=== PATIENT | male | born 1930 | race Caucasian/White ===

== ENCOUNTER 2017-06-04 12:05 | Inpatient (IN) | payer OTHER, MEDICARE ==
--- OUTSIDE RECORDS SUMMARY | 2017-06-04 12:07 | XMS REPORT ---
:1930 [facility] Address [address] [place] [address] Dr. Chun [address] [place] [id number] Care Team Providers Name Role Phone CHRISTEN CALZADA Primary Care Provider Unavailable CHRISTEN CALZADA Unavailable Unavailable Problems This patient has no known problems. Allergies, Adverse Reactions, Alerts This patient has no known allergies or adverse reactions. Medications This patient has no known medications. Results Test Description Test Time Test Comments Text Results Atomic Results Result Comments HLA B 27 Disease Association 2017-02-07 16:08:00 Test Item Value Reference Range Comments HLA-B27 (test qtvc=[id number]) Positive HLA-B*27 PositiveThis patient is positive for HLA-B*27. This procedure rulesout the B*27:06 and 27:09 alleles, which the literaturesuggests are not associated with spondyloarthropathies.B27 allele interpretation for all loci based on IMGT/HLAdatabase version 3.27This test was developed and its performance characteristicsdetermined by [facility]. It has not been cleared or approvedby the Food and Drug Administration.[facility] CLIA ID Number [id number] test was performed using PCR (Polymerase Chain Reaction)/SSOP(Sequence Specific Oligonucleotide Probes) technique. SBT (SequenceBased Typing) and/or SSP (Sequence Specific Primers) may be used assupplemental methods when necessary. Please contact [facility] CustomerService at if you have any questions. Director of [facility] Laboratory Dr Christen Preciado, PhD Sed Rate ESR ([place])2017-01-31 22:44:00 Test Item Value Reference Range Comments ESR (test code=HESR) 2 mm/Hr 0-9 Sed Rate ESR ([place])2017-01-16 04:42:00 Test Item Value Reference Range Comments ESR (test code=HESR) 6 mm/Hr 0-9 Lipid [id number] 23:47:00 Test Item Value Reference Range Comments Cholesterol (test 167 mg/dL 0-200 code=CHOL) Triglycerides (test 44 mg/dL 9-200 code=TRIG) HDL (test code=HDL) 75 mg/dL 40-60 Chol/HDL (test 2.2 Ratio 0.0-5.0 code=CHOLPHDL) LDL, Calculated (test 83 mg/dL 0-130 (NOTE)RISK OF HEART code=LDLC) DISEASEPublished by [place] Heart AssociationAnalyte Optimal Boderline Increased RiskCHOL <200 200-239 >240TRIG <150 150-199 >200HDL Male: >60 <40HDL Female: >60 <50LDL <100 130-159 >160LDL NEAR OPTIMAL IS 100-129 VLDL (test code=VLDL) 9 mg/dL 5-40 LDL/HDL (test code=LDLPHDL) 1 Comprehensive Metabolic [id number] 23:47:00 Test Item Value Reference Range Comments Sodium (test code=NA) 142 mmol/L 135-145 Potassium (test code=K) 4.2 mmol/L 3.5-5.1 Chloride (test code=CL) 102 mmol/L 98-105 Carbon Dioxide (test 34 mmol/L 22-29 code=CO2) Glucose (test code=GLU) 94 mg/dL 70-115 Blood Urea Nitrogen 24 mg/dL 8-23 (test code=BUN) Creatinine (test 1.1 mg/dL 0.7-1.2 code=CREAT) Calcium (test code=CA) 9.0 mg/dL 8.3-10.5 Prot Total (test 6.2 g/dL 6.4-8.3 code=TP) Albumin (test code=ALB) 4.1 g/dL 3.5-5.2 A/G Ratio (test 2.0 Ratio code=AGRATIO) Globulin (test 2.1 2.9-3.1 code=GLOB) Bili Total (test 0.5 mg/dL 0.1-0.9 code=TBIL) Alk Phos (test 55 U/L 40-129 code=APHOS) AST (test code=AST) 28 U/L 1-40 ALT (test code=ALT) 19 U/L 1-41 BUN/Creatinine Ratio 21.8 (test code=BCRATIO) Anion Gap (test 6 mmol/L 7-16 code=AGAP) Estimated GFR (test >60 eGFR (estimated Glomerular code=GFR) mL/min/1.73m2 Filtration Rate) is an estimated value,calculated from the patient's serum creatinine using the MDRD equation.It is NOT the patient's actual GFR. The eGFR provides a more clinicallyuseful measure of kidney disease than serum creatinine alone.This calculation takes sex and race into account, if the informationis provided. If the race is not provided, and the patient isAfrican-[place], multiply by 1.212. If sex is not provided, and thepatient is female, multiply by 0.742. Results for patients <18 years ofage have not been validated by the MDRD study and should be interpretedwith caution.eGFR Result Interpretation:eGFR > or=60 is in the Normal RangeeGFR < 60 may mean kidney diseaseeGFR < 15 may mean kidney failureRanges recommended by the National Kidney Foundation,http://nkdep.ni h.gov CBC with [id number] 23:41:00 Test Item Value Reference Range Comments WBC (test code=WBC) 5.6 K/cumm 4.4-10.5 RBC (test code=RBC) 4.16 M/cumm 4.10-5.70 Hemoglobin (test code=HGB) 12.7 gm/dL 13.4-17.4 Hematocrit (test code=HCT) 41.5 % 38.7-52.0 MCV (test code=MCV) 99.7 fL 80-100 MCH (test code=MCH) 30.5 pg 27.0-32.5 MCHC (test code=MCHC) 30.6 g/dL 32.0-37.5 RDW (test code=RDW) 14.0 % 11.5-14.5 Platelet Count (test code=PLTCT) 221 K/cumm 140-440 MPV (test code=MPV) 9.3 fL Diff Method (test code=DIFFM) Auto Neutrophil (test code=NEUT) 68.4 % 36-70 Lymphocyte (test code=LYMPH) 17.9 % 12-44 Monocyte (test code=MONO) 9.4 % 0-11 Eosinophil (test code=EOS) 3.1 % 0-7 Basophil (test code=BASO) 1.0 % 0-2 Neutro Abs (test code=ANEUT) 3.9 K/cumm 1.6-7.4 Lymph Abs (test code=ALYMPH) 1.0 K/cumm 0.5-4.6 [place] Abs (test code=AMONO) 0.5 K/cumm 0.0-1.2 Eos Abs (test code=AEOS) 0.17 K/cumm 0.00-0.74 Baso Abs (test code=ABASO) 0.1 K/cumm 0.00-0.21
[2017-06-04 13:09] LABS: Absolute Lymphocytes (CBC) 0.6 K/uL (0.7-4.9); Absolute Monocytes 0.9 K/uL (0.1-1.3); Absolute Neutrophil 4.8 K/uL (1.8-8.0); Basophils % 1.2 % (0-1.3); Eosinophils % 6.8 % (0-4.4); Hematocrit 39.2 % (39.6-49.0); Lymphocytes % 8.9 % (15.3-44.8); MCH 30.7 pg (27.0-35.0); MCV 97.3 fL (80-100); MPV 9.2 fL (7.6-11.3); Monocytes % 13.5 % (3.3-12.3); RBC Red Blood Cell Count 4.03 M/uL (4.33-5.43)
[2017-06-04 13:24] LABS: Potassium 4.3 mEq/L (3.6-5.0)
--- NOTE | 2017-06-04 14:04 | EKG ---
Test Date: 2017-06-04 Test Time: 12:53:39 Child And Adolescent Therapist: MATI MEASUREMENT RESULTS: Intervals: Rate: 68 AR: QRSD: 138 QT: 452 QTc: 480 [place]: P: AR: QRS: -27 T: 260 INTERPRETIVE STATEMENTS: Atrial fibrillation Right bundle branch block Abnormal ECG Compared to ECG 05/17/2016 15:28:35 Sinus rhythm no longer present First degree AV block no longer present Left ventricular hypertrophy no longer present Electronically Signed On 06-04-17 14:03:39 CDT by Corona Wang
--- NOTE | 2017-06-04 14:13 | RAD REPORT ---
EXAM DESCRIPTION: RAD - Chest Single View - 06/04/2017 1:01 pm CLINICAL HISTORY: Cough, dyspnea, shortness of breath COMPARISON: Portable chest May 16, CT study May 15, chest exam December 2016 TECHNIQUE: AP portable chest image was obtained 1256 hours . FINDINGS: Lung volumes are relatively low. PICC line has been removed since the prior study. Cardiac silhouette is enlarged. Pulmonary vasculature is within normal limits for portable shallow inspirati on exam. No pneumothorax or large pleural effusion. Left base atelectasis is suspected. There is better aeration of the lung parenchyma overall compared to the prior study. There are now id entifiable pulmonary nodules in the right midlung field. These are relatively dense and more present back on the December 2016 imaging can detailed on that report. These are probably calcified granulomas . These can be monitored on subsequent imaging. No other nodule confirmed. No gross bony abnormality seen. No acute aortic findings suspected. IMPRESSION: Limited shallow inspiration film showing atelectasis but no definitive infiltrate in eit her lung base. Stable cardiomegaly without significant failure or volume overload. Right midlung field pulmonary nodules are probably calcified granulomas. These have not changed since December 2016.
--- NOTE | 2017-06-04 14:45 | EDPHYS ---
Physician Documentation [facility] Name: Byron Martin Jr Age: 86 yrs Sex: Male : 1930 Arrival Date: 06/04/2017 Time: 12:06 Bed 14 Private MD: ED Physician Jeronimo Guerrero HPI: 06/04 12:47 This 86 yrs old Male presents to ER via Wheelchair with complaints of rn Swelling, Shortness Of Breath. 12:47 The patient has shortness of breath at rest, with light activity. Onset: The rn symptoms/episode began/occurred at an unknown time. Duration: The symptoms are intermittent. The patient's shortness of breath is aggravated by exertion, light activity, talking, walking. Associated signs and symptoms: Pertinent positives: productive cough, Pertinent negatives: fever, hemoptysis, loss of consciousness. Severity of symptoms: At their worst the symptoms were mild in the emergency department the symptoms are unchanged. The patient has experienced similar episodes in the past. Reports leg swelling and sob over last few days, states has dealt with this a long time ,has been in and out of hospitals for this, no fever, + yellow sputum. . Historical: - Allergies: 12:09 Iodine; hb 13:15 Iodinated Contrast- Oral and IV Dye; tw2 - Home Meds: 13:15 furosemide 40 mg oral tab 1 tab once daily [Active]; carvedilol 3.125 mg oral tab 1 tab tw2 2 times per day [Active]; bacitracin 500 unit/gram Opht oint 2 drop twice a day [Active]; - PMHx: 13:15 Hypertension; tw2 - Immunization history:: Adult Immunizations up to date. - Social history:: Smoking status: Patient/guardian denies using tobacco. - Family history:: not pertinent. - Hospitalizations: : No recent hospitalization is reported. ROS: 12:47 Constitutional: Negative for fever, chills, and weight loss, Eyes: Negative for injury, rn pain, redness, and discharge, Neck: Negative for injury, pain, and swelling, Cardiovascular: Negative for chest pain, palpitations Respiratory: Negative for wheezing, and pleuritic chest pain, Abdomen/GI: Negative for abdominal pain, nausea, vomiting, diarrhea, and constipation, Back: Negative for injury and pain, MS/Extremity: Negative for injury and deformity, Skin: Negative for injury, rash, and discoloration, Neuro: Negative for headache, numbness, tingling, and seizure. Exam: 12:47 Constitutional: This is a well developed, well nourished patient who is awake, alert, rn and in no acute distress. Head/Face: Normocephalic, atraumatic. Eyes: Pupils equal round and reactive to light, extra-ocular motions intact. Lids and lashes normal. Conjunctiva and sclera are non-icteric and not injected. Cornea within normal limits. Periorbital areas with no swelling, redness, or edema. Neck: Trachea midline, no thyromegaly or masses palpated, and no cervical lymphadenopathy. Supple, full range of motion without nuchal rigidity, or vertebral point tenderness. No Meningismus. Cardiovascular: Regular rate and rhythm with a normal S1 and S2. No gallops, murmurs, or rubs. Normal PMI, no JVD. No pulse deficits. Respiratory: + mild tachypnea with bibasilar crackles, no wheezing, able to speak full sentences Abdomen/GI: Soft, non-tender, with normal bowel sounds. No distension or tympany. No guarding or rebound. No evidence of tenderness throughout. MS/ Extremity: Pulses equal, no cyanosis. Neurovascular intact. Full, normal range of motion. Equal circumference. 3+ pitting edema bilateral lower ext Neuro: Awake and alert, GCS 15, oriented to person, place, and situation. Cranial nerves II-XII grossly intact. Vital Signs: 12:10 BP 117 / 61; Pulse 78; Resp 20; Temp 98; Pulse Ox 100% ; Pain 3/10; hb 13:06 BP 124 / 57; Pulse 75; Resp 22; Pulse Ox 91% on R/A; tw2 14:15 BP 153 / 66; Pulse 78; Resp 23; Pulse Ox 99% on 2 lpm NC; tw2 15:30 BP 134 / 62; Pulse 72; Resp 20; Pulse Ox 99% on 2 lpm NC; rk2 13:06 pt placed on o2 via 2 L at this time. will continue to monitor tw2 MDM: 12:32 Patient medically screened. rn 14:43 Differential diagnosis: CHF exacerbation, Myocardial Infarction pneumonia, Pneumothorax rn pulmonary edema. Data reviewed: vital signs, nurses notes, lab test result(s), EKG, radiologic studies, plain films, and as a result, I will admit patient. Counseling: I had a detailed discussion with the patient and/or guardian regarding: the historical points, exam findings, and any diagnostic results supporting the discharge/admit diagnosis, lab results, radiology results, the need for further work-up and treatment in the hospital. Admission orders: after a detailed discussion of the patient's condition and case, the admit orders are written by me. 06/04 12:42 Order name: Blood Culture Adult (2) 06/04 12:42 Order name: BMP 06/04 12:42 Order name: BNP 06/04 12:42 Order name: Troponin (emerg Dept Use Only) 06/04 12:42 Order name: Urine Microscopic Only 06/04 12:42 Order name: Urine Culture 06/04 13:10 Order name: CBC with Automated Diff; Complete Time: 13:23 EDSC 06/04 13:24 Order name: Basic Metabolic Panel; Complete Time: 14:13 [facility] 06/04 13:32 Order name: Troponin (Emerg Dept Use Only); Complete Time: 14:13 EDSC 06/04 13:34 Order name: BNP B-Type Natriuretic Peptide; Complete Time: 14:13 [facility] 06/04 15:47 Order name: Urine Dipstick--Ancillary (enter results) 06/04 15:52 Order name: Urine Dipstick-Ancillary [facility] 06/04 16:13 Order name: Urine Microscopic Only [facility] 06/04 12:42 Order name: XRAY Chest (1 view) 06/04 12:42 Order name: EKG; Complete Time: 12:42 06/04 12:42 Order name: Cardiac monitoring; Complete Time: 12:43 06/04 12:42 Order name: EKG - Nurse/Tech; Complete Time: 12:43 06/04 12:42 Order name: IV Saline Lock; Complete Time: 12:43 06/04 12:42 Order name: Labs collected and sent; Complete Time: 12:43 06/04 12:42 Order name: O2 Per Protocol; Complete Time: 12:43 06/04 12:42 Order name: O2 Sat Monitoring; Complete Time: 12:43 06/04 12:42 Order name: Urine Dipstick-Ancillary (obtain specimen); Complete Time: 14:10 rn 06/04 14:13 Order name: RAD; Complete Time: 14:34 EDMS Administered Medications: 14:44 Drug: Lasix 40 mg Route: IVP; Site: right antecubital; tw2 Disposition: 06/04/17 14:44 Hospitalization ordered by Jovon Castillo for Observation. Preliminary diagnosis are Unspecified combined systolic (congestive) and diastolic (congestive) heart failure, Dyspnea, unspecified. - Bed requested for Telemetry/MedSurg (observation). - Status is Observation. rk2 - Condition is Stable. - Problem is an ongoing problem. - Symptoms have improved. UTI on Admission? No Signatures: Dispatcher [employer] EDMS Gifty Stevenson Roman, MD MD rn Baxter, Heather, RN RN hb Wise, Tara, RN RN tw2 [employer] RN RN rk2 Corrections: (The following items were deleted from the chart) 14:10 12:42 CBC+H.LAB.BRZ ordered. EDSC EDMS
--- NOTE | 2017-06-04 14:45 | ER ---
Nurse's Notes [facility] Name: Byron Martin Jr Age: 86 yrs Sex: Male : 1930 Arrival Date: 06/04/2017 Time: 12:06 Bed 14 Private MD: Diagnosis: Unspecified combined systolic (congestive) and diastolic (congestive) heart failure;Dyspnea, unspecified Presentation: 06/04 12:08 Presenting complaint: Patient states: SOB and productive cough x 3 days. Transition of hb care: patient was not received from another setting of care. Onset of symptoms is unknown. Care prior to arrival: None. 12:08 Method Of Arrival: Wheelchair hb 12:08 Acuity: GAVINO 3 hb Triage Assessment: 13:20 General: Appears in no apparent distress. Respiratory: Reports shortness of breath tw2 cough that is Onset: The symptoms/episode began/occurred 3 days ago, the patient has mild shortness of breath. Historical: - Allergies: 12:09 Iodine; hb 13:15 Iodinated Contrast- Oral and IV Dye; tw2 - Home Meds: 13:15 furosemide 40 mg oral tab 1 tab once daily [Active]; carvedilol 3.125 mg oral tab 1 tab tw2 2 times per day [Active]; bacitracin 500 unit/gram Opht oint 2 drop twice a day [Active]; - PMHx: 13:15 Hypertension; tw2 - Immunization history:: Adult Immunizations up to date. - Social history:: Smoking status: Patient/guardian denies using tobacco. - Family history:: not pertinent. - Hospitalizations: : No recent hospitalization is reported. Screenin:16 Abuse screen: Denies threats or abuse. Nutritional screening: No deficits noted. tw2 Tuberculosis screening: No symptoms or risk factors identified. Fall Risk Secondary diagnosis (15 points) impaired mobility, Ambulatory Aid- Crutches/Cane/Walker (15 pts). Gait- Weak (10 pts.). Assessment: 13:10 Reassessment: Patient appears in no apparent distress at this time. No changes from tw2 previously documented assessment. Patient and/or family updated on plan of care and expected duration. Pain level reassessed. Patient is alert, oriented x 3, equal unlabored respirations, skin warm/dry/pink. 13:17 General: Appears in no apparent distress. Behavior is calm, cooperative, appropriate tw2 for age. Pain: Denies pain. Neuro: Level of Consciousness is awake, alert, obeys commands, Oriented to person, place, time, situation. Cardiovascular: Denies chest pain, shortness of breath, Edema is 4+ to left midcalf, left ankle, left foot, right midcalf, right ankle and right foot Rhythm is atrial fibrillation With PVC's. Respiratory: Airway is patent Respiratory effort is even, unlabored, shallow, Respiratory pattern is regular, Breath sounds are clear bilaterally. GI: No signs and/or symptoms were reported involving the gastrointestinal system. : No signs and/or symptoms were reported regarding the genitourinary system. EENT: No signs and/or symptoms were reported regarding the EENT system. Derm: Skin is fragile, is thin, Skin is dry, Skin temperature is warm. Musculoskeletal: Kyphosis noted. 14:18 Reassessment: Patient appears in no apparent distress at this time. No changes from tw2 previously documented assessment. Patient and/or family updated on plan of care and expected duration. Pain level reassessed. Patient is alert, oriented x 3, equal unlabored respirations, skin warm/dry/pink. 16:12 Reassessment: Called report to receiving GILDARDO Masterson... pt. to be transported to room by [facility] wheelchair, by tech. Vital Signs: 12:10 BP 117 / 61; Pulse 78; Resp 20; Temp 98; Pulse Ox 100% ; Pain 3/10; hb 13:06 BP 124 / 57; Pulse 75; Resp 22; Pulse Ox 91% on R/A; tw2 14:15 BP 153 / 66; Pulse 78; Resp 23; Pulse Ox 99% on 2 lpm NC; tw2 15:30 BP 134 / 62; Pulse 72; Resp 20; Pulse Ox 99% on 2 lpm NC; rk2 13:06 pt placed on o2 via 2 L at this time. will continue to monitor tw2 ED Course: 12:06 Patient arrived in ED. as 12:09 Triage completed. hb 12:10 Arm band placed on left wrist. hb 12:11 Bed in low position. Side rails up X2. Adult w/ patient. payroll services analyst on. Pulse ox tw2 on. NIBP on. Warm blanket given. 12:24 Irena Garcia RN is Primary Nurse. tw2 12:32 Jeronimo Guerrero MD is Attending Physician. rn 12:55 No provider procedures requiring assistance completed. Inserted saline lock: 22 gauge tw2 in right antecubital area, using aseptic technique. Blood collected. 12:58 EKG done, by technology lab teacher. reviewed by Jeronimo Guerrero MD. at1 13:01 X-ray completed. Portable x-ray completed in exam room. Patient tolerated procedure ml well. 14:09 Blood Culture Adult (2) Sent. ag 14:09 BMP Sent. ag 14:09 BNP Sent. ag 14:10 Troponin (emerg Dept Use Only) Sent. ag 14:44 Jovon Castillo DO is Hospitalizing Provider. rn 15:05 Report given to GILDARDO Cross. tw2 15:38 Urine Culture Sent. ag 15:38 Urine Microscopic Only Sent. ag 16:15 Patient admitted, IV remains in place. rk2 Administered Medications: 14:44 Drug: Lasix 40 mg Route: IVP; Site: right antecubital; tw2 Outcome: 14:44 Decision to Hospitalize by Provider. rn 16:14 Admitted to Tele accompanied by tech, via wheelchair, room 411. rk2 16:14 Condition: good 16:14 Instructed on the need for admit. 16:16 Patient left the ED. rk2 Signatures: Marlene Deluna Melissa ml Jeronimo Guerrero MD MD rn Sindy hamilton, core blower operator EKG Tat1 Nguyễn, Arielle ag Leah Porras, RN RN hb Irena Garcia, RN RN tw2 [employer], RN RN rk2 Corrections: (The following items were deleted from the chart) 12:10 12:10 BP 117 / 61; Pulse 78bpm; Resp 20bpm; Pulse Ox 100%; Temp 98F; Pain 0/10; hb hb 13:27 13:17 Cardiovascular: Denies chest pain, shortness of breath, Rhythm is atrial tw2 fibrillation With PVC's tw2 14:10 14:09 CBC+H.LAB.BRZ drawn and sent. EDMS 14:17 14:15 BP 153 / 66; Pulse 78bpm; Resp 23bpm; Pulse Ox 98% 2 lpm Nasal Cannula; tw2 tw2
[2017-06-04] MEDS ORDERED: FUROSEMIDE 40 MG/4 ML VIAL ONE (14:56)
[2017-06-04 15:52] LABS: Urine Blood TRACE (NEG); Urine Glucose NEGATIVE (NEG); Urine Protein 1+ (NEG); Urine Specific Gravity 1.015 (1.005-1.030); Urine pH 7.5 (5.0-7.0)
[2017-06-04 16:12] LABS: Urine Bacteria <20 /HPF (NONE SEEN); Urine Culture Reflex Order NOT NEEDED; Urine RBC <5 /HPF (NONE SEEN)
--- NOTE | 2017-06-04 16:27 | P.HP ---
Certification for Inpatient Patient admitted to: Observation With expected LOS: <2 Midnights Patient will require the following post-hospital care: Home Health Services Practitioner: I am a practitioner with admitting privileges, knowledge of patient current condition, hospital course, and medical plan of care. Services: Services provided to patient in accordance with Admission requirements found in Title 42 Section 412.3 of the Code of Federal Regulations Patient History Date of Service: 06/04/17 Primary Care Provider: Dr. Hobbs; Cardiology-Dr. Wang Reason for admission: Edema, shortness of breath History of Present Illness: 86-year-old male presented emergency room with increasing edema to the lower extremity and shortness of breath. Most of the information came from the son. Over the last several months the patient has been hospitalized for multiple issues. Back in February he was hospitalized for UTI that required IV antibiotic therapy. He was then transferred to skilled placement. The patient eventually went home. Most recently the patient also had another UTI and was treated and sent home. The patient has home health. Home health noted that he had increasing edema to the lower extremity. The patient takes low-dose Lasix 20 mg daily and carvedilol 3.125 mg twice daily. Son reports that the patient is likely non compliant with medication and fluid restriction. The patient lives by himself. In the ER the patient was evaluated. Blood pressure 147/70, heart rate 76. The patient appeared to be in atrial fibrillation. This was confirmed with the EKG. CBC unremarkable. Sodium 142. Potassium 4.3, BUN of 27, creatinine 1.01 with a GFR 70. BNP was elevated at 946. Troponin 0.04. Chest x-ray showed cardiomegaly. Previous echocardiogram done early this month showed an ejection fraction of 78%. Due to the nature of his symptoms the patient was admitted for evaluation and treatment. In the ER the patient was not in any distress. He does not know whether he has had atrial fibrillation in the past. Patient stable at this time. Patient with history of melanoma Allergies Iodinated Contrast- Oral and IV Dye [Iodinated Contrast Media - IV Dye] Allergy (Verified 05/18/16 13:02) cardiac arrest iodine Allergy (Verified 05/15/17 12:17) Unknown Home medications list reviewed: Yes Home Medications: Terazosin HCl [Hytrin] 10 mg PO DAILY 06/01/15 Aspirin Chewable [Aspirin Chewable*] 81 mg PO DAILY 06/03/15 Furosemide [Lasix*] 40 mg PO DAILY 06/03/15 Latanoprost Ophth [Xalatan 0.005%*] 2.5 ml LEFT EYE DAILY 05/17/16 Amox/Clavulanate [Augmentin 500-125 mg Tab] 500 mg PO TID #15 tab 05/17/17 Furosemide [Lasix*] 20 mg PO DAILY tab 05/17/17 Ondansetron [Zofran*] 4 mg IV Q6HP PRN vial 05/17/17 - Past Medical/Surgical History Diabetic: No -: HTN -: Melanoma -: 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 He currently lives by himself. He gets home health - Family History Family History: Reviewed- Non-Contributory - Social History Smoking Status: Never smoker Alcohol use: No CD- Drugs: No Caffeine use: Yes Place of Residence: Home Review of Systems General: As per HPI Eyes: Unremarkable ENT: Unremarkable Respiratory: Shortness of Breath, SOB with Excertion, As per HPI Cardiovascular: Edema, As per HPI Gastrointestinal: Unremarkable Genitourinary: Unremarkable Musculoskeletal: Unremarkable Integumentary: As per HPI Neurological: Unremarkable Lymphatics: Unremarkable Physical Examination - Vital Signs Temperature: 98 F Blood Pressure: 117/61 Pulse: 78 Respirations: 20 - Physical Exam General: Alert, In no apparent distress, Oriented x3, Cooperative HEENT: Atraumatic, Normocephalic, PERRLA, Other (Patient with severe kyphosis. Multiple scars to the scalp) Neck: Supple, No Thyromegaly Respiratory: Diminished (Bilateral) Cardiovascular: Irregular heart rate/rhythm (Atrial fibrillation, rate controlled) Gastrointestinal: Normal bowel sounds, Soft and benign, Non-distended, No tenderness, No masses, No rebound, No guarding Musculoskeletal: No erythema, No tenderness, No warmth Integumentary: Erythema (2 to 3+ pitting edema to the lower extremities bilateral) Neurological: Normal speech, Normal strength at 5/5 x4 extr, Normal tone, Normal affect - Studies Laboratory Data (last 24 hrs) 06/04/17 12:50: WBC 6.8, Hgb 12.4 L, Hct 39.2 L, Plt Count 258 06/04/17 12:50: B-Natriuretic Peptide 946 H 06/04/17 12:50: Sodium 142, Potassium 4.3, BUN 27 H, Creatinine 1.01, Glucose 98 Assessment and Plan - Problems (Diagnosis) (1) Dyspnea Current Visit: Yes Status: Acute Plan: Patient with noted dyspnea. O2 saturations within normal range. Patient may require home oxygen at discharge there is underlying CHF. Patient will need diuresis. Will teach on 1500 cc per day fluid restriction. Will start with Lasix 40 mg IV twice daily. Will recheck chest x-ray in the morning. Will consult cardiology for further recommendations. Patient appears to be with new onset atrial fibrillation. Rate controlled. Will continue with carvedilol. Will provide anti coagulation therapy in the hospital. Patient not a good candidate as an outpatient for chronic anti coagulation therapy due to risk for fall and bleeding. Advanced directives address in detail with the patient. He is DNR. This was confirmed with family. Will continue with carvedilol. Qualifiers: Dyspnea type: shortness of breath Qualified Code(s): R06.02 - Shortness of breath; R06.00 - Dyspnea, unspecified; R06.01 - Orthopnea (2) Atrial fibrillation Current Visit: Yes Status: Acute Plan: This appears new. Rate controlled. Will start anticoagulation therapy in the hospital. The patient is not a good candidate for chronic anti coagulation out of the hospital due to risk of fall and bleeding. Will continue with carvedilol. Previous echo reviewed. Cardiology consulted. Will discuss further with cardiology. Qualifiers: Atrial fibrillation type: paroxysmal Qualified Code(s): I48.0 - Paroxysmal atrial fibrillation (3) Edema Current Visit: Yes Status: Acute Plan: Will continue as above. Will teach on fluid restriction. Will continue with diuresis. Qualifiers: Edema type: unspecified Qualified Code(s): R60.9 - Edema, unspecified (4) Congestive heart failure (CHF) Current Visit: No Status: Acute Plan: Continue as above Qualifiers: Heart failure type: diastolic Heart failure chronicity: acute on chronic Qualified Code(s): I50.33 - Acute on chronic diastolic (congestive) heart failure (5) HTN (hypertension) Onset Date: 05/16/17 Current Visit: No Status: Chronic Plan: Continue medication Qualifiers: Hypertension type: essential hypertension Discharge Plan: Home Plan to discharge in: 24 Hours - Advance Directives Does patient have a Living Will: No Does patient have a Durable POA for Healthcare: No - Code Status/Comfort Care Code Status Assessed: Yes Time Spent Managing Pts Care (In Minutes): 55
[2017-06-04] MEDS ORDERED: ACETAMINOPHEN 500 MG TAB PO PRN (16:36)
[2017-06-04] MEDS ORDERED: ONDANSETRON 4 MG/2 ML VIAL IV PRN (16:36)
[2017-06-04 17:50] LABS: Urine Appearance CLEAR; Urine Bilirubin NEGATIVE (NEG); Urine Blood NEGATIVE (NEG); Urine Color YELLOW; Urine Glucose NEGATIVE (NEG); Urine Protein NEGATIVE (NEG); Urine Urobilinogen 0.2 mg/dL (0.2-1.0); Urine pH 6.5 (5.0-7.0)
[2017-06-04 17:55] LABS: Urine Microscopic Reflex ORDER UMIC
[2017-06-04] MEDS: FUROSEMIDE 40 MG/4 ML VIAL IV SCH (18:07)
[2017-06-04] MEDS: CARVEDILOL 3.125 MG TAB PO SCH (18:08)
[2017-06-04] MEDS: ENOXAPARIN 80 MG/0.8 ML SQ SCH (18:08)
[2017-06-04 18:29] LABS: CKMB Creatine Kinase MB 5.2 ng/ml (0.3-4.0); Thyroid Stimulating Hormone 0.38 uIU/mL (0.34-5.60)
[2017-06-04 19:15] LABS: Urine Bacteria <20 /HPF (NONE SEEN); Urine Culture Reflex Order REFLEXED; Urine RBC <5 /HPF (NONE SEEN)
[2017-06-05 01:23] LABS: CKMB Creatine Kinase MB 4.1 ng/ml (0.3-4.0)
[2017-06-05 04:17] LABS: Absolute Lymphocytes (CBC) 0.4 K/uL (0.7-4.9); Absolute Monocytes 0.9 K/uL (0.1-1.3); Absolute Neutrophil 5.6 K/uL (1.8-8.0); Basophils % 0.4 % (0-1.3); Eosinophils % 3.4 % (0-4.4); Hematocrit 38.6 % (39.6-49.0); Lymphocytes % 5.5 % (15.3-44.8); MPV 9.1 fL (7.6-11.3); Monocytes % 12.1 % (3.3-12.3); RBC Red Blood Cell Count 3.94 M/uL (4.33-5.43)
[2017-06-05 04:53] LABS: Potassium 4.3 mEq/L (3.6-5.0)
[2017-06-05] MEDS: CARVEDILOL 3.125 MG TAB PO SCH ×2 (05:32→17:30)
[2017-06-05 09:19] LABS: CKMB Creatine Kinase MB 3.9 ng/ml (0.3-4.0)
[2017-06-05] MEDS: PANTOPRAZOLE 40MG TABLET PO SCH (09:20)
[2017-06-05] MEDS: FUROSEMIDE 40 MG/4 ML VIAL IV SCH ×2 (09:20→17:31)
[2017-06-05] MEDS: ENOXAPARIN 80 MG/0.8 ML SQ SCH ×2 (09:24→21:24)
--- NOTE | 2017-06-05 10:42 | CON ---
Reason For Consult: Atrial fibrillation. History Of Present Illness: Mr. Martin is a gentleman, who at age 86, spent the last 4 months or more in either a hospital or a long-term acute care than at home. He has had urinary tract infection that has been intractable. 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 He has been deemed not to be a candidate for surgery by the supervisor machine setter who follows him. We do not have any EKGs from the last 6 months. He was in our hospital late April and early this year. No EKG was done. There are not any rhythm strips to be seen. He had an echocardiogram that day, and I can tell you that while he was having the echocardiogram, he was in atrial fibrillat ion then. He has severe dementia, a very debilitated overall condition. He has had surgeries on his skin to remove squamous cell, basal cell, and melanoma lesions before. We know he has a history of melanoma. I am not clear at all about whether he has metastatic melanoma from any of the reports. Elidia hart was brought to the hospital yesterday. The main complaint was shortness of breath, prod uctive cough. He came from home, arrived in a wheelchair. Outpatient Medications: Furosemide, carvedilol, bacitracin ointment to his eyelids. Past Medical History: We do not have a history if he has had heart surgery before or stents. His [facility] people had noted that he was gaining weight, swelling in his legs. When he came to the [facility], a chest x-ray revealed cardiomegaly, but there did not seem to be pulmonary edema. No evidenc e of prior sternotomy or pacemaker wires or any other hardware there. Physical Examination: General: The patient is obtunded. He could be made to speak a word or 2 but it is not clear that he understands what is spoken to him. This may or may not be his baseline. It is hard for me to tell from any of the information available. Lungs: Do not reveal wheezes or crackles. Heart: Rate is about a 60-80. It is irregular. There is a systolic murmur. It is grade 1/6. It s eems to be a combination of mitral and tricuspid regurgitation and aortic sclerosis. I do not think he has any significant valvular heart disease, based on the physical exam. Extremities: 2+ edema. Distal pulses not palpable. Skin: Discolored. Seems to be chronic venous insufficiency as well. Very likely some arterial occl usive disease, although there is no wound that would not heal. No threatened gangrene. Diagnostic Data: His electrocardiogram shows atrial fibrillation, right bundle-branch block. We hav e an EKG from a year ago that showed sinus rhythm. Impression: The patient's atrial fibrillation rate is controlled. He is not a candidate to be on an ticoagulation. I think there is very little chance that he would tolerate the drugs. For the proced ure, it is necessary to re-establish sinus rhythm. I am going to recommend we allow him to have atri al fib. We will keep the heart rate from going to faster to slow with medications and avoid anticoag ulation. HECTOR/RIP Voice ID: [id number] Report ID: [id number]
--- NOTE | 2017-06-05 13:18 | P.PN ---
Subjective Date of Service: 06/05/17 Primary Care Provider: Dr. Hobbs; Cardiology-Dr. Wang Chief Complaint: Edema, shortness of breath Subjective: Other (Patient resting in bed. Patient still with edema to the lower extremities.) Physical Examination - Vital Signs Temperature: 97.7 F Blood Pressure: 118/53 Pulse: 78 Respirations: 16 Pulse Ox (%): 100 - Physical Exam General: Alert, In no apparent distress, Cooperative HEENT: Other (Severe kyphosis. Scars to the scalp) Neck: Supple Respiratory: Diminished (To the bases bilateral, poor inspiration) Cardiovascular: Irregular heart rate/rhythm (Atrial fibrillation, rate controlled) Gastrointestinal: Normal bowel sounds, Soft and benign, Non-distended, No tenderness, No masses, No rebound, No guarding Musculoskeletal: No erythema, No tenderness, No warmth Integumentary: No erythema, No warmth, Tenderness/swelling (2+ pitting edema to the lower extremities bilateral) Neurological: Normal speech, Normal strength at 5/5 x4 extr, Normal tone, Normal affect - Studies Laboratory Data (last 24 hrs) 06/05/17 08:24: Troponin I 0.03 06/05/17 03:41: Sodium 141, Potassium 4.3, BUN 25 H, Creatinine 1.10, Glucose 118, Magnesium 2.0, Triglycerides 42, Cholesterol 152, HDL Cholesterol 53, Cholesterol/HDL Ratio 2.87 06/05/17 03:41: WBC 7.1, Hgb 12.6 L, Hct 38.6 L, Plt Count 233 06/05/17 00:23: Troponin I 0.03 06/04/17 17:00: Troponin I 0.03 06/04/17 12:50: B-Natriuretic Peptide 946 H 06/04/17 12:50: Sodium 142, Potassium 4.3, BUN 27 H, Creatinine 1.01, Glucose 98 Medications List Reviewed: Yes Assessment & Plan - Problems (Diagnosis) (1) Dyspnea Onset Date: 06/05/17 Current Visit: Yes Status: Acute Plan: Patient still with edema to the lower extremities. Case discussed with cardiology. Patient has atrial fibrillation. Patient not a candidate for intervention or anti coagulation due to: noncompliance, risk for fall, and bleeding. Will continue with rate control medication. Patient doing well with carvedilol. Will continue with IV Lasix. Will check chest x-ray. Spoke with family yesterday. Patient has not been compliant with his regimen. Nurses report that his medications have not been refilled since January. Will recommend skilled placement. Patient may require long-term placement. Family has been trying to place him. Will discuss with social service manager about skilled placement. Patient is DNR. This was addressed with patient. Family was also informed. They agreed. They agreed with plan as well. Qualifiers: Dyspnea type: shortness of breath Qualified Code(s): R06.02 - Shortness of breath; R06.00 - Dyspnea, unspecified; R06.01 - Orthopnea (2) Atrial fibrillation Onset Date: 06/05/17 Current Visit: Yes Status: Acute Plan: This appears new. Will continue with rate control medication. Patient not a candidate for chronic anti coagulation therapy due to risk for fall, bleeding and noncompliance. Cardiology confirms this. Qualifiers: Atrial fibrillation type: paroxysmal Qualified Code(s): I48.0 - Paroxysmal atrial fibrillation (3) Edema Onset Date: 06/05/17 Current Visit: Yes Status: Acute Plan: Will continue as above. Will continue with fluid restriction and diuresis. Will check chest x-ray. Qualifiers: Edema type: unspecified Qualified Code(s): R60.9 - Edema, unspecified (4) Congestive heart failure (CHF) Onset Date: 06/05/17 Current Visit: Yes Status: Acute Plan: Continue as above Qualifiers: Heart failure type: diastolic Heart failure chronicity: acute on chronic Qualified Code(s): I50.33 - Acute on chronic diastolic (congestive) heart failure (5) HTN (hypertension) Onset Date: 05/16/17 Current Visit: Yes Status: Chronic Plan: Continue with medication Qualifiers: Hypertension type: essential hypertension (6) Malnutrition Current Visit: Yes Status: Chronic Plan: Patient with poor nutrition. Will have dietary assess. (7) Risk for falls Current Visit: Yes Status: Acute Plan: Patient at risk for falls. Will have physical therapy assess ambulation. Patient will need skilled placement. (8) Anemia Current Visit: Yes Status: Chronic Plan: Likely of chronic disease. Will monitor closely. Will check iron and B12 levels. Qualifiers: Anemia type: unspecified type Qualified Code(s): D64.9 - Anemia, unspecified Discharge Plan: Other (Skilled placement) Plan to discharge in: 48 Hours Time Spent Managing Pts Care (In Minutes): 55
--- NOTE | 2017-06-05 13:33 | RAD REPORT ---
EXAM DESCRIPTION: RAD - Chest Single View - 06/05/2017 1:27 pm CLINICAL HISTORY: CHF COMPARISON: 06/04/2017, 05/16/2017 FINDINGS: Portable technique limits examination quality. Calcified nodule again noted in the right lung. Mild interstitial lung pulmonary edema is noted, asym metric to the left. The heart is moderately enlarged in size. Aortic atherosclerosis.
[2017-06-05] MEDS ORDERED: LACTULOSE 20 GM/30 ML UCUP PO PRN (14:00)
[2017-06-05 15:22] LABS: Ferritin 21.6 ng/ml (23.9-336.2)
[2017-06-06] MEDS: CARVEDILOL 3.125 MG TAB PO SCH ×2 (06:11→17:13)
[2017-06-06 06:14] LABS: Absolute Lymphocytes (CBC) 0.5 K/uL (0.7-4.9); Absolute Monocytes 0.9 K/uL (0.1-1.3); Absolute Neutrophil 5.6 K/uL (1.8-8.0); Eosinophils % 5.3 % (0-4.4); Hematocrit 37.4 % (39.6-49.0); Lymphocytes % 7.2 % (15.3-44.8); MCH 31.3 pg (27.0-35.0); MPV 9.8 fL (7.6-11.3); Monocytes % 11.8 % (3.3-12.3); RBC Red Blood Cell Count 3.81 M/uL (4.33-5.43)
[2017-06-06 06:20] LABS: Magnesium 1.8 mg/dL (1.8-2.5); Potassium 4.2 mEq/L (3.6-5.0)
[2017-06-06] MEDS ORDERED: MAGNESIUM SULFATE 1 gm IVPB 1 GM/100 ML BAG IV ONE (07:00)
[2017-06-06] MEDS: PANTOPRAZOLE 40MG TABLET PO SCH (09:02)
[2017-06-06] MEDS: ENOXAPARIN 80 MG/0.8 ML SQ SCH (09:02)
[2017-06-06] MEDS: FUROSEMIDE 40 MG/4 ML VIAL IV SCH (09:03)
--- NOTE | 2017-06-06 14:11 | P.PN ---
Subjective Date of Service: 06/06/17 Primary Care Provider: Dr. Hobbs; Cardiology-Dr. Wang Chief Complaint: Edema, shortness of breath Subjective: Other (Patient resting in bed. He has not participated with physical therapy. Patient stable at this time.) Physical Examination - Vital Signs Temperature: 97.3 F Blood Pressure: 102/51 Pulse: 80 Respirations: 20 Pulse Ox (%): 90 - Physical Exam General: Alert, In no apparent distress, Cooperative HEENT: Atraumatic Neck: Supple Respiratory: Crackles/rales (Less crackles to the bases. Improved aeration bilateral) Cardiovascular: Irregular heart rate/rhythm (Atrial fibrillation, rate controlled) Gastrointestinal: Normal bowel sounds, Soft and benign, Non-distended, No tenderness, No masses, No rebound, No guarding Musculoskeletal: No erythema, No tenderness, No warmth Integumentary: Tenderness/swelling (Significant improvement with edema to the lower extremities bilateral) Neurological: Normal speech, Normal strength at 5/5 x4 extr, Normal tone, Normal affect, Other (Severe kyphosis) - Studies Medications List Reviewed: Yes Assessment & Plan - Problems (Diagnosis) (1) Dyspnea Onset Date: 06/05/17 Current Visit: Yes Status: Acute Plan: Edema to the lower extremities significantly improved. Will change IV Lasix to oral. Case discussed at length with cardiology. Patient with atrial fibrillation. Patient not a candidate for chronic anti coagulation due to risk of bleeding, fall and poor compliance. We will change Lovenox to DVT prophylaxis due to risk for fall and bleeding in the hospital. Patient is not participating with physical therapy. Patient desires to go home instead of going to a skilled facility. Patient still unsafe to go home at this time. Patient high risk for fall. Will encourage the patient to go to a skilled facility. Case discussed at length with his son yesterday and agrees with plan to transfer to skilled facility. Await physical therapy evaluation for recommendation. Will need to check if the patient will require home oxygen as well. Qualifiers: Dyspnea type: shortness of breath Qualified Code(s): R06.02 - Shortness of breath; R06.00 - Dyspnea, unspecified; R06.01 - Orthopnea (2) Atrial fibrillation Onset Date: 06/05/17 Current Visit: Yes Status: Acute Plan: Will continue with above plan of care. Patient not a candidate for chronic anti coagulation as stated above. Discuss with cardiology. Qualifiers: Atrial fibrillation type: paroxysmal Qualified Code(s): I48.0 - Paroxysmal atrial fibrillation (3) Edema Onset Date: 06/05/17 Current Visit: Yes Status: Acute Plan: Will continue as above. This has improved. Will change IV Lasix to oral. Will continue with 1500 cc per day fluid restriction. Qualifiers: Edema type: unspecified Qualified Code(s): R60.9 - Edema, unspecified (4) Congestive heart failure (CHF) Onset Date: 06/05/17 Current Visit: Yes Status: Acute Plan: Continue as above Qualifiers: Heart failure type: diastolic Heart failure chronicity: acute on chronic Qualified Code(s): I50.33 - Acute on chronic diastolic (congestive) heart failure (5) HTN (hypertension) Onset Date: 05/16/17 Current Visit: Yes Status: Chronic Plan: Continue with medication. Overall stable Qualifiers: Hypertension type: essential hypertension (6) Malnutrition Current Visit: Yes Status: Chronic Plan: Patient with poor nutrition. Will have dietary assess. (7) Risk for falls Current Visit: Yes Status: Acute Plan: Patient at risk for falls. Will need to have physical therapy assess and make recommendations. Patient likely needs skilled placement. (8) Anemia Current Visit: Yes Status: Chronic Plan: Likely of chronic disease. Will monitor closely. Overall stable. Qualifiers: Anemia type: unspecified type Qualified Code(s): D64.9 - Anemia, unspecified Discharge Plan: Other (Home versus skilled placement) Plan to discharge in: 24 Hours Time Spent Managing Pts Care (In Minutes): 55
[2017-06-06] MEDS: CEFTRIAXONE/SWI 1gm 1 GM/10 ML SYR IV SCH (15:03)
[2017-06-06] MEDS: FUROSEMIDE 40 MG TABLET PO SCH (16:53)
[2017-06-06] MEDS ORDERED: ENOXAPARIN 40 MG/0.4 ML SQ SCH (17:00)
[2017-06-07] MEDS: CARVEDILOL 3.125 MG TAB PO SCH (06:12)
[2017-06-07 06:19] LABS: Absolute Lymphocytes (CBC) 0.7 K/uL (0.7-4.9); Absolute Monocytes 1.1 K/uL (0.1-1.3); Absolute Neutrophil 4.6 K/uL (1.8-8.0); Basophils % 0.5 % (0-1.3); Eosinophils % 7.6 % (0-4.4); Hematocrit 39.5 % (39.6-49.0); MCH 30.9 pg (27.0-35.0); MCV 97.1 fL (80-100); MPV 9.2 fL (7.6-11.3); Monocytes % 15.5 % (3.3-12.3); RBC Red Blood Cell Count 4.07 M/uL (4.33-5.43)
[2017-06-07 06:25] LABS: Magnesium 1.9 mg/dL (1.8-2.5)
[2017-06-07 06:35] LABS: Potassium 3.7 mEq/L (3.6-5.0)
[2017-06-07] MEDS: CEFTRIAXONE/SWI 1gm 1 GM/10 ML SYR IV SCH (09:00)
[2017-06-07] MEDS ORDERED: POTASSIUM 25 MEQ EFFERV TAB PO ONE (09:00)
[2017-06-07] MEDS: PANTOPRAZOLE 40MG TABLET PO SCH (09:49)
[2017-06-07] MEDS: FUROSEMIDE 40 MG TABLET PO SCH (09:50)
--- NOTE | 2017-06-07 11:50 | P.PN ---
Subjective Date of Service: 06/07/17 Primary Care Provider: Dr. Hobbs; Cardiology-Dr. Wang Chief Complaint: Edema, shortness of breath Subjective: Doing well Physical Examination - Vital Signs Temperature: 97.8 F Blood Pressure: 141/65 Pulse: 84 Respirations: 20 Pulse Ox (%): 90 - Physical Exam General: Alert, In no apparent distress, Oriented x3, Cooperative HEENT: Atraumatic Neck: Supple Respiratory: Clear to auscultation bilaterally, Normal air movement Cardiovascular: Normal pulses, Regular rate/rhythm Gastrointestinal: Normal bowel sounds, Soft and benign, Non-distended Musculoskeletal: No contractures, No erythema, No tenderness, No warmth Integumentary: No tenderness/swelling, No erythema, No warmth, No cyanosis Neurological: Normal speech, Normal strength at 5/5 x4 extr, Normal tone, Normal affect Lymphatics: No axilla or inguinal lymphadenopathy - Studies Medications List Reviewed: Yes Assessment & Plan - Problems (Diagnosis) (1) Dyspnea Onset Date: 06/05/17 Current Visit: Yes Status: Acute Plan: Edema to the lower extremities significantly improved. Now on Lasix PO. Patient requiring oxygen primarily when he walks. Will continue with current medications. I did speak at length with physical therapy with the patient present. Physical therapy reported that the patient was able to walk appropriately. When physical therapy heard that his elevator was not working in that he would have to climb stairs, the physical therapist was concerned for possible falls. This was addressed with the patient. He was adamant that he would stay on ground level. Patient is adamant on going home with home health, physical therapy and occupational therapy. He is refusing to go to a skilled facility. This was addressed in detail with the son who has medical power of real estate attorney. The son understands that the patient is able to make his own decisions. The patient was agreeable to have a conference call with the son with social work present to discuss the possibility of going to a skilled facility. If he continues to refuse the patient will be able to be discharged home with home health and physical therapy, the son plans to come from out of town to pick him up later if that is the case. Home health are short of cyst that they would come and follow up with him tomorrow if he was discharged. The son eventually wants the patient to go to a shelter or assisted living facility but the patient has refuse. Will continue to monitor process. Await final decision. Qualifiers: Dyspnea type: shortness of breath Qualified Code(s): R06.02 - Shortness of breath; R06.00 - Dyspnea, unspecified; R06.01 - Orthopnea (2) Atrial fibrillation Onset Date: 06/05/17 Current Visit: Yes Status: Acute Plan: Will continue with above plan of care. Patient not a candidate for chronic anti coagulation as stated above. Qualifiers: Atrial fibrillation type: paroxysmal Qualified Code(s): I48.0 - Paroxysmal atrial fibrillation (3) Edema Onset Date: 06/05/17 Current Visit: Yes Status: Acute Plan: Will continue as above. This has improved. Will continue with Lasix. Will continue with a 1500 cc per day fluid restriction. Compliance was addressed in detail. The patient understands this. Qualifiers: Edema type: unspecified Qualified Code(s): R60.9 - Edema, unspecified (4) Congestive heart failure (CHF) Onset Date: 06/05/17 Current Visit: Yes Status: Acute Plan: Continue as above Qualifiers: Heart failure type: diastolic Heart failure chronicity: acute on chronic Qualified Code(s): I50.33 - Acute on chronic diastolic (congestive) heart failure (5) HTN (hypertension) Onset Date: 05/16/17 Current Visit: Yes Status: Chronic Plan: Continue with medication. Overall stable Qualifiers: Hypertension type: essential hypertension (6) Malnutrition Current Visit: Yes Status: Chronic Plan: Patient with poor nutrition. Will have dietary assess. (7) Risk for falls Current Visit: Yes Status: Acute Plan: Patient at risk for falls. Will need to have physical therapy assess and make recommendations. Patient likely needs skilled placement. (8) Anemia Current Visit: Yes Status: Chronic Plan: Likely of chronic disease. Will monitor closely. Overall stable. Qualifiers: Anemia type: unspecified type Qualified Code(s): D64.9 - Anemia, unspecified (9) Hypercapnia Current Visit: Yes Status: Acute Plan: Patient with hypercapnia. This is likely mechanical in nature. Patient on oxygen. Will monitor this closely. (10) Kyphosis Current Visit: Yes Status: Chronic Plan: Patient with severe kyphosis. This is likely causing some mechanical issues related to hypoxia and hypercapnia. Patient will require oxygen at home. Will have patient continue work with physical therapy. Qualifiers: Spinal region: cervical (11) UTI (urinary tract infection) Onset Date: 05/16/17 Current Visit: No Status: Acute Plan: Will start antibiotic therapy. This will be continued for 7 days. Recheck urine culture after that time monitor resolution. Qualifiers: Urinary tract infection type: site unspecified Hematuria presence: without hematuria Qualified Code(s): N39.0 - Urinary tract infection, site not specified Discharge Plan: Other (Home versus skilled placement) Plan to discharge in: 24 Hours Time Spent Managing Pts Care (In Minutes): 55
--- NOTE | 2017-06-07 15:01 | P.DS ---
Admission Date: 06/05/17 Discharge Date: 06/07/17 Primary Care Provider: Dr. Hobbs; Cardiology-Dr. Wang Disposition: TRANSFER TO INPATIENT REHAB Discharge Condition: GOOD Reason for Admission: Edema, shortness of breath Consultations: Cardiology - Problems (1) Dyspnea Onset Date: 06/05/17 Current Visit: Yes Status: Acute Qualifiers: Dyspnea type: shortness of breath Qualified Code(s): R06.02 - Shortness of breath; R06.00 - Dyspnea, unspecified; R06.01 - Orthopnea (2) Atrial fibrillation Onset Date: 06/05/17 Current Visit: Yes Status: Acute Qualifiers: Atrial fibrillation type: paroxysmal Qualified Code(s): I48.0 - Paroxysmal atrial fibrillation (3) Edema Onset Date: 06/05/17 Current Visit: Yes Status: Acute Qualifiers: Edema type: unspecified Qualified Code(s): R60.9 - Edema, unspecified (4) Congestive heart failure (CHF) Onset Date: 06/05/17 Current Visit: Yes Status: Acute Qualifiers: Heart failure type: diastolic Heart failure chronicity: acute on chronic Qualified Code(s): I50.33 - Acute on chronic diastolic (congestive) heart failure (5) HTN (hypertension) Onset Date: 05/16/17 Current Visit: Yes Status: Chronic Qualifiers: Hypertension type: essential hypertension (6) Malnutrition Current Visit: Yes Status: Chronic (7) Risk for falls Current Visit: Yes Status: Acute (8) Anemia Current Visit: Yes Status: Chronic Qualifiers: Anemia type: unspecified type Qualified Code(s): D64.9 - Anemia, unspecified (9) Hypercapnia Current Visit: Yes Status: Acute (10) Kyphosis Current Visit: Yes Status: Chronic Qualifiers: Spinal region: cervical (11) UTI (urinary tract infection) Onset Date: 05/16/17 Current Visit: No Status: Acute Qualifiers: Urinary tract infection type: site unspecified Hematuria presence: without hematuria Qualified Code(s): N39.0 - Urinary tract infection, site not specified Brief History of Present Illness: 86-year-old male presented emergency room with increasing edema to the lower extremity and shortness of breath. Most of the information came from the son. Over the last several months the patient has been hospitalized for multiple issues. Back in February he was hospitalized for UTI that required IV antibiotic therapy. He was then transferred to skilled placement. The patient eventually went home. Most recently the patient also had another UTI and was treated and sent home. The patient has home health. Home health noted that he had increasing edema to the lower extremity. The patient takes low-dose Lasix 20 mg daily and carvedilol 3.125 mg twice daily. Son reports that the patient is likely non compliant with medication and fluid restriction. The patient lives by himself. In the ER the patient was evaluated. Blood pressure 147/70, heart rate 76. The patient appeared to be in atrial fibrillation. This was confirmed with the EKG. CBC unremarkable. Sodium 142. Potassium 4.3, BUN of 27, creatinine 1.01 with a GFR 70. BNP was elevated at 946. Troponin 0.04. Chest x-ray showed cardiomegaly. Previous echocardiogram done early this month showed an ejection fraction of 78%. Due to the nature of his symptoms the patient was admitted for evaluation and treatment. In the ER the patient was not in any distress. He does not know whether he has had atrial fibrillation in the past. Patient stable at this time. Patient with history of melanoma Hospital Course: Patient presented with shortness of breath. Patient with atrial fibrillation and CHF, diastolic dysfunction. Patient was volume overloaded with edema. Patient was given diuretic therapy. His condition improved. Patient was evaluated by cardiology. Cardiology recommended that he not be on chronic anti coagulation therapy due to risk for fall, bleeding and noncompliance. Patient did well during his stay. Patient did require oxygen. The patient did have some hypoxemia and hypercapnia. The patient was transition to Lasix 40 mg daily and Diamox 125 mg daily. A long discussion about safety at home was addressed with the patient in detail along with physical therapy. Patient high risk for fall. Options were addressed including home with home health, skilled placement or inpatient rehab were provided. Best option was to transfer the patient to inpatient rehab. This was discussed with his medical power of estate planning attorney who agreed. At discharge the patient will go to inpatient rehab to continue physical therapy. Patient currently lives in a house with stilts. The houses in an isolated area. Safety is a concern. Patient will continue with physical therapy to address these issues. At discharge will continue with Lasix 40 mg 1 pill once daily. Diamox 125 mg daily has been added. Patient will continue with aspirin 81 mg daily. Patient is not a candidate for chronic anti coagulation therapy due to age, non compliance and risk for fall. Patient will continue with carvedilol 3.125 mg 1 pill twice daily. Patient will continue with a 1500 cc per day fluid restriction and low-salt diet. Patient was found to have a UTI. At discharge patient will continue with Levaquin 500 mg 1 pill daily for 5 days. Recommendation is to recheck urinalysis after that time to monitor resolution. Patient had some hypoxia with hypercapnia. Patient will continue with Diamox as stated above. Patient will continue with oxygen to maintain sats above 90%. Patient with severe kyphosis. This is likely interfering with his hypoxia. Patient will continue with physical therapy. Patient with hypertension. Medications have been adjusted. He will no longer take lisinopril. He will continue with carvedilol 3.125 mg 1 pill twice daily. Recommendation is to maintain blood pressures less 150/80. Further adjustment can be done by his PCP. Patient at risk for falls. He will continue physical therapy with inpatient rehab. Vital Signs/Physical Exam: Temp Pulse Resp BP Pulse Ox 98.2 F 75 20 119/59 L 91 06/07/17 12:00 06/07/17 12:00 06/07/17 12:00 06/07/17 12:00 06/07/17 12:00 General: Alert, Cooperative HEENT: Atraumatic Neck: Supple Respiratory: Clear to auscultation bilaterally, Normal air movement Cardiovascular: Irregular heart rate/rhythm (Atrial fibrillation, rate controlled) Gastrointestinal: Normal bowel sounds, Soft and benign, Non-distended, No tenderness, No masses, No rebound, No guarding Musculoskeletal: No erythema, No tenderness, No warmth, Kyphosis, Other Integumentary: No erythema, No warmth, No cyanosis Neurological: Normal speech, Normal strength at 5/5 x4 extr, Normal tone, Normal affect Lymphatics: No axilla or inguinal lymphadenopathy Laboratory Data at Discharge: WBC 6.9 K/uL (4.3-10.9) 06/07/17 05:39 Hgb 12.6 g/dL (13.6-17.9) L 06/07/17 05:39 Hct 39.5 % (39.6-49.0) L 06/07/17 05:39 Plt Count 227 K/uL (152-406) 06/07/17 05:39 Sodium 140 mEq/L (135-145) 06/07/17 05:39 Potassium 3.7 mEq/L (3.6-5.0) 06/07/17 05:39 BUN 22 mg/dL (6-20) H 06/07/17 05:39 Creatinine 0.99 mg/dL (0.61-1.24) 06/07/17 05:39 Glucose 93 mg/dL (65-120) 06/07/17 05:39 Magnesium 1.9 mg/dL (1.8-2.5) 06/07/17 05:39 Troponin I 0.03 ng/mL (<0.03) 06/05/17 08:24 B-Natriuretic Peptide 946 pg/ml (<=100) H 06/04/17 12:50 Triglycerides 42 mg/dL (35-160) 06/05/17 03:41 Cholesterol 152 mg/dL (<200) 06/05/17 03:41 HDL Cholesterol 53 mg/dL (27-67) 06/05/17 03:41 Cholesterol/HDL Ratio 2.87 06/05/17 03:41 Home Medications: Carvedilol [Coreg*] 3.125 mg PO BID 06/04/17 Lactulose [Enulose] 10 gm PO DAILY 06/04/17 Acetazolamide [Diamox*] 125 mg PO DAILY #30 tab 06/07/17 Aspirin [Aspirin EC 81 MG] 81 mg PO DAILY #90 tablet. 06/07/17 Furosemide [Lasix*] 40 mg PO DAILY #30 tab 06/07/17 Levofloxacin [Levaquin*] 500 mg PO DAILY #5 tab 06/07/17 New Medications: Acetazolamide [Diamox*] 125 mg PO DAILY #30 tab Aspirin [Aspirin EC 81 MG] 81 mg PO DAILY #90 tablet. Furosemide [Lasix*] 40 mg PO DAILY #30 tab Levofloxacin [Levaquin*] 500 mg PO DAILY #5 tab Patient Discharge Instructions: 1. Patient be transferred to inpatient rehab to continue physical therapy. 2. Patient presented with shortness of breath. Patient with atrial fibrillation and CHF. This has remained stable. Patient will continue with Lasix 40 mg 1 pill once daily. Diamox 125 mg daily has been added. Patient will continue with aspirin 81 mg daily. Patient is not a candidate for chronic anti coagulation therapy due to age, non compliance and risk for fall. Patient will continue with carvedilol 3.125 mg 1 pill twice daily. Patient will continue with a 1500 cc per day fluid restriction and low- salt diet. 3. Patient was found to have a UTI. At discharge patient will continue with Levaquin 500 mg 1 pill daily for 5 days. Recommendation is to recheck urinalysis after that time to monitor resolution. 4. Patient had some hypoxia with hypercapnia. Patient will continue with Diamox as stated above. Patient will continue with oxygen to maintain sats above 90%. Patient with severe kyphosis. This is likely interfering with his hypoxia. Patient will continue with physical therapy. 5. Patient with hypertension. Medications have been adjusted. He will no longer take lisinopril. He will continue with carvedilol 3.125 mg 1 pill twice daily. Recommendation is to maintain blood pressures less 150/80. Further adjustment can be done by his PCP. 6. Patient at risk for falls. He will continue physical therapy with inpatient rehab. Diet: AHA Activity: Fall precautions Time spent managing pt's care (in minutes): 55
[2017-06-08] MEDS ORDERED: levoFLOXacin 500 MG TAB PO SCH (09:00)
[2017-06-08] MEDS ORDERED: FUROSEMIDE 40 MG TABLET PO SCH (09:00)
[2017-06-08] MEDS ORDERED: acetaZOLAMIDE 250 MG TAB PO SCH (09:00)
--- NOTE | 2017-06-09 11:40 | PN ---
The patient was admitted to Dr. Fernández on 06/05/[address] Reynolds for atrial fibrillation. Anticoagulation was not recommended because of his age and multiple other issues. We had hoped for rate control. His rate is controlled today. We will sign off his case for now. The day that Mr. Moraima banks was seen for followup was 06/06/2017. SID/RIP Voice ID: [id number] Report ID: [id number]
== END 2017-06-07 17:24 | DRG 308 ==
LOC: ER 12:05 → ERHOLD 14:45 → 4TH 16:09 → OBSVTOIN 06-05 11:03
PROVIDERS: ADMIT Family Medicine; ATTEND Family Medicine
DX: I48.0 Paroxysmal atrial fibrillation (principal); I50.33 Acute on chronic diastolic (congestive) heart failure; E46 Unspecified protein-calorie malnutrition; N39.0 Urinary tract infection, site not specified; I11.0 Hypertensive heart disease with heart failure; D64.9 Anemia, unspecified; M40.202 Unspecified kyphosis, cervical region; Z68.24 Body mass index [BMI] 24.0-24.9, adult
CPT/HCPCS: 36415; 71045; 80048; 80061; 81003; 81015; 82550; 82553; 82607; 82728; 83540; 83735; 83880; 84439; 84443; 84466; 84484; 85025; 87040; 87077; 87086; 87088; 87186; 93005; 96374; 97163; 99285; G0378; J0696; J1650; J3475

== ENCOUNTER 2017-06-07 13:59 | Inpatient (IN) | payer OTHER, MEDICARE ==
--- NOTE | 2017-06-07 15:32 | R.PREADM ---
SCREENING DATE AND TIME 06/07/2017 14:07 (CDT) ANTICIPATED REHAB ADMISSION DATE 06/09/2017 REFERRING FACILITY [facility] REFERRAL DATE AND TIME 06/07/2017 14:07 (CDT) ACUTE ADMIT DATE 06/05/2017 Previous Rehabilitation(s): No. REFERRING PHYSICIAN DR. Jovon Castillo REHAB FACILITY [facility] CLINICAL LIAISON Nolan Salgado PHYSICIAN REVIEWER Dr. Woody Escamilla M.D. MR# [id number] NAME TWIN OLIVIER ADDRESS [address] PH[address] [facility] [id number] DATE OF 1930 AGE 86 SSN# [id number] GENDER male MARITAL STATUS RACE white ADMIT FROM 02 - [facility] PRE-HOSPITAL LIVING SETTING 01 - Home (private home/apt. board/care, assisted living, prison, transitional living) HOME TYPE AND DETAILS Type of home: single family house # of steps to enter the residence: 15 # of steps within the residence: 15 # of levels in the residence: 1 PRE-HOSPITAL LIVING WITH Alone FAMILY SUPPORT No PRIMARY FAMILY CONTACT NAME Rubin Olivier PRIMARY FAMILY CONTACT PHONE PHONE PRIMARY FAMILY CONTACT ON ADM.? no IS PRIMARY FAMILY CONTACT AUTH. REP.? no 1ST EMERGENCY CONTACT Rubin Olivier 1ST CONTACT PHONE PHONE 1ST CONTACT ON ADM. no IS 1ST CONTACT AUTH. REP.? no PHONE 2ND CONTACT ON ADM.? no PATIENT EMPLOYMENT STATUS Retired (for age) PATIENT EMPLOYER No Employer PAYOR INFORMATION: 1ST PAYOR NAME MEDICARE 1ST PAYOR PHONE 1ST PAYOR INJURY/ILLNESS DUE TO ACCIDENT? No ANOTHER REPUBLICAN RESPONSIBLE? No PRIMARY REHAB/ACUTE DIAGNOSIS: Chronic atrial fibrillation [I482] CHF ONSET DATE 06/05/2017 REHAB IMPAIRMENT CATEGORY (ROZ): 14 Cardiac does NOT meet 60% rule PRIMARY DIAGNOSIS-RELATED SURGERIES: No surgeries related to the primary diagnosis were performed. COMORBID REHAB/ACUTE DIAGNOSES: - Non-Tiered hyphosis Dyspnea [R060] edema - N/A malnutrition anemia hypercapnia INTERVENTIONS: - Malnutrition Labs Nutrition Weights RISK FOR COMPLICATIONS: - Malnutrition Anasarca Dehydration Infection Skin breakdown SUMMARY OF ACUTE HOSPITALIZATION: Pt. is a 86 yo Right-handed white male. On 06/05/2017 he was admitted to [facility] with diagnosis Chronic atrial fibri llation [I482]. His impairment category is Cardiac 09 - Cardiac Disorders (09). Pre-morbidly, Pt. was independent/mod-I in Social Cognition, Self-Care, Sphincter Control, Transfers Control, Communication, and Locomotion; and he had good Sphincter Control. Currently, he has deficits of Social Cognition, Balance, Self-Care, Endurance, Safety Awareness, Hayden sfers Control, Communication, and Locomotion. Pt. is now referred to [facility] for acute in-patient rehabilitation in order to maximize patient's functional independence in activities of daily living, strength, ROM, and mobi lity. Patient has realistic goal of being discharged at assistance level 6-Delia to reside at Home with Leonid mirza. PAST MEDICAL HISTORY Dyspnea [R060] anemia edema hypercapnia hyphosis malnutrition MEDICATION ALLERGIES: iodine ENVIRONMENTAL ALLERGIES: - Substance Allergies None Known - Other Allergies None Known CODE STATUS: Full code WEIGHT/HEIGHT/BMI: WEIGHT 168 lbs HEIGHT 5' 10" BMI 24.1 DIET: - Diet Type Regular - Diet - Solid Texture Regular - Diet - Liquid Texture Regular - Tube Feed N/A REVIEW OF SYSTEMS: - Gen Alert and awake Lying in bed No apparent distress Oriented to: person, time, and place - CVS RRR VITAL SIGNS Temperature: 97.8 F SBP/DBP: 141/65 Pulse: 84 Resp: 20 Vital signs stable, afebrile CURRENT SPHINCTER CONTROL: Pre-hospital bladder status: continent # of bladder accidents in the last 7 days prior to screenin Pre-hospital bowel status: continent # of bowel accidents in the last 7 days prior to screenin Last Bowel Movement Date: 06/07/2017 DETAILED CURRENT FUNCTIONAL STATUS: - Bladder accident frequency: Ind - No accidents in the past 7 days - Bowel accident frequency: Ind - No accidents in the past 7 days - Walking score based on distance walked: 0(N/A) FUNCTIONAL STATUS: - Self-Care A. Eating Ind sup B. Grooming Ind sup C. Bathing Ind Lizbeth D. Dressing - Upper Ind Lizbeth E. Dressing - Lower Ind Lizbeth F. Toileting Ind Lizbeth - Sphincter Control G: Bladder control Ind Ind H: Bowel control Ind Ind - Transfers Control I. Bed/Chair/Wheelchair Ind Lizbeth J. Toilet Ind modA K. Tub/Shower Ind ADNO - Locomotion L. Walk/Wheelchair (B) Ind Lizbeth M. Stairs Ind ADNO - Communication N. Comprehension (B) Ind sup O. Expression (B) Ind sup - Social Cognition P. Social Interaction Ind sup Q. Problem Solving Ind sup R. Memory Ind sup - Endurance Poor - Balance Poor - Safety Awareness Poor CURRENT FUNC. DEFICITS: Social Cognition, Balance, Self-Care, Endurance, Safety Awareness, Transfers Control, Communication, and Locomotion THERAPY NOTES FROM ACUTE CARE: Attached. SPECIAL NEEDS: - Safety Concerns Skin breakdown precautions needed due to skin breakdown risk PATIENT NEEDS ACTIVE AND ONGOING THERAPEUTIC INTERVENTION OF MULTIPLE THERAPY DISCIPLINES, INCLUDING: - Occupational Therapy Evaluate and Treat. - Physical Therapy Evaluate and Treat. PATIENT NEEDS CLOSE MEDICAL SUPERVISION BY A REHABILITATION PHYSICIAN FOR: Bowel and Bladder Management Coordination of Treatment Team Medical and Co-Morbidity Management PATIENT REQUIRES 24X7 REHAB NURSING FOR MEDICAL AND FUNCTIONAL MGT. OF THE FOLLOWING DEFICITS: ADL's Ambulation Bowel and Bladder Management Cognition Communication Disease Management Medication Management Patient/Family Education Providing Safe Environment Transfers PATIENT REQUIRES INTENSIVE, COORDINATED INTERDISCIPLINARY APPROACH TO REHAB: Arranging Home Equipment/Services Discharge Planning Family Intervention/Training Business Travel Consultant/Case Management PATIENT REHAB POTENTIAL: Expected level of measurable improvement will be of a practical value to patient's functional capacit y or adaptations to impairments Has a viable Discharge Plan Medically appropriate; condition is sufficiently stable to participate in intensive rehab program Patient is able and expected to receive 3 hours of individualized therapy daily on at least 5 of ever y 7 days Patient's prognosis for significant practical improvement within a reasonable period of time appears Good DISCHARGE PLAN: - Estimated Length of Stay (days) 10. - Consensus on plan Discharge plan has been discussed with primary caregiver. Patient/Family is in agreement with the thomas n. Primary caregiver is in agreement with the plan. - Patient/Family Goals Return home with assistance. - Planned Living Setting Upon Discharge Home, to live alone. RECOMMENDED CARE LEVEL: IRF RECOMMENDATION DETAILS: Recommended Admission to Comprehensive Rehabilitation Program to Increase Functional [place] SCREENER'S COMPLETENESS CONFIRMATION: - Screening Confirmation The patient data collection on this preadmission screening form is finished PHYSICIANS REVIEW AND ADMISSION DETERMINATION Admit - Based on my review of the Pre-Admission Screening results, in my medical judgment and experie nce, I concur with the findings and recommend admission to [facility], as this patient requires an IRF level of care. SIGNATURE PANEL: Clinical Liaison - [electronically] signed by Flakita Street on 06/07/2017 at 14:25 (CDT) Clinical Liaison - [electronically] signed by Nolan Salgado RN on 06/07/2017 at 14:30 (CDT) Physician Reviewer - [electronically] signed by Dr. Woody Escamilla M.D. on 06/07/2017 at 14:34 (CDT )
--- OUTSIDE RECORDS SUMMARY | 2017-06-07 17:29 | XMS REPORT ---
:1930 [facility] Address [address] [place] [address] Dr. Chun [address] [place] [id number] Care Team Providers Name Role Phone CHRISTEN [...] Item Value Reference Range Comments HLA-B27 (test ckhd=[id number]) Positive HLA-B*27 PositiveThis patient is positive for HLA-B*27. This procedure rulesout the B*27:06 and 27:09 alleles, which the literaturesuggests are not associated with spondyloarthropathies.B27 allele interpretation for all loci based on IMGT/HLAdatabase version 3.27This test was developed and its performance characteristicsdetermined by [facility]. It has not been cleared or approvedby the Food and Drug Administration.[facility] CLIA ID Number [id number] test was performed using PCR (Polymerase Chain [...] ESR (test code=HESR) 6 mm/Hr 0-9 Lipid [id number] 23:47:00 Test Item Value Reference Range Comments Cholesterol (test 167 mg/dL 0-200 code=CHOL) Triglycerides (test 44 mg/dL 9-200 code=TRIG) HDL (test code=HDL) 75 mg/dL 40-60 Chol/HDL (test 2.2 Ratio 0.0-5.0 code=CHOLPHDL) LDL, Calculated (test 83 mg/dL 0-130 (NOTE)RISK OF HEART code=LDLC) DISEASEPublished by Citizen Of The [place] Heart AssociationAnalyte Optimal Boderline Increased RiskCHOL <200 200-239 >240TRIG <150 150-199 >200HDL Male: >60 <40HDL Female: >60 <50LDL <100 130-159 >160LDL NEAR OPTIMAL IS 100-129 VLDL (test code=VLDL) 9 mg/dL 5-40 LDL/HDL (test code=LDLPHDL) 1 Comprehensive Metabolic [id number] 23:47:00 Test Item Value Reference Range Comments [...] race is not provided, and the patient isAfrican-Citizen Of The [place], multiply by 1.212. If sex is not [...] the National Kidney Foundation,http://nkdep.ni h.gov CBC with [id number] 23:41:00 Test Item Value Reference Range Comments [...] Lymph Abs (test code=ALYMPH) 1.0 K/cumm 0.5-4.6 Bay Abs (test code=AMONO) 0.5 K/cumm 0.0-1.2 Eos Abs (test code=AEOS) 0.17 K/cumm 0.00-0.74 Baso Abs (test code=ABASO) 0.1 K/cumm 0.00-0.21
[2017-06-07 18:49] LABS: Urine Appearance CLEAR; Urine Bilirubin NEGATIVE (NEG); Urine Blood NEGATIVE (NEG); Urine Color YELLOW; Urine Glucose NEGATIVE (NEG); Urine Protein NEGATIVE (NEG); Urine pH 7.5 (5.0-7.0)
[2017-06-07 19:25] LABS: Urine Bacteria NONE SEEN /HPF (NONE SEEN); Urine Culture Reflex Order NOT NEEDED; Urine RBC <5 /HPF (NONE SEEN)
[2017-06-07] MEDS: APIXABAN 2.5 MG TABLET PO SCH (20:00)
--- NOTE | 2017-06-07 20:27 | R.HP ---
FACILITY: [facility] ENCOUNTER DATE AND TIME: 06/07/2017 19:25 (CDT) MR#: [id number] NAME TWIN OLIVIER ADDRESS: [address] [place] [address] CITY: [place]IP [id number] PHONE: DATE OF : 1930 AGE: 86 SSN# [id number] GENDER: Male DEXTERITY Right-handed MARITAL STATUS RACE White PRE-HOSPITAL LIVING SETTING 01 - Home (private home/apt. board/care, assisted living, snf, transitional living) PRE-HOSPITAL LIVING WITH Alone ENCOUNTER PHYSICIAN: Dr. Woody Escamilla M.D. REFERRING DOCTOR: DR. Jovon Castillo DATE OF ADMISSION: 06/07/2017 19:25 (Central Daylight Time) REFERRING FACILITY [facility] HOME TYPE AND DETAILS: Type of home: single family house # of steps to enter the residence: 15 # of steps within the residence: 15 # of levels in the residence: 1 ADMISSION DIAGNOSIS: Chronic atrial fibrillation [I482] CHF ONSET DATE: 06/05/2017 PRIMARY DIAGNOSIS-RELATED SURGERIES: No surgeries related to the primary diagnosis were performed. SECONDARY/COMORBID DIAGNOSES (TIERED): - Non-Tiered hyphosis Dyspnea [R060] edema - N/A malnutrition anemia hypercapnia HISTORY OF PRESENT ILLNESS (HPI): Pt. is a 86 yo Right-handed white male. On 06/05/2017 he was admitted to [facility] with diagnosis Chronic atrial fibri llation [I482]. His impairment category is Cardiac 09 - Cardiac Disorders (09). Pre-morbidly, Pt. was independent/mod-I in Social Cognition, Self-Care, Sphincter Control, Transfers Control, Communication, and Locomotion; and he had good Sphincter Control. Currently, he has deficits of Social Cognition, Balance, Self-Care, Endurance, Safety Awareness, Hayden sfers Control, Communication, and Locomotion. Pt. is now referred to [facility] for acute in-patient rehabilitation in order to maximize patient's functional independence in activities of daily living, strength, ROM, and mobi lity. Patient has realistic goal of being discharged at assistance level 6-Delia to reside at Home with Leonid ne. MEDICATION ALLERGIES: iodine ENVIRONMENTAL ALLERGIES: - Substance Allergies None Known - Other Allergies None Known PAST MEDICAL HISTORY: Dyspnea [R060] anemia edema hypercapnia hyphosis malnutrition FAMILY HISTORY: Family history is not contributory. SOCIAL HISTORY: - Home Living Alone REVIEW OF SYSTEMS: - Gen No Chills No Fatigue No Fever - Eyes No Double Vision No itchiness - ENMT No Difficulty Swallowing - CVS Chest Discomfort No Chest Pain Fatigue Weight Gain - Resp Cough Shortness of Breath - GI Continent No Abdominal Pain No Constipation No Diarrhea - Continent No Kidney Pain No Painful Urination No Urinary Urgency - MSK No Joint Pain No Muscle Cramps Stiffness - Skin No Itching No Rash No Suspicious Lesions - Neuro Coordination Difficulty No Difficulty with Concentration No Memory Loss No Seizures Weakness - Psych No Anxiety No Depression No HIV Exposure No Persistent Infections No Seasonal Allergies - Endo No Cold/Heat Intolerance No Excessive Hunger No Excessive Thirst No Excessive Urination PHYSICAL EXAM - Gen Alert and awake Lying in bed No apparent distress Oriented to: person, time, and place - Vital Signs Vital signs stable, afebrile - Skin No breakdowns No abnormalities - Eyes No abnormalities - ENMT No abnormalities - Neck No abnormalities - CVS RRR - Chest Mildly decreased breath sounds bilaterally. - Resp + rhonchi - Abd +bowel sounds - GI Obese Deferred - No abnormalities - Ext Mild bilateral lower extremity edema. - MSK 4/5 weakness in both lower extremities. - Neuro No focal deficits. - Psych No abnormalities VITAL SIGNS Temperature: 97.8 F SBP/DBP: 141/65 Pulse: 84 Resp: 20 NURSING: - Shower allowing shower ACTIVITIES OOB only with supervision FUNCTIONAL STATUS: - Self-Care A. Eating Ind sup B. Grooming Ind sup C. Bathing Ind Lizbeth D. Dressing - Upper Ind Lizbeth E. Dressing - Lower Ind Lizbeth F. Toileting Ind Lizbeth - Sphincter Control G: Bladder control Ind Ind H: Bowel control Ind Ind - Transfers Control I. Bed/Chair/Wheelchair Ind Lizbeth J. Toilet Ind modA K. Tub/Shower Ind ADNO - Locomotion L. Walk/Wheelchair (B) Ind Lizbeth M. Stairs Ind ADNO - Communication N. Comprehension (B) Ind sup O. Expression (B) Ind sup - Social Cognition P. Social Interaction Ind sup Q. Problem Solving Ind sup R. Memory Ind sup - Endurance Poor - Balance Poor - Safety Awareness Poor CURRENT [facility]. DEFICITS: Social Cognition, Balance, Self-Care, Endurance, Safety Awareness, Transfers Control, Communication, and Locomotion ASSESSMENT: Pt. is a 86 yo Right-handed white male.On 06/05/2017 he was admitted to [facility] with diagnosis Chronic atrial fibrillation [I482].His impairment category is Cardiac 09 - Cardia c Disorders (09).Pre-morbidly, Pt. was independent/mod-I in Social Cognition, Self-Care, Sphincter Co ntrol, Transfers Control, Communication, and Locomotion; and he had good Sphincter Control.Currently, he has deficits of Social Cognition, Balance, Self-Care, Endurance, Safety Awareness, Transfers Cont rol, Communication, and Locomotion.Pt. is now referred to [facility] for acute in-patient rehabilitation in order to maximize patient's functional independence in activities of da yuan living, strength, ROM, and mobility.- Rehab Goal Patient has realistic goal of being discharged at assistance level 6-Delia to reside at Home with Leonid mirza. REHAB PLAN: - Physical Therapy Gait dysfunction - to improve, our physical therapists will perform initial evaluation of pt's status upon admission and devise an individualized program for Gait Training, and Wheel Chair mobility Inability to transfer - to improve, our physical therapists will perform initial evaluation of pt's s tatus upon admission and devise an individualized program for Bed mobility Need for home safety evaluation - to improve, our physical therapists will perform initial evaluation of pt's status upon admission and devise an individualized program for Home Evaluation Need in caregiver upon discharge - to improve, our physical therapists will perform initial evaluatio n of pt's status upon admission and devise an individualized program for Caregiver Training New precaution - to improve, our physical therapists will perform initial evaluation of pt's status u alejandra admission and devise an individualized program for Patient precaution education Edema - to improve, our physical therapists will perform initial evaluation of pt's status upon admi ssion and devise an individualized program for Elevation Training, and Lymphedema Therapy Poor balance - to improve, our physical therapists will perform initial evaluation of pt's status upo n admission and devise an individualized program for Balance Training Poor endurance - to improve, our physical therapists will perform initial evaluation of pt's status u alejandra admission and devise an individualized program for Endurance Training Weakness - to improve, our physical therapists will perform initial evaluation of pt's status upon ad mission and devise an individualized program for Aquatic Therapy, Neuromuscular Reeducation, and Stre ngthening Achieving independence - to improve, our physical therapists will perform initial evaluation of pt's status upon admission and devise an individualized program for Community Reintegration Activities - Occupational Therapy ADL deficits - to improve, our occupation therapists will perform initial evaluation of pt's status u alejandra admission and devise an individualized program for Bathing, Bed mobility, Community Reintegration , Cooking, Dressing, Eating, Fine Motor Skills, Grooming, Homemaking, Kitchen Mobility, Laundry, Lida ent Education, Safety Awareness, Splinting - Positioning, Transfers(Toilet, Tub, Shower), and Wheel C hair Management Cognitive deficits - to improve, our occupation therapists will perform initial evaluation of pt's st atus upon admission and devise an individualized program for Cognition - orientation Need for acute care surgeon - to improve, our occupation therapists will perform initial evaluation of pt's s tatus upon admission and devise an individualized program for Caregiver Training Weakness - to improve, our occupation therapists will perform initial evaluation of pt's status upon admission and devise an individualized program for Aquatic Therapy, Balance, Endurance, UE ROM, and U E strengthening MEDICAL PLAN: - Diet Type Start Regular - Diet - Liquid Texture Start Regular - Tube Feed Start N/A - Diet - Solid Texture Regular - Shower shower DISCHARGE PLAN: - Estimated Length of Stay (days) 10. - Consensus on plan Discharge plan has been discussed with primary caregiver. Patient/Family is in agreement with the thomas n. Primary caregiver is in agreement with the plan. - Patient/Family Goals Return home with assistance. - Planned Living Setting Upon Discharge Home, to live alone. SIGNATURE PANEL: (CDT)
--- NOTE | 2017-06-07 20:28 | PAPE ---
PATIENT: [facility] MR# [id number] REFERRING DOCTOR DR. Jovon Castillo EVALUATION DATE AND TIME 06/07/2017 19:29 (CDT) NAME TWIN OLIVIER DATE OF 1930 AGE 86 PHONE N# [id number] GENDER male EVALUATING PHYSICIAN Dr. Woody Escamilla M.D. ADMISSION DIAGNOSIS: Chronic atrial fibrillation [I482] CHF ONSET DATE 06/05/2017 SECONDARY/COMORBID DIAGNOSES TIERED: - Non-Tiered hyphosis Dyspnea [R060] edema - N/A malnutrition anemia hypercapnia POST-ADMISSION FUNCTIONAL/MEDICAL STATUS: - Bladder Same accident frequency: Ind - No accidents in the past 7 days - Bowel Same accident frequency: Ind - No accidents in the past 7 days - Walking Same score based on distance walked: 0(N/A) STATUS CHANGE EVALUATION: No change in Functional or Medical Status is identified compared with Pre-Admission screening. PATIENT NEEDS CLOSE MEDICAL SUPERVISION BY A REHABILITATION PHYSICIAN FOR: Bowel and Bladder Management Coordination of Treatment Team Medical and Co-Morbidity Management PATIENT REQUIRES 24X7 REHAB NURSING FOR MEDICAL AND FUNCTIONAL MGT. OF THE FOLLOWING DEFICITS: ADL's Ambulation Bowel and Bladder Management Cognition Communication Disease Management Medication Management Patient/Family Education Providing Safe Environment Transfers PATIENT REQUIRES INTENSIVE, COORDINATED INTERDISCIPLINARY APPROACH TO REHAB: Arranging Home Equipment/Services Discharge Planning Family Intervention/Training Heading Saw Operator/Case Management LIST OF IDENTIFIED AND POTENTIAL PROBLEMS: Alteration in leisure activities Bladder, Incontinence Bowel, Incontinence Infection, Actual or Potential Mobility Impaired Pain, Alteration in Comfort Self Care Deficit Skin Integrity, Actual or Potential Urinary Tract Infection (UTI), Actual or Potential RISK FOR COMPLICATIONS - Malnutrition Anasarca. Dehydration. Infection. Skin breakdown. INTERVENTIONS - Malnutrition PATIENT COULD BE AT RISK FOR COMPLICATIONS FROM ADVERSE MEDICAL CONDITIONS DUE TO HIS/HER COMORBIDITI ES AND THE RIGORS OF THE INTENSIVE REHABILLITATION PROGRAM. METHODS OR INTERVENTIONS TO AVOID COMPLIC ATIONS INCLUDE: - Infection Clinical staff to assess and manage the signs and symptoms of infection including fever, redness, war mth, etc. - Urinary Tract Infection - Falls Patient will be evaluated for Fall Precautions and will be placed on Fall Precautions as indicated pe r protocol. - Skin Breakdown Nursing will assess skin daily using assessment tool and will place on Skin Breakdown Precautions as indicated per protocol. - Pain Clinical staff may employ non-medication methods such as massage, distraction, decrease stimulus, etc . as needed. Clinical staff will assess patient's pain level every shift per protocol to assess and e nsure pain management effectiveness. Medications will be given and the pain level re-assessed. PRELIMINARY PLAN OF CARE: - Physical Therapy Patient needs Physical Therapy for a daily minimum of 1.5 hours at least 5 out of 7 days, to improve: Mobility, Strengthening, Transfers, Stretching, ROM, Endurance, Ability to manage stairs, Gait, and Balance. - Speech Therapy Patient needs Speech Therapy for a daily minimum of 0.5 hours at least 5 out of 7Swallowing, Cognitio n, Language Skills, and Compensatory Strategies. - Rehabilitation Nursing Patient requires 24x7 Rehabilitation Nursing for: Pain Issues, Identifying and preventing risk factor s, Monitoring and reporting current medical conditions, Assisting with ambulation and transfer, Janet ting with all ADL-s, Teaching patients about disease process and medications, Family teaching, Provid ing safe environment, Bowel and Bladder Issues, Skin Integrity, and Medication Management. Patient needs Heading Saw Operator and/or Case Management for: Discharge Planning, Arranging Home Equipmen t or Services, and Family Interventions. - Dietary and Nutrition Services Patient needs Dietary and Nutrition Services for: Adequate Nutrition, Nutritional Supplements, and Nu tritional Education. - Occupational Therapy Patient needs Occupational Therapy for a daily minimum of 1.5 hours at least 5 out of 7 days, to impr ove Activities of Daily Living, including: Eating, Grooming, Bathing, Dressing, Toileting, Toilet Tra nsfers, Community Reintegration, Higher functional activities, Adaptive Equipment, Splinting, Househo ld Tasks, and Other activities as determined. POTENTIAL FUNCTIONAL GOALS FOR PATIENT TO ACHIEVE BY DISCHARGE: - Safety Precaution Patient will remain free from falls or injury at time of discharge. - Bed Mobility Patient will perform bed mobility at 4-Lizbeth level of assistance. - Transfers Patient will complete transfers from bed to chair at 4-Lizbeth level of assistance. - Mobility Patient will ambulate 150 ft with 4-Lizbeth level of assistance with RW. PATIENT REHAB POTENTIAL Expected level of measurable improvement will be of a practical value to patient's functional capacit y or adaptations to impairments Has a viable Discharge Plan Medically appropriate; condition is sufficiently stable to participate in intensive rehab program Patient is able and expected to receive 3 hours of individualized therapy daily on at least 5 of ever y 7 days Patient's prognosis for significant practical improvement within a reasonable period of time appears Good DISCHARGE PLAN: - Estimated Length of Stay (days) 10. - Consensus on plan Discharge plan has been discussed with primary caregiver. Patient/Family is in agreement with the thomas n. Primary caregiver is in agreement with the plan. - Patient/Family Goals Return home with assistance. - Planned Living Setting Upon Discharge Home, to live alone. CONCLUSION ON REHABILITATION NECESSITY: I have evaluated patient's pre-admission functional status and, comparing it to the patient's post-ad mission functional status now, I conclude that the pre-admission assessment was accurate. Patient's c ondition on admission supports the medical necessity of admission to IR[facility]. It is safe to proceed with patient's therapy program. SIGNATURE PANEL: (CDT)
[2017-06-07] MEDS: CARVEDILOL 3.125 MG TAB PO SCH (20:47)
--- NOTE | 2017-06-08 02:21 | FAST ---
SHIFT START DATE/TIME: 06/07/2017 19:00 (CDT) SHIFT END DATE/TIME: 06/08/2017 07:00 (CDT) NAME TWIN OLIVIER DATE OF : 1930 DATE OF ADMISSION: 06/07/2017 19:25 (CDT) PHONE: AGE: 86 N# [id number] GENDER: Male ENCOUNTER PHYSICIAN: Dr. Woody Escamilla M.D. ADMISSION DIAGNOSIS: - Cardiac 09 - Cardiac Disorders (09) Chronic atrial fibrillation [I482]. CHF. EATING: Activity did not occur on this shift EATING - SCORE: 0-UNK GROOMING: Activity did not occur on this shift GROOMING - SCORE: 0-UNK BATHING: Activity did not occur on this shift BATHING - SCORE: 0-UNK DRESSING - UPPER BODY: Activity did not occur on this shift ARTICLES SCORE Total number of steps: 0 DRESSING - UPPER BODY - SCORE: 0-UNK DRESSING - LOWER BODY: Activity did not occur on this shift ARTICLES SCORE Total number of steps: 0 DRESSING - LOWER BODY - SCORE: 0-UNK TOILETING: TOILETING - STEP 1: Does the patient require assistance with toileting? Yes. TOILETING - STEP 2: Does the patient require the assistance of a helper? Yes. TOILETING - STEP 3: How much assistance does the patient require from the helper? Hands-on assistance from the helper TOILETING - STEP 4: Of the 3 tasks: 1) Adjusting clothing prior to use, 2) Cleansing of perineal area, 3) Adjusting clot portia after use; How many tasks does the patient perform WITHOUT assistance of the helper? Three tasks with steadying assistance from the helper TOILETING - SCORE: 4-MIN BLADDER MANAGEMENT: BLADDER MANAGEMENT - STEP 1: Does the patient control the bladder completely and intentionally without equipment or devices or med ications, and is always continent? No. BLADDER MANAGEMENT - STEP 2: Does the patient require the assistance of a helper? Yes. BLADDER MANAGEMENT - STEP 3: How much assistance does the patient require from the helper? Only set-up of equipment - such as plac ing it within reach of the patient or emptying a device - to maintain either satisfactory voiding pat tern or managing an external device, such as an absorbent pad, ileal device, or catheter BLADDER MANAGEMENT - SCORE: 5-SUP BOWEL MANAGEMENT: Activity did not occur on this shift BOWEL MANAGEMENT - SCORE: 7-IND TRANSFERS: BED, CHAIR, WHEELCHAIR: Activity did not occur on this shift TRANSFERS: BED, CHAIR, WHEELCHAIR - SCORE: 0-UNK TRANSFERS: TOILET: Activity did not occur on this shift TRANSFERS: TOILET - SCORE: 0-UNK TRANSFERS: SHOWER: Activity did not occur on this shift TRANSFERS: SHOWER - SCORE: 0-UNK TRANSFERS: TUB: Activity did not occur on this shift TRANSFERS: TUB - SCORE: 0-UNK LOCOMOTION: WALK: Activity did not occur on this shift LOCOMOTION: WALK - SCORE: 0-UNK LOCOMOTION: WHEELCHAIR: Activity did not occur on this shift LOCOMOTION: WHEELCHAIR - SCORE: 0-UNK COMPREHENSION: COMPREHENSION - STEP 1: Does the patient require help to understand complex and abstract ideas (such as current events, finan césar, discharge planning, medical issues, relationships, etc)? Yes. COMPREHENSION - STEP 2: Does the patient require help to understand questions or statements about basic needs or ideas (such as hunger, thirst, sleep, safety, daily schedule, room location, or discomfort) half or more of the t sheridan? No. COMPREHENSION - STEP 3: How often does the patient need help to understand directions and conversation about basic needs? 10% - 24% of the time COMPREHENSION - SCORE: 4-MIN EXPRESSION EXPRESSION - STEP 1: Does the patient require help expressing complex and abstract ideas (such as current events, finances , discharge planning, medical issues, relationships, etc)? Yes. EXPRESSION - STEP 2: Does the patient require help to express basic necessities or ideas (such as hunger, thirst, sleep, s afety, daily schedule, room location, or discomfort) half or more of the time? No. EXPRESSION - STEP 3: How often does the patient need help to express directions and conversation about basic needs? 10-24% of the time EXPRESSION - SCORE: 4-MIN SOCIAL INTERACTION: SOCIAL INTERACTION - STEP 1: Does the patient require a helper to interact with others in social and therapeutic situations? No. SOCIAL INTERACTION - STEP 2: Does the patient need extra time in social situations, OR does s/he interact with staff, other patien ts, and family members ONLY in structured environments, OR does s/he require medication for social in teraction? Yes, patient needs extra time SOCIAL INTERACTION - SCORE: 6-DENISSE PROBLEM SOLVING: PROBLEM SOLVING - STEP 1: Does the patient need help to solve complex problems such as managing a checking account or confronti ng interpersonal problems? No. PROBLEM SOLVING - STEP 2: Does the patient require extra time to make decisions or solve problems, OR does s/he have slight dif ficulty reading, initiating, or self-correcting in unfamiliar situations? Yes, patient needs extra ti me. PROBLEM SOLVING - SCORE: 6-DENISSE MEMORY: MEMORY - STEP 1: Does the patient need help to remember frequently encountered people, daily routines, and executing r equests? No. MEMORY - STEP 2: Does the patient have slight difficulty recognizing frequently encountered people, daily routines, or executing requests without the need for repetition or using self-initiated or environmental cues to remember? Yes. MEMORY - SCORE: 6-DENISSE SIGNATURE PANEL: The following modified sections: Eating - Score, Grooming - Score, Dressing - Upper Body - Score, Lauri ssing - Lower Body - Score, Toileting - Score, Bladder Management - Score, Bowel Management - Score, Transfers: Bed, Chair, Wheelchair - Score, Transfers: Toilet - Score, Transfers: Shower - Score, Hayden sfers: Tub - Score, Locomotion: Walk - Score, Locomotion: Wheelchair - Score, Comprehension - Score, Expression - Score, Social Interaction - Score, Problem Solving - Score, Memory - Score were [electro nically] signed by Minda Yancey CNA on SatJun 08 2017 01:23:34 GMT-0500 (Central Daylight Time)
[2017-06-08] MEDS: CARVEDILOL 3.125 MG TAB PO SCH ×2 (05:26→17:00)
[2017-06-08 06:28] LABS: Absolute Lymphocytes (CBC) 0.7 K/uL (0.7-4.9); Absolute Neutrophil 3.1 K/uL (1.8-8.0); Basophils % 1.8 % (0-1.3); Eosinophils % 7.8 % (0-4.4); Lymphocytes % 12.5 % (15.3-44.8); MCV 97.9 fL (80-100); MPV 9.5 fL (7.6-11.3); Monocytes % 18.9 % (3.3-12.3); RBC Red Blood Cell Count 3.88 M/uL (4.33-5.43)
[2017-06-08 06:50] LABS: Albumin 2.7 g/dL (3.2-5.5); Magnesium 1.8 mg/dL (1.8-2.5); Prealbumin 10.2 mg/dl (18-38)
[2017-06-08 07:14] LABS: Potassium 4.3 mEq/L (3.6-5.0)
[2017-06-08 08:06] LABS: Blood Morphology Comment NOT SEEN (NOT SEEN); Platelet Estimate ADEQ
[2017-06-08] MEDS: LACTULOSE 20 GM/30 ML UCUP PO SCH (08:24)
[2017-06-08] MEDS: acetaZOLAMIDE 250 MG TAB PO SCH (08:27)
[2017-06-08] MEDS: APIXABAN 2.5 MG TABLET PO SCH ×2 (08:30→20:42)
[2017-06-08] MEDS: ASPIRIN EC 81 MG TAB PO SCH (08:30)
[2017-06-08] MEDS: FUROSEMIDE 40 MG TABLET PO SCH (08:31)
[2017-06-08] MEDS: levoFLOXacin 500 MG TAB PO SCH (08:31)
[2017-06-08] MEDS: ACETAMINOPHEN 500 MG TAB PO PRN (09:33)
[2017-06-08] MEDS ORDERED: ACETAMINOPHEN 500 MG TAB ONE (09:52)
--- NOTE | 2017-06-08 11:11 | FAST ---
SHIFT START DATE/TIME: 06/08/2017 07:00 (CDT) SHIFT END DATE/TIME: 06/08/2017 19:00 (CDT) NAME TWIN OLIVIER DATE OF : 1930 DATE OF ADMISSION: 06/07/2017 19:25 (CDT) PHONE: AGE: 86 N# [id number] GENDER: Male ENCOUNTER PHYSICIAN: Dr. Woody Escamilla M.D. ADMISSION DIAGNOSIS: - Cardiac 09 - Cardiac Disorders () Chronic atrial fibrillation [I482]. CHF. EATING: EATING - STEP 1: Does the patient require assistance when eating? Yes. EATING - STEP 2: Does the patient require the assistance of a helper? No, patient only requires an assistive device, O R s/he takes more than reasonable time to eat, OR there is a safety concern, OR s/he requires modifie d food consistency EATING - SCORE: 6-DENISSE GROOMING: Comb/brush hair Oral care Wash, rinse, and dry face Wash, rinse, and dry hands GROOMING - STEP 1: Does the patient require assistance when grooming? Yes. GROOMING - STEP 2: Does the patient require the assistance of a helper? No. The patient only requires an assistive devic e, OR takes more than reasonable time to groom, OR there is a concern for safety as the patient groom s GROOMING - SCORE: 6-DENISSE BATHING: Activity did not occur on this shift BATHING - SCORE: 0-UNK DRESSING - UPPER BODY: Activity did not occur on this shift ARTICLES SCORE Total number of steps: 0 DRESSING - UPPER BODY - SCORE: 0-UNK DRESSING - LOWER BODY: Activity did not occur on this shift ARTICLES SCORE Total number of steps: 0 DRESSING - LOWER BODY - SCORE: 0-UNK TOILETING: TOILETING - STEP 1: Does the patient require assistance with toileting? Yes. TOILETING - STEP 2: Does the patient require the assistance of a helper? Yes. TOILETING - STEP 3: How much assistance does the patient require from the helper? Hands-on assistance from the helper TOILETING - STEP 4: Of the 3 tasks: 1) Adjusting clothing prior to use, 2) Cleansing of perineal area, 3) Adjusting clot portia after use; How many tasks does the patient perform WITHOUT assistance of the helper? Three tasks with steadying assistance from the helper TOILETING - SCORE: 4-MIN BLADDER MANAGEMENT: BLADDER MANAGEMENT - STEP 1: Does the patient control the bladder completely and intentionally without equipment or devices or med ications, and is always continent? No. BLADDER MANAGEMENT - STEP 2: Does the patient require the assistance of a helper? No, patient requires and independently uses an a ssistive device, such as a urinal, bedpan, bedside commode, catheter, absorbent pad, or collecting de vice BLADDER MANAGEMENT - SCORE: 6-DENISSE BOWEL MANAGEMENT: BOWEL MANAGEMENT - STEP 1: Does the patient control bowels completely and intentionally without equipment devices or medications AND is always continent? No. BOWEL MANAGEMENT - STEP 2: Does the patient require the assistance of a helper? No, patient requires and manages independently a n assistive device such as a bedpan, bedside commode, absorbent pad, incontinent device, or collectin g device BOWEL MANAGEMENT - SCORE: 6-DENISSE TRANSFERS: BED, CHAIR, WHEELCHAIR: TRANSFERS: BED, CHAIR, WHEELCHAIR - STEP 1: Does the patient require assistance with bed, chair, or wheelchair transfers? Yes. TRANSFERS: BED, CHAIR, WHEELCHAIR - STEP 2: Does the patient require the assistance of a helper? Yes. TRANSFERS: BED, CHAIR, WHEELCHAIR - STEP 3: How much assistance does the patient require from the helper? Steadying/guiding assistance TRANSFERS: BED, CHAIR, WHEELCHAIR - SCORE: 4-MIN TRANSFERS: TOILET: TRANSFERS: TOILET - STEP 1: Does the patient require assistance with toilet transfers? Yes. TRANSFERS: TOILET - STEP 2: Does the patient require the assistance of a helper? Yes. TRANSFERS: TOILET - STEP 3: How much assistance does the patient require from the helper? Patient performs half or more of the tr ansferring tasks TRANSFERS: TOILET - STEP 4: Does the patient need only incidental help such as contact guard or steadying during toilet transfer? Yes. TRANSFERS: TOILET - SCORE: 4-MIN TRANSFERS: SHOWER: Activity did not occur on this shift TRANSFERS: SHOWER - SCORE: 0-UNK TRANSFERS: TUB: Activity did not occur on this shift TRANSFERS: TUB - SCORE: 0-UNK LOCOMOTION: WALK: Activity did not occur on this shift LOCOMOTION: WALK - SCORE: 0-UNK LOCOMOTION: WHEELCHAIR: Activity did not occur on this shift LOCOMOTION: WHEELCHAIR - SCORE: 0-UNK COMPREHENSION: COMPREHENSION - SCORE: 0-UNK EXPRESSION EXPRESSION - SCORE: 0-UNK SOCIAL INTERACTION: SOCIAL INTERACTION - SCORE: 0-UNK PROBLEM SOLVING: PROBLEM SOLVING - SCORE: 0-UNK MEMORY: MEMORY - SCORE: 0-UNK SIGNATURE PANEL: The following modified sections: Eating - Score, Grooming - Score, Bathing - Score, Dressing - Upper Body - Score, Dressing - Lower Body - Score, Toileting - Score, Bladder Management - Score, Bowel Man agement - Score, Transfers: Bed, Chair, Wheelchair - Score, Transfers: Toilet - Score, Transfers: Lupe wer - Score, Transfers: Tub - Score, Locomotion: Walk - Score, Locomotion: Wheelchair - Score, Compre hension - Score, Expression - Score, Social Interaction - Score, Problem Solving - Score, Memory - Sc ore were [electronically] signed by Thanh Wolf on Sat Jun 08 2017 10:12:45 GMT-0500 (Central Daylight Time)
--- NOTE | 2017-06-08 13:59 | FAST ---
ENCOUNTER DATE AND TIME: 06/08/2017 08:00 (CDT) NAME TWIN OLIVIER DATE OF : 1930 DATE OF ADMISSION: 06/07/2017 19:25 (CDT) PHONE: AGE: 86 N# [id number] GENDER: Male ENCOUNTER PHYSICIAN: Dr. Woody Escamilla M.D. ADMISSION DIAGNOSIS: - Cardiac 09 - Cardiac Disorders (09) Chronic atrial fibrillation [I482]. CHF. EATING: Activity did not occur on this shift EATING - SCORE: 0-UNK GROOMING: Activity did not occur on this shift GROOMING - SCORE: 0-UNK BATHING: Activity did not occur on this shift BATHING - SCORE: 0-UNK DRESSING - UPPER BODY: Activity did not occur on this shift ARTICLES SCORE Total number of steps: 0 DRESSING - UPPER BODY - SCORE: 0-UNK DRESSING - LOWER BODY: Activity did not occur on this shift ARTICLES SCORE Total number of steps: 0 DRESSING - LOWER BODY - SCORE: 0-UNK TOILETING: Activity did not occur on this shift TOILETING - SCORE: 0-UNK BLADDER MANAGEMENT: Activity did not occur on this shift BLADDER MANAGEMENT - SCORE: 7-IND BOWEL MANAGEMENT: Activity did not occur on this shift BOWEL MANAGEMENT - SCORE: 7-IND TRANSFERS: BED, CHAIR, WHEELCHAIR: TRANSFERS: BED, CHAIR, WHEELCHAIR - STEP 1: Does the patient require assistance with bed, chair, or wheelchair transfers? Yes. TRANSFERS: BED, CHAIR, WHEELCHAIR - STEP 2: Does the patient require the assistance of a helper? Yes. TRANSFERS: BED, CHAIR, WHEELCHAIR - STEP 3: How much assistance does the patient require from the helper? Steadying/guiding assistance TRANSFERS: BED, CHAIR, WHEELCHAIR - SCORE: 4-MIN TRANSFERS: TOILET: Activity did not occur on this shift TRANSFERS: TOILET - SCORE: 0-UNK TRANSFERS: SHOWER: Activity did not occur on this shift TRANSFERS: SHOWER - SCORE: 0-UNK TRANSFERS: TUB: Activity did not occur on this shift TRANSFERS: TUB - SCORE: 0-UNK LOCOMOTION: WALK: LOCOMOTION: WALK - STEP 1: Does the patient need help to walk 150 feet? Yes. LOCOMOTION: WALK - STEP 2: How much assistance does the patient require to walk a minimum of 150 feet? More than incidental help LOCOMOTION: WALK - SCORE: 3-MOD LOCOMOTION: WHEELCHAIR: Activity did not occur on this shift LOCOMOTION: WHEELCHAIR - SCORE: 0-UNK LOCOMOTION: STAIRS: Activity did not occur on this shift LOCOMOTION: STAIRS - SCORE: 0-UNK COMPREHENSION: COMPREHENSION - SCORE: 0-UNK EXPRESSION EXPRESSION - SCORE: 0-UNK SOCIAL INTERACTION: SOCIAL INTERACTION - SCORE: 0-UNK PROBLEM SOLVING: PROBLEM SOLVING - SCORE: 0-UNK MEMORY: MEMORY - SCORE: 0-UNK SIGNATURE PANEL: The following modified sections: Transfers: Bed, Chair, Wheelchair - Score, Transfers: Toilet - Score , Locomotion: Walk - Score, Locomotion: Wheelchair - Score, Locomotion: Stairs - Score were [electron ically] signed by Sergey Merlos PT on Sat Jun 08 2017 13:01:30 GMT-0500 (Central Daylight Time)
--- NOTE | 2017-06-08 15:57 | FAST ---
ENCOUNTER DATE AND TIME: 06/08/2017 08:00 (CDT) NAME TWIN OLIVIER DATE OF : 1930 DATE OF ADMISSION: 06/07/2017 19:25 (CDT) PHONE: AGE: 86 N# [id number] GENDER: Male ENCOUNTER PHYSICIAN: Dr. Woody Escamilla M.D. ADMISSION DIAGNOSIS: - Cardiac 09 - Cardiac Disorders () Chronic atrial fibrillation [I482]. CHF. EATING: Activity did not occur on this shift EATING - SCORE: 0-UNK GROOMING: Comb/brush hair Wash, rinse, and dry face Wash, rinse, and dry hands GROOMING - STEP 1: Does the patient require assistance when grooming? Yes. GROOMING - STEP 2: Does the patient require the assistance of a helper? Yes. GROOMING - STEP 3: How much assistance does the patient require from the helper? Incidental touching assistance from the helper while grooming GROOMING - SCORE: 4-MIN BATHING: Abdomen Buttocks Chest Left arm Left lower leg and foot Left upper leg Perineal area Right arm Right lower leg and foot Right upper leg BATHING - STEP 1: Does the patient require assistance when bathing? Yes. BATHING - STEP 2: Does the patient require the assistance of a helper? Yes. BATHING - STEP 3: How much assistance does the patient require from the helper? More than just incidental help BATHING - STEP 4: What percent of the body parts did the patient bathe WITHOUT the helper? Less than half of the body p arts BATHING - SCORE: 2-MAX DRESSING - UPPER BODY: T-shirt/pullover shirt (four steps) ARTICLES SCORE Total number of steps: 4 DRESSING - UPPER BODY - STEP 1: Does the patient require help when dressing above the waist? Yes. DRESSING - UPPER BODY - STEP 2: Does the patient require the assistance of a helper? Yes. DRESSING - UPPER BODY - STEP 3: Does the helper touch the patient while dressing? Yes. DRESSING - UPPER BODY - STEP 4: How many of the total steps does the patient complete on his/her own? 4 DRESSING - UPPER BODY - SCORE: 4-MIN DRESSING - LOWER BODY: Elastic waist pants (three steps) Sock - Left foot (one step) Sock - Right foot (one step) Underwear (three steps) ARTICLES SCORE Total number of steps: 8 DRESSING - LOWER BODY - STEP 1: Does the patient require help when dressing below the waist? Yes. DRESSING - LOWER BODY - STEP 2: Does the patient require the assistance of a helper? Yes. DRESSING - LOWER BODY - STEP 3: Does the helper touch the patient while dressing? Yes. DRESSING - LOWER BODY - STEP 4: How many of the total steps does the patient complete on his/her own? 2 DRESSING - LOWER BODY - STEP 5: Does patient require total assistance for dressing below the waist such as the helper holding clothin g and performing basically all the activities? No. DRESSING - LOWER BODY - SCORE: 2-MAX TOILETING: Activity did not occur on this shift TOILETING - SCORE: 0-UNK BLADDER MANAGEMENT: Activity did not occur on this shift BLADDER MANAGEMENT - SCORE: 7-IND BOWEL MANAGEMENT: Activity did not occur on this shift BOWEL MANAGEMENT - SCORE: 7-IND TRANSFERS: BED, CHAIR, WHEELCHAIR: Activity did not occur on this shift TRANSFERS: BED, CHAIR, WHEELCHAIR - SCORE: 0-UNK TRANSFERS: TOILET: Activity did not occur on this shift TRANSFERS: TOILET - SCORE: 0-UNK TRANSFERS: SHOWER: Activity did not occur on this shift TRANSFERS: SHOWER - SCORE: 0-UNK TRANSFERS: TUB: TRANSFERS: TUB - STEP 1: Does the patient require assistance with tub transfers? Yes. TRANSFERS: TUB - STEP 2: Does the patient require the assistance of a helper? Yes. TRANSFERS: TUB - STEP 3: How much assistance does the patient require from the helper? More than incidental help TRANSFERS: TUB - STEP 4: How much more help does the patient require from the helper? [place] lifts the patient either up OR do wn TRANSFERS: TUB - SCORE: 3-MOD LOCOMOTION: WALK: Activity did not occur on this shift LOCOMOTION: WALK - SCORE: 0-UNK LOCOMOTION: WHEELCHAIR: Activity did not occur on this shift LOCOMOTION: WHEELCHAIR - SCORE: 0-UNK LOCOMOTION: STAIRS: Activity did not occur on this shift LOCOMOTION: STAIRS - SCORE: 0-UNK COMPREHENSION: COMPREHENSION: TYPE: Both COMPREHENSION - STEP 1: Does the patient require help to understand complex and abstract ideas (such as current events, finan césar, discharge planning, medical issues, relationships, etc)? Yes. COMPREHENSION - STEP 2: Does the patient require help to understand questions or statements about basic needs or ideas (such as hunger, thirst, sleep, safety, daily schedule, room location, or discomfort) half or more of the t [place]? No. COMPREHENSION - STEP 3: How often does the patient need help to understand directions and conversation about basic needs? 25% - 49% of the time COMPREHENSION - SCORE: 3-MOD EXPRESSION EXPRESSION - STEP 1: Does the patient require help expressing complex and abstract ideas (such as current events, finances , discharge planning, medical issues, relationships, etc)? Yes. EXPRESSION - STEP 2: Does the patient require help to express basic necessities or ideas (such as hunger, thirst, sleep, s afety, daily schedule, room location, or discomfort) half or more of the time? No. EXPRESSION - STEP 3: How often does the patient need help to express directions and conversation about basic needs? 25-49% of the time EXPRESSION - SCORE: 3-MOD SOCIAL INTERACTION: SOCIAL INTERACTION - STEP 1: Does the patient require a helper to interact with others in social and therapeutic situations? Yes. SOCIAL INTERACTION - STEP 2: Does the patient interact appropriately half or more of the time? Yes. SOCIAL INTERACTION - STEP 3: How often does the patient need help to interact appropriately? 10-24% of the time SOCIAL INTERACTION - SCORE: 4-MIN PROBLEM SOLVING: PROBLEM SOLVING - STEP 1: Does the patient need help to solve complex problems such as managing a checking account or confronti ng interpersonal problems? Yes. PROBLEM SOLVING - STEP 2: Does the patient solve basic routine problems half or more of the time? No. PROBLEM SOLVING - STEP 3: Does the patient need help to solve problems all the time or is s/he unable to solve problems? No. Pa verónicant can sometimes solve problems PROBLEM SOLVING - SCORE: 2-MAX MEMORY: MEMORY - STEP 1: Does the patient need help to remember frequently encountered people, daily routines, and executing r equests? Yes. MEMORY - STEP 2: How often does the patient need help to remember frequently encountered people, daily routines, and e xecuting requests? 25% - 49% of the time MEMORY - SCORE: 3-MOD SIGNATURE PANEL: The following modified sections: Eating - Score, Grooming - Score, Bathing - Score, Dressing - Upper Body - Score, Dressing - Lower Body - Score, Toileting - Score, Transfers: Bed, Chair, Wheelchair - S core, Transfers: Toilet - Score, Transfers: Shower - Score, Transfers: Tub - Score, Comprehension - S core, Expression - Score, Social Interaction - Score, Problem Solving - Score, Memory - Score were [e lectronically] signed by Heidi Hastings OT on Sat Jun 08 2017 14:58:58 [facility]-0500 ([place] Da ylight Time)
[2017-06-08] MEDS: Bacitracin Opth Oint TOP SCH (20:42)
[2017-06-08] MEDS: LATANOPROST OPTH OPTH SCH (20:43)
--- NOTE | 2017-06-09 00:50 | FAST ---
SHIFT START DATE/TIME: 06/08/2017 19:00 (CDT) SHIFT END DATE/TIME: 06/09/2017 07:00 (CDT) NAME TWIN OLIVIER DATE OF : 1930 DATE OF ADMISSION: 06/07/2017 19:25 (CDT) PHONE: AGE: 86 N# [id number] GENDER: Male ENCOUNTER PHYSICIAN: Dr. Woody Escamilla M.D. ADMISSION DIAGNOSIS: - Cardiac 09 - Cardiac Disorders () Chronic atrial fibrillation [I482]. CHF. EATING: EATING - STEP 1: Does the patient require assistance when eating? Yes. EATING - STEP 2: Does the patient require the assistance of a helper? Yes. EATING - STEP 3: Does the patient perform half or more of the eating tasks? Yes. EATING - STEP 4: Does the patient need only supervision, cuing, coaxing OR help to apply an orthosis OR help to cut fo od, open containers, pour liquids, or butter bread? Yes. EATING - SCORE: 5-SUP GROOMING: Wash, rinse, and dry face Wash, rinse, and dry hands GROOMING - STEP 1: Does the patient require assistance when grooming? Yes. GROOMING - STEP 2: Does the patient require the assistance of a helper? Yes. GROOMING - STEP 3: How much assistance does the patient require from the helper? Only prior equipment preparation/set up from the helper GROOMING - SCORE: 5-SUP BATHING: Activity did not occur on this shift BATHING - SCORE: 0-UNK DRESSING - UPPER BODY: Activity did not occur on this shift ARTICLES SCORE Total number of steps: 0 DRESSING - UPPER BODY - SCORE: 0-UNK DRESSING - LOWER BODY: Activity did not occur on this shift ARTICLES SCORE Total number of steps: 0 DRESSING - LOWER BODY - SCORE: 0-UNK TOILETING: TOILETING - STEP 1: Does the patient require assistance with toileting? Yes. TOILETING - STEP 2: Does the patient require the assistance of a helper? Yes. TOILETING - STEP 3: How much assistance does the patient require from the helper? Only supervision TOILETING - SCORE: 5-SUP BLADDER MANAGEMENT: BLADDER MANAGEMENT - STEP 1: Does the patient control the bladder completely and intentionally without equipment or devices or med ications, and is always continent? No. BLADDER MANAGEMENT - STEP 2: Does the patient require the assistance of a helper? Yes. BLADDER MANAGEMENT - STEP 3: How much assistance does the patient require from the helper? Only set-up of equipment - such as plac ing it within reach of the patient or emptying a device - to maintain either satisfactory voiding pat tern or managing an external device, such as an absorbent pad, ileal device, or catheter BLADDER MANAGEMENT - SCORE: 5-SUP BLADDER MANAGEMENT - FREQUENCY OF ACCIDENTS: BLADDER MANAGEMENT(FA) - STEP 1: How many accidents has the patient had during the current shift? 0 BOWEL MANAGEMENT: Activity did not occur on this shift BOWEL MANAGEMENT - SCORE: 7-IND TRANSFERS: BED, CHAIR, WHEELCHAIR: TRANSFERS: BED, CHAIR, WHEELCHAIR - STEP 1: Does the patient require assistance with bed, chair, or wheelchair transfers? Yes. TRANSFERS: BED, CHAIR, WHEELCHAIR - STEP 2: Does the patient require the assistance of a helper? Yes. TRANSFERS: BED, CHAIR, WHEELCHAIR - STEP 3: How much assistance does the patient require from the helper? Steadying/guiding assistance TRANSFERS: BED, CHAIR, WHEELCHAIR - SCORE: 4-MIN TRANSFERS: TOILET: Activity did not occur on this shift TRANSFERS: TOILET - SCORE: 0-UNK TRANSFERS: SHOWER: Activity did not occur on this shift TRANSFERS: SHOWER - SCORE: 0-UNK TRANSFERS: TUB: Patient requires more than one helper and/or the use of a mechanical lift is utilized TRANSFERS: TUB - SCORE: 1-DEP LOCOMOTION: WALK: Activity did not occur on this shift LOCOMOTION: WALK - SCORE: 0-UNK LOCOMOTION: WHEELCHAIR: Activity did not occur on this shift LOCOMOTION: WHEELCHAIR - SCORE: 0-UNK COMPREHENSION: COMPREHENSION: TYPE: Both COMPREHENSION - STEP 1: Does the patient require help to understand complex and abstract ideas (such as current events, finan césar, discharge planning, medical issues, relationships, etc)? Yes. COMPREHENSION - STEP 2: Does the patient require help to understand questions or statements about basic needs or ideas (such as hunger, thirst, sleep, safety, daily schedule, room location, or discomfort) half or more of the t [place]? No. COMPREHENSION - STEP 3: How often does the patient need help to understand directions and conversation about basic needs? Les s than 10% of the time COMPREHENSION - SCORE: 5-SUP EXPRESSION EXPRESSION: TYPE: Both EXPRESSION - STEP 1: Does the patient require help expressing complex and abstract ideas (such as current events, finances , discharge planning, medical issues, relationships, etc)? No. EXPRESSION - STEP 2: Does the patient need extra time, require an assistive device (such as augmentive communication syste m or a communication board), OR does s/he have mild difficulty expressing complex and abstract ideas (including mild dysarthria or mild word-find problems)? Yes. EXPRESSION - SCORE: 6-DENISSE SOCIAL INTERACTION: SOCIAL INTERACTION - STEP 1: Does the patient require a helper to interact with others in social and therapeutic situations? No. SOCIAL INTERACTION - STEP 2: Does the patient need extra time in social situations, OR does s/he interact with staff, other patien ts, and family members ONLY in structured environments, OR does s/he require medication for social in teraction? Yes, patient needs extra time SOCIAL INTERACTION - SCORE: 6-DENISSE PROBLEM SOLVING: PROBLEM SOLVING - STEP 1: Does the patient need help to solve complex problems such as managing a checking account or confronti ng interpersonal problems? Yes. PROBLEM SOLVING - STEP 2: Does the patient solve basic routine problems half or more of the time? Yes. PROBLEM SOLVING - STEP 3: How often does the patient need help to solve basic routine problems? Less than 10% of the time PROBLEM SOLVING - SCORE: 5-SUP MEMORY: MEMORY - STEP 1: Does the patient need help to remember frequently encountered people, daily routines, and executing r equests? Yes. MEMORY - STEP 2: How often does the patient need help to remember frequently encountered people, daily routines, and e xecuting requests? Less than 10% of the time MEMORY - SCORE: 5-SUP SIGNATURE PANEL: The following modified sections: Eating - Score, Grooming - Score, Bathing - Score, Dressing - Upper Body - Score, Dressing - Lower Body - Score, Toileting - Score, Bladder Management - Score, Bowel Man agement - Score, Transfers: Bed, Chair, Wheelchair - Score, Transfers: Toilet - Score, Transfers: Lupe wer - Score, Transfers: Tub - Score, Locomotion: Walk - Score, Locomotion: Wheelchair - Score, Compre hension - Score, Expression - Score, Social Interaction - Score, Problem Solving - Score, Memory - Sc ore were [electronically] signed by Sindy Reyna C.N.[email or web address] on Sat Jun 08 2017 23:52:04 [facility]-0500 ( Central Daylight Time)
[2017-06-09] MEDS: CARVEDILOL 3.125 MG TAB PO SCH ×2 (05:24→17:06)
[2017-06-09] MEDS: ACETAMINOPHEN 500 MG TAB PO PRN (07:12)
[2017-06-09] MEDS: LACTULOSE 20 GM/30 ML UCUP PO SCH (08:48)
[2017-06-09] MEDS: acetaZOLAMIDE 250 MG TAB PO SCH (08:52)
[2017-06-09] MEDS: FUROSEMIDE 40 MG TABLET PO SCH (08:52)
[2017-06-09] MEDS: ASPIRIN EC 81 MG TAB PO SCH (08:52)
[2017-06-09] MEDS: levoFLOXacin 500 MG TAB PO SCH (08:53)
[2017-06-09] MEDS: APIXABAN 2.5 MG TABLET PO SCH ×2 (08:53→19:49)
--- NOTE | 2017-06-09 10:28 | FAST ---
ENCOUNTER DATE AND TIME: 06/08/2017 08:00 (CDT) NAME TWIN OLIVIER DATE OF : 1930 DATE OF ADMISSION: 06/07/2017 19:25 (CDT) PHONE: AGE: 86 N# [id number] GENDER: Male ENCOUNTER PHYSICIAN: Dr. Woody Escamilla M.D. ADMISSION DIAGNOSIS: - Cardiac 09 - Cardiac Disorders () Chronic atrial fibrillation [I482]. CHF. EATING: EATING - STEP 1: Does the patient require assistance when eating? Yes. EATING - STEP 2: Does the patient require the assistance of a helper? Yes. EATING - STEP 3: Does the patient perform half or more of the eating tasks? Yes. EATING - STEP 4: Does the patient need only supervision, cuing, coaxing OR help to apply an orthosis OR help to cut fo od, open containers, pour liquids, or butter bread? Yes. EATING - SCORE: 5-SUP GROOMING: Activity did not occur on this shift GROOMING - SCORE: 0-UNK BATHING: Activity did not occur on this shift BATHING - SCORE: 0-UNK DRESSING - UPPER BODY: Activity did not occur on this shift ARTICLES SCORE Total number of steps: 0 DRESSING - UPPER BODY - SCORE: 0-UNK DRESSING - LOWER BODY: Activity did not occur on this shift ARTICLES SCORE Total number of steps: 0 DRESSING - LOWER BODY - SCORE: 0-UNK TOILETING: TOILETING - STEP 1: Does the patient require assistance with toileting? Yes. TOILETING - STEP 2: Does the patient require the assistance of a helper? Yes. TOILETING - STEP 3: How much assistance does the patient require from the helper? Hands-on assistance from the helper TOILETING - STEP 4: Of the 3 tasks: 1) Adjusting clothing prior to use, 2) Cleansing of perineal area, 3) Adjusting clot portia after use; How many tasks does the patient perform WITHOUT assistance of the helper? Three tasks with steadying assistance from the helper TOILETING - SCORE: 4-MIN BLADDER MANAGEMENT: BLADDER MANAGEMENT - STEP 1: Does the patient control the bladder completely and intentionally without equipment or devices or med ications, and is always continent? No. BLADDER MANAGEMENT - STEP 2: Does the patient require the assistance of a helper? No, patient requires and independently uses an a ssistive device, such as a urinal, bedpan, bedside commode, catheter, absorbent pad, or collecting de vice BLADDER MANAGEMENT - SCORE: 6-DENISSE BOWEL MANAGEMENT: Activity did not occur on this shift BOWEL MANAGEMENT - SCORE: 7-IND TRANSFERS: BED, CHAIR, WHEELCHAIR: TRANSFERS: BED, CHAIR, WHEELCHAIR - STEP 1: Does the patient require assistance with bed, chair, or wheelchair transfers? Yes. TRANSFERS: BED, CHAIR, WHEELCHAIR - STEP 2: Does the patient require the assistance of a helper? Yes. TRANSFERS: BED, CHAIR, WHEELCHAIR - STEP 3: How much assistance does the patient require from the helper? Steadying/guiding assistance TRANSFERS: BED, CHAIR, WHEELCHAIR - SCORE: 4-MIN TRANSFERS: TOILET: TRANSFERS: TOILET - STEP 1: Does the patient require assistance with toilet transfers? Yes. TRANSFERS: TOILET - STEP 2: Does the patient require the assistance of a helper? Yes. TRANSFERS: TOILET - STEP 3: How much assistance does the patient require from the helper? Patient performs half or more of the tr ansferring tasks TRANSFERS: TOILET - STEP 4: Does the patient need only incidental help such as contact guard or steadying during toilet transfer? Yes. TRANSFERS: TOILET - SCORE: 4-MIN TRANSFERS: SHOWER: Activity did not occur on this shift TRANSFERS: SHOWER - SCORE: 0-UNK TRANSFERS: TUB: Activity did not occur on this shift TRANSFERS: TUB - SCORE: 0-UNK LOCOMOTION: WALK: Activity did not occur on this shift LOCOMOTION: WALK - SCORE: 0-UNK LOCOMOTION: WHEELCHAIR: Activity did not occur on this shift LOCOMOTION: WHEELCHAIR - SCORE: 0-UNK LOCOMOTION: STAIRS: Activity did not occur on this shift LOCOMOTION: STAIRS - SCORE: 0-UNK COMPREHENSION: COMPREHENSION - SCORE: 0-UNK EXPRESSION EXPRESSION - SCORE: 0-UNK SOCIAL INTERACTION: SOCIAL INTERACTION - SCORE: 0-UNK PROBLEM SOLVING: PROBLEM SOLVING - SCORE: 0-UNK MEMORY: MEMORY - SCORE: 0-UNK SIGNATURE PANEL: The following modified sections: Eating - Score, Toileting - Score, Bladder Management - Score, Trans fers: Bed, Chair, Wheelchair - Score, Transfers: Toilet - Score, Comprehension - Score, Expression - Score, Social Interaction - Score, Problem Solving - Score, Memory - Score were [electronically] sign ed by Thanh Wolf on SatJun 09 2017 09:30:02 GMT-0500 (Central Daylight Time)
[2017-06-09] MEDS: BISACODYL 10 MG RECTAL SUPP PR PRN (11:10)
[2017-06-09] MEDS ORDERED: GLYCERIN ADULT SUPP PR PRN (19:22)
[2017-06-09] MEDS: LATANOPROST OPTH OPTH SCH (19:49)
[2017-06-09] MEDS: MELATONIN 3 MG TABLET PO PRN (19:51)
[2017-06-09] MEDS: Bacitracin Opth Oint TOP SCH (19:59)
--- NOTE | 2017-06-10 04:27 | FAST ---
SHIFT START DATE/TIME: 06/09/2017 19:00 (CDT) SHIFT END DATE/TIME: 06/10/2017 07:00 (CDT) NAME TWIN OLIVIER DATE OF : 1930 DATE OF ADMISSION: 06/07/2017 19:25 (CDT) PHONE: AGE: 86 N# [id number] GENDER: Male ENCOUNTER PHYSICIAN: Dr. Woody Escamilla M.D. ADMISSION DIAGNOSIS: - Cardiac 09 - Cardiac Disorders (09) Chronic atrial fibrillation [I482]. CHF. EATING: EATING - STEP 1: Does the patient require assistance when eating? Yes. EATING - STEP 2: Does the patient require the assistance of a helper? Yes. EATING - STEP 3: Does the patient perform half or more of the eating tasks? Yes. EATING - STEP 4: Does the patient need only supervision, cuing, coaxing OR help to apply an orthosis OR help to cut fo od, open containers, pour liquids, or butter bread? Yes. EATING - SCORE: 5-SUP GROOMING: Activity did not occur on this shift GROOMING - SCORE: 0-UNK BATHING: Activity did not occur on this shift BATHING - SCORE: 0-UNK DRESSING - UPPER BODY: Activity did not occur on this shift ARTICLES SCORE Total number of steps: 0 DRESSING - UPPER BODY - SCORE: 0-UNK DRESSING - LOWER BODY: Activity did not occur on this shift ARTICLES SCORE Total number of steps: 0 DRESSING - LOWER BODY - SCORE: 0-UNK TOILETING: Activity did not occur on this shift TOILETING - SCORE: 0-UNK BLADDER MANAGEMENT: BLADDER MANAGEMENT - STEP 1: Does the patient control the bladder completely and intentionally without equipment or devices or med ications, and is always continent? No. BLADDER MANAGEMENT - STEP 2: Does the patient require the assistance of a helper? Yes. BLADDER MANAGEMENT - STEP 3: How much assistance does the patient require from the helper? Patient requires contact assistance fro m the helper BLADDER MANAGEMENT - STEP 4: How much contact assistance does the patient require from the helper? Patient requires minimal assist ance to maintain an external device - by positioning, and the patient performs 75% or more of bladder management tasks, while the helper provides less than 25% of the assistance to position patient on / off bedpan BLADDER MANAGEMENT - SCORE: 4-MIN BLADDER MANAGEMENT - FREQUENCY OF ACCIDENTS: BLADDER MANAGEMENT(FA) - STEP 1: How many accidents has the patient had during the current shift? 2 BOWEL MANAGEMENT: Activity did not occur on this shift BOWEL MANAGEMENT - SCORE: 7-IND TRANSFERS: BED, CHAIR, WHEELCHAIR: TRANSFERS: BED, CHAIR, WHEELCHAIR - STEP 1: Does the patient require assistance with bed, chair, or wheelchair transfers? Yes. TRANSFERS: BED, CHAIR, WHEELCHAIR - STEP 2: Does the patient require the assistance of a helper? Yes. TRANSFERS: BED, CHAIR, WHEELCHAIR - STEP 3: How much assistance does the patient require from the helper? Steadying/guiding assistance TRANSFERS: BED, CHAIR, WHEELCHAIR - SCORE: 4-MIN TRANSFERS: TOILET: Activity did not occur on this shift TRANSFERS: TOILET - SCORE: 0-UNK TRANSFERS: SHOWER: Activity did not occur on this shift TRANSFERS: SHOWER - SCORE: 0-UNK TRANSFERS: TUB: Activity did not occur on this shift TRANSFERS: TUB - SCORE: 0-UNK LOCOMOTION: WALK: Activity did not occur on this shift LOCOMOTION: WALK - SCORE: 0-UNK LOCOMOTION: WHEELCHAIR: Activity did not occur on this shift LOCOMOTION: WHEELCHAIR - SCORE: 0-UNK COMPREHENSION: COMPREHENSION: TYPE: Both COMPREHENSION - STEP 1: Does the patient require help to understand complex and abstract ideas (such as current events, finan césar, discharge planning, medical issues, relationships, etc)? Yes. COMPREHENSION - STEP 2: Does the patient require help to understand questions or statements about basic needs or ideas (such as hunger, thirst, sleep, safety, daily schedule, room location, or discomfort) half or more of the t sheridan? No. COMPREHENSION - STEP 3: How often does the patient need help to understand directions and conversation about basic needs? 25% - 49% of the time COMPREHENSION - SCORE: 3-MOD EXPRESSION EXPRESSION: TYPE: Both EXPRESSION - STEP 1: Does the patient require help expressing complex and abstract ideas (such as current events, finances , discharge planning, medical issues, relationships, etc)? Yes. EXPRESSION - STEP 2: Does the patient require help to express basic necessities or ideas (such as hunger, thirst, sleep, s afety, daily schedule, room location, or discomfort) half or more of the time? No. EXPRESSION - STEP 3: How often does the patient need help to express directions and conversation about basic needs? 10-24% of the time EXPRESSION - SCORE: 4-MIN SOCIAL INTERACTION: SOCIAL INTERACTION - STEP 1: Does the patient require a helper to interact with others in social and therapeutic situations? Yes. SOCIAL INTERACTION - STEP 2: Does the patient interact appropriately half or more of the time? Yes. SOCIAL INTERACTION - STEP 3: How often does the patient need help to interact appropriately? Less than 10% of the time SOCIAL INTERACTION - SCORE: 5-SUP PROBLEM SOLVING: PROBLEM SOLVING - STEP 1: Does the patient need help to solve complex problems such as managing a checking account or confronti ng interpersonal problems? Yes. PROBLEM SOLVING - STEP 2: Does the patient solve basic routine problems half or more of the time? No. PROBLEM SOLVING - STEP 3: Does the patient need help to solve problems all the time or is s/he unable to solve problems? No. Gumaro tod can sometimes solve problems PROBLEM SOLVING - SCORE: 2-MAX MEMORY: MEMORY - STEP 1: Does the patient need help to remember frequently encountered people, daily routines, and executing r equests? Yes. MEMORY - STEP 2: How often does the patient need help to remember frequently encountered people, daily routines, and e xecuting requests? More than 50% of the time MEMORY - STEP 3: Does the patient need help to remember all of the time OR does s/he not effectively recognize and rem ember? No. Patient does not need help all the time MEMORY - SCORE: 2-MAX SIGNATURE PANEL: The following modified sections: Eating - Score, Grooming - Score, Bathing - Score, Dressing - Upper Body - Score, Dressing - Lower Body - Score, Toileting - Score, Bladder Management - Score, Bowel Man agement - Score, Transfers: Bed, Chair, Wheelchair - Score, Transfers: Toilet - Score, Transfers: Lupe wer - Score, Transfers: Tub - Score, Locomotion: Walk - Score, Locomotion: Wheelchair - Score, Compre hension - Score, Expression - Score, Social Interaction - Score, Problem Solving - Score, Memory - Sc ore were [electronically] signed by Lana De AndaN.[email or web address] on SatJun 10 2017 03:29:03 T-0500 ( Central Daylight Time)
[2017-06-10] MEDS: CARVEDILOL 3.125 MG TAB PO SCH ×2 (05:01→16:56)
[2017-06-10] MEDS: LACTULOSE 20 GM/30 ML UCUP PO SCH (08:35)
[2017-06-10] MEDS: FUROSEMIDE 40 MG TABLET PO SCH (08:35)
[2017-06-10] MEDS: acetaZOLAMIDE 250 MG TAB PO SCH (08:35)
[2017-06-10] MEDS: ACETAMINOPHEN 500 MG TAB PO PRN (08:35)
[2017-06-10] MEDS: APIXABAN 2.5 MG TABLET PO SCH ×2 (08:36→21:30)
[2017-06-10] MEDS: ASPIRIN EC 81 MG TAB PO SCH (08:36)
[2017-06-10] MEDS: levoFLOXacin 500 MG TAB PO SCH (08:36)
--- NOTE | 2017-06-10 12:34 | FAST ---
ENCOUNTER DATE AND TIME: 06/10/2017 08:00 (CDT) NAME TWIN OLIVIER DATE OF : 1930 DATE OF ADMISSION: 06/07/2017 19:25 (CDT) PHONE: AGE: 86 N# [id number] GENDER: Male ENCOUNTER PHYSICIAN: Dr. Woody Escamilla M.D. ADMISSION DIAGNOSIS: - Cardiac 09 - Cardiac Disorders (09) Chronic atrial fibrillation [I482]. CHF. EATING: Activity did not occur on this shift EATING - SCORE: 0-UNK GROOMING: Activity did not occur on this shift GROOMING - SCORE: 0-UNK BATHING: Activity did not occur on this shift BATHING - SCORE: 0-UNK DRESSING - UPPER BODY: Activity did not occur on this shift ARTICLES SCORE Total number of steps: 0 DRESSING - UPPER BODY - SCORE: 0-UNK DRESSING - LOWER BODY: Activity did not occur on this shift ARTICLES SCORE Total number of steps: 0 DRESSING - LOWER BODY - SCORE: 0-UNK TOILETING: Activity did not occur on this shift TOILETING - SCORE: 0-UNK BLADDER MANAGEMENT: Activity did not occur on this shift BLADDER MANAGEMENT - SCORE: 7-IND BOWEL MANAGEMENT: Activity did not occur on this shift BOWEL MANAGEMENT - SCORE: 7-IND TRANSFERS: BED, CHAIR, WHEELCHAIR: Activity did not occur on this shift TRANSFERS: BED, CHAIR, WHEELCHAIR - SCORE: 0-UNK TRANSFERS: TOILET: Activity did not occur on this shift TRANSFERS: TOILET - SCORE: 0-UNK TRANSFERS: SHOWER: Activity did not occur on this shift TRANSFERS: SHOWER - SCORE: 0-UNK TRANSFERS: TUB: Activity did not occur on this shift TRANSFERS: TUB - SCORE: 0-UNK LOCOMOTION: WALK: Activity did not occur on this shift LOCOMOTION: WALK - SCORE: 0-UNK LOCOMOTION: WHEELCHAIR: Patient propels wheelchair less than 50 ft LOCOMOTION: WHEELCHAIR - SCORE: 1-DEP LOCOMOTION: WHEELCHAIR - COMMENTS: Patient total distance 250' with multiple breaks LOCOMOTION: STAIRS: Activity did not occur on this shift LOCOMOTION: STAIRS - SCORE: 0-UNK COMPREHENSION: COMPREHENSION - SCORE: 0-UNK EXPRESSION EXPRESSION - SCORE: 0-UNK SOCIAL INTERACTION: SOCIAL INTERACTION - SCORE: 0-UNK PROBLEM SOLVING: PROBLEM SOLVING - SCORE: 0-UNK MEMORY: MEMORY - SCORE: 0-UNK SIGNATURE PANEL: The following modified sections: Transfers: Bed, Chair, Wheelchair - Score, Transfers: Toilet - Score , Locomotion: Walk - Score, Locomotion: Wheelchair - Score, Locomotion: Wheelchair - Comments:, Locom otion: Stairs - Score were [electronically] signed by Marian Romano PTA on SatJun 10 2017 11:36:40 GMT -0500 (Central Daylight Time)
--- NOTE | 2017-06-10 13:56 | RAD REPORT ---
EXAM DESCRIPTION: RAD - Barium Swallow Modified - 06/10/2017 1:50 pm CLINICAL HISTORY: Coughing and choking FINDINGS: Aspiration w/ no cough w/ thin liquids Severe Pharyngeal residue on the vallecular, pyriform, posterior wall with thicker consistencies Delayed swallow reflex, Reduced hyolaryngeal excursion, Reduced opening of the UES.
--- NOTE | 2017-06-10 15:37 | FAST ---
SHIFT START DATE/TIME: 06/10/2017 07:00 (CDT) SHIFT END DATE/TIME: 06/10/2017 19:00 (CDT) NAME TWIN OLIVIER DATE OF : 1930 DATE OF ADMISSION: 06/07/2017 19:25 (CDT) PHONE: AGE: 86 N# [id number] GENDER: Male ENCOUNTER PHYSICIAN: Dr. Woody Escamilla M.D. ADMISSION DIAGNOSIS: - Cardiac 09 - Cardiac Disorders (09) Chronic atrial fibrillation [I482]. CHF. EATING: EATING - STEP 1: Does the patient require assistance when eating? Yes. EATING - STEP 2: Does the patient require the assistance of a helper? No, patient only requires an assistive device, O R s/he takes more than reasonable time to eat, OR there is a safety concern, OR s/he requires modifie d food consistency EATING - SCORE: 6-DENSISE GROOMING: Activity did not occur on this shift GROOMING - SCORE: 0-UNK BATHING: Activity did not occur on this shift BATHING - SCORE: 0-UNK DRESSING - UPPER BODY: Button down shirt or blouse - NOT tucked in (four steps) ARTICLES SCORE Total number of steps: 4 DRESSING - UPPER BODY - STEP 1: Does the patient require help when dressing above the waist? Yes. DRESSING - UPPER BODY - STEP 2: Does the patient require the assistance of a helper? Yes. DRESSING - UPPER BODY - STEP 3: Does the helper touch the patient while dressing? No. DRESSING - UPPER BODY - SCORE: 5-SUP DRESSING - LOWER BODY: Elastic waist pants (three steps) Underwear (three steps) ARTICLES SCORE Total number of steps: 6 DRESSING - LOWER BODY - STEP 1: Does the patient require help when dressing below the waist? Yes. DRESSING - LOWER BODY - STEP 2: Does the patient require the assistance of a helper? Yes. DRESSING - LOWER BODY - STEP 3: Does the helper touch the patient while dressing? Yes. DRESSING - LOWER BODY - STEP 4: How many of the total steps does the patient complete on his/her own? 0 DRESSING - LOWER BODY - STEP 5: Does patient require total assistance for dressing below the waist such as the helper holding clothin g and performing basically all the activities? Yes. DRESSING - LOWER BODY - SCORE: 1-DEP TOILETING: TOILETING - STEP 1: Does the patient require assistance with toileting? Yes. TOILETING - STEP 2: Does the patient require the assistance of a helper? Yes. TOILETING - STEP 3: How much assistance does the patient require from the helper? Hands-on assistance from the helper TOILETING - STEP 4: Of the 3 tasks: 1) Adjusting clothing prior to use, 2) Cleansing of perineal area, 3) Adjusting clot portia after use; How many tasks does the patient perform WITHOUT assistance of the helper? No tasks; h raz performs all three tasks TOILETING - SCORE: 1-DEP BLADDER MANAGEMENT: BLADDER MANAGEMENT - STEP 1: Does the patient control the bladder completely and intentionally without equipment or devices or med ications, and is always continent? No. BLADDER MANAGEMENT - STEP 2: Does the patient require the assistance of a helper? No, patient requires and independently uses an a ssistive device, such as a urinal, bedpan, bedside commode, catheter, absorbent pad, or collecting de vice BLADDER MANAGEMENT - SCORE: 6-DENISSE BLADDER MANAGEMENT - FREQUENCY OF ACCIDENTS: BLADDER MANAGEMENT(FA) - STEP 1: How many accidents has the patient had during the current shift? 0 BOWEL MANAGEMENT: Activity did not occur on this shift BOWEL MANAGEMENT - SCORE: 7-IND BOWEL MANAGEMENT - FREQUENCY OF ACCIDENTS: BOWEL MANAGEMENT(FA) - STEP 1: How many accidents has the patient had during the current shift? 0 TRANSFERS: BED, CHAIR, WHEELCHAIR: TRANSFERS: BED, CHAIR, WHEELCHAIR - STEP 1: Does the patient require assistance with bed, chair, or wheelchair transfers? Yes. TRANSFERS: BED, CHAIR, WHEELCHAIR - STEP 2: Does the patient require the assistance of a helper? Yes. TRANSFERS: BED, CHAIR, WHEELCHAIR - STEP 3: How much assistance does the patient require from the helper? Steadying/guiding assistance TRANSFERS: BED, CHAIR, WHEELCHAIR - SCORE: 4-MIN TRANSFERS: TOILET: TRANSFERS: TOILET - STEP 1: Does the patient require assistance with toilet transfers? Yes. TRANSFERS: TOILET - STEP 2: Does the patient require the assistance of a helper? Yes. TRANSFERS: TOILET - STEP 3: How much assistance does the patient require from the helper? Patient performs half or more of the tr ansferring tasks TRANSFERS: TOILET - STEP 4: Does the patient need only incidental help such as contact guard or steadying during toilet transfer? Yes. TRANSFERS: TOILET - SCORE: 4-MIN TRANSFERS: SHOWER: Activity did not occur on this shift TRANSFERS: SHOWER - SCORE: 0-UNK TRANSFERS: TUB: Activity did not occur on this shift TRANSFERS: TUB - SCORE: 0-UNK LOCOMOTION: WALK: Activity did not occur on this shift LOCOMOTION: WALK - SCORE: 0-UNK LOCOMOTION: WHEELCHAIR: Activity did not occur on this shift LOCOMOTION: WHEELCHAIR - SCORE: 0-UNK COMPREHENSION: COMPREHENSION: TYPE: Both COMPREHENSION - STEP 1: Does the patient require help to understand complex and abstract ideas (such as current events, finan césar, discharge planning, medical issues, relationships, etc)? Yes. COMPREHENSION - STEP 2: Does the patient require help to understand questions or statements about basic needs or ideas (such as hunger, thirst, sleep, safety, daily schedule, room location, or discomfort) half or more of the t sheridan? No. COMPREHENSION - STEP 3: How often does the patient need help to understand directions and conversation about basic needs? Les s than 10% of the time COMPREHENSION - SCORE: 5-SUP EXPRESSION EXPRESSION: TYPE: Both EXPRESSION - STEP 1: Does the patient require help expressing complex and abstract ideas (such as current events, finances , discharge planning, medical issues, relationships, etc)? Yes. EXPRESSION - STEP 2: Does the patient require help to express basic necessities or ideas (such as hunger, thirst, sleep, s afety, daily schedule, room location, or discomfort) half or more of the time? No. EXPRESSION - STEP 3: How often does the patient need help to express directions and conversation about basic needs? Less t zapata 10% of the time EXPRESSION - SCORE: 5-SUP SOCIAL INTERACTION: SOCIAL INTERACTION - STEP 1: Does the patient require a helper to interact with others in social and therapeutic situations? No. SOCIAL INTERACTION - STEP 2: Does the patient need extra time in social situations, OR does s/he interact with staff, other patien ts, and family members ONLY in structured environments, OR does s/he require medication for social in teraction? Yes, patient needs extra time SOCIAL INTERACTION - SCORE: 6-DENISSE PROBLEM SOLVING: PROBLEM SOLVING - STEP 1: Does the patient need help to solve complex problems such as managing a checking account or confronti ng interpersonal problems? Yes. PROBLEM SOLVING - STEP 2: Does the patient solve basic routine problems half or more of the time? Yes. PROBLEM SOLVING - STEP 3: How often does the patient need help to solve basic routine problems? Less than 10% of the time PROBLEM SOLVING - SCORE: 5-SUP MEMORY: MEMORY - STEP 1: Does the patient need help to remember frequently encountered people, daily routines, and executing r equests? Yes. MEMORY - STEP 2: How often does the patient need help to remember frequently encountered people, daily routines, and e xecuting requests? Less than 10% of the time MEMORY - SCORE: 5-SUP SIGNATURE PANEL: The following modified sections: Eating - Score, Grooming - Score, Bathing - Score, Dressing - Upper Body - Score, Dressing - Lower Body - Score, Toileting - Score, Bladder Management - Score, Bowel Man agement - Score, Transfers: Bed, Chair, Wheelchair - Score, Transfers: Toilet - Score, Transfers: Lupe wer - Score, Transfers: Tub - Score, Locomotion: Walk - Score, Locomotion: Wheelchair - Score, Compre hension - Score, Expression - Score, Social Interaction - Score, Problem Solving - Score, Memory - Sc ore were [electronically] signed by Dyan Monge C.N.A. on SatJun 10 2017 14:38:38 T-0500 (Centra l Daylight Time)
--- NOTE | 2017-06-10 17:41 | FAST ---
ENCOUNTER DATE AND TIME: 06/10/2017 08:00 (CDT) NAME TWIN OLIVIER DATE OF : 1930 DATE OF ADMISSION: 06/07/2017 19:25 (CDT) PHONE: AGE: 86 N# [id number] GENDER: Male ENCOUNTER PHYSICIAN: Dr. Woody Escamilla M.D. ADMISSION DIAGNOSIS: - Cardiac 09 - Cardiac Disorders (09) Chronic atrial fibrillation [I482]. CHF. EATING: Activity did not occur on this shift EATING - SCORE: 0-UNK GROOMING: Activity did not occur on this shift GROOMING - SCORE: 0-UNK BATHING: Activity did not occur on this shift BATHING - SCORE: 0-UNK DRESSING - UPPER BODY: Activity did not occur on this shift ARTICLES SCORE Total number of steps: 0 DRESSING - UPPER BODY - SCORE: 0-UNK DRESSING - LOWER BODY: Activity did not occur on this shift ARTICLES SCORE Total number of steps: 0 DRESSING - LOWER BODY - SCORE: 0-UNK TOILETING: Activity did not occur on this shift TOILETING - SCORE: 0-UNK BLADDER MANAGEMENT: Activity did not occur on this shift BLADDER MANAGEMENT - SCORE: 7-IND BOWEL MANAGEMENT: Activity did not occur on this shift BOWEL MANAGEMENT - SCORE: 7-IND TRANSFERS: BED, CHAIR, WHEELCHAIR: Activity did not occur on this shift TRANSFERS: BED, CHAIR, WHEELCHAIR - SCORE: 0-UNK TRANSFERS: TOILET: Activity did not occur on this shift TRANSFERS: TOILET - SCORE: 0-UNK TRANSFERS: SHOWER: Activity did not occur on this shift TRANSFERS: SHOWER - SCORE: 0-UNK TRANSFERS: TUB: Activity did not occur on this shift TRANSFERS: TUB - SCORE: 0-UNK LOCOMOTION: WALK: Activity did not occur on this shift LOCOMOTION: WALK - SCORE: 0-UNK LOCOMOTION: WHEELCHAIR: Activity did not occur on this shift LOCOMOTION: WHEELCHAIR - SCORE: 0-UNK LOCOMOTION: STAIRS: Activity did not occur on this shift LOCOMOTION: STAIRS - SCORE: 0-UNK COMPREHENSION: COMPREHENSION - STEP 1: Does the patient require help to understand complex and abstract ideas (such as current events, finan césar, discharge planning, medical issues, relationships, etc)? Yes. COMPREHENSION - STEP 2: Does the patient require help to understand questions or statements about basic needs or ideas (such as hunger, thirst, sleep, safety, daily schedule, room location, or discomfort) half or more of the t sher[place]? No. COMPREHENSION - STEP 3: How often does the patient need help to understand directions and conversation about basic needs? 25% - 49% of the time COMPREHENSION - SCORE: 3-MOD EXPRESSION EXPRESSION - STEP 1: Does the patient require help expressing complex and abstract ideas (such as current events, finances , discharge planning, medical issues, relationships, etc)? Yes. EXPRESSION - STEP 2: Does the patient require help to express basic necessities or ideas (such as hunger, thirst, sleep, s afety, daily schedule, room location, or discomfort) half or more of the time? No. EXPRESSION - STEP 3: How often does the patient need help to express directions and conversation about basic needs? 25-49% of the time EXPRESSION - SCORE: 3-MOD SOCIAL INTERACTION: SOCIAL INTERACTION - STEP 1: Does the patient require a helper to interact with others in social and therapeutic situations? Yes. SOCIAL INTERACTION - STEP 2: Does the patient interact appropriately half or more of the time? Yes. SOCIAL INTERACTION - STEP 3: How often does the patient need help to interact appropriately? 25-49% of the time SOCIAL INTERACTION - SCORE: 3-MOD PROBLEM SOLVING: PROBLEM SOLVING - STEP 1: Does the patient need help to solve complex problems such as managing a checking account or confronti ng interpersonal problems? Yes. PROBLEM SOLVING - STEP 2: Does the patient solve basic routine problems half or more of the time? No. PROBLEM SOLVING - STEP 3: Does the patient need help to solve problems all the time or is s/he unable to solve problems? No. Gumaro baron can sometimes solve problems PROBLEM SOLVING - SCORE: 2-MAX MEMORY: MEMORY - STEP 1: Does the patient need help to remember frequently encountered people, daily routines, and executing r equests? Yes. MEMORY - STEP 2: How often does the patient need help to remember frequently encountered people, daily routines, and e xecuting requests? More than 50% of the time MEMORY - STEP 3: Does the patient need help to remember all of the time OR does s/he not effectively recognize and rem ember? No. Patient does not need help all the time MEMORY - SCORE: 2-MAX SIGNATURE PANEL: The following modified sections: Comprehension - Score, Expression - Score, Social Interaction - Scor e, Problem Solving - Score, Memory - Score were [electronically] signed by ANGELA Hernandez on Sat 15:26:29 GMT-0500 (Central Daylight Time)
[2017-06-10] MEDS: MELATONIN 3 MG TABLET PO PRN (21:30)
[2017-06-10] MEDS: LATANOPROST OPTH OPTH SCH (21:30)
[2017-06-10] MEDS: Bacitracin Opth Oint TOP SCH (21:31)
--- NOTE | 2017-06-11 03:10 | FAST ---
SHIFT START DATE/TIME: 06/10/2017 19:00 (CDT) SHIFT END DATE/TIME: 06/11/2017 07:00 (CDT) NAME TWIN OLIVIER DATE OF : 1930 DATE OF ADMISSION: 06/07/2017 19:25 (CDT) PHONE: AGE: 86 N# [id number] GENDER: Male ENCOUNTER PHYSICIAN: Dr. Woody Escamilla M.D. ADMISSION DIAGNOSIS: - Cardiac 09 - Cardiac Disorders (09) Chronic atrial fibrillation [I482]. CHF. EATING: Activity did not occur on this shift EATING - SCORE: 0-UNK GROOMING: Activity did not occur on this shift GROOMING - SCORE: 0-UNK BATHING: Activity did not occur on this shift BATHING - SCORE: 0-UNK DRESSING - UPPER BODY: Activity did not occur on this shift ARTICLES SCORE Total number of steps: 0 DRESSING - UPPER BODY - SCORE: 0-UNK DRESSING - LOWER BODY: Activity did not occur on this shift ARTICLES SCORE Total number of steps: 0 DRESSING - LOWER BODY - SCORE: 0-UNK TOILETING: TOILETING - STEP 1: Does the patient require assistance with toileting? Yes. TOILETING - STEP 2: Does the patient require the assistance of a helper? Yes. TOILETING - STEP 3: How much assistance does the patient require from the helper? Hands-on assistance from the helper TOILETING - STEP 4: Of the 3 tasks: 1) Adjusting clothing prior to use, 2) Cleansing of perineal area, 3) Adjusting clot portia after use; How many tasks does the patient perform WITHOUT assistance of the helper? Two tasks TOILETING - SCORE: 3-MOD BLADDER MANAGEMENT: BLADDER MANAGEMENT - STEP 1: Does the patient control the bladder completely and intentionally without equipment or devices or med ications, and is always continent? No. BLADDER MANAGEMENT - STEP 2: Does the patient require the assistance of a helper? Yes. BLADDER MANAGEMENT - STEP 3: How much assistance does the patient require from the helper? Only set-up of equipment - such as plac ing it within reach of the patient or emptying a device - to maintain either satisfactory voiding pat tern or managing an external device, such as an absorbent pad, ileal device, or catheter BLADDER MANAGEMENT - SCORE: 5-SUP BOWEL MANAGEMENT: Activity did not occur on this shift BOWEL MANAGEMENT - SCORE: 7-IND TRANSFERS: BED, CHAIR, WHEELCHAIR: Activity did not occur on this shift TRANSFERS: BED, CHAIR, WHEELCHAIR - SCORE: 0-UNK TRANSFERS: TOILET: Activity did not occur on this shift TRANSFERS: TOILET - SCORE: 0-UNK TRANSFERS: SHOWER: Activity did not occur on this shift TRANSFERS: SHOWER - SCORE: 0-UNK TRANSFERS: TUB: Activity did not occur on this shift TRANSFERS: TUB - SCORE: 0-UNK LOCOMOTION: WALK: Activity did not occur on this shift LOCOMOTION: WALK - SCORE: 0-UNK LOCOMOTION: WHEELCHAIR: Activity did not occur on this shift LOCOMOTION: WHEELCHAIR - SCORE: 0-UNK COMPREHENSION: COMPREHENSION - STEP 1: Does the patient require help to understand complex and abstract ideas (such as current events, finan césar, discharge planning, medical issues, relationships, etc)? Yes. COMPREHENSION - STEP 2: Does the patient require help to understand questions or statements about basic needs or ideas (such as hunger, thirst, sleep, safety, daily schedule, room location, or discomfort) half or more of the t sher[place]? No. COMPREHENSION - STEP 3: How often does the patient need help to understand directions and conversation about basic needs? 10% - 24% of the time COMPREHENSION - SCORE: 4-MIN EXPRESSION EXPRESSION - STEP 1: Does the patient require help expressing complex and abstract ideas (such as current events, finances , discharge planning, medical issues, relationships, etc)? Yes. EXPRESSION - STEP 2: Does the patient require help to express basic necessities or ideas (such as hunger, thirst, sleep, s afety, daily schedule, room location, or discomfort) half or more of the time? No. EXPRESSION - STEP 3: How often does the patient need help to express directions and conversation about basic needs? 10-24% of the time EXPRESSION - SCORE: 4-MIN SOCIAL INTERACTION: SOCIAL INTERACTION - STEP 1: Does the patient require a helper to interact with others in social and therapeutic situations? No. SOCIAL INTERACTION - STEP 2: Does the patient need extra time in social situations, OR does s/he interact with staff, other patien ts, and family members ONLY in structured environments, OR does s/he require medication for social in teraction? Yes, patient needs extra time SOCIAL INTERACTION - SCORE: 6-DENISSE PROBLEM SOLVING: PROBLEM SOLVING - STEP 1: Does the patient need help to solve complex problems such as managing a checking account or confronti ng interpersonal problems? No. PROBLEM SOLVING - STEP 2: Does the patient require extra time to make decisions or solve problems, OR does s/he have slight dif ficulty reading, initiating, or self-correcting in unfamiliar situations? Yes, patient needs extra ti me. PROBLEM SOLVING - SCORE: 6-DENISSE MEMORY: MEMORY - STEP 1: Does the patient need help to remember frequently encountered people, daily routines, and executing r equests? No. MEMORY - STEP 2: Does the patient have slight difficulty recognizing frequently encountered people, daily routines, or executing requests without the need for repetition or using self-initiated or environmental cues to remember? Yes. MEMORY - SCORE: 6-DENISSE SIGNATURE PANEL: The following modified sections: Eating - Score, Grooming - Score, Dressing - Upper Body - Score, Lauri ssing - Lower Body - Score, Toileting - Score, Bladder Management - Score, Bowel Management - Score, Transfers: Bed, Chair, Wheelchair - Score, Transfers: Toilet - Score, Transfers: Shower - Score, Hayden sfers: Tub - Score, Locomotion: Walk - Score, Locomotion: Wheelchair - Score, Comprehension - Score, Expression - Score, Social Interaction - Score, Problem Solving - Score, Memory - Score were [electro nically] signed by Minda Yancey CNA on SatJun 11 2017 02:12:01 GMT-0500 (Central Daylight Time)
[2017-06-11] MEDS: CARVEDILOL 3.125 MG TAB PO SCH ×2 (05:22→16:52)
[2017-06-11] MEDS: BISACODYL 10 MG RECTAL SUPP PR PRN (05:22)
[2017-06-11] MEDS: acetaZOLAMIDE 250 MG TAB PO SCH (07:49)
[2017-06-11] MEDS: LACTULOSE 20 GM/30 ML UCUP PO SCH (07:49)
[2017-06-11] MEDS: ACETAMINOPHEN 500 MG TAB PO PRN (07:50)
[2017-06-11] MEDS: APIXABAN 2.5 MG TABLET PO SCH ×2 (07:50→20:08)
[2017-06-11] MEDS: ASPIRIN EC 81 MG TAB PO SCH (07:50)
[2017-06-11] MEDS: FUROSEMIDE 40 MG TABLET PO SCH (07:50)
[2017-06-11] MEDS: levoFLOXacin 500 MG TAB PO SCH (07:50)
--- NOTE | 2017-06-11 15:14 | FAST ---
SHIFT START DATE/TIME: 06/11/2017 07:00 (CDT) SHIFT END DATE/TIME: 06/11/2017 19:00 (CDT) NAME TWIN OLIVIER DATE OF : 1930 DATE OF ADMISSION: 06/07/2017 19:25 (CDT) PHONE: AGE: 86 N# [id number] GENDER: Male ENCOUNTER PHYSICIAN: Dr. Woody Escamilla M.D. ADMISSION DIAGNOSIS: - Cardiac 09 - Cardiac Disorders () Chronic atrial fibrillation [I482]. CHF. EATING: EATING - STEP 1: Does the patient require assistance when eating? Yes. EATING - STEP 2: Does the patient require the assistance of a helper? No, patient only requires an assistive device, O R s/he takes more than reasonable time to eat, OR there is a safety concern, OR s/he requires modifie d food consistency EATING - SCORE: 6-DENISSE GROOMING: Activity did not occur on this shift GROOMING - SCORE: 0-UNK BATHING: Activity did not occur on this shift BATHING - SCORE: 0-UNK DRESSING - UPPER BODY: Activity did not occur on this shift ARTICLES SCORE Total number of steps: 0 DRESSING - UPPER BODY - SCORE: 0-UNK DRESSING - LOWER BODY: Activity did not occur on this shift ARTICLES SCORE Total number of steps: 0 DRESSING - LOWER BODY - SCORE: 0-UNK TOILETING: TOILETING - STEP 1: Does the patient require assistance with toileting? Yes. TOILETING - STEP 2: Does the patient require the assistance of a helper? Yes. TOILETING - STEP 3: How much assistance does the patient require from the helper? Hands-on assistance from the helper TOILETING - STEP 4: Of the 3 tasks: 1) Adjusting clothing prior to use, 2) Cleansing of perineal area, 3) Adjusting clot portia after use; How many tasks does the patient perform WITHOUT assistance of the helper? No tasks; h elper performs all three tasks TOILETING - SCORE: 1-DEP BLADDER MANAGEMENT: [place] removes incontinent device (Depends, pull ups, etc.); cleans the patient after accident / inco ntinent episode; and, applies new incontinent device. BLADDER MANAGEMENT - SCORE: 1-DEP BLADDER MANAGEMENT - FREQUENCY OF ACCIDENTS: BLADDER MANAGEMENT(FA) - STEP 1: How many accidents has the patient had during the current shift? 1 BOWEL MANAGEMENT: Activity did not occur on this shift BOWEL MANAGEMENT - SCORE: 7-IND TRANSFERS: BED, CHAIR, WHEELCHAIR: TRANSFERS: BED, CHAIR, WHEELCHAIR - STEP 1: Does the patient require assistance with bed, chair, or wheelchair transfers? Yes. TRANSFERS: BED, CHAIR, WHEELCHAIR - STEP 2: Does the patient require the assistance of a helper? Yes. TRANSFERS: BED, CHAIR, WHEELCHAIR - STEP 3: How much assistance does the patient require from the helper? Steadying/guiding assistance TRANSFERS: BED, CHAIR, WHEELCHAIR - SCORE: 4-MIN TRANSFERS: TOILET: Activity did not occur on this shift TRANSFERS: TOILET - SCORE: 0-UNK TRANSFERS: SHOWER: Activity did not occur on this shift TRANSFERS: SHOWER - SCORE: 0-UNK TRANSFERS: TUB: Activity did not occur on this shift TRANSFERS: TUB - SCORE: 0-UNK LOCOMOTION: WALK: Activity did not occur on this shift LOCOMOTION: WALK - SCORE: 0-UNK LOCOMOTION: WHEELCHAIR: Activity did not occur on this shift LOCOMOTION: WHEELCHAIR - SCORE: 0-UNK COMPREHENSION: COMPREHENSION: TYPE: Both COMPREHENSION - STEP 1: Does the patient require help to understand complex and abstract ideas (such as current events, finan césar, discharge planning, medical issues, relationships, etc)? Yes. COMPREHENSION - STEP 2: Does the patient require help to understand questions or statements about basic needs or ideas (such as hunger, thirst, sleep, safety, daily schedule, room location, or discomfort) half or more of the t [place]? No. COMPREHENSION - STEP 3: How often does the patient need help to understand directions and conversation about basic needs? Les s than 10% of the time COMPREHENSION - SCORE: 5-SUP EXPRESSION EXPRESSION: TYPE: Both EXPRESSION - STEP 1: Does the patient require help expressing complex and abstract ideas (such as current events, finances , discharge planning, medical issues, relationships, etc)? Yes. EXPRESSION - STEP 2: Does the patient require help to express basic necessities or ideas (such as hunger, thirst, sleep, s afety, daily schedule, room location, or discomfort) half or more of the time? No. EXPRESSION - STEP 3: How often does the patient need help to express directions and conversation about basic needs? Less t [place] 10% of the time EXPRESSION - SCORE: 5-SUP SOCIAL INTERACTION: SOCIAL INTERACTION - STEP 1: Does the patient require a helper to interact with others in social and therapeutic situations? No. SOCIAL INTERACTION - STEP 2: Does the patient need extra time in social situations, OR does s/he interact with staff, other patien ts, and family members ONLY in structured environments, OR does s/he require medication for social in teraction? Yes, patient needs extra time SOCIAL INTERACTION - SCORE: 6-DENISSE PROBLEM SOLVING: PROBLEM SOLVING - STEP 1: Does the patient need help to solve complex problems such as managing a checking account or confronti ng interpersonal problems? Yes. PROBLEM SOLVING - STEP 2: Does the patient solve basic routine problems half or more of the time? Yes. PROBLEM SOLVING - STEP 3: How often does the patient need help to solve basic routine problems? Less than 10% of the time PROBLEM SOLVING - SCORE: 5-SUP MEMORY: MEMORY - STEP 1: Does the patient need help to remember frequently encountered people, daily routines, and executing r equests? Yes. MEMORY - STEP 2: How often does the patient need help to remember frequently encountered people, daily routines, and e xecuting requests? Less than 10% of the time MEMORY - SCORE: 5-SUP SIGNATURE PANEL: The following modified sections: Eating - Score, Grooming - Score, Bathing - Score, Dressing - Upper Body - Score, Dressing - Lower Body - Score, Toileting - Score, Bladder Management - Score, Bowel Man agement - Score, Transfers: Bed, Chair, Wheelchair - Score, Transfers: Toilet - Score, Transfers: Lupe wer - Score, Transfers: Tub - Score, Locomotion: Walk - Score, Locomotion: Wheelchair - Score, Compre hension - Score, Expression - Score, Social Interaction - Score, Problem Solving - Score, Memory - Sc ore were [electronically] signed by Dyan Monge C.N.A. on SatJun 11 2017 14:16:29 T-0500 (Centra l Daylight Time)
--- NOTE | 2017-06-11 15:59 | FAST ---
ENCOUNTER DATE AND TIME: 06/11/2017 08:00 (CDT) NAME TWIN OLIVIER DATE OF : 1930 DATE OF ADMISSION: 06/07/2017 19:25 (CDT) PHONE: AGE: 86 N# [id number] GENDER: Male ENCOUNTER PHYSICIAN: Dr. Woody Escamilla M.D. ADMISSION DIAGNOSIS: - Cardiac 09 - Cardiac Disorders (09) Chronic atrial fibrillation [I482]. CHF. EATING: Activity did not occur on this shift EATING - SCORE: 0-UNK GROOMING: Activity did not occur on this shift GROOMING - SCORE: 0-UNK BATHING: Activity did not occur on this shift BATHING - SCORE: 0-UNK DRESSING - UPPER BODY: Activity did not occur on this shift ARTICLES SCORE Total number of steps: 0 DRESSING - UPPER BODY - SCORE: 0-UNK DRESSING - LOWER BODY: Activity did not occur on this shift ARTICLES SCORE Total number of steps: 0 DRESSING - LOWER BODY - SCORE: 0-UNK TOILETING: Activity did not occur on this shift TOILETING - SCORE: 0-UNK BLADDER MANAGEMENT: Activity did not occur on this shift BLADDER MANAGEMENT - SCORE: 7-IND BOWEL MANAGEMENT: Activity did not occur on this shift BOWEL MANAGEMENT - SCORE: 7-IND TRANSFERS: BED, CHAIR, WHEELCHAIR: TRANSFERS: BED, CHAIR, WHEELCHAIR - STEP 1: Does the patient require assistance with bed, chair, or wheelchair transfers? Yes. TRANSFERS: BED, CHAIR, WHEELCHAIR - STEP 2: Does the patient require the assistance of a helper? Yes. TRANSFERS: BED, CHAIR, WHEELCHAIR - STEP 3: How much assistance does the patient require from the helper? Steadying/guiding assistance TRANSFERS: BED, CHAIR, WHEELCHAIR - SCORE: 4-MIN TRANSFERS: TOILET: Activity did not occur on this shift TRANSFERS: TOILET - SCORE: 0-UNK TRANSFERS: SHOWER: Activity did not occur on this shift TRANSFERS: SHOWER - SCORE: 0-UNK TRANSFERS: TUB: Activity did not occur on this shift TRANSFERS: TUB - SCORE: 0-UNK LOCOMOTION: WALK: LOCOMOTION: WALK - STEP 1: Does the patient need help to walk 150 feet? Yes. LOCOMOTION: WALK - STEP 2: How much assistance does the patient require to walk a minimum of 150 feet? Patient walks less than 1 50 feet - but more than 50 feet - with the assistance of only one helper LOCOMOTION: WALK - SCORE: 2-MAX LOCOMOTION: WHEELCHAIR: LOCOMOTION: WHEELCHAIR - STEP 1: Does the patient need help to go 150 feet in a wheelchair? Yes. LOCOMOTION: WHEELCHAIR - STEP 2: How much assistance does the patient need from the helper? Only incidental help such as around corner s or over thresholds LOCOMOTION: WHEELCHAIR - SCORE: 4-MIN LOCOMOTION: STAIRS: Activity did not occur on this shift LOCOMOTION: STAIRS - SCORE: 0-UNK COMPREHENSION: COMPREHENSION - SCORE: 0-UNK EXPRESSION EXPRESSION - SCORE: 0-UNK SOCIAL INTERACTION: SOCIAL INTERACTION - SCORE: 0-UNK PROBLEM SOLVING: PROBLEM SOLVING - SCORE: 0-UNK MEMORY: MEMORY - SCORE: 0-UNK SIGNATURE PANEL: The following modified sections: Transfers: Bed, Chair, Wheelchair - Score, Transfers: Toilet - Score , Locomotion: Walk - Score, Locomotion: Wheelchair - Score, Locomotion: Stairs - Score were [electron martha] signed by Zehra Gutierrez PTA on SatJun 11 2017 15:01:01 T-0500 (Central Daylight Time)
--- NOTE | 2017-06-11 16:17 | FAST ---
ENCOUNTER DATE AND TIME: 06/11/2017 08:00 (CDT) NAME TWIN OLIVIER DATE OF : 1930 DATE OF ADMISSION: 06/07/2017 19:25 (CDT) PHONE: AGE: 86 N# [id number] GENDER: Male ENCOUNTER PHYSICIAN: Dr. Woody Escamilla M.D. ADMISSION DIAGNOSIS: - Cardiac 09 - Cardiac Disorders () Chronic atrial fibrillation [I482]. CHF. EATING: Activity did not occur on this shift EATING - SCORE: 0-UNK GROOMING: Wash, rinse, and dry face Wash, rinse, and dry hands GROOMING - STEP 1: Does the patient require assistance when grooming? Yes. GROOMING - STEP 2: Does the patient require the assistance of a helper? Yes. GROOMING - STEP 3: How much assistance does the patient require from the helper? Only prior equipment preparation/set up from the helper GROOMING - SCORE: 5-SUP BATHING: Abdomen Buttocks Chest Left arm Left lower leg and foot Left upper leg Perineal area Right arm Right lower leg and foot Right upper leg BATHING - STEP 1: Does the patient require assistance when bathing? Yes. BATHING - STEP 2: Does the patient require the assistance of a helper? Yes. BATHING - STEP 3: How much assistance does the patient require from the helper? More than just incidental help BATHING - STEP 4: What percent of the body parts did the patient bathe WITHOUT the helper? Half or more of the body par ts BATHING - SCORE: 3-MOD DRESSING - UPPER BODY: T-shirt/pullover shirt (four steps) ARTICLES SCORE Total number of steps: 4 DRESSING - UPPER BODY - STEP 1: Does the patient require help when dressing above the waist? Yes. DRESSING - UPPER BODY - STEP 2: Does the patient require the assistance of a helper? Yes. DRESSING - UPPER BODY - STEP 3: Does the helper touch the patient while dressing? Yes. DRESSING - UPPER BODY - STEP 4: How many of the total steps does the patient complete on his/her own? 3 DRESSING - UPPER BODY - SCORE: 4-MIN DRESSING - LOWER BODY: Elastic waist pants (three steps) Sock - Left foot (one step) Sock - Right foot (one step) Underwear (three steps) ARTICLES SCORE Total number of steps: 8 DRESSING - LOWER BODY - STEP 1: Does the patient require help when dressing below the waist? Yes. DRESSING - LOWER BODY - STEP 2: Does the patient require the assistance of a helper? Yes. DRESSING - LOWER BODY - STEP 3: Does the helper touch the patient while dressing? Yes. DRESSING - LOWER BODY - STEP 4: How many of the total steps does the patient complete on his/her own? 0 DRESSING - LOWER BODY - STEP 5: Does patient require total assistance for dressing below the waist such as the helper holding clothin g and performing basically all the activities? Yes. DRESSING - LOWER BODY - SCORE: 1-DEP TOILETING: Activity did not occur on this shift TOILETING - SCORE: 0-UNK BLADDER MANAGEMENT: Activity did not occur on this shift BLADDER MANAGEMENT - SCORE: 7-IND BOWEL MANAGEMENT: Activity did not occur on this shift BOWEL MANAGEMENT - SCORE: 7-IND TRANSFERS: BED, CHAIR, WHEELCHAIR: Activity did not occur on this shift TRANSFERS: BED, CHAIR, WHEELCHAIR - SCORE: 0-UNK TRANSFERS: TOILET: Activity did not occur on this shift TRANSFERS: TOILET - SCORE: 0-UNK TRANSFERS: SHOWER: Activity did not occur on this shift TRANSFERS: SHOWER - SCORE: 0-UNK TRANSFERS: TUB: TRANSFERS: TUB - STEP 1: Does the patient require assistance with tub transfers? Yes. TRANSFERS: TUB - STEP 2: Does the patient require the assistance of a helper? Yes. TRANSFERS: TUB - STEP 3: How much assistance does the patient require from the helper? More than incidental help TRANSFERS: TUB - STEP 4: How much more help does the patient require from the helper? Devine lifts patient up out of the wheel chair AND down onto the tub bench TRANSFERS: TUB - SCORE: 2-MAX LOCOMOTION: WALK: Activity did not occur on this shift LOCOMOTION: WALK - SCORE: 0-UNK LOCOMOTION: WHEELCHAIR: Activity did not occur on this shift LOCOMOTION: WHEELCHAIR - SCORE: 0-UNK LOCOMOTION: STAIRS: Activity did not occur on this shift LOCOMOTION: STAIRS - SCORE: 0-UNK COMPREHENSION: COMPREHENSION: TYPE: Both COMPREHENSION - STEP 1: Does the patient require help to understand complex and abstract ideas (such as current events, finan césar, discharge planning, medical issues, relationships, etc)? Yes. COMPREHENSION - STEP 2: Does the patient require help to understand questions or statements about basic needs or ideas (such as hunger, thirst, sleep, safety, daily schedule, room location, or discomfort) half or more of the t sheridan? No. COMPREHENSION - STEP 3: How often does the patient need help to understand directions and conversation about basic needs? 10% - 24% of the time COMPREHENSION - SCORE: 4-MIN EXPRESSION EXPRESSION: TYPE: Both EXPRESSION - STEP 1: Does the patient require help expressing complex and abstract ideas (such as current events, finances , discharge planning, medical issues, relationships, etc)? Yes. EXPRESSION - STEP 2: Does the patient require help to express basic necessities or ideas (such as hunger, thirst, sleep, s afety, daily schedule, room location, or discomfort) half or more of the time? No. EXPRESSION - STEP 3: How often does the patient need help to express directions and conversation about basic needs? 10-24% of the time EXPRESSION - SCORE: 4-MIN SOCIAL INTERACTION: SOCIAL INTERACTION - STEP 1: Does the patient require a helper to interact with others in social and therapeutic situations? Yes. SOCIAL INTERACTION - STEP 2: Does the patient interact appropriately half or more of the time? Yes. SOCIAL INTERACTION - STEP 3: How often does the patient need help to interact appropriately? Less than 10% of the time SOCIAL INTERACTION - SCORE: 5-SUP PROBLEM SOLVING: PROBLEM SOLVING - STEP 1: Does the patient need help to solve complex problems such as managing a checking account or confronti ng interpersonal problems? Yes. PROBLEM SOLVING - STEP 2: Does the patient solve basic routine problems half or more of the time? Yes. PROBLEM SOLVING - STEP 3: How often does the patient need help to solve basic routine problems? 25%-49% of the time PROBLEM SOLVING - SCORE: 3-MOD MEMORY: MEMORY - STEP 1: Does the patient need help to remember frequently encountered people, daily routines, and executing r equests? Yes. MEMORY - STEP 2: How often does the patient need help to remember frequently encountered people, daily routines, and e xecuting requests? 25% - 49% of the time MEMORY - SCORE: 3-MOD SIGNATURE PANEL: The following modified sections: Eating - Score, Grooming - Score, Bathing - Score, Dressing - Upper Body - Score, Dressing - Lower Body - Score, Toileting - Score, Transfers: Bed, Chair, Wheelchair - S core, Transfers: Shower - Score, Transfers: Toilet - Score, Transfers: Tub - Score, Comprehension - S core, Expression - Score, Social Interaction - Score, Problem Solving - Score, Memory - Score were [e lectronically] signed by Armida Gonzalez OT on SatJun 11 2017 15:19:19 T-0500 ([facility] Daylight T sheridan)
--- NOTE | 2017-06-11 17:35 | FAST ---
ENCOUNTER DATE AND TIME: 06/11/2017 08:00 (CDT) NAME TWIN OLIVIER DATE OF : 1930 DATE OF ADMISSION: 06/07/2017 19:25 (CDT) PHONE: AGE: 86 N# [id number] GENDER: Male ENCOUNTER PHYSICIAN: Dr. Woody Escamilla M.D. ADMISSION DIAGNOSIS: - Cardiac 09 - Cardiac Disorders (09) Chronic atrial fibrillation [I482]. CHF. EATING: Activity did not occur on this shift EATING - SCORE: 0-UNK GROOMING: Activity did not occur on this shift GROOMING - SCORE: 0-UNK BATHING: Activity did not occur on this shift BATHING - SCORE: 0-UNK DRESSING - UPPER BODY: Activity did not occur on this shift ARTICLES SCORE Total number of steps: 0 DRESSING - UPPER BODY - SCORE: 0-UNK DRESSING - LOWER BODY: Activity did not occur on this shift ARTICLES SCORE Total number of steps: 0 DRESSING - LOWER BODY - SCORE: 0-UNK TOILETING: Activity did not occur on this shift TOILETING - SCORE: 0-UNK BLADDER MANAGEMENT: Activity did not occur on this shift BLADDER MANAGEMENT - SCORE: 7-IND BOWEL MANAGEMENT: Activity did not occur on this shift BOWEL MANAGEMENT - SCORE: 7-IND TRANSFERS: BED, CHAIR, WHEELCHAIR: Activity did not occur on this shift TRANSFERS: BED, CHAIR, WHEELCHAIR - SCORE: 0-UNK TRANSFERS: TOILET: Activity did not occur on this shift TRANSFERS: TOILET - SCORE: 0-UNK TRANSFERS: SHOWER: Activity did not occur on this shift TRANSFERS: SHOWER - SCORE: 0-UNK TRANSFERS: TUB: Activity did not occur on this shift TRANSFERS: TUB - SCORE: 0-UNK LOCOMOTION: WALK: Activity did not occur on this shift LOCOMOTION: WALK - SCORE: 0-UNK LOCOMOTION: WHEELCHAIR: Activity did not occur on this shift LOCOMOTION: WHEELCHAIR - SCORE: 0-UNK LOCOMOTION: STAIRS: Activity did not occur on this shift LOCOMOTION: STAIRS - SCORE: 0-UNK COMPREHENSION: COMPREHENSION - STEP 1: Does the patient require help to understand complex and abstract ideas (such as current events, finan césar, discharge planning, medical issues, relationships, etc)? Yes. COMPREHENSION - STEP 2: Does the patient require help to understand questions or statements about basic needs or ideas (such as hunger, thirst, sleep, safety, daily schedule, room location, or discomfort) half or more of the t sheridan? No. COMPREHENSION - STEP 3: How often does the patient need help to understand directions and conversation about basic needs? 25% - 49% of the time COMPREHENSION - SCORE: 3-MOD EXPRESSION EXPRESSION - STEP 1: Does the patient require help expressing complex and abstract ideas (such as current events, finances , discharge planning, medical issues, relationships, etc)? Yes. EXPRESSION - STEP 2: Does the patient require help to express basic necessities or ideas (such as hunger, thirst, sleep, s afety, daily schedule, room location, or discomfort) half or more of the time? No. EXPRESSION - STEP 3: How often does the patient need help to express directions and conversation about basic needs? 25-49% of the time EXPRESSION - SCORE: 3-MOD SOCIAL INTERACTION: SOCIAL INTERACTION - STEP 1: Does the patient require a helper to interact with others in social and therapeutic situations? Yes. SOCIAL INTERACTION - STEP 2: Does the patient interact appropriately half or more of the time? Yes. SOCIAL INTERACTION - STEP 3: How often does the patient need help to interact appropriately? 25-49% of the time SOCIAL INTERACTION - SCORE: 3-MOD PROBLEM SOLVING: PROBLEM SOLVING - STEP 1: Does the patient need help to solve complex problems such as managing a checking account or confronti ng interpersonal problems? Yes. PROBLEM SOLVING - STEP 2: Does the patient solve basic routine problems half or more of the time? Yes. PROBLEM SOLVING - STEP 3: How often does the patient need help to solve basic routine problems? 25%-49% of the time PROBLEM SOLVING - SCORE: 3-MOD MEMORY: MEMORY - STEP 1: Does the patient need help to remember frequently encountered people, daily routines, and executing r equests? Yes. MEMORY - STEP 2: How often does the patient need help to remember frequently encountered people, daily routines, and e xecuting requests? More than 50% of the time MEMORY - STEP 3: Does the patient need help to remember all of the time OR does s/he not effectively recognize and rem ember? No. Patient does not need help all the time MEMORY - SCORE: 2-MAX SIGNATURE PANEL: The following modified sections: Comprehension - Score, Expression - Score, Social Interaction - Scor e, Problem Solving - Score, Memory - Score were [electronically] signed by ANGELA Hernandez on Sat 16:36:36 GMT-0500 (Central Daylight Time)
[2017-06-11] MEDS: ENSURE ENLIVE 237 ML CAN PO SCH (20:08)
[2017-06-11] MEDS: Bacitracin Opth Oint TOP SCH (20:08)
[2017-06-11] MEDS: LATANOPROST OPTH OPTH SCH (20:08)
[2017-06-11] MEDS: MELATONIN 3 MG TABLET PO PRN (22:44)
--- NOTE | 2017-06-12 00:11 | R.PN ---
ENCOUNTER DATE AND TIME: 06/11/2017 23:03 (CDT) NAME TWIN OLIVIER DATE OF : 1930 DATE OF ADMISSION: 06/07/2017 19:25 (CDT) Chronic atrial fibrillation [I482]CHFCHIEF COMPLAINT: Debility SUBJECTIVE: Pt denied any Shortness of Breath. Pt denied any depression. Mobilized wheelchair 200' with contact guard assistance. Ambulated 52' with rolling walker using 2L o f O2 with contact guard assistance, VITAL SIGNS Temperature: 97.8 F SBP/DBP: 110/54 Pulse: 81 Resp: 16 MEDICATION ALLERGIES: iodine ENVIRONMENTAL ALLERGIES: - Substance Allergies None Known - Other Allergies None Known NURSING: - Shower allowing shower ACTIVITIES OOB only with supervision THERAPIES: - Occupational Therapy Evaluate and Treat. - Physical Therapy Evaluate and Treat. PHYSICAL EXAM - Gen Alert and awake Lying in bed No apparent distress Oriented to: person, time, and place - Vital Signs Vital signs stable, afebrile - Skin No breakdowns No abnormalities - Eyes No abnormalities - ENMT No abnormalities - Neck No abnormalities - CVS RRR - Chest Mildly decreased breath sounds bilaterally. - Resp + rhonchi - Abd +bowel sounds - GI Obese Deferred - No abnormalities - Ext Mild bilateral lower extremity edema. - MSK 4/5 weakness in both lower extremities. - Neuro No focal deficits. - Psych No abnormalities ASSESSMENT: Pt. is a 86 yo Right-handed white male.On 06/05/2017 he was admitted to [facility] with diagnosis Chronic atrial fibrillation [I482].His impairment category is Cardiac 09 - Cardia c Disorders (09).Pre-morbidly, Pt. was independent/mod-I in Social Cognition, Self-Care, Sphincter Co ntrol, Transfers Control, Communication, and Locomotion; and he had good Sphincter Control.Currently, he has deficits of Social Cognition, Balance, Self-Care, Endurance, Safety Awareness, Transfers Cont rol, Communication, and Locomotion.Pt. is now referred to [facility] for acute in-patient rehabilitation in order to maximize patient's functional independence in activities of da yuan living, strength, ROM, and mobility.- Rehab Goal Patient has realistic goal of being discharged at assistance level 6-Delia to reside at Home with Leonid mirza. MDM/PLAN: - Diet Type Continue Regular - Physical Therapy Gait dysfunction - to improve, our physical therapists will perform initial evaluation of pt's statu s upon admission and devise an individualized program for Gait Training, and Wheel Chair mobility Inability to transfer - to improve, our physical therapists will perform initial evaluation of pt's status upon admission and devise an individualized program for Bed mobility Need for home safety evaluation - to improve, our physical therapists will perform initial evaluatio n of pt's status upon admission and devise an individualized program for Home Evaluation Need in caregiver upon discharge - to improve, our physical therapists will perform initial evaluati on of pt's status upon admission and devise an individualized program for Caregiver Training New precaution - to improve, our physical therapists will perform initial evaluation of pt's status upon admission and devise an individualized program for Patient precaution education Edema - to improve, our physical therapists will perform initial evaluation of pt's status upon admis gunjan and devise an individualized program for Elevation Training, and Lymphedema Therapy Poor balance - to improve, our physical therapists will perform initial evaluation of pt's status up on admission and devise an individualized program for Balance Training Poor endurance - to improve, our physical therapists will perform initial evaluation of pt's status upon admission and devise an individualized program for Endurance Training Weakness - to improve, our physical therapists will perform initial evaluation of pt's status upon a dmission and devise an individualized program for Aquatic Therapy, Neuromuscular Reeducation, and Str engthening Achieving independence - to improve, our physical therapists will perform initial evaluation of pt's status upon admission and devise an individualized program for Community Reintegration Activities - Diet - Liquid Texture Continue Regular - Tube Feed Continue N/A - Diet - Solid Texture Continue Regular - Shower allowing shower - Occupational Therapy ADL deficits - to improve, our occupation therapists will perform initial evaluation of pt's status upon admission and devise an individualized program for Bathing, Bed mobility, Community Reintegratio n, Cooking, Dressing, Eating, Fine Motor Skills, Grooming, Homemaking, Kitchen Mobility, Laundry, Pat ient Education, Safety Awareness, Splinting - Positioning, Transfers(Toilet, Tub, Shower), and Wheel Chair Management Cognitive deficits - to improve, our occupation therapists will perform initial evaluation of pt's s tatus upon admission and devise an individualized program for Cognition - orientation Need for acute care nursing assistant - to improve, our occupation therapists will perform initial evaluation of pt's status upon admission and devise an individualized program for Caregiver Training Weakness - to improve, our occupation therapists will perform initial evaluation of pt's status upon admission and devise an individualized program for Aquatic Therapy, Balance, Endurance, UE ROM, and UE strengthening FUNCTIONAL STATUS: UPDATED AT WEEKLY TEAM CONFERENCE - Bladder Same accident frequency: 7-Ind - No accidents in the past 7 days - Bowel Same accident frequency: 7-Ind - No accidents in the past 7 days - Walking Same score based on distance walked: 0(N/A) FUNCTIONAL STATUS: - Self-Care A. Eating sup B. Grooming sup C. Bathing Lizbeth D. Dressing - Upper Lizbeth E. Dressing - Lower Lizbeth F. Toileting Lizbeth - Sphincter Control G: Bladder control Ind H: Bowel control Ind - Transfers Control I. Bed/Chair/Wheelchair Lizbeth J. Toilet modA K. Tub/Shower ADNO - Locomotion L. Walk/Wheelchair (B) Lizbeth M. Stairs ADNO - Communication N. Comprehension (B) sup O. Expression (B) sup - Social Cognition P. Social Interaction sup Q. Problem Solving sup R. Memory sup - Endurance Poor - Balance Poor - Safety Awareness Poor CURRENT FUNC. DEFICITS: Social Cognition, Balance, Self-Care, Endurance, Safety Awareness, Transfers Control, Communication, and Locomotion SIGNATURE PANEL: (CDT)
--- NOTE | 2017-06-12 02:42 | FAST ---
SHIFT START DATE/TIME: 06/11/2017 19:00 (CDT) SHIFT END DATE/TIME: 06/12/2017 07:00 (CDT) NAME TWIN OLIVIER DATE OF : 1930 DATE OF ADMISSION: 06/07/2017 19:25 (CDT) PHONE: AGE: 86 N# [id number] GENDER: Male ENCOUNTER PHYSICIAN: Dr. Woody Escamilla M.D. ADMISSION DIAGNOSIS: - Cardiac 09 - Cardiac Disorders (09) Chronic atrial fibrillation [I482]. CHF. EATING: Activity did not occur on this shift EATING - SCORE: 0-UNK GROOMING: Activity did not occur on this shift GROOMING - SCORE: 0-UNK BATHING: Activity did not occur on this shift BATHING - SCORE: 0-UNK DRESSING - UPPER BODY: Activity did not occur on this shift ARTICLES SCORE Total number of steps: 0 DRESSING - UPPER BODY - SCORE: 0-UNK DRESSING - LOWER BODY: Activity did not occur on this shift ARTICLES SCORE Total number of steps: 0 DRESSING - LOWER BODY - SCORE: 0-UNK TOILETING: TOILETING - STEP 1: Does the patient require assistance with toileting? Yes. TOILETING - STEP 2: Does the patient require the assistance of a helper? Yes. TOILETING - STEP 3: How much assistance does the patient require from the helper? Hands-on assistance from the helper TOILETING - STEP 4: Of the 3 tasks: 1) Adjusting clothing prior to use, 2) Cleansing of perineal area, 3) Adjusting clot oprtia after use; How many tasks does the patient perform WITHOUT assistance of the helper? Three tasks with steadying assistance from the helper TOILETING - SCORE: 4-MIN BLADDER MANAGEMENT: BLADDER MANAGEMENT - STEP 1: Does the patient control the bladder completely and intentionally without equipment or devices or med ications, and is always continent? No. BLADDER MANAGEMENT - STEP 2: Does the patient require the assistance of a helper? Yes. BLADDER MANAGEMENT - STEP 3: How much assistance does the patient require from the helper? Only set-up of equipment - such as plac ing it within reach of the patient or emptying a device - to maintain either satisfactory voiding pat tern or managing an external device, such as an absorbent pad, ileal device, or catheter BLADDER MANAGEMENT - SCORE: 5-SUP BOWEL MANAGEMENT: Activity did not occur on this shift BOWEL MANAGEMENT - SCORE: 7-IND TRANSFERS: BED, CHAIR, WHEELCHAIR: Activity did not occur on this shift TRANSFERS: BED, CHAIR, WHEELCHAIR - SCORE: 0-UNK TRANSFERS: TOILET: Activity did not occur on this shift TRANSFERS: TOILET - SCORE: 0-UNK TRANSFERS: SHOWER: Activity did not occur on this shift TRANSFERS: SHOWER - SCORE: 0-UNK TRANSFERS: TUB: Activity did not occur on this shift TRANSFERS: TUB - SCORE: 0-UNK LOCOMOTION: WALK: Activity did not occur on this shift LOCOMOTION: WALK - SCORE: 0-UNK LOCOMOTION: WHEELCHAIR: Activity did not occur on this shift LOCOMOTION: WHEELCHAIR - SCORE: 0-UNK COMPREHENSION: COMPREHENSION - STEP 1: Does the patient require help to understand complex and abstract ideas (such as current events, finan césar, discharge planning, medical issues, relationships, etc)? Yes. COMPREHENSION - STEP 2: Does the patient require help to understand questions or statements about basic needs or ideas (such as hunger, thirst, sleep, safety, daily schedule, room location, or discomfort) half or more of the t sheridan? No. COMPREHENSION - STEP 3: How often does the patient need help to understand directions and conversation about basic needs? 10% - 24% of the time COMPREHENSION - SCORE: 4-MIN EXPRESSION EXPRESSION - STEP 1: Does the patient require help expressing complex and abstract ideas (such as current events, finances , discharge planning, medical issues, relationships, etc)? Yes. EXPRESSION - STEP 2: Does the patient require help to express basic necessities or ideas (such as hunger, thirst, sleep, s afety, daily schedule, room location, or discomfort) half or more of the time? No. EXPRESSION - STEP 3: How often does the patient need help to express directions and conversation about basic needs? 10-24% of the time EXPRESSION - SCORE: 4-MIN SOCIAL INTERACTION: SOCIAL INTERACTION - STEP 1: Does the patient require a helper to interact with others in social and therapeutic situations? No. SOCIAL INTERACTION - STEP 2: Does the patient need extra time in social situations, OR does s/he interact with staff, other patien ts, and family members ONLY in structured environments, OR does s/he require medication for social in teraction? Yes, patient needs extra time SOCIAL INTERACTION - SCORE: 6-DENISSE PROBLEM SOLVING: PROBLEM SOLVING - STEP 1: Does the patient need help to solve complex problems such as managing a checking account or confronti ng interpersonal problems? No. PROBLEM SOLVING - STEP 2: Does the patient require extra time to make decisions or solve problems, OR does s/he have slight dif ficulty reading, initiating, or self-correcting in unfamiliar situations? Yes, patient needs extra ti me. PROBLEM SOLVING - SCORE: 6-DENISSE MEMORY: MEMORY - STEP 1: Does the patient need help to remember frequently encountered people, daily routines, and executing r equests? No. MEMORY - STEP 2: Does the patient have slight difficulty recognizing frequently encountered people, daily routines, or executing requests without the need for repetition or using self-initiated or environmental cues to remember? Yes. MEMORY - SCORE: 6-DENISSE SIGNATURE PANEL: The following modified sections: Eating - Score, Grooming - Score, Dressing - Upper Body - Score, Lauri ssing - Lower Body - Score, Toileting - Score, Bladder Management - Score, Bowel Management - Score, Transfers: Bed, Chair, Wheelchair - Score, Transfers: Toilet - Score, Transfers: Shower - Score, Hayden sfers: Tub - Score, Locomotion: Walk - Score, Locomotion: Wheelchair - Score, Comprehension - Score, Expression - Score, Social Interaction - Score, Problem Solving - Score, Memory - Score were [electro nically] signed by Minda Yancey CNA on SatJun 12 2017 01:44:31 GMT-0500 (Central Daylight Time)
[2017-06-12] MEDS: ACETAMINOPHEN 500 MG TAB PO PRN (04:17)
[2017-06-12] MEDS: CARVEDILOL 3.125 MG TAB PO SCH ×2 (05:36→17:03)
[2017-06-12] MEDS: levoFLOXacin 500 MG TAB PO SCH (07:51)
[2017-06-12] MEDS: FUROSEMIDE 40 MG TABLET PO SCH (07:53)
[2017-06-12] MEDS: ASPIRIN EC 81 MG TAB PO SCH (07:53)
[2017-06-12] MEDS: acetaZOLAMIDE 250 MG TAB PO SCH (07:54)
[2017-06-12] MEDS: APIXABAN 2.5 MG TABLET PO SCH ×2 (07:55→20:24)
[2017-06-12] MEDS: LACTULOSE 20 GM/30 ML UCUP PO SCH (07:56)
[2017-06-12] MEDS: ENSURE ENLIVE 237 ML CAN PO SCH ×2 (07:57→20:25)
--- NOTE | 2017-06-12 15:21 | FAST ---
ENCOUNTER DATE AND TIME: 06/12/2017 08:00 (CDT) NAME TWIN OLIVIER DATE OF : 1930 DATE OF ADMISSION: 06/07/2017 19:25 (CDT) PHONE: AGE: 86 N# [id number] GENDER: Male ENCOUNTER PHYSICIAN: Dr. Woody Escamilla M.D. ADMISSION DIAGNOSIS: - Cardiac 09 - Cardiac Disorders (09) Chronic atrial fibrillation [I482]. CHF. EATING: Activity did not occur on this shift EATING - SCORE: 0-UNK GROOMING: Activity did not occur on this shift GROOMING - SCORE: 0-UNK BATHING: Activity did not occur on this shift BATHING - SCORE: 0-UNK DRESSING - UPPER BODY: Activity did not occur on this shift ARTICLES SCORE Total number of steps: 0 DRESSING - UPPER BODY - SCORE: 0-UNK DRESSING - LOWER BODY: Activity did not occur on this shift ARTICLES SCORE Total number of steps: 0 DRESSING - LOWER BODY - SCORE: 0-UNK TOILETING: Activity did not occur on this shift TOILETING - SCORE: 0-UNK BLADDER MANAGEMENT: Activity did not occur on this shift BLADDER MANAGEMENT - SCORE: 7-IND BOWEL MANAGEMENT: Activity did not occur on this shift BOWEL MANAGEMENT - SCORE: 7-IND TRANSFERS: BED, CHAIR, WHEELCHAIR: Activity did not occur on this shift TRANSFERS: BED, CHAIR, WHEELCHAIR - SCORE: 0-UNK TRANSFERS: TOILET: Activity did not occur on this shift TRANSFERS: TOILET - SCORE: 0-UNK TRANSFERS: SHOWER: Activity did not occur on this shift TRANSFERS: SHOWER - SCORE: 0-UNK TRANSFERS: TUB: Activity did not occur on this shift TRANSFERS: TUB - SCORE: 0-UNK LOCOMOTION: WALK: Activity did not occur on this shift LOCOMOTION: WALK - SCORE: 0-UNK LOCOMOTION: WHEELCHAIR: Activity did not occur on this shift LOCOMOTION: WHEELCHAIR - SCORE: 0-UNK LOCOMOTION: STAIRS: Activity did not occur on this shift LOCOMOTION: STAIRS - SCORE: 0-UNK COMPREHENSION: COMPREHENSION - STEP 1: Does the patient require help to understand complex and abstract ideas (such as current events, finan césar, discharge planning, medical issues, relationships, etc)? Yes. COMPREHENSION - STEP 2: Does the patient require help to understand questions or statements about basic needs or ideas (such as hunger, thirst, sleep, safety, daily schedule, room location, or discomfort) half or more of the t sher[place]? No. COMPREHENSION - STEP 3: How often does the patient need help to understand directions and conversation about basic needs? 25% - 49% of the time COMPREHENSION - SCORE: 3-MOD EXPRESSION EXPRESSION - STEP 1: Does the patient require help expressing complex and abstract ideas (such as current events, finances , discharge planning, medical issues, relationships, etc)? Yes. EXPRESSION - STEP 2: Does the patient require help to express basic necessities or ideas (such as hunger, thirst, sleep, s afety, daily schedule, room location, or discomfort) half or more of the time? No. EXPRESSION - STEP 3: How often does the patient need help to express directions and conversation about basic needs? 10-24% of the time EXPRESSION - SCORE: 4-MIN SOCIAL INTERACTION: SOCIAL INTERACTION - STEP 1: Does the patient require a helper to interact with others in social and therapeutic situations? Yes. SOCIAL INTERACTION - STEP 2: Does the patient interact appropriately half or more of the time? Yes. SOCIAL INTERACTION - STEP 3: How often does the patient need help to interact appropriately? 10-24% of the time SOCIAL INTERACTION - SCORE: 4-MIN PROBLEM SOLVING: PROBLEM SOLVING - STEP 1: Does the patient need help to solve complex problems such as managing a checking account or confronti ng interpersonal problems? Yes. PROBLEM SOLVING - STEP 2: Does the patient solve basic routine problems half or more of the time? Yes. PROBLEM SOLVING - STEP 3: How often does the patient need help to solve basic routine problems? 25%-49% of the time PROBLEM SOLVING - SCORE: 3-MOD MEMORY: MEMORY - STEP 1: Does the patient need help to remember frequently encountered people, daily routines, and executing r equests? Yes. MEMORY - STEP 2: How often does the patient need help to remember frequently encountered people, daily routines, and e xecuting requests? More than 50% of the time MEMORY - STEP 3: Does the patient need help to remember all of the time OR does s/he not effectively recognize and rem ember? No. Patient does not need help all the time MEMORY - SCORE: 2-MAX SIGNATURE PANEL: The following modified sections: Comprehension - Score, Expression - Score, Social Interaction - Scor e, Problem Solving - Score, Memory - Score were [electronically] signed by ANGELA Hernandez on Sat 14:23:41 GMT-0500 (Central Daylight Time)
--- NOTE | 2017-06-12 17:07 | FAST ---
SHIFT START DATE/TIME: 06/12/2017 07:00 (CDT) SHIFT END DATE/TIME: 06/12/2017 19:00 (CDT) NAME TWIN OLIVIER DATE OF : 1930 DATE OF ADMISSION: 06/07/2017 19:25 (CDT) PHONE: AGE: 86 N# [id number] GENDER: Male ENCOUNTER PHYSICIAN: Dr. Woody Escamilla M.D. ADMISSION DIAGNOSIS: - Cardiac 09 - Cardiac Disorders () Chronic atrial fibrillation [I482]. CHF. EATING: EATING - STEP 1: Does the patient require assistance when eating? Yes. EATING - STEP 2: Does the patient require the assistance of a helper? Yes. EATING - STEP 3: Does the patient perform half or more of the eating tasks? Yes. EATING - STEP 4: Does the patient need only supervision, cuing, coaxing OR help to apply an orthosis OR help to cut fo od, open containers, pour liquids, or butter bread? Yes. EATING - SCORE: 5-SUP GROOMING: Activity did not occur on this shift GROOMING - SCORE: 0-UNK BATHING: Activity did not occur on this shift BATHING - SCORE: 0-UNK DRESSING - UPPER BODY: Activity did not occur on this shift ARTICLES SCORE Total number of steps: 0 DRESSING - UPPER BODY - SCORE: 0-UNK DRESSING - UPPER BODY - COMMENTS: Pt dressed with OT DRESSING - LOWER BODY: Activity did not occur on this shift ARTICLES SCORE Total number of steps: 0 DRESSING - LOWER BODY - SCORE: 0-UNK DRESSING - LOWER BODY - COMMENTS: Pt dressed with OT TOILETING: TOILETING - STEP 1: Does the patient require assistance with toileting? Yes. TOILETING - STEP 2: Does the patient require the assistance of a helper? Yes. TOILETING - STEP 3: How much assistance does the patient require from the helper? Hands-on assistance from the helper TOILETING - STEP 4: Of the 3 tasks: 1) Adjusting clothing prior to use, 2) Cleansing of perineal area, 3) Adjusting clot portia after use; How many tasks does the patient perform WITHOUT assistance of the helper? Two tasks TOILETING - SCORE: 3-MOD BLADDER MANAGEMENT: BLADDER MANAGEMENT - STEP 1: Does the patient control the bladder completely and intentionally without equipment or devices or med ications, and is always continent? No. BLADDER MANAGEMENT - STEP 2: Does the patient require the assistance of a helper? No, patient requires and independently uses an a ssistive device, such as a urinal, bedpan, bedside commode, catheter, absorbent pad, or collecting de vice BLADDER MANAGEMENT - SCORE: 6-DENISSE BOWEL MANAGEMENT: BOWEL MANAGEMENT - STEP 1: Does the patient control bowels completely and intentionally without equipment devices or medications AND is always continent? No. BOWEL MANAGEMENT - STEP 2: Does the patient require the assistance of a helper? No, patient requires medication for control such as stool softeners, suppositories, laxatives, enemas, or OTC medications BOWEL MANAGEMENT - SCORE: 6-DENISSE TRANSFERS: BED, CHAIR, WHEELCHAIR: TRANSFERS: BED, CHAIR, WHEELCHAIR - STEP 1: Does the patient require assistance with bed, chair, or wheelchair transfers? Yes. TRANSFERS: BED, CHAIR, WHEELCHAIR - STEP 2: Does the patient require the assistance of a helper? Yes. TRANSFERS: BED, CHAIR, WHEELCHAIR - STEP 3: How much assistance does the patient require from the helper? Lifting of the legs TRANSFERS: BED, CHAIR, WHEELCHAIR - STEP 4: How many legs does the patient require the helper to lift? both legs TRANSFERS: BED, CHAIR, WHEELCHAIR - SCORE: 3-MOD TRANSFERS: TOILET: TRANSFERS: TOILET - STEP 1: Does the patient require assistance with toilet transfers? Yes. TRANSFERS: TOILET - STEP 2: Does the patient require the assistance of a helper? Yes. TRANSFERS: TOILET - STEP 3: How much assistance does the patient require from the helper? Patient performs half or more of the tr ansferring tasks TRANSFERS: TOILET - STEP 4: Does the patient need only incidental help such as contact guard or steadying during toilet transfer? Yes. TRANSFERS: TOILET - SCORE: 4-MIN TRANSFERS: SHOWER: Activity did not occur on this shift TRANSFERS: SHOWER - SCORE: 0-UNK TRANSFERS: TUB: Activity did not occur on this shift TRANSFERS: TUB - SCORE: 0-UNK LOCOMOTION: WALK: Activity did not occur on this shift LOCOMOTION: WALK - SCORE: 0-UNK LOCOMOTION: WHEELCHAIR: Activity did not occur on this shift LOCOMOTION: WHEELCHAIR - SCORE: 0-UNK COMPREHENSION: COMPREHENSION - SCORE: 0-UNK EXPRESSION EXPRESSION - SCORE: 0-UNK SOCIAL INTERACTION: SOCIAL INTERACTION - SCORE: 0-UNK PROBLEM SOLVING: PROBLEM SOLVING - SCORE: 0-UNK MEMORY: MEMORY - SCORE: 0-UNK SIGNATURE PANEL: The following modified sections: Eating - Score, Grooming - Score, Bathing - Score, Dressing - Upper Body - Score, Dressing - Upper Body - Comments:, Dressing - Lower Body - Score, Dressing - Lower Body - Comments:, Toileting - Score, Bladder Management - Score, Bowel Management - Score, Transfers: Bed , Chair, Wheelchair - Score, Transfers: Toilet - Score, Transfers: Shower - Score, Transfers: Tub - S core, Locomotion: Walk - Score, Locomotion: Wheelchair - Score, Comprehension - Score, Expression - S core, Social Interaction - Score, Problem Solving - Score, Memory - Score were [electronically] maninder d by Thanh Wolf on SatJun 12 2017 16:09:31 GMT-0500 (Central Daylight Time)
[2017-06-12] MEDS: LATANOPROST OPTH OPTH SCH (20:25)
[2017-06-12] MEDS: Bacitracin Opth Oint TOP SCH (20:25)
[2017-06-12] MEDS: MELATONIN 3 MG TABLET PO PRN (20:31)
--- NOTE | 2017-06-13 03:13 | FAST ---
SHIFT START DATE/TIME: 06/12/2017 19:00 (CDT) SHIFT END DATE/TIME: 06/13/2017 07:00 (CDT) NAME TWIN OLIVIER DATE OF : 1930 DATE OF ADMISSION: 06/07/2017 19:25 (CDT) PHONE: AGE: 86 N# [id number] GENDER: Male ENCOUNTER PHYSICIAN: Dr. Woody Escamilla M.D. ADMISSION DIAGNOSIS: - Cardiac 09 - Cardiac Disorders (09) Chronic atrial fibrillation [I482]. CHF. EATING: Activity did not occur on this shift EATING - SCORE: 0-UNK GROOMING: Activity did not occur on this shift GROOMING - SCORE: 0-UNK BATHING: Activity did not occur on this shift BATHING - SCORE: 0-UNK DRESSING - UPPER BODY: Activity did not occur on this shift ARTICLES SCORE Total number of steps: 0 DRESSING - UPPER BODY - SCORE: 0-UNK DRESSING - LOWER BODY: Activity did not occur on this shift ARTICLES SCORE Total number of steps: 0 DRESSING - LOWER BODY - SCORE: 0-UNK TOILETING: TOILETING - STEP 1: Does the patient require assistance with toileting? Yes. TOILETING - STEP 2: Does the patient require the assistance of a helper? Yes. TOILETING - STEP 3: How much assistance does the patient require from the helper? Hands-on assistance from the helper TOILETING - STEP 4: Of the 3 tasks: 1) Adjusting clothing prior to use, 2) Cleansing of perineal area, 3) Adjusting clot portia after use; How many tasks does the patient perform WITHOUT assistance of the helper? Three tasks with steadying assistance from the helper TOILETING - SCORE: 4-MIN BLADDER MANAGEMENT: BLADDER MANAGEMENT - STEP 1: Does the patient control the bladder completely and intentionally without equipment or devices or med ications, and is always continent? No. BLADDER MANAGEMENT - STEP 2: Does the patient require the assistance of a helper? Yes. BLADDER MANAGEMENT - STEP 3: How much assistance does the patient require from the helper? Only set-up of equipment - such as plac ing it within reach of the patient or emptying a device - to maintain either satisfactory voiding pat tern or managing an external device, such as an absorbent pad, ileal device, or catheter BLADDER MANAGEMENT - SCORE: 5-SUP BOWEL MANAGEMENT: Activity did not occur on this shift BOWEL MANAGEMENT - SCORE: 7-IND TRANSFERS: BED, CHAIR, WHEELCHAIR: Activity did not occur on this shift TRANSFERS: BED, CHAIR, WHEELCHAIR - SCORE: 0-UNK TRANSFERS: TOILET: Activity did not occur on this shift TRANSFERS: TOILET - SCORE: 0-UNK TRANSFERS: SHOWER: Activity did not occur on this shift TRANSFERS: SHOWER - SCORE: 0-UNK TRANSFERS: TUB: Activity did not occur on this shift TRANSFERS: TUB - SCORE: 0-UNK LOCOMOTION: WALK: Activity did not occur on this shift LOCOMOTION: WALK - SCORE: 0-UNK LOCOMOTION: WHEELCHAIR: Activity did not occur on this shift LOCOMOTION: WHEELCHAIR - SCORE: 0-UNK COMPREHENSION: COMPREHENSION: TYPE: Both COMPREHENSION - STEP 1: Does the patient require help to understand complex and abstract ideas (such as current events, finan césar, discharge planning, medical issues, relationships, etc)? Yes. COMPREHENSION - STEP 2: Does the patient require help to understand questions or statements about basic needs or ideas (such as hunger, thirst, sleep, safety, daily schedule, room location, or discomfort) half or more of the t sher[place]? No. COMPREHENSION - STEP 3: How often does the patient need help to understand directions and conversation about basic needs? 10% - 24% of the time COMPREHENSION - SCORE: 4-MIN EXPRESSION EXPRESSION: TYPE: Both EXPRESSION - STEP 1: Does the patient require help expressing complex and abstract ideas (such as current events, finances , discharge planning, medical issues, relationships, etc)? Yes. EXPRESSION - STEP 2: Does the patient require help to express basic necessities or ideas (such as hunger, thirst, sleep, s afety, daily schedule, room location, or discomfort) half or more of the time? No. EXPRESSION - STEP 3: How often does the patient need help to express directions and conversation about basic needs? 10-24% of the time EXPRESSION - SCORE: 4-MIN SOCIAL INTERACTION: SOCIAL INTERACTION - STEP 1: Does the patient require a helper to interact with others in social and therapeutic situations? No. SOCIAL INTERACTION - STEP 2: Does the patient need extra time in social situations, OR does s/he interact with staff, other patien ts, and family members ONLY in structured environments, OR does s/he require medication for social in teraction? Yes, patient needs extra time SOCIAL INTERACTION - SCORE: 6-DENISSE PROBLEM SOLVING: PROBLEM SOLVING - STEP 1: Does the patient need help to solve complex problems such as managing a checking account or confronti ng interpersonal problems? No. PROBLEM SOLVING - STEP 2: Does the patient require extra time to make decisions or solve problems, OR does s/he have slight dif ficulty reading, initiating, or self-correcting in unfamiliar situations? Yes, patient needs extra ti me. PROBLEM SOLVING - SCORE: 6-DENISSE MEMORY: MEMORY - STEP 1: Does the patient need help to remember frequently encountered people, daily routines, and executing r equests? No. MEMORY - STEP 2: Does the patient have slight difficulty recognizing frequently encountered people, daily routines, or executing requests without the need for repetition or using self-initiated or environmental cues to remember? Yes. MEMORY - SCORE: 6-DENISSE SIGNATURE PANEL: The following modified sections: Eating - Score, Grooming - Score, Bathing - Score, Dressing - Upper Body - Score, Dressing - Lower Body - Score, Toileting - Score, Bladder Management - Score, Bowel Man agement - Score, Transfers: Bed, Chair, Wheelchair - Score, Transfers: Toilet - Score, Transfers: Lupe wer - Score, Transfers: Tub - Score, Locomotion: Walk - Score, Locomotion: Wheelchair - Score, Compre hension - Score, Expression - Score, Social Interaction - Score, Problem Solving - Score, Memory - Sc ore were [electronically] signed by Manuela Cohen CNA on SatJun 13 2017 02:14:39 GMT-0500 (Central Daylight Time)
[2017-06-13] MEDS: CARVEDILOL 3.125 MG TAB PO SCH ×2 (05:07→17:01)
[2017-06-13 06:03] LABS: Absolute Lymphocytes (CBC) 0.5 K/uL (0.7-4.9); Absolute Monocytes 0.8 K/uL (0.1-1.3); Absolute Neutrophil 3.8 K/uL (1.8-8.0); Eosinophils % 6.3 % (0-4.4); Hematocrit 35.9 % (39.6-49.0); Lymphocytes % 9.8 % (15.3-44.8); MCH 30.9 pg (27.0-35.0); MCV 97.5 fL (80-100); MPV 9.1 fL (7.6-11.3); Monocytes % 14.8 % (3.3-12.3); RBC Red Blood Cell Count 3.68 M/uL (4.33-5.43)
[2017-06-13 07:00] LABS: Albumin 2.7 g/dL (3.2-5.5); Prealbumin 17.2 mg/dl (18-38)
[2017-06-13] MEDS: acetaZOLAMIDE 250 MG TAB PO SCH (08:12)
[2017-06-13] MEDS: levoFLOXacin 500 MG TAB PO SCH (08:13)
[2017-06-13] MEDS: ASPIRIN EC 81 MG TAB PO SCH (08:13)
[2017-06-13] MEDS: FUROSEMIDE 40 MG TABLET PO SCH (08:13)
[2017-06-13] MEDS: APIXABAN 2.5 MG TABLET PO SCH ×2 (08:13→20:29)
[2017-06-13] MEDS: ACETAMINOPHEN 500 MG TAB PO PRN (08:14)
[2017-06-13] MEDS: ENSURE ENLIVE 237 ML CAN PO SCH ×2 (08:15→20:29)
[2017-06-13] MEDS: LACTULOSE 20 GM/30 ML UCUP PO SCH (08:15)
--- NOTE | 2017-06-13 12:25 | FAST ---
SHIFT START DATE/TIME: 06/13/2017 07:00 (CDT) SHIFT END DATE/TIME: 06/13/2017 19:00 (CDT) NAME TWIN OLIVIER DATE OF : 1930 DATE OF ADMISSION: 06/07/2017 19:25 (CDT) PHONE: AGE: 86 N# [id number] GENDER: Male ENCOUNTER PHYSICIAN: Dr. Woody Escamilla M.D. ADMISSION DIAGNOSIS: - Cardiac 09 - Cardiac Disorders () Chronic atrial fibrillation [I482]. CHF. EATING: EATING - STEP 1: Does the patient require assistance when eating? Yes. EATING - STEP 2: Does the patient require the assistance of a helper? Yes. EATING - STEP 3: Does the patient perform half or more of the eating tasks? Yes. EATING - STEP 4: Does the patient need only supervision, cuing, coaxing OR help to apply an orthosis OR help to cut fo od, open containers, pour liquids, or butter bread? Yes. EATING - SCORE: 5-SUP EATING - COMMENTS: Thickened liquids GROOMING: Activity did not occur on this shift GROOMING - SCORE: 0-UNK BATHING: Activity did not occur on this shift BATHING - SCORE: 0-UNK DRESSING - UPPER BODY: T-shirt/pullover shirt (four steps) ARTICLES SCORE Total number of steps: 4 DRESSING - UPPER BODY - STEP 1: Does the patient require help when dressing above the waist? Yes. DRESSING - UPPER BODY - STEP 2: Does the patient require the assistance of a helper? Yes. DRESSING - UPPER BODY - STEP 3: Does the helper touch the patient while dressing? Yes. DRESSING - UPPER BODY - STEP 4: How many of the total steps does the patient complete on his/her own? 2 DRESSING - UPPER BODY - SCORE: 3-MOD DRESSING - LOWER BODY: Elastic waist pants (three steps) ARTICLES SCORE Total number of steps: 3 DRESSING - LOWER BODY - STEP 1: Does the patient require help when dressing below the waist? Yes. DRESSING - LOWER BODY - STEP 2: Does the patient require the assistance of a helper? Yes. DRESSING - LOWER BODY - STEP 3: Does the helper touch the patient while dressing? Yes. DRESSING - LOWER BODY - STEP 4: How many of the total steps does the patient complete on his/her own? 0 DRESSING - LOWER BODY - STEP 5: Does patient require total assistance for dressing below the waist such as the helper holding clothin g and performing basically all the activities? No. DRESSING - LOWER BODY - SCORE: 2-MAX TOILETING: TOILETING - STEP 1: Does the patient require assistance with toileting? Yes. TOILETING - STEP 2: Does the patient require the assistance of a helper? Yes. TOILETING - STEP 3: How much assistance does the patient require from the helper? Hands-on assistance from the helper TOILETING - STEP 4: Of the 3 tasks: 1) Adjusting clothing prior to use, 2) Cleansing of perineal area, 3) Adjusting clot portia after use; How many tasks does the patient perform WITHOUT assistance of the helper? Two tasks TOILETING - SCORE: 3-MOD BLADDER MANAGEMENT: BLADDER MANAGEMENT - STEP 1: Does the patient control the bladder completely and intentionally without equipment or devices or med ications, and is always continent? No. BLADDER MANAGEMENT - STEP 2: Does the patient require the assistance of a helper? No, patient requires and independently uses an a ssistive device, such as a urinal, bedpan, bedside commode, catheter, absorbent pad, or collecting de vice BLADDER MANAGEMENT - SCORE: 6-DENISSE BOWEL MANAGEMENT: Activity did not occur on this shift BOWEL MANAGEMENT - SCORE: 7-IND TRANSFERS: BED, CHAIR, WHEELCHAIR: TRANSFERS: BED, CHAIR, WHEELCHAIR - STEP 1: Does the patient require assistance with bed, chair, or wheelchair transfers? Yes. TRANSFERS: BED, CHAIR, WHEELCHAIR - STEP 2: Does the patient require the assistance of a helper? Yes. TRANSFERS: BED, CHAIR, WHEELCHAIR - STEP 3: How much assistance does the patient require from the helper? Lifting of the patient TRANSFERS: BED, CHAIR, WHEELCHAIR - STEP 4: Does the helper lift the patient ONLY up? ONLY down? Up AND Down? ONLY up. TRANSFERS: BED, CHAIR, WHEELCHAIR - SCORE: 3-MOD TRANSFERS: TOILET: TRANSFERS: TOILET - STEP 1: Does the patient require assistance with toilet transfers? Yes. TRANSFERS: TOILET - STEP 2: Does the patient require the assistance of a helper? Yes. TRANSFERS: TOILET - STEP 3: How much assistance does the patient require from the helper? Patient performs half or more of the tr ansferring tasks TRANSFERS: TOILET - STEP 4: Does the patient need only incidental help such as contact guard or steadying during toilet transfer? No. Patient needs more than incidental help TRANSFERS: TOILET - SCORE: 3-MOD TRANSFERS: SHOWER: Activity did not occur on this shift TRANSFERS: SHOWER - SCORE: 0-UNK TRANSFERS: TUB: Activity did not occur on this shift TRANSFERS: TUB - SCORE: 0-UNK LOCOMOTION: WALK: Activity did not occur on this shift LOCOMOTION: WALK - SCORE: 0-UNK LOCOMOTION: WHEELCHAIR: Activity did not occur on this shift LOCOMOTION: WHEELCHAIR - SCORE: 0-UNK COMPREHENSION: COMPREHENSION - SCORE: 0-UNK EXPRESSION EXPRESSION - SCORE: 0-UNK SOCIAL INTERACTION: SOCIAL INTERACTION - SCORE: 0-UNK PROBLEM SOLVING: PROBLEM SOLVING - SCORE: 0-UNK MEMORY: MEMORY - SCORE: 0-UNK SIGNATURE PANEL: The following modified sections: Eating - Score, Eating - Comments:, Grooming - Score, Bathing - Scor e, Dressing - Upper Body - Score, Dressing - Lower Body - Score, Toileting - Score, Bladder Managemen t - Score, Bowel Management - Score, Transfers: Bed, Chair, Wheelchair - Score, Transfers: Toilet - S core, Transfers: Shower - Score, Transfers: Tub - Score, Locomotion: Walk - Score, Locomotion: Wheelc hair - Score, Comprehension - Score, Expression - Score, Social Interaction - Score, Problem Solving - Score, Memory - Score were [electronically] signed by Thanh Wolf on SatJun 13 2017 11:27:00 GMT-05 00 (Central Daylight Time)
--- NOTE | 2017-06-13 16:09 | FAST ---
ENCOUNTER DATE AND TIME: 06/13/2017 08:00 (CDT) NAME TWIN OLIVIER DATE OF : 1930 DATE OF ADMISSION: 06/07/2017 19:25 (CDT) PHONE: AGE: 86 N# [id number] GENDER: Male ENCOUNTER PHYSICIAN: Dr. Woody Esacmilla M.D. ADMISSION DIAGNOSIS: - Cardiac 09 - Cardiac Disorders (09) Chronic atrial fibrillation [I482]. CHF. EATING: Activity did not occur on this shift EATING - SCORE: 0-UNK GROOMING: Activity did not occur on this shift GROOMING - SCORE: 0-UNK BATHING: Activity did not occur on this shift BATHING - SCORE: 0-UNK DRESSING - UPPER BODY: Activity did not occur on this shift ARTICLES SCORE Total number of steps: 0 DRESSING - UPPER BODY - SCORE: 0-UNK DRESSING - LOWER BODY: Activity did not occur on this shift ARTICLES SCORE Total number of steps: 0 DRESSING - LOWER BODY - SCORE: 0-UNK TOILETING: Activity did not occur on this shift TOILETING - SCORE: 0-UNK BLADDER MANAGEMENT: Activity did not occur on this shift BLADDER MANAGEMENT - SCORE: 7-IND BOWEL MANAGEMENT: Activity did not occur on this shift BOWEL MANAGEMENT - SCORE: 7-IND TRANSFERS: BED, CHAIR, WHEELCHAIR: Activity did not occur on this shift TRANSFERS: BED, CHAIR, WHEELCHAIR - SCORE: 0-UNK TRANSFERS: TOILET: Activity did not occur on this shift TRANSFERS: TOILET - SCORE: 0-UNK TRANSFERS: SHOWER: Activity did not occur on this shift TRANSFERS: SHOWER - SCORE: 0-UNK TRANSFERS: TUB: Activity did not occur on this shift TRANSFERS: TUB - SCORE: 0-UNK LOCOMOTION: WALK: Activity did not occur on this shift LOCOMOTION: WALK - SCORE: 0-UNK LOCOMOTION: WHEELCHAIR: Activity did not occur on this shift LOCOMOTION: WHEELCHAIR - SCORE: 0-UNK LOCOMOTION: STAIRS: Activity did not occur on this shift LOCOMOTION: STAIRS - SCORE: 0-UNK COMPREHENSION: COMPREHENSION - STEP 1: Does the patient require help to understand complex and abstract ideas (such as current events, finan césar, discharge planning, medical issues, relationships, etc)? Yes. COMPREHENSION - STEP 2: Does the patient require help to understand questions or statements about basic needs or ideas (such as hunger, thirst, sleep, safety, daily schedule, room location, or discomfort) half or more of the t sheridan? No. COMPREHENSION - STEP 3: How often does the patient need help to understand directions and conversation about basic needs? 25% - 49% of the time COMPREHENSION - SCORE: 3-MOD EXPRESSION EXPRESSION - STEP 1: Does the patient require help expressing complex and abstract ideas (such as current events, finances , discharge planning, medical issues, relationships, etc)? Yes. EXPRESSION - STEP 2: Does the patient require help to express basic necessities or ideas (such as hunger, thirst, sleep, s afety, daily schedule, room location, or discomfort) half or more of the time? No. EXPRESSION - STEP 3: How often does the patient need help to express directions and conversation about basic needs? 10-24% of the time EXPRESSION - SCORE: 4-MIN SOCIAL INTERACTION: SOCIAL INTERACTION - STEP 1: Does the patient require a helper to interact with others in social and therapeutic situations? Yes. SOCIAL INTERACTION - STEP 2: Does the patient interact appropriately half or more of the time? Yes. SOCIAL INTERACTION - STEP 3: How often does the patient need help to interact appropriately? 10-24% of the time SOCIAL INTERACTION - SCORE: 4-MIN PROBLEM SOLVING: PROBLEM SOLVING - STEP 1: Does the patient need help to solve complex problems such as managing a checking account or confronti ng interpersonal problems? Yes. PROBLEM SOLVING - STEP 2: Does the patient solve basic routine problems half or more of the time? No. PROBLEM SOLVING - STEP 3: Does the patient need help to solve problems all the time or is s/he unable to solve problems? No. Gumaro baron can sometimes solve problems PROBLEM SOLVING - SCORE: 2-MAX MEMORY: MEMORY - STEP 1: Does the patient need help to remember frequently encountered people, daily routines, and executing r equests? Yes. MEMORY - STEP 2: How often does the patient need help to remember frequently encountered people, daily routines, and e xecuting requests? More than 50% of the time MEMORY - STEP 3: Does the patient need help to remember all of the time OR does s/he not effectively recognize and rem ember? No. Patient does not need help all the time MEMORY - SCORE: 2-MAX SIGNATURE PANEL: The following modified sections: Comprehension - Score, Expression - Score, Social Interaction - Scor e, Problem Solving - Score, Memory - Score were [electronically] signed by ANGELA Hernandez on Sat 15:11:34 GMT-0500 (Central Daylight Time)
--- NOTE | 2017-06-13 16:15 | FAST ---
ENCOUNTER DATE AND TIME: 06/13/2017 08:00 (CDT) NAME TWIN OLIVIER DATE OF : 1930 DATE OF ADMISSION: 06/07/2017 19:25 (CDT) PHONE: AGE: 86 N# [id number] GENDER: Male ENCOUNTER PHYSICIAN: Dr. Woody Escamilla M.D. ADMISSION DIAGNOSIS: - Cardiac 09 - Cardiac Disorders (09) Chronic atrial fibrillation [I482]. CHF. EATING: Activity did not occur on this shift EATING - SCORE: 0-UNK GROOMING: Activity did not occur on this shift GROOMING - SCORE: 0-UNK BATHING: Activity did not occur on this shift BATHING - SCORE: 0-UNK DRESSING - UPPER BODY: Activity did not occur on this shift ARTICLES SCORE Total number of steps: 0 DRESSING - UPPER BODY - SCORE: 0-UNK DRESSING - LOWER BODY: Activity did not occur on this shift ARTICLES SCORE Total number of steps: 0 DRESSING - LOWER BODY - SCORE: 0-UNK TOILETING: Activity did not occur on this shift TOILETING - SCORE: 0-UNK BLADDER MANAGEMENT: Activity did not occur on this shift BLADDER MANAGEMENT - SCORE: 7-IND BOWEL MANAGEMENT: Activity did not occur on this shift BOWEL MANAGEMENT - SCORE: 7-IND TRANSFERS: BED, CHAIR, WHEELCHAIR: TRANSFERS: BED, CHAIR, WHEELCHAIR - STEP 1: Does the patient require assistance with bed, chair, or wheelchair transfers? Yes. TRANSFERS: BED, CHAIR, WHEELCHAIR - STEP 2: Does the patient require the assistance of a helper? Yes. TRANSFERS: BED, CHAIR, WHEELCHAIR - STEP 3: How much assistance does the patient require from the helper? Steadying/guiding assistance TRANSFERS: BED, CHAIR, WHEELCHAIR - SCORE: 4-MIN TRANSFERS: TOILET: Activity did not occur on this shift TRANSFERS: TOILET - SCORE: 0-UNK TRANSFERS: SHOWER: Activity did not occur on this shift TRANSFERS: SHOWER - SCORE: 0-UNK TRANSFERS: TUB: Activity did not occur on this shift TRANSFERS: TUB - SCORE: 0-UNK LOCOMOTION: WALK: LOCOMOTION: WALK - STEP 1: Does the patient need help to walk 150 feet? Yes. LOCOMOTION: WALK - STEP 2: How much assistance does the patient require to walk a minimum of 150 feet? Patient walks less than 1 50 feet - but more than 50 feet - with the assistance of only one helper LOCOMOTION: WALK - SCORE: 2-MAX LOCOMOTION: WHEELCHAIR: Activity did not occur on this shift LOCOMOTION: WHEELCHAIR - SCORE: 0-UNK LOCOMOTION: STAIRS: Activity did not occur on this shift LOCOMOTION: STAIRS - SCORE: 0-UNK COMPREHENSION: COMPREHENSION - SCORE: 0-UNK EXPRESSION EXPRESSION - SCORE: 0-UNK SOCIAL INTERACTION: SOCIAL INTERACTION - SCORE: 0-UNK PROBLEM SOLVING: PROBLEM SOLVING - SCORE: 0-UNK MEMORY: MEMORY - SCORE: 0-UNK SIGNATURE PANEL: The following modified sections: Transfers: Bed, Chair, Wheelchair - Score, Transfers: Toilet - Score , Locomotion: Walk - Score, Locomotion: Wheelchair - Score, Locomotion: Stairs - Score were [electron ically] signed by Felipe Gutierrez PTA on SatJun 13 2017 15:16:56 GMT-0500 (Central Daylight Time)
--- NOTE | 2017-06-13 16:17 | FAST ---
ENCOUNTER DATE AND TIME: 06/12/2017 08:00 (CDT) NAME TWIN OLIVIER DATE OF : 1930 DATE OF ADMISSION: 06/07/2017 19:25 (CDT) PHONE: AGE: 86 N# [id number] GENDER: Male ENCOUNTER PHYSICIAN: Dr. Woody Escamilla M.D. ADMISSION DIAGNOSIS: - Cardiac 09 - Cardiac Disorders (09) Chronic atrial fibrillation [I482]. CHF. EATING: Activity did not occur on this shift EATING - SCORE: 0-UNK GROOMING: Activity did not occur on this shift GROOMING - SCORE: 0-UNK BATHING: Activity did not occur on this shift BATHING - SCORE: 0-UNK DRESSING - UPPER BODY: Activity did not occur on this shift ARTICLES SCORE Total number of steps: 0 DRESSING - UPPER BODY - SCORE: 0-UNK DRESSING - LOWER BODY: Activity did not occur on this shift ARTICLES SCORE Total number of steps: 0 DRESSING - LOWER BODY - SCORE: 0-UNK TOILETING: Activity did not occur on this shift TOILETING - SCORE: 0-UNK BLADDER MANAGEMENT: Activity did not occur on this shift BLADDER MANAGEMENT - SCORE: 7-IND BOWEL MANAGEMENT: Activity did not occur on this shift BOWEL MANAGEMENT - SCORE: 7-IND TRANSFERS: BED, CHAIR, WHEELCHAIR: Activity did not occur on this shift TRANSFERS: BED, CHAIR, WHEELCHAIR - SCORE: 0-UNK TRANSFERS: TOILET: Activity did not occur on this shift TRANSFERS: TOILET - SCORE: 0-UNK TRANSFERS: SHOWER: Activity did not occur on this shift TRANSFERS: SHOWER - SCORE: 0-UNK TRANSFERS: TUB: Activity did not occur on this shift TRANSFERS: TUB - SCORE: 0-UNK LOCOMOTION: WALK: Activity did not occur on this shift LOCOMOTION: WALK - SCORE: 0-UNK LOCOMOTION: WHEELCHAIR: Activity did not occur on this shift LOCOMOTION: WHEELCHAIR - SCORE: 0-UNK LOCOMOTION: STAIRS: Activity did not occur on this shift LOCOMOTION: STAIRS - SCORE: 0-UNK COMPREHENSION: COMPREHENSION - SCORE: 0-UNK EXPRESSION EXPRESSION - SCORE: 0-UNK SOCIAL INTERACTION: SOCIAL INTERACTION - SCORE: 0-UNK PROBLEM SOLVING: PROBLEM SOLVING - SCORE: 0-UNK MEMORY: MEMORY - SCORE: 0-UNK SIGNATURE PANEL: The following modified sections: Transfers: Bed, Chair, Wheelchair - Score, Transfers: Toilet - Score , Locomotion: Walk - Score, Locomotion: Wheelchair - Score, Locomotion: Stairs - Score were [electron icallkike] signed by Felipe Gutierrez PTA on SatJun 13 2017 15:18:45 GMT-0500 (Central Daylight Time)
--- NOTE | 2017-06-13 19:47 | R.PN ---
ENCOUNTER DATE AND TIME: 06/13/2017 18:42 (CDT) NAME TWIN OLIVIER DATE OF : 1930 DATE OF ADMISSION: 06/07/2017 19:25 (CDT) Chronic atrial fibrillation [I482]CHFCHIEF COMPLAINT: Debility SUBJECTIVE: Pt denied any Shortness of Breath. Pt denied any depression. Ambulated 185' with rolling walker using 2L of O2 with minimum assistance, Self propelled wheelchair 250' with maximum assistance. Mildly increased upper airway sounds. Use incentive spironetry. VITAL SIGNS Temperature: 97.8 F SBP/DBP: 100/51 Pulse: 75 Resp: 16 MEDICATION ALLERGIES: iodine ENVIRONMENTAL ALLERGIES: - Substance Allergies None Known - Other Allergies None Known NURSING: - Shower allowing shower ACTIVITIES OOB only with supervision THERAPIES: - Occupational Therapy Evaluate and Treat. - Physical Therapy Evaluate and Treat. PHYSICAL EXAM - Gen Alert and awake Lying in bed No apparent distress Oriented to: person, time, and place - Vital Signs Vital signs stable, afebrile - Skin No breakdowns No abnormalities - Eyes No abnormalities - ENMT No abnormalities - Neck No abnormalities - CVS RRR - Chest Mildly decreased breath sounds bilaterally. - Resp + rhonchi - Abd +bowel sounds - GI Obese Deferred - No abnormalities - Ext Mild bilateral lower extremity edema. - MSK 4/5 weakness in both lower extremities. - Neuro No focal deficits. - Psych No abnormalities ASSESSMENT: Pt. is a 86 yo Right-handed white male.On 06/05/2017 he was admitted to [facility] with diagnosis Chronic atrial fibrillation [I482].His impairment category is Cardiac 09 - Cardia c Disorders (09).Pre-morbidly, Pt. was independent/mod-I in Social Cognition, Self-Care, Sphincter Co ntrol, Transfers Control, Communication, and Locomotion; and he had good Sphincter Control.Currently, he has deficits of Social Cognition, Balance, Self-Care, Endurance, Safety Awareness, Transfers Cont rol, Communication, and Locomotion.Pt. is now [facility] to [facility] for acute in-patient rehabilitation in order to maximize patient's functional independence in activities of da yuan living, strength, ROM, and mobility.- Rehab Goal Patient has realistic goal of being discharged at assistance level 6-Delia to reside at Home with Leonid mirza. MDM/PLAN: - Diet Type Continue Regular - Physical Therapy Gait dysfunction - to improve, our physical therapists will perform initial evaluation of pt's statu s upon admission and devise an individualized program for Gait Training, and Wheel Chair mobility Inability to transfer - to improve, our physical therapists will perform initial evaluation of pt's status upon admission and devise an individualized program for Bed mobility Need for home safety evaluation - to improve, our physical therapists will perform initial evaluatio n of pt's status upon admission and devise an individualized program for Home Evaluation Need in caregiver upon discharge - to improve, our physical therapists will perform initial evaluati on of pt's status upon admission and devise an individualized program for Caregiver Training New precaution - to improve, our physical therapists will perform initial evaluation of pt's status upon admission and devise an individualized program for Patient precaution education Edema - to improve, our physical therapists will perform initial evaluation of pt's status upon admi ssion and devise an individualized program for Elevation Training, and Lymphedema Therapy Poor balance - to improve, our physical therapists will perform initial evaluation of pt's status up on admission and devise an individualized program for Balance Training Poor endurance - to improve, our physical therapists will perform initial evaluation of pt's status upon admission and devise an individualized program for Endurance Training Weakness - to improve, our physical therapists will perform initial evaluation of pt's status upon a dmission and devise an individualized program for Aquatic Therapy, Neuromuscular Reeducation, and Str engthening Achieving independence - to improve, our physical therapists will perform initial evaluation of pt's status upon admission and devise an individualized program for Community Reintegration Activities - Diet - Liquid Texture Continue Regular - Tube Feed Continue N/A - Diet - Solid Texture Continue Regular - Shower allowing shower - Occupational Therapy ADL deficits - to improve, our occupation therapists will perform initial evaluation of pt's status upon admission and devise an individualized program for Bathing, Bed mobility, Community Reintegratio n, Cooking, Dressing, Eating, Fine Motor Skills, Grooming, Homemaking, Kitchen Mobility, Laundry, Pat ient Education, Safety Awareness, Splinting - Positioning, Transfers(Toilet, Tub, Shower), and Wheel Chair Management Cognitive deficits - to improve, our occupation therapists will perform initial evaluation of pt's s tatus upon admission and devise an individualized program for Cognition - orientation Need for child daycare worker - to improve, our occupation therapists will perform initial evaluation of pt's status upon admission and devise an individualized program for Caregiver Training Weakness - to improve, our occupation therapists will perform initial evaluation of pt's status upon admission and devise an individualized program for Aquatic Therapy, Balance, Endurance, UE ROM, and UE strengthening FUNCTIONAL STATUS: UPDATED AT WEEKLY TEAM CONFERENCE - Bladder Same accident frequency: 7-Ind - No accidents in the past 7 days - Bowel Same accident frequency: 7-Ind - No accidents in the past 7 days - Walking Same score based on distance walked: 0(N/A) FUNCTIONAL STATUS: - Self-Care A. Eating sup B. Grooming sup C. Bathing Lizbeth D. Dressing - Upper Lizbeth E. Dressing - Lower Lizbeth F. Toileting Lizbeth - Sphincter Control G: Bladder control Ind H: Bowel control Ind - Transfers Control I. Bed/Chair/Wheelchair Lizbeth J. Toilet modA K. Tub/Shower ADNO - Locomotion L. Walk/Wheelchair (B) Lizbeth M. Stairs ADNO - Communication N. Comprehension (B) sup O. Expression (B) sup - Social Cognition P. Social Interaction sup Q. Problem Solving sup R. Memory sup - Endurance Poor - Balance Poor - Safety Awareness Poor CURRENT FUNC. DEFICITS: Social Cognition, Balance, Self-Care, Endurance, Safety Awareness, Transfers Control, Communication, and Locomotion SIGNATURE PANEL: (CDT)
[2017-06-13] MEDS: MELATONIN 3 MG TABLET PO PRN (20:29)
[2017-06-13] MEDS: LATANOPROST OPTH OPTH SCH (20:29)
[2017-06-13] MEDS: Bacitracin Opth Oint TOP SCH (20:29)
--- NOTE | 2017-06-14 04:15 | FAST ---
SHIFT START DATE/TIME: 06/13/2017 19:00 (CDT) SHIFT END DATE/TIME: 06/14/2017 07:00 (CDT) NAME TWIN OLIVIER DATE OF : 1930 DATE OF ADMISSION: 06/07/2017 19:25 (CDT) PHONE: AGE: 86 N# [id number] GENDER: Male ENCOUNTER PHYSICIAN: Dr. Woody Escamilla M.D. ADMISSION DIAGNOSIS: - Cardiac 09 - Cardiac Disorders () Chronic atrial fibrillation [I482]. CHF. EATING: EATING - STEP 1: Does the patient require assistance when eating? Yes. EATING - STEP 2: Does the patient require the assistance of a helper? Yes. EATING - STEP 3: Does the patient perform half or more of the eating tasks? Yes. EATING - STEP 4: Does the patient need only supervision, cuing, coaxing OR help to apply an orthosis OR help to cut fo od, open containers, pour liquids, or butter bread? Yes. EATING - SCORE: 5-SUP GROOMING: Activity did not occur on this shift GROOMING - SCORE: 0-UNK BATHING: Activity did not occur on this shift BATHING - SCORE: 0-UNK DRESSING - UPPER BODY: Activity did not occur on this shift ARTICLES SCORE Total number of steps: 0 DRESSING - UPPER BODY - SCORE: 0-UNK DRESSING - LOWER BODY: Activity did not occur on this shift ARTICLES SCORE Total number of steps: 0 DRESSING - LOWER BODY - SCORE: 0-UNK TOILETING: TOILETING - STEP 1: Does the patient require assistance with toileting? Yes. TOILETING - STEP 2: Does the patient require the assistance of a helper? Yes. TOILETING - STEP 3: How much assistance does the patient require from the helper? Hands-on assistance from the helper TOILETING - STEP 4: Of the 3 tasks: 1) Adjusting clothing prior to use, 2) Cleansing of perineal area, 3) Adjusting clot portia after use; How many tasks does the patient perform WITHOUT assistance of the helper? No tasks; h raz performs all three tasks TOILETING - SCORE: 1-DEP BLADDER MANAGEMENT: BLADDER MANAGEMENT - STEP 1: Does the patient control the bladder completely and intentionally without equipment or devices or med ications, and is always continent? No. BLADDER MANAGEMENT - STEP 2: Does the patient require the assistance of a helper? Yes. BLADDER MANAGEMENT - STEP 3: How much assistance does the patient require from the helper? Patient requires contact assistance fro m the helper BLADDER MANAGEMENT - STEP 4: How much contact assistance does the patient require from the helper? Patient requires moderate marilyn tance, and performs 50% to 75% of bladder management tasks - [place] positions AND holds urinal or bed bustamante BLADDER MANAGEMENT - SCORE: 3-MOD BLADDER MANAGEMENT - FREQUENCY OF ACCIDENTS: BLADDER MANAGEMENT(FA) - STEP 1: How many accidents has the patient had during the current shift? 1 BOWEL MANAGEMENT: Activity did not occur on this shift BOWEL MANAGEMENT - SCORE: 7-IND TRANSFERS: BED, CHAIR, WHEELCHAIR: TRANSFERS: BED, CHAIR, WHEELCHAIR - STEP 1: Does the patient require assistance with bed, chair, or wheelchair transfers? Yes. TRANSFERS: BED, CHAIR, WHEELCHAIR - STEP 2: Does the patient require the assistance of a helper? Yes. TRANSFERS: BED, CHAIR, WHEELCHAIR - STEP 3: How much assistance does the patient require from the helper? Lifting of the legs TRANSFERS: BED, CHAIR, WHEELCHAIR - STEP 4: How many legs does the patient require the helper to lift? one leg TRANSFERS: BED, CHAIR, WHEELCHAIR - SCORE: 4-MIN TRANSFERS: TOILET: Activity did not occur on this shift TRANSFERS: TOILET - SCORE: 0-UNK TRANSFERS: SHOWER: Activity did not occur on this shift TRANSFERS: SHOWER - SCORE: 0-UNK TRANSFERS: TUB: Activity did not occur on this shift TRANSFERS: TUB - SCORE: 0-UNK LOCOMOTION: WALK: Activity did not occur on this shift LOCOMOTION: WALK - SCORE: 0-UNK LOCOMOTION: WHEELCHAIR: Activity did not occur on this shift LOCOMOTION: WHEELCHAIR - SCORE: 0-UNK COMPREHENSION: COMPREHENSION: TYPE: Both COMPREHENSION - STEP 1: Does the patient require help to understand complex and abstract ideas (such as current events, finan césar, discharge planning, medical issues, relationships, etc)? Yes. COMPREHENSION - STEP 2: Does the patient require help to understand questions or statements about basic needs or ideas (such as hunger, thirst, sleep, safety, daily schedule, room location, or discomfort) half or more of the t [place]? No. COMPREHENSION - STEP 3: How often does the patient need help to understand directions and conversation about basic needs? 10% - 24% of the time COMPREHENSION - SCORE: 4-MIN EXPRESSION EXPRESSION: TYPE: Both EXPRESSION - STEP 1: Does the patient require help expressing complex and abstract ideas (such as current events, finances , discharge planning, medical issues, relationships, etc)? Yes. EXPRESSION - STEP 2: Does the patient require help to express basic necessities or ideas (such as hunger, thirst, sleep, s afety, daily schedule, room location, or discomfort) half or more of the time? No. EXPRESSION - STEP 3: How often does the patient need help to express directions and conversation about basic needs? 10-24% of the time EXPRESSION - SCORE: 4-MIN SOCIAL INTERACTION: SOCIAL INTERACTION - STEP 1: Does the patient require a helper to interact with others in social and therapeutic situations? Yes. SOCIAL INTERACTION - STEP 2: Does the patient interact appropriately half or more of the time? Yes. SOCIAL INTERACTION - STEP 3: How often does the patient need help to interact appropriately? 10-24% of the time SOCIAL INTERACTION - SCORE: 4-MIN PROBLEM SOLVING: PROBLEM SOLVING - STEP 1: Does the patient need help to solve complex problems such as managing a checking account or confronti ng interpersonal problems? Yes. PROBLEM SOLVING - STEP 2: Does the patient solve basic routine problems half or more of the time? No. PROBLEM SOLVING - STEP 3: Does the patient need help to solve problems all the time or is s/he unable to solve problems? No. Gumaro baron can sometimes solve problems PROBLEM SOLVING - SCORE: 2-MAX MEMORY: MEMORY - STEP 1: Does the patient need help to remember frequently encountered people, daily routines, and executing r equests? Yes. MEMORY - STEP 2: How often does the patient need help to remember frequently encountered people, daily routines, and e xecuting requests? More than 50% of the time MEMORY - STEP 3: Does the patient need help to remember all of the time OR does s/he not effectively recognize and rem ember? No. Patient does not need help all the time MEMORY - SCORE: 2-MAX SIGNATURE PANEL: The following modified sections: Eating - Score, Grooming - Score, Bathing - Score, Dressing - Upper Body - Score, Dressing - Lower Body - Score, Toileting - Score, Bladder Management - Score, Bowel Man agement - Score, Transfers: Bed, Chair, Wheelchair - Score, Transfers: Toilet - Score, Transfers: Lupe wer - Score, Transfers: Tub - Score, Locomotion: Walk - Score, Locomotion: Wheelchair - Score, Compre hension - Score, Expression - Score, Social Interaction - Score, Problem Solving - Score, Memory - Sc ore were [electronically] signed by Lana De AndaNQuique on SatJun 14 2017 03:17:33 GMT-0500 ( Central Daylight Time)
[2017-06-14] MEDS: CARVEDILOL 3.125 MG TAB PO SCH (05:07)
[2017-06-14] MEDS: ENSURE ENLIVE 237 ML CAN PO SCH ×2 (08:00→20:40)
--- NOTE | 2017-06-14 08:03 | P.CNS ---
Date of Consult: 06/14/17 Reason for Consult: Right hallux pain Requesting Physician: Woody Escamilla Chief Complaint: My toes hurt especially my right big toe Allergies ibuprofen Allergy (Verified 06/08/17 14:00) unknown Iodinated Contrast- Oral and IV Dye [Iodinated Contrast Media - IV Dye] Allergy (Verified 05/18/16 13:02) cardiac arrest iodine Allergy (Verified 05/15/17 12:17) Unknown levothyroxine sodium [From Synthroid] Allergy (Verified 06/08/17 14:00) hallucinations naproxen [From Aleve] Allergy (Verified 06/08/17 14:00) unknown pregabalin [From Lyrica] Allergy (Verified 06/08/17 14:00) dizziness gabapentin Adverse Reaction (Verified 06/08/17 14:00) severe drowsiness Home Medications: Carvedilol [Coreg*] 3.125 mg PO BID 06/04/17 Lactulose [Enulose] 10 gm PO DAILY 06/04/17 Acetazolamide [Diamox*] 125 mg PO DAILY #30 tab 06/07/17 Aspirin [Aspirin EC 81 MG] 81 mg PO DAILY #90 tablet. 06/07/17 Furosemide [Lasix*] 40 mg PO DAILY #30 tab 06/07/17 Levofloxacin [Levaquin*] 500 mg PO DAILY #5 tab 06/07/17 - Past Medical/Surgical History Diabetic: No -: HTN -: Melanoma -: Severe kyphosis -: Neuropathy of the lower extremity -: CHF, diastolic dysfunction -: Edema to the lower extremities -: OK -: Melanoma removed to multiple areas from scalp -: Gastrectomy Psychosocial/ Personal History: Patient is a . He currently lives by himself. He gets home health - Family History Mother Medical History: Diabetes Father Medical History: Diabetes Brother Medical History: Diabetes - Social History Alcohol use: No CD- Drugs: No Caffeine use: Yes Place of Residence: Home Review of Systems 10-point ROS is otherwise unremarkable Physical Examination Temp Pulse Resp BP Pulse Ox 98.4 F 72 18 107/52 L 94 06/13/17 19:06 06/14/17 05:07 06/13/17 19:06 06/14/17 05:07 06/13/17 19:06 General: Alert, In no apparent distress, Oriented x3 Cardiovascular: No edema, Abnormal pulses (0/4 dp and pt pulses bilateral lower extremity) Capillary refill: >2 Seconds Musculoskeletal: No clubbing, No swelling, No contractures, No erythema, No tenderness, No warmth Integumentary: No rashes, No breakdown, No significant lesion, Tenderness/ swelling (tenderness on palpation right hallux nail), Other (thickened hypertrophic nails with subungual debris x 10. Onycholysis noted with pain on palpation. Absent hair growth. Temperature is warm to cool proximal to distal) Neurological: Sensation intact - Problems (1) Tinea unguium Current Visit: Yes Status: Acute (2) Generalized atherosclerosis Current Visit: Yes Status: Acute Conclusions/Impression: Onychomycosis with onychogryphosis right hallux. Onychomycosis right 2-5 and left 1-5 nails. Debridement performed at bedside with patient denoting immediate pain relief Physician Review: Patient Assessed, Agree with Above Assessment and Plan Critical Care: No Time Spent Managing Pts care (In Minutes): 25
[2017-06-14] MEDS: LACTULOSE 20 GM/30 ML UCUP PO SCH (09:21)
[2017-06-14] MEDS: acetaZOLAMIDE 250 MG TAB PO SCH (09:22)
[2017-06-14] MEDS: ACETAMINOPHEN 500 MG TAB PO PRN (09:23)
[2017-06-14] MEDS: FUROSEMIDE 20 MG TABLET PO SCH (09:23)
[2017-06-14] MEDS: levoFLOXacin 500 MG TAB PO SCH (09:23)
[2017-06-14] MEDS: APIXABAN 2.5 MG TABLET PO SCH ×2 (09:23→20:40)
[2017-06-14] MEDS: ASPIRIN EC 81 MG TAB PO SCH (09:23)
--- NOTE | 2017-06-14 10:00 | P.RH.PN ---
Estimated Length of Stay: 12 Expected Discharge Date: 06/19/17 Discharge Disposition Plan: Home Family Support: Yes Care Home Goal: Mobility, Transfers, Self Care Vital Signs: Last Vital Signs Temp 98.4 F 06/13/17 19:06 Pulse 80 06/14/17 09:23 Resp 18 06/13/17 19:06 BP 133/60 06/14/17 09:23 Pulse Ox 94 06/13/17 19:06 Laboratory: Laboratory Last Values WBC 5.5 K/uL (4.3-10.9) 06/13/17 05:52 RBC 3.68 M/uL (4.33-5.43) L 06/13/17 05:52 Hgb 11.4 g/dL (13.6-17.9) L 06/13/17 05:52 Hct 35.9 % (39.6-49.0) L 06/13/17 05:52 MCV 97.5 fL (80-100) 06/13/17 05:52 MCH 30.9 pg (27.0-35.0) 06/13/17 05:52 MCHC 31.7 g/dL (32.0-36.0) L 06/13/17 05:52 RDW 14.4 % (12.1-15.2) 06/13/17 05:52 Plt Count 170 K/uL (152-406) D 06/13/17 05:52 MPV 9.1 fL (7.6-11.3) 06/13/17 05:52 Neutrophils % 68.1 % (41.7-73.7) 06/13/17 05:52 Lymphocytes % 9.8 % (15.3-44.8) L 06/13/17 05:52 Monocytes % 14.8 % (3.3-12.3) H 06/13/17 05:52 Eosinophils % 6.3 % (0-4.4) H 06/13/17 05:52 Basophils % 1.0 % (0-1.3) 06/13/17 05:52 Absolute Neutrophils 3.8 K/uL (1.8-8.0) 06/13/17 05:52 Segmented Neutrophils 72 % (40-80) 06/08/17 05:53 Absolute Lymphocytes 0.5 K/uL (0.7-4.9) L 06/13/17 05:52 Lymphocytes 12 % (15-42) L 06/08/17 05:53 Monocytes 13 % (0-10) H 06/08/17 05:53 Absolute Monocytes 0.8 K/uL (0.1-1.3) 06/13/17 05:52 Eosinophils 3 % (0-3) 06/08/17 05:53 Absolute Eosinophils 0.3 K/uL (0-0.5) 06/13/17 05:52 Absolute Basophils 0.1 K/uL (0-0.5) 06/13/17 05:52 Morphology Comment Not seen (NOT SEEN) 06/08/17 05:53 Sodium 141 mEq/L (135-145) 06/13/17 05:52 Potassium 4.0 mEq/L (3.6-5.0) 06/13/17 05:52 Chloride 96 mEq/L (101-111) L 06/13/17 05:52 Carbon Dioxide 40 mEq/L (21-31) H 06/13/17 05:52 BUN 39 mg/dL (6-20) H 06/13/17 05:52 Creatinine 1.31 mg/dL (0.61-1.24) H 06/13/17 05:52 Estimated GFR 52 mL/min (=/>90) L 06/13/17 05:52 Glucose 129 mg/dL (65-120) H 06/13/17 05:52 Calcium 8.7 mg/dL (8.5-10.5) 06/13/17 05:52 Magnesium 1.8 mg/dL (1.8-2.5) 06/08/17 05:53 Albumin 2.7 g/dL (3.2-5.5) L 06/13/17 05:52 Prealbumin 17.2 mg/dl (18-38) L 06/13/17 05:52 Urine Color Yellow 06/07/17 17:50 Urine Appearance Clear 06/07/17 17:50 Urine pH 7.5 (5.0-7.0) H 06/07/17 17:50 Ur Specific [place] 1.010 (1.005-1.030) 06/07/17 17:50 Urine Ketones Negative (NEG) 06/07/17 17:50 Urine Blood Negative (NEG) 06/07/17 17:50 Urine Nitrite Negative (NEG) 06/07/17 17:50 Urine Bilirubin Negative (NEG) 06/07/17 17:50 Urine Urobilinogen 1.0 mg/dL (0.2-1.0) 06/07/17 17:50 Ur Leukocyte Esterase 1+ (NEG) H 06/07/17 17:50 Urine RBC <5 /HPF (NONE SEEN) 06/07/17 17:50 Urine WBC 5-10 /HPF (<5) H 06/07/17 17:50 Ur Squamous Epith Cells <5 /HPF (NONE SEEN) 06/07/17 17:50 Urine Bacteria None seen /HPF (NONE SEEN) 06/07/17 17:50 Urine Culture Reflexed Not needed 06/07/17 17:50 Urine Glucose Negative (NEG) 06/07/17 17:50 Urine Total Protein Negative (NEG) 06/07/17 17:50 Weight: 150 lb Wound Present: No Closed Surgical Incision Present: No Negative Pressure Wound Therapy Present: No Physician Update: He has CHF with mild increase in upper airway sounds. He has started breathing treatments. He will get a chest x-ray. His BPs have been low. His diuretic and BP medications have been decresed. Plan for d/c next Saturday. Comment: scabs noted on upper and lower extremities Functional Improvement: Patient is currently working toward meeting short-term goals. Patient presents w/ lethargy, fatigues quickly, and lack of motivation w / depression-like traits. Functional Improvement Occupational Therapy: PATIENT HAS BEEN DEMONSTRATING LIMITED PARTICIPATION DUE TO DECLINE IN MOTIVATION ASKING TO GO HOME SOON, HAVING SIGNIFICANT NECK PAIN WHEN UPRIGHT IN W/C, AND ONLY INTERESTED IN STAYING IN BED DURING THE DAY. WILL CONTINUE TO ATTEMPT HELPING PATIENT WITH REACHING GOALS SET IN POC UPON EVALUATION. Speech Therapy Update: Significant deficits in orientation, short term memory, safety awareness, and problem solving. Pt. requires frequent reminders and over simplified cuing to comprehend requirement of nectar thick liquids. Progress toward improving swallow function has been limitied due to reduced ability and/ or motivation to follow the complex commands required for oropharyngeal strengthening exercises. Possible hearing loss impacts comprehension. Summary: Patient's care plan and chcf goals have been reviewed and revised as necessary. Please see the Rehabilitation Signature page for all necessary signatures.
--- NOTE | 2017-06-14 11:42 | RAD REPORT ---
EXAM DESCRIPTION: RAD - Chest Single View - 06/14/2017 11:05 am CLINICAL HISTORY: Chest pain, shortness of breath COMPARISON: Chest exam June 05 TECHNIQUE: AP portable chest image was obtained 1054 hours . FINDINGS: Calcified nodule in the right upper lung field has not changed from prior imaging. Left he midiaphragm elevation is again noted. Left base infiltrate or atelectasis is not clearly different fr om prior imaging. Patient likely has a hiatal hernia. Prominent lung marking pattern is not substanti ally different. Heart size is stable. Trachea is midline. No measurable pleural effusion and no pneum othorax. No gross bony abnormality seen. No acute aortic finding. Limited upper abdomen imaging shows findings concerning for free intraperitoneal air. No history of r ecent abdominal surgery. IMPRESSION: Chronic interstitial lung changes are present. Infiltrate and/or atelectasis in the left base are not substantially different. Limited upper abdomen imaging shows findings concerning for free intraperitoneal air. No history is k nown regarding recent abdominal surgery. If there has been no recent surgery, follow-up CT abdomen an d pelvis imaging would be recommended.
--- NOTE | 2017-06-14 13:29 | FAST ---
ENCOUNTER DATE AND TIME: 06/14/2017 08:00 (CDT) NAME TWIN OLIVIER DATE OF : 1930 DATE OF ADMISSION: 06/07/2017 19:25 (CDT) PHONE: AGE: 86 [facility]# [id number] GENDER: Male ENCOUNTER PHYSICIAN: Dr. Woody Escamilla M.D. ADMISSION DIAGNOSIS: - Cardiac 09 - Cardiac Disorders () Chronic atrial fibrillation [I482]. CHF. EATING: Activity did not occur on this shift EATING - SCORE: 0-UNK GROOMING: Wash, rinse, and dry face Wash, rinse, and dry hands GROOMING - STEP 1: Does the patient require assistance when grooming? Yes. GROOMING - STEP 2: Does the patient require the assistance of a helper? Yes. GROOMING - STEP 3: How much assistance does the patient require from the helper? Cuing, coaxing, instructions, or encour agement for completion of grooming GROOMING - SCORE: 5-SUP BATHING: Abdomen Buttocks Chest Left arm Left lower leg and foot Left upper leg Perineal area Right arm Right lower leg and foot Right upper leg BATHING - STEP 1: Does the patient require assistance when bathing? Yes. BATHING - STEP 2: Does the patient require the assistance of a helper? Yes. BATHING - STEP 3: How much assistance does the patient require from the helper? More than just incidental help BATHING - STEP 4: What percent of the body parts did the patient bathe WITHOUT the helper? Half or more of the body par ts BATHING - SCORE: 3-MOD DRESSING - UPPER BODY: Activity did not occur on this shift ARTICLES SCORE Total number of steps: 0 DRESSING - UPPER BODY - SCORE: 0-UNK DRESSING - LOWER BODY: Elastic waist pants (three steps) Sock - Left foot (one step) Sock - Right foot (one step) Underwear (three steps) ARTICLES SCORE Total number of steps: 8 DRESSING - LOWER BODY - STEP 1: Does the patient require help when dressing below the waist? Yes. DRESSING - LOWER BODY - STEP 2: Does the patient require the assistance of a helper? Yes. DRESSING - LOWER BODY - STEP 3: Does the helper touch the patient while dressing? Yes. DRESSING - LOWER BODY - STEP 4: How many of the total steps does the patient complete on his/her own? 2 DRESSING - LOWER BODY - STEP 5: Does patient require total assistance for dressing below the waist such as the helper holding clothin g and performing basically all the activities? No. DRESSING - LOWER BODY - SCORE: 2-MAX TOILETING: Activity did not occur on this shift TOILETING - SCORE: 0-UNK BLADDER MANAGEMENT: Activity did not occur on this shift BLADDER MANAGEMENT - SCORE: 7-IND BOWEL MANAGEMENT: Activity did not occur on this shift BOWEL MANAGEMENT - SCORE: 7-IND TRANSFERS: BED, CHAIR, WHEELCHAIR: TRANSFERS: BED, CHAIR, WHEELCHAIR - STEP 1: Does the patient require assistance with bed, chair, or wheelchair transfers? Yes. TRANSFERS: BED, CHAIR, WHEELCHAIR - STEP 2: Does the patient require the assistance of a helper? Yes. TRANSFERS: BED, CHAIR, WHEELCHAIR - STEP 3: How much assistance does the patient require from the helper? Steadying/guiding assistance TRANSFERS: BED, CHAIR, WHEELCHAIR - SCORE: 4-MIN TRANSFERS: TOILET: Activity did not occur on this shift TRANSFERS: TOILET - SCORE: 0-UNK TRANSFERS: SHOWER: Activity did not occur on this shift TRANSFERS: SHOWER - SCORE: 0-UNK TRANSFERS: TUB: TRANSFERS: TUB - STEP 1: Does the patient require assistance with tub transfers? Yes. TRANSFERS: TUB - STEP 2: Does the patient require the assistance of a helper? Yes. TRANSFERS: TUB - STEP 3: How much assistance does the patient require from the helper? More than incidental help TRANSFERS: TUB - STEP 4: How much more help does the patient require from the helper? [place] lifts the patient either up OR do wn TRANSFERS: TUB - SCORE: 3-MOD LOCOMOTION: WALK: Activity did not occur on this shift LOCOMOTION: WALK - SCORE: 0-UNK LOCOMOTION: WHEELCHAIR: Activity did not occur on this shift LOCOMOTION: WHEELCHAIR - SCORE: 0-UNK LOCOMOTION: STAIRS: Activity did not occur on this shift LOCOMOTION: STAIRS - SCORE: 0-UNK COMPREHENSION: COMPREHENSION: TYPE: Both COMPREHENSION - STEP 1: Does the patient require help to understand complex and abstract ideas (such as current events, finan césar, discharge planning, medical issues, relationships, etc)? Yes. COMPREHENSION - STEP 2: Does the patient require help to understand questions or statements about basic needs or ideas (such as hunger, thirst, sleep, safety, daily schedule, room location, or discomfort) half or more of the t [place]? No. COMPREHENSION - STEP 3: How often does the patient need help to understand directions and conversation about basic needs? 25% - 49% of the time COMPREHENSION - SCORE: 3-MOD EXPRESSION EXPRESSION: TYPE: Both EXPRESSION - STEP 1: Does the patient require help expressing complex and abstract ideas (such as current events, finances , discharge planning, medical issues, relationships, etc)? Yes. EXPRESSION - STEP 2: Does the patient require help to express basic necessities or ideas (such as hunger, thirst, sleep, s afety, daily schedule, room location, or discomfort) half or more of the time? No. EXPRESSION - STEP 3: How often does the patient need help to express directions and conversation about basic needs? 10-24% of the time EXPRESSION - SCORE: 4-MIN SOCIAL INTERACTION: SOCIAL INTERACTION - STEP 1: Does the patient require a helper to interact with others in social and therapeutic situations? Yes. SOCIAL INTERACTION - STEP 2: Does the patient interact appropriately half or more of the time? Yes. SOCIAL INTERACTION - STEP 3: How often does the patient need help to interact appropriately? 10-24% of the time SOCIAL INTERACTION - SCORE: 4-MIN PROBLEM SOLVING: PROBLEM SOLVING - STEP 1: Does the patient need help to solve complex problems such as managing a checking account or confronti ng interpersonal problems? Yes. PROBLEM SOLVING - STEP 2: Does the patient solve basic routine problems half or more of the time? No. PROBLEM SOLVING - STEP 3: Does the patient need help to solve problems all the time or is s/he unable to solve problems? No. Pa tod can sometimes solve problems PROBLEM SOLVING - SCORE: 2-MAX MEMORY: MEMORY - STEP 1: Does the patient need help to remember frequently encountered people, daily routines, and executing r equests? Yes. MEMORY - STEP 2: How often does the patient need help to remember frequently encountered people, daily routines, and e xecuting requests? More than 50% of the time MEMORY - STEP 3: Does the patient need help to remember all of the time OR does s/he not effectively recognize and rem ember? No. Patient does not need help all the time MEMORY - SCORE: 2-MAX SIGNATURE PANEL: The following modified sections: Eating - Score, Grooming - Score, Bathing - Score, Dressing - Upper Body - Score, Dressing - Lower Body - Score, Toileting - Score, Transfers: Bed, Chair, Wheelchair - S core, Transfers: Toilet - Score, Transfers: Shower - Score, Transfers: Tub - Score, Comprehension - S core, Expression - Score, Social Interaction - Score, Problem Solving - Score, Memory - Score were [e lectronically] signed by Heidi Hastings OT on SatJun 14 2017 12:31:12 T-0500 ([place] Da ylight Time)
--- NOTE | 2017-06-14 14:13 | RAD REPORT ---
EXAM DESCRIPTION: CT - Abdomen Pelvis Wo Contrast - 06/14/2017 1:52 pm CLINICAL HISTORY: Abdominal pain. Evaluate for pneumoperitoneum. COMPARISON: 05/15/2017, 02/17/2007 TECHNIQUE: CT imaging of the abdomen and pelvis was performed without contrast. Solid organ, bowel a nd vascular assessment is limited due to lack of IV and oral contrast. All CT scans are performed using dose optimization technique as appropriate and may include automated exposure control or mA/KV adjustment according to patient size. FINDINGS: Airspace opacity in the left lung base likely represents pneumonia or aspiration.Trace ple ural fluid is present bilaterally. Noncontrast assessment of the liver shows no acute finding. The spleen, adrenal glands are unremarkab le. Multiple renal cysts are present bilaterally, unchanged. 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 Tiny calcifications in the left kidney are also stable. 7 cm cystic pancreatic lesion also unchang ed.Moderate thickening of the rectosigmoid colon is seen with upstream fecal retention. No free air is seen. No free fluid or abscess. No bowel obstruction. Mild prostatomegaly is present. A small right inguinal hernia. Moderate lumbosacral degenerative changes. IMPRESSION: No evidence of pneumoperitoneum. Small opacity in the medial left lung base, new since prior study, probably related aspiration or dev eloping pneumonia. Moderate fecal retention with proctitis likely present. The findings were discussed with Dr. Escamilla on 06/14/17.
[2017-06-14] MEDS: ALBUTEROL 2.5 MG/3 ML NEB SOL NEB PRN (16:20)
--- NOTE | 2017-06-14 16:37 | FAST ---
ENCOUNTER DATE AND TIME: 06/14/2017 08:00 (CDT) NAME TWIN OLIVIER DATE OF : 1930 DATE OF ADMISSION: 06/07/2017 19:25 (CDT) PHONE: AGE: 86 N# [id number] GENDER: Male ENCOUNTER PHYSICIAN: Dr. Woody Escamilla M.D. ADMISSION DIAGNOSIS: - Cardiac 09 - Cardiac Disorders (09) Chronic atrial fibrillation [I482]. CHF. EATING: Activity did not occur on this shift EATING - SCORE: 0-UNK GROOMING: Activity did not occur on this shift GROOMING - SCORE: 0-UNK BATHING: Activity did not occur on this shift BATHING - SCORE: 0-UNK DRESSING - UPPER BODY: Activity did not occur on this shift ARTICLES SCORE Total number of steps: 0 DRESSING - UPPER BODY - SCORE: 0-UNK DRESSING - LOWER BODY: Activity did not occur on this shift ARTICLES SCORE Total number of steps: 0 DRESSING - LOWER BODY - SCORE: 0-UNK TOILETING: Activity did not occur on this shift TOILETING - SCORE: 0-UNK BLADDER MANAGEMENT: Activity did not occur on this shift BLADDER MANAGEMENT - SCORE: 7-IND BOWEL MANAGEMENT: Activity did not occur on this shift BOWEL MANAGEMENT - SCORE: 7-IND TRANSFERS: BED, CHAIR, WHEELCHAIR: TRANSFERS: BED, CHAIR, WHEELCHAIR - STEP 1: Does the patient require assistance with bed, chair, or wheelchair transfers? Yes. TRANSFERS: BED, CHAIR, WHEELCHAIR - STEP 2: Does the patient require the assistance of a helper? Yes. TRANSFERS: BED, CHAIR, WHEELCHAIR - STEP 3: How much assistance does the patient require from the helper? Steadying/guiding assistance TRANSFERS: BED, CHAIR, WHEELCHAIR - SCORE: 4-MIN TRANSFERS: TOILET: Activity did not occur on this shift TRANSFERS: TOILET - SCORE: 0-UNK TRANSFERS: SHOWER: Activity did not occur on this shift TRANSFERS: SHOWER - SCORE: 0-UNK TRANSFERS: TUB: Activity did not occur on this shift TRANSFERS: TUB - SCORE: 0-UNK LOCOMOTION: WALK: LOCOMOTION: WALK - STEP 1: Does the patient need help to walk 150 feet? Yes. LOCOMOTION: WALK - STEP 2: How much assistance does the patient require to walk a minimum of 150 feet? Patient walks less than 1 50 feet - but more than 50 feet - with the assistance of only one helper LOCOMOTION: WALK - SCORE: 2-MAX LOCOMOTION: WHEELCHAIR: Activity did not occur on this shift LOCOMOTION: WHEELCHAIR - SCORE: 0-UNK LOCOMOTION: STAIRS: Activity did not occur on this shift LOCOMOTION: STAIRS - SCORE: 0-UNK COMPREHENSION: COMPREHENSION - SCORE: 0-UNK EXPRESSION EXPRESSION - SCORE: 0-UNK SOCIAL INTERACTION: SOCIAL INTERACTION - SCORE: 0-UNK PROBLEM SOLVING: PROBLEM SOLVING - SCORE: 0-UNK MEMORY: MEMORY - SCORE: 0-UNK SIGNATURE PANEL: The following modified sections: Transfers: Bed, Chair, Wheelchair - Score, Transfers: Toilet - Score , Locomotion: Walk - Score, Locomotion: Wheelchair - Score, Locomotion: Stairs - Score were [electron ically] signed by Felipe Gutierrez PTA on SatJun 14 2017 15:38:46 GMT-0500 (Central Daylight Time)
[2017-06-14] MEDS: BISACODYL 10 MG RECTAL SUPP PR PRN (19:20)
[2017-06-14] MEDS: GUAIFENESIN/DM 5 ML UCUP PO PRN (20:40)
[2017-06-14] MEDS: MELATONIN 3 MG TABLET PO PRN (20:40)
[2017-06-14] MEDS: LATANOPROST OPTH OPTH SCH (20:40)
[2017-06-14] MEDS: Bacitracin Opth Oint TOP SCH (20:40)
--- NOTE | 2017-06-15 04:56 | FAST ---
SHIFT START DATE/TIME: 06/14/2017 19:00 (CDT) SHIFT END DATE/TIME: 06/15/2017 07:00 (CDT) NAME TWIN OLIVIER DATE OF : 1930 DATE OF ADMISSION: 06/07/2017 19:25 (CDT) PHONE: AGE: 86 N# [id number] GENDER: Male ENCOUNTER PHYSICIAN: Dr. Woody Escamilla M.D. ADMISSION DIAGNOSIS: - Cardiac 09 - Cardiac Disorders (09) Chronic atrial fibrillation [I482]. CHF. EATING: EATING - STEP 1: Does the patient require assistance when eating? Yes. EATING - STEP 2: Does the patient require the assistance of a helper? Yes. EATING - STEP 3: Does the patient perform half or more of the eating tasks? Yes. EATING - STEP 4: Does the patient need only supervision, cuing, coaxing OR help to apply an orthosis OR help to cut fo od, open containers, pour liquids, or butter bread? Yes. EATING - SCORE: 5-SUP GROOMING: Oral care Wash, rinse, and dry face Wash, rinse, and dry hands GROOMING - STEP 1: Does the patient require assistance when grooming? Yes. GROOMING - STEP 2: Does the patient require the assistance of a helper? Yes. GROOMING - STEP 3: How much assistance does the patient require from the helper? Incidental touching assistance from the helper while grooming GROOMING - SCORE: 4-MIN BATHING: Activity did not occur on this shift BATHING - SCORE: 0-UNK DRESSING - UPPER BODY: Activity did not occur on this shift ARTICLES SCORE Total number of steps: 0 DRESSING - UPPER BODY - SCORE: 0-UNK DRESSING - LOWER BODY: Activity did not occur on this shift ARTICLES SCORE Total number of steps: 0 DRESSING - LOWER BODY - SCORE: 0-UNK TOILETING: TOILETING - STEP 1: Does the patient require assistance with toileting? Yes. TOILETING - STEP 2: Does the patient require the assistance of a helper? Yes. TOILETING - STEP 3: How much assistance does the patient require from the helper? Hands-on assistance from the helper TOILETING - STEP 4: Of the 3 tasks: 1) Adjusting clothing prior to use, 2) Cleansing of perineal area, 3) Adjusting clot portia after use; How many tasks does the patient perform WITHOUT assistance of the helper? One task TOILETING - SCORE: 2-MAX BLADDER MANAGEMENT: BLADDER MANAGEMENT - STEP 1: Does the patient control the bladder completely and intentionally without equipment or devices or med ications, and is always continent? No. BLADDER MANAGEMENT - STEP 2: Does the patient require the assistance of a helper? Yes. BLADDER MANAGEMENT - STEP 3: How much assistance does the patient require from the helper? Patient requires contact assistance fro m the helper BLADDER MANAGEMENT - STEP 4: How much contact assistance does the patient require from the helper? Patient requires minimal assist ance to maintain an external device - by positioning, and the patient performs 75% or more of bladder management tasks, while the helper provides less than 25% of the assistance to position patient on / off bedpan BLADDER MANAGEMENT - SCORE: 4-MIN BLADDER MANAGEMENT - FREQUENCY OF ACCIDENTS: BLADDER MANAGEMENT(FA) - STEP 1: How many accidents has the patient had during the current shift? 2 BOWEL MANAGEMENT: Suppository: [place] positions patient, places a pad, lubricates and inserts the suppository, provides digital stimulation, places patient on bedpan, and takes patient off of bedpan. BOWEL MANAGEMENT - SCORE: 1-DEP BOWEL MANAGEMENT - FREQUENCY OF ACCIDENTS: BOWEL MANAGEMENT(FA) - STEP 1: How many accidents has the patient had during the current shift? 0 TRANSFERS: BED, CHAIR, WHEELCHAIR: TRANSFERS: BED, CHAIR, WHEELCHAIR - STEP 1: Does the patient require assistance with bed, chair, or wheelchair transfers? Yes. TRANSFERS: BED, CHAIR, WHEELCHAIR - STEP 2: Does the patient require the assistance of a helper? Yes. TRANSFERS: BED, CHAIR, WHEELCHAIR - STEP 3: How much assistance does the patient require from the helper? Steadying/guiding assistance TRANSFERS: BED, CHAIR, WHEELCHAIR - SCORE: 4-MIN TRANSFERS: TOILET: TRANSFERS: TOILET - STEP 1: Does the patient require assistance with toilet transfers? Yes. TRANSFERS: TOILET - STEP 2: Does the patient require the assistance of a helper? Yes. TRANSFERS: TOILET - STEP 3: How much assistance does the patient require from the helper? Patient performs half or more of the tr ansferring tasks TRANSFERS: TOILET - STEP 4: Does the patient need only incidental help such as contact guard or steadying during toilet transfer? Yes. TRANSFERS: TOILET - SCORE: 4-MIN TRANSFERS: SHOWER: Activity did not occur on this shift TRANSFERS: SHOWER - SCORE: 0-UNK TRANSFERS: TUB: Activity did not occur on this shift TRANSFERS: TUB - SCORE: 0-UNK LOCOMOTION: WALK: Activity did not occur on this shift LOCOMOTION: WALK - SCORE: 0-UNK LOCOMOTION: WHEELCHAIR: Activity did not occur on this shift LOCOMOTION: WHEELCHAIR - SCORE: 0-UNK COMPREHENSION: COMPREHENSION: TYPE: Both COMPREHENSION - STEP 1: Does the patient require help to understand complex and abstract ideas (such as current events, finan césar, discharge planning, medical issues, relationships, etc)? Yes. COMPREHENSION - STEP 2: Does the patient require help to understand questions or statements about basic needs or ideas (such as hunger, thirst, sleep, safety, daily schedule, room location, or discomfort) half or more of the t [place]? No. COMPREHENSION - STEP 3: How often does the patient need help to understand directions and conversation about basic needs? 25% - 49% of the time COMPREHENSION - SCORE: 3-MOD EXPRESSION EXPRESSION: TYPE: Both EXPRESSION - STEP 1: Does the patient require help expressing complex and abstract ideas (such as current events, finances , discharge planning, medical issues, relationships, etc)? Yes. EXPRESSION - STEP 2: Does the patient require help to express basic necessities or ideas (such as hunger, thirst, sleep, s afety, daily schedule, room location, or discomfort) half or more of the time? No. EXPRESSION - STEP 3: How often does the patient need help to express directions and conversation about basic needs? 25-49% of the time EXPRESSION - SCORE: 3-MOD SOCIAL INTERACTION: SOCIAL INTERACTION - STEP 1: Does the patient require a helper to interact with others in social and therapeutic situations? Yes. SOCIAL INTERACTION - STEP 2: Does the patient interact appropriately half or more of the time? Yes. SOCIAL INTERACTION - STEP 3: How often does the patient need help to interact appropriately? 25-49% of the time SOCIAL INTERACTION - SCORE: 3-MOD PROBLEM SOLVING: PROBLEM SOLVING - STEP 1: Does the patient need help to solve complex problems such as managing a checking account or confronti ng interpersonal problems? Yes. PROBLEM SOLVING - STEP 2: Does the patient solve basic routine problems half or more of the time? No. PROBLEM SOLVING - STEP 3: Does the patient need help to solve problems all the time or is s/he unable to solve problems? No. [place] tod can sometimes solve problems PROBLEM SOLVING - SCORE: 2-MAX MEMORY: MEMORY - STEP 1: Does the patient need help to remember frequently encountered people, daily routines, and executing r equests? Yes. MEMORY - STEP 2: How often does the patient need help to remember frequently encountered people, daily routines, and e xecuting requests? More than 50% of the time MEMORY - STEP 3: Does the patient need help to remember all of the time OR does s/he not effectively recognize and rem ember? No. Patient does not need help all the time MEMORY - SCORE: 2-MAX SIGNATURE PANEL: The following modified sections: Eating - Score, Grooming - Score, Bathing - Score, Dressing - Upper Body - Score, Dressing - Lower Body - Score, Toileting - Score, Bladder Management - Score, Bowel Man agement - Score, Transfers: Bed, Chair, Wheelchair - Score, Transfers: Toilet - Score, Transfers: Lupe wer - Score, Transfers: Tub - Score, Locomotion: Walk - Score, Locomotion: Wheelchair - Score, Compre hension - Score, Expression - Score, Social Interaction - Score, Problem Solving - Score, Memory - Sc ore were [electronically] signed by Lana De AndaNQuique on Sat Jun 15 2017 03:58:46 T-0500 ( Central Daylight Time)
[2017-06-15] MEDS: ACETAMINOPHEN 500 MG TAB PO PRN (05:13)
[2017-06-15] MEDS: CARVEDILOL 3.125 MG TAB PO SCH (05:14)
[2017-06-15] MEDS: ALBUTEROL 2.5 MG/3 ML NEB SOL NEB PRN ×2 (06:24→13:27)
[2017-06-15] MEDS: LACTULOSE 20 GM/30 ML UCUP PO SCH (08:00)
[2017-06-15] MEDS: ENSURE ENLIVE 237 ML CAN PO SCH ×2 (08:00→20:39)
[2017-06-15] MEDS: acetaZOLAMIDE 250 MG TAB PO SCH (08:01)
[2017-06-15] MEDS: levoFLOXacin 500 MG TAB PO SCH (08:01)
[2017-06-15] MEDS: ASPIRIN EC 81 MG TAB PO SCH (08:01)
[2017-06-15] MEDS: APIXABAN 2.5 MG TABLET PO SCH ×2 (08:01→20:39)
[2017-06-15] MEDS: FUROSEMIDE 20 MG TABLET PO SCH (08:01)
--- NOTE | 2017-06-15 12:57 | FAST ---
ENCOUNTER DATE AND TIME: 06/15/2017 08:00 (CDT) NAME TWIN OLIVIER DATE OF : 1930 DATE OF ADMISSION: 06/07/2017 19:25 (CDT) PHONE: AGE: 86 N# [id number] GENDER: Male ENCOUNTER PHYSICIAN: Dr. Woody Escamilla M.D. ADMISSION DIAGNOSIS: - Cardiac 09 - Cardiac Disorders (09) Chronic atrial fibrillation [I482]. CHF. EATING: Activity did not occur on this shift EATING - SCORE: 0-UNK GROOMING: Activity did not occur on this shift GROOMING - SCORE: 0-UNK BATHING: Activity did not occur on this shift BATHING - SCORE: 0-UNK DRESSING - UPPER BODY: Activity did not occur on this shift ARTICLES SCORE Total number of steps: 0 DRESSING - UPPER BODY - SCORE: 0-UNK DRESSING - LOWER BODY: Activity did not occur on this shift ARTICLES SCORE Total number of steps: 0 DRESSING - LOWER BODY - SCORE: 0-UNK TOILETING: Activity did not occur on this shift TOILETING - SCORE: 0-UNK BLADDER MANAGEMENT: Activity did not occur on this shift BLADDER MANAGEMENT - SCORE: 7-IND BOWEL MANAGEMENT: Activity did not occur on this shift BOWEL MANAGEMENT - SCORE: 7-IND TRANSFERS: BED, CHAIR, WHEELCHAIR: Activity did not occur on this shift TRANSFERS: BED, CHAIR, WHEELCHAIR - SCORE: 0-UNK TRANSFERS: TOILET: Activity did not occur on this shift TRANSFERS: TOILET - SCORE: 0-UNK TRANSFERS: SHOWER: Activity did not occur on this shift TRANSFERS: SHOWER - SCORE: 0-UNK TRANSFERS: TUB: Activity did not occur on this shift TRANSFERS: TUB - SCORE: 0-UNK LOCOMOTION: WALK: Activity did not occur on this shift LOCOMOTION: WALK - SCORE: 0-UNK LOCOMOTION: WHEELCHAIR: Activity did not occur on this shift LOCOMOTION: WHEELCHAIR - SCORE: 0-UNK LOCOMOTION: STAIRS: Activity did not occur on this shift LOCOMOTION: STAIRS - SCORE: 0-UNK COMPREHENSION: COMPREHENSION - SCORE: 0-UNK EXPRESSION EXPRESSION - SCORE: 0-UNK SOCIAL INTERACTION: SOCIAL INTERACTION - SCORE: 0-UNK PROBLEM SOLVING: PROBLEM SOLVING - SCORE: 0-UNK MEMORY: MEMORY - SCORE: 0-UNK SIGNATURE PANEL: The following modified sections: Transfers: Bed, Chair, Wheelchair - Score, Transfers: Toilet - Score , Locomotion: Walk - Score, Locomotion: Wheelchair - Score, Locomotion: Stairs - Score were [electron martha] signed by Zehra Gutierrez PTA on Sat Jun 15 2017 11:59:19 GMT-0500 (Central Daylight Time)
--- NOTE | 2017-06-15 15:05 | FAST ---
SHIFT START DATE/TIME: 06/14/2017 07:00 (CDT) SHIFT END DATE/TIME: 06/14/2017 19:00 (CDT) NAME TWIN OLIVIER DATE OF : 1930 DATE OF ADMISSION: 06/07/2017 19:25 (CDT) PHONE: AGE: 86 N# [id number] GENDER: Male ENCOUNTER PHYSICIAN: Dr. Woody Escamilla M.D. ADMISSION DIAGNOSIS: - Cardiac 09 - Cardiac Disorders () Chronic atrial fibrillation [I482]. CHF. EATING: EATING - STEP 1: Does the patient require assistance when eating? Yes. EATING - STEP 2: Does the patient require the assistance of a helper? Yes. EATING - STEP 3: Does the patient perform half or more of the eating tasks? Yes. EATING - STEP 4: Does the patient need only supervision, cuing, coaxing OR help to apply an orthosis OR help to cut fo od, open containers, pour liquids, or butter bread? Yes. EATING - SCORE: 5-SUP EATING - COMMENTS: Thickened Liquids GROOMING: Comb/brush hair Wash, rinse, and dry face Wash, rinse, and dry hands GROOMING - STEP 1: Does the patient require assistance when grooming? Yes. GROOMING - STEP 2: Does the patient require the assistance of a helper? No. The patient only requires an assistive devic e, OR takes more than reasonable time to groom, OR there is a concern for safety as the patient groom s GROOMING - SCORE: 6-DENISSE BATHING: Activity did not occur on this shift BATHING - SCORE: 0-UNK DRESSING - UPPER BODY: Activity did not occur on this shift ARTICLES SCORE Total number of steps: 0 DRESSING - UPPER BODY - SCORE: 0-UNK DRESSING - LOWER BODY: Activity did not occur on this shift ARTICLES SCORE Total number of steps: 0 DRESSING - LOWER BODY - SCORE: 0-UNK TOILETING: TOILETING - STEP 1: Does the patient require assistance with toileting? Yes. TOILETING - STEP 2: Does the patient require the assistance of a helper? Yes. TOILETING - STEP 3: How much assistance does the patient require from the helper? Hands-on assistance from the helper TOILETING - STEP 4: Of the 3 tasks: 1) Adjusting clothing prior to use, 2) Cleansing of perineal area, 3) Adjusting clot portia after use; How many tasks does the patient perform WITHOUT assistance of the helper? No tasks; h elper performs all three tasks TOILETING - SCORE: 1-DEP BLADDER MANAGEMENT: [place] removes incontinent device (Depends, pull ups, etc.); cleans the patient after accident / inco ntinent episode; and, applies new incontinent device. BLADDER MANAGEMENT - SCORE: 1-DEP BLADDER MANAGEMENT - FREQUENCY OF ACCIDENTS: BLADDER MANAGEMENT(FA) - STEP 1: How many accidents has the patient had during the current shift? 2 BOWEL MANAGEMENT: Activity did not occur on this shift BOWEL MANAGEMENT - SCORE: 7-IND BOWEL MANAGEMENT - FREQUENCY OF ACCIDENTS: BOWEL MANAGEMENT(FA) - STEP 1: How many accidents has the patient had during the current shift? 0 TRANSFERS: BED, CHAIR, WHEELCHAIR: TRANSFERS: BED, CHAIR, WHEELCHAIR - STEP 1: Does the patient require assistance with bed, chair, or wheelchair transfers? Yes. TRANSFERS: BED, CHAIR, WHEELCHAIR - STEP 2: Does the patient require the assistance of a helper? Yes. TRANSFERS: BED, CHAIR, WHEELCHAIR - STEP 3: How much assistance does the patient require from the helper? Steadying/guiding assistance TRANSFERS: BED, CHAIR, WHEELCHAIR - SCORE: 4-MIN TRANSFERS: TOILET: Activity did not occur on this shift TRANSFERS: TOILET - SCORE: 0-UNK TRANSFERS: SHOWER: Activity did not occur on this shift TRANSFERS: SHOWER - SCORE: 0-UNK TRANSFERS: TUB: Activity did not occur on this shift TRANSFERS: TUB - SCORE: 0-UNK LOCOMOTION: WALK: Activity did not occur on this shift LOCOMOTION: WALK - SCORE: 0-UNK LOCOMOTION: WHEELCHAIR: LOCOMOTION: WHEELCHAIR - STEP 1: Does the patient need help to go 150 feet in a wheelchair? Yes. LOCOMOTION: WHEELCHAIR - STEP 2: How much assistance does the patient need from the helper? Only incidental help such as around corner s or over thresholds LOCOMOTION: WHEELCHAIR - SCORE: 4-MIN COMPREHENSION: COMPREHENSION: TYPE: Both COMPREHENSION - STEP 1: Does the patient require help to understand complex and abstract ideas (such as current events, finan césar, discharge planning, medical issues, relationships, etc)? Yes. COMPREHENSION - STEP 2: Does the patient require help to understand questions or statements about basic needs or ideas (such as hunger, thirst, sleep, safety, daily schedule, room location, or discomfort) half or more of the t [place]? No. COMPREHENSION - STEP 3: How often does the patient need help to understand directions and conversation about basic needs? Les s than 10% of the time COMPREHENSION - SCORE: 5-SUP EXPRESSION EXPRESSION: TYPE: Both EXPRESSION - STEP 1: Does the patient require help expressing complex and abstract ideas (such as current events, finances , discharge planning, medical issues, relationships, etc)? Yes. EXPRESSION - STEP 2: Does the patient require help to express basic necessities or ideas (such as hunger, thirst, sleep, s afety, daily schedule, room location, or discomfort) half or more of the time? No. EXPRESSION - STEP 3: How often does the patient need help to express directions and conversation about basic needs? Less t [place] 10% of the time EXPRESSION - SCORE: 5-SUP SOCIAL INTERACTION: SOCIAL INTERACTION - STEP 1: Does the patient require a helper to interact with others in social and therapeutic situations? No. SOCIAL INTERACTION - STEP 2: Does the patient need extra time in social situations, OR does s/he interact with staff, other patien ts, and family members ONLY in structured environments, OR does s/he require medication for social in teraction? Yes, patient needs extra time SOCIAL INTERACTION - SCORE: 6-DENISSE PROBLEM SOLVING: PROBLEM SOLVING - STEP 1: Does the patient need help to solve complex problems such as managing a checking account or confronti ng interpersonal problems? Yes. PROBLEM SOLVING - STEP 2: Does the patient solve basic routine problems half or more of the time? Yes. PROBLEM SOLVING - STEP 3: How often does the patient need help to solve basic routine problems? Less than 10% of the time PROBLEM SOLVING - SCORE: 5-SUP MEMORY: MEMORY - STEP 1: Does the patient need help to remember frequently encountered people, daily routines, and executing r equests? Yes. MEMORY - STEP 2: How often does the patient need help to remember frequently encountered people, daily routines, and e xecuting requests? Less than 10% of the time MEMORY - SCORE: 5-SUP SIGNATURE PANEL: The following modified sections: Eating - Score, Grooming - Score, Bathing - Score, Dressing - Upper Body - Score, Dressing - Lower Body - Score, Toileting - Score, Bladder Management - Score, Bowel Man agement - Score, Transfers: Bed, Chair, Wheelchair - Score, Transfers: Toilet - Score, Transfers: Lupe wer - Score, Transfers: Tub - Score, Locomotion: Walk - Score, Locomotion: Wheelchair - Score, Compre hension - Score, Social Interaction - Score, Problem Solving - Score, Memory - Score, Eating - Commen ts:, Expression - Score were [electronically] signed by Dyan Monge C.N.A. on Sat Jun 15 2017 14:07 :37 T-0500 (Central Daylight Time)
--- NOTE | 2017-06-15 15:18 | FAST ---
SHIFT START DATE/TIME: 06/15/2017 07:00 (CDT) SHIFT END DATE/TIME: 06/15/2017 19:00 (CDT) NAME TWIN OLIVIER DATE OF : 1930 DATE OF ADMISSION: 06/07/2017 19:25 (CDT) PHONE: AGE: 86 N# [id number] GENDER: Male ENCOUNTER PHYSICIAN: Dr. Woody Escamilla M.D. ADMISSION DIAGNOSIS: - Cardiac 09 - Cardiac Disorders (09) Chronic atrial fibrillation [I482]. CHF. EATING: EATING - STEP 1: Does the patient require assistance when eating? Yes. EATING - STEP 2: Does the patient require the assistance of a helper? Yes. EATING - STEP 3: Does the patient perform half or more of the eating tasks? Yes. EATING - STEP 4: Does the patient need only supervision, cuing, coaxing OR help to apply an orthosis OR help to cut fo od, open containers, pour liquids, or butter bread? Yes. EATING - SCORE: 5-SUP GROOMING: Comb/brush hair Wash, rinse, and dry face Wash, rinse, and dry hands GROOMING - STEP 1: Does the patient require assistance when grooming? Yes. GROOMING - STEP 2: Does the patient require the assistance of a helper? Yes. GROOMING - STEP 3: How much assistance does the patient require from the helper? Only prior equipment preparation/set up from the helper GROOMING - SCORE: 5-SUP BATHING: Activity did not occur on this shift BATHING - SCORE: 0-UNK DRESSING - UPPER BODY: Activity did not occur on this shift ARTICLES SCORE Total number of steps: 0 DRESSING - UPPER BODY - SCORE: 0-UNK DRESSING - LOWER BODY: Activity did not occur on this shift ARTICLES SCORE Total number of steps: 0 DRESSING - LOWER BODY - SCORE: 0-UNK TOILETING: TOILETING - STEP 1: Does the patient require assistance with toileting? Yes. TOILETING - STEP 2: Does the patient require the assistance of a helper? Yes. TOILETING - STEP 3: How much assistance does the patient require from the helper? Hands-on assistance from the helper TOILETING - STEP 4: Of the 3 tasks: 1) Adjusting clothing prior to use, 2) Cleansing of perineal area, 3) Adjusting clot portia after use; How many tasks does the patient perform WITHOUT assistance of the helper? Two tasks TOILETING - SCORE: 3-MOD BLADDER MANAGEMENT: Ferney removes incontinent device (Depends, pull ups, etc.); cleans the patient after accident / inco ntinent episode; and, applies new incontinent device. BLADDER MANAGEMENT - SCORE: 1-DEP BLADDER MANAGEMENT - FREQUENCY OF ACCIDENTS: BLADDER MANAGEMENT(FA) - STEP 1: How many accidents has the patient had during the current shift? 1 BOWEL MANAGEMENT: Activity did not occur on this shift BOWEL MANAGEMENT - SCORE: 7-IND TRANSFERS: BED, CHAIR, WHEELCHAIR: TRANSFERS: BED, CHAIR, WHEELCHAIR - STEP 1: Does the patient require assistance with bed, chair, or wheelchair transfers? Yes. TRANSFERS: BED, CHAIR, WHEELCHAIR - STEP 2: Does the patient require the assistance of a helper? Yes. TRANSFERS: BED, CHAIR, WHEELCHAIR - STEP 3: How much assistance does the patient require from the helper? Steadying/guiding assistance TRANSFERS: BED, CHAIR, WHEELCHAIR - SCORE: 4-MIN TRANSFERS: TOILET: TRANSFERS: TOILET - STEP 1: Does the patient require assistance with toilet transfers? Yes. TRANSFERS: TOILET - STEP 2: Does the patient require the assistance of a helper? Yes. TRANSFERS: TOILET - STEP 3: How much assistance does the patient require from the helper? Patient performs half or more of the tr ansferring tasks TRANSFERS: TOILET - STEP 4: Does the patient need only incidental help such as contact guard or steadying during toilet transfer? Yes. TRANSFERS: TOILET - SCORE: 4-MIN TRANSFERS: SHOWER: Activity did not occur on this shift TRANSFERS: SHOWER - SCORE: 0-UNK TRANSFERS: TUB: Activity did not occur on this shift TRANSFERS: TUB - SCORE: 0-UNK LOCOMOTION: WALK: Activity did not occur on this shift LOCOMOTION: WALK - SCORE: 0-UNK LOCOMOTION: WHEELCHAIR: LOCOMOTION: WHEELCHAIR - STEP 1: Does the patient need help to go 150 feet in a wheelchair? Yes. LOCOMOTION: WHEELCHAIR - STEP 2: How much assistance does the patient need from the helper? Only incidental help such as around corner s or over thresholds LOCOMOTION: WHEELCHAIR - SCORE: 4-MIN COMPREHENSION: COMPREHENSION: TYPE: Both COMPREHENSION - STEP 1: Does the patient require help to understand complex and abstract ideas (such as current events, finan césar, discharge planning, medical issues, relationships, etc)? Yes. COMPREHENSION - STEP 2: Does the patient require help to understand questions or statements about basic needs or ideas (such as hunger, thirst, sleep, safety, daily schedule, room location, or discomfort) half or more of the t sheridan? No. COMPREHENSION - STEP 3: How often does the patient need help to understand directions and conversation about basic needs? Les s than 10% of the time COMPREHENSION - SCORE: 5-SUP EXPRESSION EXPRESSION: TYPE: Both EXPRESSION - STEP 1: Does the patient require help expressing complex and abstract ideas (such as current events, finances , discharge planning, medical issues, relationships, etc)? Yes. EXPRESSION - STEP 2: Does the patient require help to express basic necessities or ideas (such as hunger, thirst, sleep, s afety, daily schedule, room location, or discomfort) half or more of the time? No. EXPRESSION - STEP 3: How often does the patient need help to express directions and conversation about basic needs? Less t zapata 10% of the time EXPRESSION - SCORE: 5-SUP SOCIAL INTERACTION: SOCIAL INTERACTION - STEP 1: Does the patient require a helper to interact with others in social and therapeutic situations? No. SOCIAL INTERACTION - STEP 2: Does the patient need extra time in social situations, OR does s/he interact with staff, other patien ts, and family members ONLY in structured environments, OR does s/he require medication for social in teraction? Yes, patient needs extra time SOCIAL INTERACTION - SCORE: 6-DENISSE PROBLEM SOLVING: PROBLEM SOLVING - STEP 1: Does the patient need help to solve complex problems such as managing a checking account or confronti ng interpersonal problems? Yes. PROBLEM SOLVING - STEP 2: Does the patient solve basic routine problems half or more of the time? Yes. PROBLEM SOLVING - STEP 3: How often does the patient need help to solve basic routine problems? Less than 10% of the time PROBLEM SOLVING - SCORE: 5-SUP MEMORY: MEMORY - STEP 1: Does the patient need help to remember frequently encountered people, daily routines, and executing r equests? Yes. MEMORY - STEP 2: How often does the patient need help to remember frequently encountered people, daily routines, and e xecuting requests? Less than 10% of the time MEMORY - SCORE: 5-SUP SIGNATURE PANEL: The following modified sections: Eating - Score, Grooming - Score, Bathing - Score, Dressing - Upper Body - Score, Dressing - Lower Body - Score, Toileting - Score, Bladder Management - Score, Bowel Man agement - Score, Transfers: Bed, Chair, Wheelchair - Score, Transfers: Toilet - Score, Transfers: Lupe wer - Score, Transfers: Tub - Score, Locomotion: Walk - Score, Locomotion: Wheelchair - Score, Compre hension - Score, Expression - Score, Social Interaction - Score, Problem Solving - Score, Memory - Sc ore were [electronically] signed by Lana [email or web address] on Sat Jun 15 2017 14:20:40 GMT-0500 (Centra l Daylight Time)
[2017-06-15] MEDS: GUAIFENESIN/DM 5 ML UCUP PO PRN ×2 (20:40)
[2017-06-15] MEDS: Bacitracin Opth Oint TOP SCH (20:40)
[2017-06-15] MEDS: LATANOPROST OPTH OPTH SCH (20:40)
--- NOTE | 2017-06-16 03:01 | FAST ---
SHIFT START DATE/TIME: 06/15/2017 19:00 (CDT) SHIFT END DATE/TIME: 06/16/2017 07:00 (CDT) NAME TWIN OLIVIER DATE OF : 1930 DATE OF ADMISSION: 06/07/2017 19:25 (CDT) PHONE: AGE: 86 N# [id number] GENDER: Male ENCOUNTER PHYSICIAN: Dr. Woody Escamilla M.D. ADMISSION DIAGNOSIS: - Cardiac 09 - Cardiac Disorders (09) Chronic atrial fibrillation [I482]. CHF. EATING: Activity did not occur on this shift EATING - SCORE: 0-UNK GROOMING: Activity did not occur on this shift GROOMING - SCORE: 0-UNK BATHING: Activity did not occur on this shift BATHING - SCORE: 0-UNK DRESSING - UPPER BODY: Activity did not occur on this shift ARTICLES SCORE Total number of steps: 0 DRESSING - UPPER BODY - SCORE: 0-UNK DRESSING - LOWER BODY: Activity did not occur on this shift ARTICLES SCORE Total number of steps: 0 DRESSING - LOWER BODY - SCORE: 0-UNK TOILETING: TOILETING - STEP 1: Does the patient require assistance with toileting? Yes. TOILETING - STEP 2: Does the patient require the assistance of a helper? Yes. TOILETING - STEP 3: How much assistance does the patient require from the helper? Hands-on assistance from the helper TOILETING - STEP 4: Of the 3 tasks: 1) Adjusting clothing prior to use, 2) Cleansing of perineal area, 3) Adjusting clot portia after use; How many tasks does the patient perform WITHOUT assistance of the helper? Two tasks TOILETING - SCORE: 3-MOD BLADDER MANAGEMENT: BLADDER MANAGEMENT - STEP 1: Does the patient control the bladder completely and intentionally without equipment or devices or med ications, and is always continent? No. BLADDER MANAGEMENT - STEP 2: Does the patient require the assistance of a helper? Yes. BLADDER MANAGEMENT - STEP 3: How much assistance does the patient require from the helper? Only set-up of equipment - such as plac ing it within reach of the patient or emptying a device - to maintain either satisfactory voiding pat tern or managing an external device, such as an absorbent pad, ileal device, or catheter BLADDER MANAGEMENT - SCORE: 5-SUP BOWEL MANAGEMENT: Activity did not occur on this shift BOWEL MANAGEMENT - SCORE: 7-IND TRANSFERS: BED, CHAIR, WHEELCHAIR: Activity did not occur on this shift TRANSFERS: BED, CHAIR, WHEELCHAIR - SCORE: 0-UNK TRANSFERS: TOILET: Activity did not occur on this shift TRANSFERS: TOILET - SCORE: 0-UNK TRANSFERS: SHOWER: Activity did not occur on this shift TRANSFERS: SHOWER - SCORE: 0-UNK TRANSFERS: TUB: Activity did not occur on this shift TRANSFERS: TUB - SCORE: 0-UNK LOCOMOTION: WALK: Activity did not occur on this shift LOCOMOTION: WALK - SCORE: 0-UNK LOCOMOTION: WHEELCHAIR: Activity did not occur on this shift LOCOMOTION: WHEELCHAIR - SCORE: 0-UNK COMPREHENSION: COMPREHENSION - STEP 1: Does the patient require help to understand complex and abstract ideas (such as current events, finan césar, discharge planning, medical issues, relationships, etc)? Yes. COMPREHENSION - STEP 2: Does the patient require help to understand questions or statements about basic needs or ideas (such as hunger, thirst, sleep, safety, daily schedule, room location, or discomfort) half or more of the t sheridan? No. COMPREHENSION - STEP 3: How often does the patient need help to understand directions and conversation about basic needs? 10% - 24% of the time COMPREHENSION - SCORE: 4-MIN EXPRESSION EXPRESSION - STEP 1: Does the patient require help expressing complex and abstract ideas (such as current events, finances , discharge planning, medical issues, relationships, etc)? Yes. EXPRESSION - STEP 2: Does the patient require help to express basic necessities or ideas (such as hunger, thirst, sleep, s afety, daily schedule, room location, or discomfort) half or more of the time? No. EXPRESSION - STEP 3: How often does the patient need help to express directions and conversation about basic needs? 10-24% of the time EXPRESSION - SCORE: 4-MIN SOCIAL INTERACTION: SOCIAL INTERACTION - STEP 1: Does the patient require a helper to interact with others in social and therapeutic situations? No. SOCIAL INTERACTION - STEP 2: Does the patient need extra time in social situations, OR does s/he interact with staff, other patien ts, and family members ONLY in structured environments, OR does s/he require medication for social in teraction? Yes, patient needs extra time SOCIAL INTERACTION - SCORE: 6-DENISSE PROBLEM SOLVING: PROBLEM SOLVING - STEP 1: Does the patient need help to solve complex problems such as managing a checking account or confronti ng interpersonal problems? Yes. PROBLEM SOLVING - STEP 2: Does the patient solve basic routine problems half or more of the time? Yes. PROBLEM SOLVING - STEP 3: How often does the patient need help to solve basic routine problems? 10%-24% of the time PROBLEM SOLVING - SCORE: 4-MIN MEMORY: MEMORY - STEP 1: Does the patient need help to remember frequently encountered people, daily routines, and executing r equests? No. MEMORY - STEP 2: Does the patient have slight difficulty recognizing frequently encountered people, daily routines, or executing requests without the need for repetition or using self-initiated or environmental cues to remember? Yes. MEMORY - SCORE: 6-DENISSE SIGNATURE PANEL: The following modified sections: Eating - Score, Grooming - Score, Dressing - Upper Body - Score, Lauri ssing - Lower Body - Score, Toileting - Score, Bladder Management - Score, Bowel Management - Score, Transfers: Bed, Chair, Wheelchair - Score, Transfers: Toilet - Score, Transfers: Shower - Score, Hayden sfers: Tub - Score, Locomotion: Walk - Score, Locomotion: Wheelchair - Score, Comprehension - Score, Expression - Score, Social Interaction - Score, Problem Solving - Score, Memory - Score were [electro nically] signed by Minda Yancey CNA on SatJun 16 2017 02:03:17 GMT-0500 (Central Daylight Time)
[2017-06-16] MEDS: CARVEDILOL 3.125 MG TAB PO SCH (05:34)
[2017-06-16] MEDS: ENSURE ENLIVE 237 ML CAN PO SCH ×2 (08:00→20:08)
[2017-06-16] MEDS: LACTULOSE 20 GM/30 ML UCUP PO SCH (08:03)
[2017-06-16] MEDS: ASPIRIN EC 81 MG TAB PO SCH (08:04)
[2017-06-16] MEDS: acetaZOLAMIDE 250 MG TAB PO SCH (08:04)
[2017-06-16] MEDS: APIXABAN 2.5 MG TABLET PO SCH ×2 (08:04→20:02)
[2017-06-16] MEDS: levoFLOXacin 500 MG TAB PO SCH (08:05)
[2017-06-16] MEDS: FUROSEMIDE 20 MG TABLET PO SCH (08:05)
[2017-06-16] MEDS: ALBUTEROL 2.5 MG/3 ML NEB SOL NEB PRN (08:58)
[2017-06-16] MEDS: NA CHLORIDE 0.9% 1,000 ML IV SCH (11:25)
[2017-06-16] MEDS: LATANOPROST OPTH OPTH SCH (20:02)
[2017-06-16] MEDS: MELATONIN 3 MG TABLET PO PRN (20:02)
[2017-06-16] MEDS: Bacitracin Opth Oint TOP SCH (20:08)
[2017-06-17] MEDS: CARVEDILOL 3.125 MG TAB PO SCH (05:05)
[2017-06-17] MEDS: ENSURE ENLIVE 237 ML CAN PO SCH ×2 (08:00→19:27)
[2017-06-17] MEDS: NA CHLORIDE 0.9% 1,000 ML IV SCH (08:00)
[2017-06-17] MEDS: FUROSEMIDE 20 MG TABLET PO SCH (08:00)
[2017-06-17] MEDS: acetaZOLAMIDE 250 MG TAB PO SCH (09:00)
[2017-06-17] MEDS: LACTULOSE 20 GM/30 ML UCUP PO SCH (09:00)
[2017-06-17] MEDS: levoFLOXacin 500 MG TAB PO SCH (09:01)
[2017-06-17] MEDS: ASPIRIN EC 81 MG TAB PO SCH (09:01)
[2017-06-17] MEDS: DULOXETINE 20 MG CAP PO SCH (09:01)
[2017-06-17] MEDS: APIXABAN 2.5 MG TABLET PO SCH ×2 (09:01→19:26)
[2017-06-17] MEDS: ACETAMINOPHEN 500 MG TAB PO PRN (09:05)
--- NOTE | 2017-06-17 09:11 | FAST ---
SHIFT START DATE/TIME: 06/16/2017 19:00 (CDT) SHIFT END DATE/TIME: 06/17/2017 07:00 (CDT) NAME TWIN OLIVIER DATE OF : 1930 DATE OF ADMISSION: 06/07/2017 19:25 (CDT) PHONE: AGE: 86 N# [id number] GENDER: Male ENCOUNTER PHYSICIAN: Dr. Woody Escamilla M.D. ADMISSION DIAGNOSIS: - Cardiac 09 - Cardiac Disorders (09) Chronic atrial fibrillation [I482]. CHF. EATING: Activity did not occur on this shift EATING - SCORE: 0-UNK GROOMING: Activity did not occur on this shift GROOMING - SCORE: 0-UNK BATHING: Activity did not occur on this shift BATHING - SCORE: 0-UNK DRESSING - UPPER BODY: Patient is not dressing in public clothing ARTICLES SCORE Total number of steps: 0 DRESSING - UPPER BODY - SCORE: 0-UNK DRESSING - LOWER BODY: Patient is not dressing in public clothing ARTICLES SCORE Total number of steps: 0 DRESSING - LOWER BODY - SCORE: 0-UNK TOILETING: TOILETING - STEP 1: Does the patient require assistance with toileting? Yes. TOILETING - STEP 2: Does the patient require the assistance of a helper? Yes. TOILETING - STEP 3: How much assistance does the patient require from the helper? Hands-on assistance from the helper TOILETING - STEP 4: Of the 3 tasks: 1) Adjusting clothing prior to use, 2) Cleansing of perineal area, 3) Adjusting clot portia after use; How many tasks does the patient perform WITHOUT assistance of the helper? Two tasks TOILETING - SCORE: 3-MOD BLADDER MANAGEMENT: Cameron removes incontinent device (Depends, pull ups, etc.); cleans the patient after accident / inco ntinent episode; and, applies new incontinent device. BLADDER MANAGEMENT - SCORE: 1-DEP BLADDER MANAGEMENT - FREQUENCY OF ACCIDENTS: BLADDER MANAGEMENT(FA) - STEP 1: How many accidents has the patient had during the current shift? 1 BOWEL MANAGEMENT: Activity did not occur on this shift BOWEL MANAGEMENT - SCORE: 7-IND TRANSFERS: BED, CHAIR, WHEELCHAIR: Activity did not occur on this shift TRANSFERS: BED, CHAIR, WHEELCHAIR - SCORE: 0-UNK TRANSFERS: TOILET: Activity did not occur on this shift TRANSFERS: TOILET - SCORE: 0-UNK TRANSFERS: SHOWER: Activity did not occur on this shift TRANSFERS: SHOWER - SCORE: 0-UNK TRANSFERS: TUB: Activity did not occur on this shift TRANSFERS: TUB - SCORE: 0-UNK LOCOMOTION: WALK: Activity did not occur on this shift LOCOMOTION: WALK - SCORE: 0-UNK LOCOMOTION: WHEELCHAIR: Activity did not occur on this shift LOCOMOTION: WHEELCHAIR - SCORE: 0-UNK COMPREHENSION: COMPREHENSION - STEP 1: Does the patient require help to understand complex and abstract ideas (such as current events, finan césar, discharge planning, medical issues, relationships, etc)? Yes. COMPREHENSION - STEP 2: Does the patient require help to understand questions or statements about basic needs or ideas (such as hunger, thirst, sleep, safety, daily schedule, room location, or discomfort) half or more of the t sheridan? No. COMPREHENSION - STEP 3: How often does the patient need help to understand directions and conversation about basic needs? 10% - 24% of the time COMPREHENSION - SCORE: 4-MIN EXPRESSION EXPRESSION - STEP 1: Does the patient require help expressing complex and abstract ideas (such as current events, finances , discharge planning, medical issues, relationships, etc)? Yes. EXPRESSION - STEP 2: Does the patient require help to express basic necessities or ideas (such as hunger, thirst, sleep, s afety, daily schedule, room location, or discomfort) half or more of the time? No. EXPRESSION - STEP 3: How often does the patient need help to express directions and conversation about basic needs? 10-24% of the time EXPRESSION - SCORE: 4-MIN SOCIAL INTERACTION: SOCIAL INTERACTION - STEP 1: Does the patient require a helper to interact with others in social and therapeutic situations? No. SOCIAL INTERACTION - STEP 2: Does the patient need extra time in social situations, OR does s/he interact with staff, other patien ts, and family members ONLY in structured environments, OR does s/he require medication for social in teraction? Yes, patient needs extra time SOCIAL INTERACTION - SCORE: 6-DENISSE PROBLEM SOLVING: PROBLEM SOLVING - STEP 1: Does the patient need help to solve complex problems such as managing a checking account or confronti ng interpersonal problems? Yes. PROBLEM SOLVING - STEP 2: Does the patient solve basic routine problems half or more of the time? Yes. PROBLEM SOLVING - STEP 3: How often does the patient need help to solve basic routine problems? 25%-49% of the time PROBLEM SOLVING - SCORE: 3-MOD MEMORY: MEMORY - STEP 1: Does the patient need help to remember frequently encountered people, daily routines, and executing r equests? No. MEMORY - STEP 2: Does the patient have slight difficulty recognizing frequently encountered people, daily routines, or executing requests without the need for repetition or using self-initiated or environmental cues to remember? Yes. MEMORY - SCORE: 6-DENISSE SIGNATURE PANEL: The following modified sections: Eating - Score, Grooming - Score, Dressing - Upper Body - Score, Lauri ssing - Lower Body - Score, Toileting - Score, Bladder Management - Score, Bowel Management - Score, Transfers: Bed, Chair, Wheelchair - Score, Transfers: Toilet - Score, Transfers: Shower - Score, Hayden sfers: Tub - Score, Locomotion: Walk - Score, Locomotion: Wheelchair - Score, Comprehension - Score, Expression - Score, Social Interaction - Score, Problem Solving - Score, Memory - Score were [electro nically] signed by Minda Yancey CNA on SatJun 17 2017 02:54:37 GMT-0500 (Central Daylight Time)
--- NOTE | 2017-06-17 12:17 | FAST ---
SHIFT START DATE/TIME: 06/17/2017 07:00 (CDT) SHIFT END DATE/TIME: 06/17/2017 19:00 (CDT) NAME TWIN OLIVIER DATE OF : 1930 DATE OF ADMISSION: 06/07/2017 19:25 (CDT) PHONE: AGE: 86 N# [id number] GENDER: Male ENCOUNTER PHYSICIAN: Dr. Woody Escamilla M.D. ADMISSION DIAGNOSIS: - Cardiac 09 - Cardiac Disorders () Chronic atrial fibrillation [I482]. CHF. EATING: EATING - STEP 1: Does the patient require assistance when eating? Yes. EATING - STEP 2: Does the patient require the assistance of a helper? Yes. EATING - STEP 3: Does the patient perform half or more of the eating tasks? Yes. EATING - STEP 4: Does the patient need only supervision, cuing, coaxing OR help to apply an orthosis OR help to cut fo od, open containers, pour liquids, or butter bread? Yes. EATING - SCORE: 5-SUP GROOMING: Activity did not occur on this shift GROOMING - SCORE: 0-UNK BATHING: Activity did not occur on this shift BATHING - SCORE: 0-UNK DRESSING - UPPER BODY: Activity did not occur on this shift ARTICLES SCORE Total number of steps: 0 DRESSING - UPPER BODY - SCORE: 0-UNK DRESSING - LOWER BODY: Activity did not occur on this shift ARTICLES SCORE Total number of steps: 0 DRESSING - LOWER BODY - SCORE: 0-UNK TOILETING: TOILETING - STEP 1: Does the patient require assistance with toileting? Yes. TOILETING - STEP 2: Does the patient require the assistance of a helper? Yes. TOILETING - STEP 3: How much assistance does the patient require from the helper? Hands-on assistance from the helper TOILETING - STEP 4: Of the 3 tasks: 1) Adjusting clothing prior to use, 2) Cleansing of perineal area, 3) Adjusting clot portia after use; How many tasks does the patient perform WITHOUT assistance of the helper? Two tasks TOILETING - SCORE: 3-MOD BLADDER MANAGEMENT: BLADDER MANAGEMENT - STEP 1: Does the patient control the bladder completely and intentionally without equipment or devices or med ications, and is always continent? No. BLADDER MANAGEMENT - STEP 2: Does the patient require the assistance of a helper? No, patient requires and independently uses an a ssistive device, such as a urinal, bedpan, bedside commode, catheter, absorbent pad, or collecting de vice BLADDER MANAGEMENT - SCORE: 6-DENISSE BOWEL MANAGEMENT: Activity did not occur on this shift BOWEL MANAGEMENT - SCORE: 7-IND TRANSFERS: BED, CHAIR, WHEELCHAIR: TRANSFERS: BED, CHAIR, WHEELCHAIR - STEP 1: Does the patient require assistance with bed, chair, or wheelchair transfers? Yes. TRANSFERS: BED, CHAIR, WHEELCHAIR - STEP 2: Does the patient require the assistance of a helper? Yes. TRANSFERS: BED, CHAIR, WHEELCHAIR - STEP 3: How much assistance does the patient require from the helper? Lifting of the legs TRANSFERS: BED, CHAIR, WHEELCHAIR - STEP 4: How many legs does the patient require the helper to lift? both legs TRANSFERS: BED, CHAIR, WHEELCHAIR - SCORE: 3-MOD TRANSFERS: TOILET: Activity did not occur on this shift TRANSFERS: TOILET - SCORE: 0-UNK TRANSFERS: SHOWER: Activity did not occur on this shift TRANSFERS: SHOWER - SCORE: 0-UNK TRANSFERS: TUB: Activity did not occur on this shift TRANSFERS: TUB - SCORE: 0-UNK LOCOMOTION: WALK: Activity did not occur on this shift LOCOMOTION: WALK - SCORE: 0-UNK LOCOMOTION: WHEELCHAIR: Activity did not occur on this shift LOCOMOTION: WHEELCHAIR - SCORE: 0-UNK COMPREHENSION: COMPREHENSION - SCORE: 0-UNK EXPRESSION EXPRESSION - SCORE: 0-UNK SOCIAL INTERACTION: SOCIAL INTERACTION - SCORE: 0-UNK PROBLEM SOLVING: PROBLEM SOLVING - SCORE: 0-UNK MEMORY: MEMORY - SCORE: 0-UNK SIGNATURE PANEL: The following modified sections: Eating - Score, Grooming - Score, Bathing - Score, Dressing - Upper Body - Score, Dressing - Lower Body - Score, Toileting - Score, Bladder Management - Score, Bowel Man agement - Score, Transfers: Bed, Chair, Wheelchair - Score, Transfers: Toilet - Score, Transfers: Lupe wer - Score, Transfers: Tub - Score, Locomotion: Walk - Score, Locomotion: Wheelchair - Score, Compre hension - Score, Expression - Score, Social Interaction - Score, Problem Solving - Score, Memory - Sc ore were [electronically] signed by Thanh Wolf on SatJun 17 2017 11:19:26 T-0500 (Central Daylight Time)
--- NOTE | 2017-06-17 12:40 | FAST ---
ENCOUNTER DATE AND TIME: 06/17/2017 08:00 (CDT) NAME TWIN OLIVIER DATE OF : 1930 DATE OF ADMISSION: 06/07/2017 19:25 (CDT) PHONE: AGE: 86 N# [id number] GENDER: Male ENCOUNTER PHYSICIAN: Dr. Woody Escamilla M.D. ADMISSION DIAGNOSIS: - Cardiac 09 - Cardiac Disorders (09) Chronic atrial fibrillation [I482]. CHF. EATING: Activity did not occur on this shift EATING - SCORE: 0-UNK GROOMING: Activity did not occur on this shift GROOMING - SCORE: 0-UNK BATHING: Activity did not occur on this shift BATHING - SCORE: 0-UNK DRESSING - UPPER BODY: Activity did not occur on this shift Patient is not dressing in public clothing ARTICLES SCORE Total number of steps: 0 DRESSING - UPPER BODY - SCORE: 0-UNK DRESSING - LOWER BODY: Activity did not occur on this shift Patient is not dressing in public clothing ARTICLES SCORE Total number of steps: 0 DRESSING - LOWER BODY - SCORE: 0-UNK TOILETING: Activity did not occur on this shift TOILETING - SCORE: 0-UNK BLADDER MANAGEMENT: Activity did not occur on this shift BLADDER MANAGEMENT - SCORE: 7-IND BOWEL MANAGEMENT: Activity did not occur on this shift BOWEL MANAGEMENT - SCORE: 7-IND TRANSFERS: BED, CHAIR, WHEELCHAIR: Activity did not occur on this shift TRANSFERS: BED, CHAIR, WHEELCHAIR - SCORE: 0-UNK TRANSFERS: TOILET: Activity did not occur on this shift TRANSFERS: TOILET - SCORE: 0-UNK TRANSFERS: SHOWER: Activity did not occur on this shift TRANSFERS: SHOWER - SCORE: 0-UNK TRANSFERS: TUB: Activity did not occur on this shift TRANSFERS: TUB - SCORE: 0-UNK LOCOMOTION: WALK: Activity did not occur on this shift LOCOMOTION: WALK - SCORE: 0-UNK LOCOMOTION: WHEELCHAIR: Activity did not occur on this shift LOCOMOTION: WHEELCHAIR - SCORE: 0-UNK LOCOMOTION: STAIRS: Activity did not occur on this shift LOCOMOTION: STAIRS - SCORE: 0-UNK COMPREHENSION: COMPREHENSION - STEP 1: Does the patient require help to understand complex and abstract ideas (such as current events, finan césar, discharge planning, medical issues, relationships, etc)? Yes. COMPREHENSION - STEP 2: Does the patient require help to understand questions or statements about basic needs or ideas (such as hunger, thirst, sleep, safety, daily schedule, room location, or discomfort) half or more of the t sheridan? No. COMPREHENSION - STEP 3: How often does the patient need help to understand directions and conversation about basic needs? 25% - 49% of the time COMPREHENSION - SCORE: 3-MOD EXPRESSION EXPRESSION - STEP 1: Does the patient require help expressing complex and abstract ideas (such as current events, finances , discharge planning, medical issues, relationships, etc)? Yes. EXPRESSION - STEP 2: Does the patient require help to express basic necessities or ideas (such as hunger, thirst, sleep, s afety, daily schedule, room location, or discomfort) half or more of the time? No. EXPRESSION - STEP 3: How often does the patient need help to express directions and conversation about basic needs? 25-49% of the time EXPRESSION - SCORE: 3-MOD SOCIAL INTERACTION: SOCIAL INTERACTION - STEP 1: Does the patient require a helper to interact with others in social and therapeutic situations? Yes. SOCIAL INTERACTION - STEP 2: Does the patient interact appropriately half or more of the time? Yes. SOCIAL INTERACTION - STEP 3: How often does the patient need help to interact appropriately? 25-49% of the time SOCIAL INTERACTION - SCORE: 3-MOD PROBLEM SOLVING: PROBLEM SOLVING - STEP 1: Does the patient need help to solve complex problems such as managing a checking account or confronti ng interpersonal problems? Yes. PROBLEM SOLVING - STEP 2: Does the patient solve basic routine problems half or more of the time? No. PROBLEM SOLVING - STEP 3: Does the patient need help to solve problems all the time or is s/he unable to solve problems? No. Gumaro baron can sometimes solve problems PROBLEM SOLVING - SCORE: 2-MAX MEMORY: MEMORY - STEP 1: Does the patient need help to remember frequently encountered people, daily routines, and executing r equests? Yes. MEMORY - STEP 2: How often does the patient need help to remember frequently encountered people, daily routines, and e xecuting requests? More than 50% of the time MEMORY - STEP 3: Does the patient need help to remember all of the time OR does s/he not effectively recognize and rem ember? Yes. Patient needs help to remember ALL the time OR does not effectively recognize and remembe r MEMORY - SCORE: 1-DEP SIGNATURE PANEL: The following modified sections: Comprehension - Score, Expression - Score, Social Interaction - Scor e, Problem Solving - Score, Memory - Score were [electronically] signed by ANGELA Hernandez on Sat 11:42:29 GMT-0500 (Central Daylight Time)
--- NOTE | 2017-06-17 13:56 | RAD REPORT ---
EXAM DESCRIPTION: CT - Head Brain Wo Cont - 06/17/2017 1:40 pm CLINICAL HISTORY: Altered consciousness. COMPARISON: None. TECHNIQUE: All CT scans are performed using dose optimization technique as appropriate and may inclu de automated exposure control or mA/KV adjustment according to patient size. FINDINGS: No intracranial hemorrhage, hydrocephalus or extra-axial fluid collection.Mild generalized brain atrophy is present with mild periventricular and deep white matter chronic microvascular ische rossi changes.No areas of brain edema or evidence of midline shift. The paranasal sinuses and mastoids are clear. The calvarium is intact. IMPRESSION: No acute intracranial abnormality.
--- NOTE | 2017-06-17 18:41 | R.PN ---
ENCOUNTER DATE AND TIME: 06/17/2017 17:40 (CDT) NAME TWIN OLIVIER DATE OF : 1930 DATE OF ADMISSION: 06/07/2017 19:25 (CDT) Chronic atrial fibrillation [I482]CHFCHIEF COMPLAINT: Debility SUBJECTIVE: Pt denied any Shortness of Breath. Pt denied any depression. Ambulated 350' with rolling walker using 2L of O2 with minimum assistance. O2 sats remained 90 to 92% with O2 at 3L. Self propelled wheelchair 250' with maximum assistance. Mildly increased upper airway sounds. Use incentive spironetry. VITAL SIGNS Temperature: 97.0 F SBP/DBP: 110/51 Pulse: 69 Resp: 16 MEDICATION ALLERGIES: iodine ENVIRONMENTAL ALLERGIES: - Substance Allergies None Known - Other Allergies None Known NURSING: - Shower allowing shower ACTIVITIES OOB only with supervision THERAPIES: - Occupational Therapy Evaluate and Treat. - Physical Therapy Evaluate and Treat. PHYSICAL EXAM - Gen Alert and awake Lying in bed No apparent distress Oriented to: person, time, and place - Vital Signs Vital signs stable, afebrile - Skin No breakdowns No abnormalities - Eyes No abnormalities - ENMT No abnormalities - Neck No abnormalities - CVS RRR - Chest Mildly decreased breath sounds bilaterally. - Resp + rhonchi - Abd +bowel sounds - GI Obese Deferred - No abnormalities - Ext Mild bilateral lower extremity edema. - MSK 4/5 weakness in both lower extremities. - Neuro No focal deficits. - Psych No abnormalities ASSESSMENT: Pt. is a 86 yo Right-handed white male.On 06/05/2017 he was admitted to [facility] with diagnosis Chronic atrial fibrillation [I482].His impairment category is Cardiac 09 - Cardia c Disorders (09).Pre-morbidly, Pt. was independent/mod-I in Social Cognition, Self-Care, Sphincter Co ntrol, Transfers Control, Communication, and Locomotion; and he had good Sphincter Control.Currently, he has deficits of Social Cognition, Balance, Self-Care, Endurance, Safety Awareness, Transfers Cont rol, Communication, and Locomotion.Pt. is now referred to [facility] for acute in-patient rehabilitation in order to maximize patient's functional independence in activities of da yuan living, strength, ROM, and mobility.- Rehab Goal Patient has realistic goal of being discharged at assistance level 6-Delia to reside at Home with Leonid hermes. MDM/PLAN: - Diet Type Continue Regular - Physical Therapy Gait dysfunction - to improve, our physical therapists will perform initial evaluation of pt's statu s upon admission and devise an individualized program for Gait Training, and Wheel Chair mobility Inability to transfer - to improve, our physical therapists will perform initial evaluation of pt's status upon admission and devise an individualized program for Bed mobility Need for home safety evaluation - to improve, our physical therapists will perform initial evaluatio n of pt's status upon admission and devise an individualized program for Home Evaluation Need in caregiver upon discharge - to improve, our physical therapists will perform initial evaluati on of pt's status upon admission and devise an individualized program for Caregiver Training New precaution - to improve, our physical therapists will perform initial evaluation of pt's status upon admission and devise an individualized program for Patient precaution education Edema - to improve, our physical therapists will perform initial evaluation of pt's status upon admi ssion and devise an individualized program for Elevation Training, and Lymphedema Therapy Poor balance - to improve, our physical therapists will perform initial evaluation of pt's status up on admission and devise an individualized program for Balance Training Poor endurance - to improve, our physical therapists will perform initial evaluation of pt's status upon admission and devise an individualized program for Endurance Training Weakness - to improve, our physical therapists will perform initial evaluation of pt's status upon a dmission and devise an individualized program for Aquatic Therapy, Neuromuscular Reeducation, and Str engthening Achieving independence - to improve, our physical therapists will perform initial evaluation of pt's status upon admission and devise an individualized program for Community Reintegration Activities - Diet - Liquid Texture Continue Regular - Tube Feed Continue N/A - Diet - Solid Texture Continue Regular - Shower allowing shower - Occupational Therapy ADL deficits - to improve, our occupation therapists will perform initial evaluation of pt's status upon admission and devise an individualized program for Bathing, Bed mobility, Community Reintegratio n, Cooking, Dressing, Eating, Fine Motor Skills, Grooming, Homemaking, Kitchen Mobility, Laundry, Pat ient Education, Safety Awareness, Splinting - Positioning, Transfers(Toilet, Tub, Shower), and Wheel Chair Management Cognitive deficits - to improve, our occupation therapists will perform initial evaluation of pt's s tatus upon admission and devise an individualized program for Cognition - orientation Need for reproductive healthcare assistant - to improve, our occupation therapists will perform initial evaluation of pt's status upon admission and devise an individualized program for Caregiver Training Weakness - to improve, our occupation therapists will perform initial evaluation of pt's status upon admission and devise an individualized program for Aquatic Therapy, Balance, Endurance, UE ROM, and UE strengthening FUNCTIONAL STATUS: UPDATED AT WEEKLY TEAM CONFERENCE - Bladder Same accident frequency: 7-Ind - No accidents in the past 7 days - Bowel Same accident frequency: 7-Ind - No accidents in the past 7 days - Walking Same score based on distance walked: 0(N/A) FUNCTIONAL STATUS: - Self-Care A. Eating sup B. Grooming sup C. Bathing Lizbeth D. Dressing - Upper Lizbeth E. Dressing - Lower Lizbeth F. Toileting Lizbeth - Sphincter Control G: Bladder control Ind H: Bowel control Ind - Transfers Control I. Bed/Chair/Wheelchair Lizbeth J. Toilet modA K. Tub/Shower ADNO - Locomotion L. Walk/Wheelchair (B) Lizbeth M. Stairs ADNO - Communication N. Comprehension (B) sup O. Expression (B) sup - Social Cognition P. Social Interaction sup Q. Problem Solving sup R. Memory sup - Endurance Poor - Balance Poor - Safety Awareness Poor CURRENT FUNC. DEFICITS: Social Cognition, Balance, Self-Care, Endurance, Safety Awareness, Transfers Control, Communication, and Locomotion SIGNATURE PANEL: (CDT)
[2017-06-17] MEDS: LATANOPROST OPTH OPTH SCH (19:27)
[2017-06-17] MEDS: Bacitracin Opth Oint TOP SCH (20:13)
[2017-06-17] MEDS: DOCUSATE NA/SENNA CONC 1 TAB PO PRN (21:30)
--- NOTE | 2017-06-18 03:15 | FAST ---
SHIFT START DATE/TIME: 06/17/2017 19:00 (CDT) SHIFT END DATE/TIME: 06/18/2017 07:00 (CDT) NAME TWIN LOIVIER DATE OF : 1930 DATE OF ADMISSION: 06/07/2017 19:25 (CDT) PHONE: AGE: 86 N# [id number] GENDER: Male ENCOUNTER PHYSICIAN: Dr. Woody Escamilla M.D. ADMISSION DIAGNOSIS: - Cardiac 09 - Cardiac Disorders (09) Chronic atrial fibrillation [I482]. CHF. EATING: Activity did not occur on this shift EATING - SCORE: 0-UNK GROOMING: Activity did not occur on this shift GROOMING - SCORE: 0-UNK BATHING: Activity did not occur on this shift BATHING - SCORE: 0-UNK DRESSING - UPPER BODY: Activity did not occur on this shift ARTICLES SCORE Total number of steps: 0 DRESSING - UPPER BODY - SCORE: 0-UNK DRESSING - LOWER BODY: Activity did not occur on this shift ARTICLES SCORE Total number of steps: 0 DRESSING - LOWER BODY - SCORE: 0-UNK TOILETING: TOILETING - STEP 1: Does the patient require assistance with toileting? Yes. TOILETING - STEP 2: Does the patient require the assistance of a helper? Yes. TOILETING - STEP 3: How much assistance does the patient require from the helper? Hands-on assistance from the helper TOILETING - STEP 4: Of the 3 tasks: 1) Adjusting clothing prior to use, 2) Cleansing of perineal area, 3) Adjusting clot portia after use; How many tasks does the patient perform WITHOUT assistance of the helper? Two tasks TOILETING - SCORE: 3-MOD BLADDER MANAGEMENT: BLADDER MANAGEMENT - STEP 1: Does the patient control the bladder completely and intentionally without equipment or devices or med ications, and is always continent? No. BLADDER MANAGEMENT - STEP 2: Does the patient require the assistance of a helper? No, patient requires and independently uses an a ssistive device, such as a urinal, bedpan, bedside commode, catheter, absorbent pad, or collecting de vice BLADDER MANAGEMENT - SCORE: 6-DENISSE BLADDER MANAGEMENT - FREQUENCY OF ACCIDENTS: BLADDER MANAGEMENT(FA) - STEP 1: How many accidents has the patient had during the current shift? 1 BOWEL MANAGEMENT: Activity did not occur on this shift BOWEL MANAGEMENT - SCORE: 7-IND TRANSFERS: BED, CHAIR, WHEELCHAIR: Activity did not occur on this shift TRANSFERS: BED, CHAIR, WHEELCHAIR - SCORE: 0-UNK TRANSFERS: TOILET: Activity did not occur on this shift TRANSFERS: TOILET - SCORE: 0-UNK TRANSFERS: SHOWER: Activity did not occur on this shift TRANSFERS: SHOWER - SCORE: 0-UNK TRANSFERS: TUB: Activity did not occur on this shift TRANSFERS: TUB - SCORE: 0-UNK LOCOMOTION: WALK: Activity did not occur on this shift LOCOMOTION: WALK - SCORE: 0-UNK LOCOMOTION: WHEELCHAIR: Activity did not occur on this shift LOCOMOTION: WHEELCHAIR - SCORE: 0-UNK COMPREHENSION: COMPREHENSION: TYPE: Both COMPREHENSION - STEP 1: Does the patient require help to understand complex and abstract ideas (such as current events, finan césar, discharge planning, medical issues, relationships, etc)? Yes. COMPREHENSION - STEP 2: Does the patient require help to understand questions or statements about basic needs or ideas (such as hunger, thirst, sleep, safety, daily schedule, room location, or discomfort) half or more of the t sheridan? No. COMPREHENSION - STEP 3: How often does the patient need help to understand directions and conversation about basic needs? 10% - 24% of the time COMPREHENSION - SCORE: 4-MIN EXPRESSION EXPRESSION: TYPE: Both EXPRESSION - STEP 1: Does the patient require help expressing complex and abstract ideas (such as current events, finances , discharge planning, medical issues, relationships, etc)? Yes. EXPRESSION - STEP 2: Does the patient require help to express basic necessities or ideas (such as hunger, thirst, sleep, s afety, daily schedule, room location, or discomfort) half or more of the time? No. EXPRESSION - STEP 3: How often does the patient need help to express directions and conversation about basic needs? 10-24% of the time EXPRESSION - SCORE: 4-MIN SOCIAL INTERACTION: SOCIAL INTERACTION - STEP 1: Does the patient require a helper to interact with others in social and therapeutic situations? No. SOCIAL INTERACTION - STEP 2: Does the patient need extra time in social situations, OR does s/he interact with staff, other patien ts, and family members ONLY in structured environments, OR does s/he require medication for social in teraction? Yes, patient needs extra time SOCIAL INTERACTION - SCORE: 6-DENISSE PROBLEM SOLVING: PROBLEM SOLVING - STEP 1: Does the patient need help to solve complex problems such as managing a checking account or confronti ng interpersonal problems? Yes. PROBLEM SOLVING - STEP 2: Does the patient solve basic routine problems half or more of the time? No. PROBLEM SOLVING - STEP 3: Does the patient need help to solve problems all the time or is s/he unable to solve problems? No. Gumaro baron can sometimes solve problems PROBLEM SOLVING - SCORE: 2-MAX MEMORY: MEMORY - STEP 1: Does the patient need help to remember frequently encountered people, daily routines, and executing r equests? Yes. MEMORY - STEP 2: How often does the patient need help to remember frequently encountered people, daily routines, and e xecuting requests? More than 50% of the time MEMORY - STEP 3: Does the patient need help to remember all of the time OR does s/he not effectively recognize and rem ember? No. Patient does not need help all the time MEMORY - SCORE: 2-MAX
[2017-06-18] MEDS: CARVEDILOL 3.125 MG TAB PO SCH (05:11)
[2017-06-18] MEDS: ENSURE ENLIVE 237 ML CAN PO SCH ×2 (08:00→19:52)
[2017-06-18] MEDS: acetaZOLAMIDE 250 MG TAB PO SCH (09:05)
[2017-06-18] MEDS: ASPIRIN EC 81 MG TAB PO SCH (09:05)
[2017-06-18] MEDS: APIXABAN 2.5 MG TABLET PO SCH ×2 (09:05→19:34)
[2017-06-18] MEDS: DULOXETINE 20 MG CAP PO SCH (09:05)
[2017-06-18] MEDS: levoFLOXacin 500 MG TAB PO SCH (09:05)
[2017-06-18] MEDS: LACTULOSE 20 GM/30 ML UCUP PO SCH (09:05)
[2017-06-18] MEDS: ACETAMINOPHEN 500 MG TAB PO PRN (09:06)
[2017-06-18] MEDS: FUROSEMIDE 20 MG TABLET PO SCH (09:07)
--- NOTE | 2017-06-18 10:25 | RAD REPORT ---
EXAM DESCRIPTION: VAS - Upper Lower Extrem Art Multi - 06/18/2017 8:30 am CLINICAL HISTORY: Leg pain. COMPARISON: 2011. FINDINGS: Right ankle-brachial index 1.3, left ankle-brachial index 1.2. The right common femoral artery demonstrates triphasic signal. The right superficial femoral, right p opliteal and right posterior tibial arteries demonstrate biphasic to signal. No flow seen within the right dorsalis pedis artery. The left common femoral, left superficial femoral, left popliteal and left posterior tibial arteries demonstrate biphasic signal. No flow is seen within left dorsalis pedis artery. IMPRESSION: 1. Normal ankle-brachial indices. 2. No flow is seen within the dorsalis pedis arteries bilaterally. 3. A high-grade proximal arterial stenosis is not seen.
--- NOTE | 2017-06-18 12:11 | FAST ---
ENCOUNTER DATE AND TIME: 06/18/2017 08:00 (CDT) NAME TWIN OLIVIER DATE OF : 1930 DATE OF ADMISSION: 06/07/2017 19:25 (CDT) PHONE: AGE: 86 N# [id number] GENDER: Male ENCOUNTER PHYSICIAN: Dr. Woody Escamilla M.D. ADMISSION DIAGNOSIS: - Cardiac 09 - Cardiac Disorders (09) Chronic atrial fibrillation [I482]. CHF. EATING: Activity did not occur on this shift EATING - SCORE: 0-UNK GROOMING: Activity did not occur on this shift GROOMING - SCORE: 0-UNK BATHING: Activity did not occur on this shift BATHING - SCORE: 0-UNK DRESSING - UPPER BODY: Activity did not occur on this shift Patient is not dressing in public clothing ARTICLES SCORE Total number of steps: 0 DRESSING - UPPER BODY - SCORE: 0-UNK DRESSING - LOWER BODY: Activity did not occur on this shift Patient is not dressing in public clothing ARTICLES SCORE Total number of steps: 0 DRESSING - LOWER BODY - SCORE: 0-UNK TOILETING: Activity did not occur on this shift TOILETING - SCORE: 0-UNK BLADDER MANAGEMENT: Activity did not occur on this shift BLADDER MANAGEMENT - SCORE: 7-IND BOWEL MANAGEMENT: Activity did not occur on this shift BOWEL MANAGEMENT - SCORE: 7-IND TRANSFERS: BED, CHAIR, WHEELCHAIR: Activity did not occur on this shift TRANSFERS: BED, CHAIR, WHEELCHAIR - SCORE: 0-UNK TRANSFERS: TOILET: Activity did not occur on this shift TRANSFERS: TOILET - SCORE: 0-UNK TRANSFERS: SHOWER: Activity did not occur on this shift TRANSFERS: SHOWER - SCORE: 0-UNK TRANSFERS: TUB: Activity did not occur on this shift TRANSFERS: TUB - SCORE: 0-UNK LOCOMOTION: WALK: Activity did not occur on this shift LOCOMOTION: WALK - SCORE: 0-UNK LOCOMOTION: WHEELCHAIR: Activity did not occur on this shift LOCOMOTION: WHEELCHAIR - SCORE: 0-UNK LOCOMOTION: STAIRS: Activity did not occur on this shift LOCOMOTION: STAIRS - SCORE: 0-UNK COMPREHENSION: COMPREHENSION - STEP 1: Does the patient require help to understand complex and abstract ideas (such as current events, finan césar, discharge planning, medical issues, relationships, etc)? Yes. COMPREHENSION - STEP 2: Does the patient require help to understand questions or statements about basic needs or ideas (such as hunger, thirst, sleep, safety, daily schedule, room location, or discomfort) half or more of the t sheridan? No. COMPREHENSION - STEP 3: How often does the patient need help to understand directions and conversation about basic needs? 25% - 49% of the time COMPREHENSION - SCORE: 3-MOD EXPRESSION EXPRESSION - STEP 1: Does the patient require help expressing complex and abstract ideas (such as current events, finances , discharge planning, medical issues, relationships, etc)? Yes. EXPRESSION - STEP 2: Does the patient require help to express basic necessities or ideas (such as hunger, thirst, sleep, s afety, daily schedule, room location, or discomfort) half or more of the time? No. EXPRESSION - STEP 3: How often does the patient need help to express directions and conversation about basic needs? 25-49% of the time EXPRESSION - SCORE: 3-MOD SOCIAL INTERACTION: SOCIAL INTERACTION - STEP 1: Does the patient require a helper to interact with others in social and therapeutic situations? Yes. SOCIAL INTERACTION - STEP 2: Does the patient interact appropriately half or more of the time? No. SOCIAL INTERACTION - STEP 3: How often does the patient interact appropriately? More than 25% of the time SOCIAL INTERACTION - SCORE: 2-MAX PROBLEM SOLVING: PROBLEM SOLVING - STEP 1: Does the patient need help to solve complex problems such as managing a checking account or confronti ng interpersonal problems? Yes. PROBLEM SOLVING - STEP 2: Does the patient solve basic routine problems half or more of the time? No. PROBLEM SOLVING - STEP 3: Does the patient need help to solve problems all the time or is s/he unable to solve problems? Yes. P atient needs help to solve problems all the time or is unable to solve problems PROBLEM SOLVING - SCORE: 1-DEP MEMORY: MEMORY - STEP 1: Does the patient need help to remember frequently encountered people, daily routines, and executing r equests? Yes. MEMORY - STEP 2: How often does the patient need help to remember frequently encountered people, daily routines, and e xecuting requests? More than 50% of the time MEMORY - STEP 3: Does the patient need help to remember all of the time OR does s/he not effectively recognize and rem ember? Yes. Patient needs help to remember ALL the time OR does not effectively recognize and remembe r MEMORY - SCORE: 1-DEP SIGNATURE PANEL: The following modified sections: Comprehension - Score, Expression - Score, Social Interaction - Scor e, Problem Solving - Score, Memory - Score were [electronically] signed by ST smita Corrales 2017 11:13:29 GMT-0500 (Central Daylight Time)
--- NOTE | 2017-06-18 12:32 | FAST ---
SHIFT START DATE/TIME: 06/18/2017 07:00 (CDT) SHIFT END DATE/TIME: 06/18/2017 19:00 (CDT) NAME TWIN OLIVIER DATE OF : 1930 DATE OF ADMISSION: 06/07/2017 19:25 (CDT) PHONE: AGE: 86 N# [id number] GENDER: Male ENCOUNTER PHYSICIAN: Dr. Woody Escamilla M.D. ADMISSION DIAGNOSIS: - Cardiac 09 - Cardiac Disorders (09) Chronic atrial fibrillation [I482]. CHF. EATING: EATING - STEP 1: Does the patient require assistance when eating? Yes. EATING - STEP 2: Does the patient require the assistance of a helper? Yes. EATING - STEP 3: Does the patient perform half or more of the eating tasks? Yes. EATING - STEP 4: Does the patient need only supervision, cuing, coaxing OR help to apply an orthosis OR help to cut fo od, open containers, pour liquids, or butter bread? Yes. EATING - SCORE: 5-SUP GROOMING: Patient shaved Wash, rinse, and dry face GROOMING - STEP 1: Does the patient require assistance when grooming? Yes. GROOMING - STEP 2: Does the patient require the assistance of a helper? Yes. GROOMING - STEP 3: How much assistance does the patient require from the helper? Incidental touching assistance from the helper while grooming GROOMING - SCORE: 4-MIN BATHING: Activity did not occur on this shift BATHING - SCORE: 0-UNK DRESSING - UPPER BODY: Patient is not dressing in public clothing ARTICLES SCORE Total number of steps: 0 DRESSING - UPPER BODY - SCORE: 0-UNK DRESSING - LOWER BODY: Patient is not dressing in public clothing ARTICLES SCORE Total number of steps: 0 DRESSING - LOWER BODY - SCORE: 0-UNK TOILETING: TOILETING - STEP 1: Does the patient require assistance with toileting? Yes. TOILETING - STEP 2: Does the patient require the assistance of a helper? Yes. TOILETING - STEP 3: How much assistance does the patient require from the helper? Hands-on assistance from the helper TOILETING - STEP 4: Of the 3 tasks: 1) Adjusting clothing prior to use, 2) Cleansing of perineal area, 3) Adjusting clot portia after use; How many tasks does the patient perform WITHOUT assistance of the helper? Two tasks TOILETING - SCORE: 3-MOD BLADDER MANAGEMENT: BLADDER MANAGEMENT - STEP 1: Does the patient control the bladder completely and intentionally without equipment or devices or med ications, and is always continent? No. BLADDER MANAGEMENT - STEP 2: Does the patient require the assistance of a helper? No, patient requires and independently uses an a ssistive device, such as a urinal, bedpan, bedside commode, catheter, absorbent pad, or collecting de vice BLADDER MANAGEMENT - SCORE: 6-DENISSE BOWEL MANAGEMENT: Activity did not occur on this shift BOWEL MANAGEMENT - SCORE: 7-IND TRANSFERS: BED, CHAIR, WHEELCHAIR: TRANSFERS: BED, CHAIR, WHEELCHAIR - STEP 1: Does the patient require assistance with bed, chair, or wheelchair transfers? Yes. TRANSFERS: BED, CHAIR, WHEELCHAIR - STEP 2: Does the patient require the assistance of a helper? Yes. TRANSFERS: BED, CHAIR, WHEELCHAIR - STEP 3: How much assistance does the patient require from the helper? Lifting of the patient TRANSFERS: BED, CHAIR, WHEELCHAIR - STEP 4: Does the helper lift the patient ONLY up? ONLY down? Up AND Down? ONLY up. TRANSFERS: BED, CHAIR, WHEELCHAIR - SCORE: 3-MOD TRANSFERS: TOILET: Activity did not occur on this shift TRANSFERS: TOILET - SCORE: 0-UNK TRANSFERS: SHOWER: Activity did not occur on this shift TRANSFERS: SHOWER - SCORE: 0-UNK TRANSFERS: TUB: Activity did not occur on this shift TRANSFERS: TUB - SCORE: 0-UNK LOCOMOTION: WALK: Activity did not occur on this shift LOCOMOTION: WALK - SCORE: 0-UNK LOCOMOTION: WHEELCHAIR: Activity did not occur on this shift LOCOMOTION: WHEELCHAIR - SCORE: 0-UNK COMPREHENSION: COMPREHENSION - SCORE: 0-UNK EXPRESSION EXPRESSION - SCORE: 0-UNK SOCIAL INTERACTION: SOCIAL INTERACTION - SCORE: 0-UNK PROBLEM SOLVING: PROBLEM SOLVING - SCORE: 0-UNK MEMORY: MEMORY - SCORE: 0-UNK SIGNATURE PANEL: The following modified sections: Eating - Score, Grooming - Score, Bathing - Score, Dressing - Upper Body - Score, Dressing - Lower Body - Score, Toileting - Score, Bladder Management - Score, Bowel Man agement - Score, Transfers: Bed, Chair, Wheelchair - Score, Transfers: Toilet - Score, Transfers: Lupe wer - Score, Transfers: Tub - Score, Locomotion: Walk - Score, Locomotion: Wheelchair - Score, Compre hension - Score, Expression - Score, Social Interaction - Score, Problem Solving - Score, Memory - Sc ore were [electronically] signed by Thanh Wolf on SatJun 18 2017 11:34:23 GMT-0500 (Central Daylight Time)
--- NOTE | 2017-06-18 15:23 | FAST ---
ENCOUNTER DATE AND TIME: 06/17/2017 08:00 (CDT) NAME TWIN OLIVIER DATE OF : 1930 DATE OF ADMISSION: 06/07/2017 19:25 (CDT) PHONE: AGE: 86 N# [id number] GENDER: Male ENCOUNTER PHYSICIAN: Dr. Woody Escamilla M.D. ADMISSION DIAGNOSIS: - Cardiac 09 - Cardiac Disorders (09) Chronic atrial fibrillation [I482]. CHF. EATING: Activity did not occur on this shift EATING - SCORE: 0-UNK GROOMING: Activity did not occur on this shift GROOMING - SCORE: 0-UNK BATHING: Activity did not occur on this shift BATHING - SCORE: 0-UNK DRESSING - UPPER BODY: Activity did not occur on this shift Patient is not dressing in public clothing ARTICLES SCORE Total number of steps: 0 DRESSING - UPPER BODY - SCORE: 0-UNK DRESSING - LOWER BODY: Activity did not occur on this shift Patient is not dressing in public clothing ARTICLES SCORE Total number of steps: 0 DRESSING - LOWER BODY - SCORE: 0-UNK TOILETING: Activity did not occur on this shift TOILETING - SCORE: 0-UNK BLADDER MANAGEMENT: Activity did not occur on this shift BLADDER MANAGEMENT - SCORE: 7-IND BOWEL MANAGEMENT: Activity did not occur on this shift BOWEL MANAGEMENT - SCORE: 7-IND TRANSFERS: BED, CHAIR, WHEELCHAIR: TRANSFERS: BED, CHAIR, WHEELCHAIR - STEP 1: Does the patient require assistance with bed, chair, or wheelchair transfers? Yes. TRANSFERS: BED, CHAIR, WHEELCHAIR - STEP 2: Does the patient require the assistance of a helper? Yes. TRANSFERS: BED, CHAIR, WHEELCHAIR - STEP 3: How much assistance does the patient require from the helper? Steadying/guiding assistance TRANSFERS: BED, CHAIR, WHEELCHAIR - SCORE: 4-MIN TRANSFERS: TOILET: Activity did not occur on this shift TRANSFERS: TOILET - SCORE: 0-UNK TRANSFERS: SHOWER: Activity did not occur on this shift TRANSFERS: SHOWER - SCORE: 0-UNK TRANSFERS: TUB: Activity did not occur on this shift TRANSFERS: TUB - SCORE: 0-UNK LOCOMOTION: WALK: LOCOMOTION: WALK - STEP 1: Does the patient need help to walk 150 feet? Yes. LOCOMOTION: WALK - STEP 2: How much assistance does the patient require to walk a minimum of 150 feet? Only incidental help such as contact guarding or steadying LOCOMOTION: WALK - SCORE: 4-MIN LOCOMOTION: WHEELCHAIR: Activity did not occur on this shift LOCOMOTION: WHEELCHAIR - SCORE: 0-UNK LOCOMOTION: STAIRS: Activity did not occur on this shift LOCOMOTION: STAIRS - SCORE: 0-UNK COMPREHENSION: COMPREHENSION - SCORE: 0-UNK EXPRESSION EXPRESSION - SCORE: 0-UNK SOCIAL INTERACTION: SOCIAL INTERACTION - SCORE: 0-UNK PROBLEM SOLVING: PROBLEM SOLVING - SCORE: 0-UNK MEMORY: MEMORY - SCORE: 0-UNK SIGNATURE PANEL: The following modified sections: Transfers: Bed, Chair, Wheelchair - Score, Transfers: Toilet - Score , Locomotion: Walk - Score, Locomotion: Wheelchair - Score, Locomotion: Stairs - Score were [electron martha] signed by Felipe Gutierrez PTA on SatJun 18 2017 14:25:29 GMT-0500 (Central Daylight Time)
--- NOTE | 2017-06-18 15:24 | FAST ---
ENCOUNTER DATE AND TIME: 06/18/2017 08:00 (CDT) NAME TWIN OLIVIER DATE OF : 1930 DATE OF ADMISSION: 06/07/2017 19:25 (CDT) PHONE: AGE: 86 N# [id number] GENDER: Male ENCOUNTER PHYSICIAN: Dr. Woody Escamilla M.D. ADMISSION DIAGNOSIS: - Cardiac 09 - Cardiac Disorders (09) Chronic atrial fibrillation [I482]. CHF. EATING: Activity did not occur on this shift EATING - SCORE: 0-UNK GROOMING: Activity did not occur on this shift GROOMING - SCORE: 0-UNK BATHING: Activity did not occur on this shift BATHING - SCORE: 0-UNK DRESSING - UPPER BODY: Activity did not occur on this shift Patient is not dressing in public clothing ARTICLES SCORE Total number of steps: 0 DRESSING - UPPER BODY - SCORE: 0-UNK DRESSING - LOWER BODY: Activity did not occur on this shift Patient is not dressing in public clothing ARTICLES SCORE Total number of steps: 0 DRESSING - LOWER BODY - SCORE: 0-UNK TOILETING: Activity did not occur on this shift TOILETING - SCORE: 0-UNK BLADDER MANAGEMENT: Activity did not occur on this shift BLADDER MANAGEMENT - SCORE: 7-IND BOWEL MANAGEMENT: Activity did not occur on this shift BOWEL MANAGEMENT - SCORE: 7-IND TRANSFERS: BED, CHAIR, WHEELCHAIR: TRANSFERS: BED, CHAIR, WHEELCHAIR - STEP 1: Does the patient require assistance with bed, chair, or wheelchair transfers? Yes. TRANSFERS: BED, CHAIR, WHEELCHAIR - STEP 2: Does the patient require the assistance of a helper? Yes. TRANSFERS: BED, CHAIR, WHEELCHAIR - STEP 3: How much assistance does the patient require from the helper? Steadying/guiding assistance TRANSFERS: BED, CHAIR, WHEELCHAIR - SCORE: 4-MIN TRANSFERS: TOILET: Activity did not occur on this shift TRANSFERS: TOILET - SCORE: 0-UNK TRANSFERS: SHOWER: Activity did not occur on this shift TRANSFERS: SHOWER - SCORE: 0-UNK TRANSFERS: TUB: Activity did not occur on this shift TRANSFERS: TUB - SCORE: 0-UNK LOCOMOTION: WALK: LOCOMOTION: WALK - STEP 1: Does the patient need help to walk 150 feet? Yes. LOCOMOTION: WALK - STEP 2: How much assistance does the patient require to walk a minimum of 150 feet? Only incidental help such as contact guarding or steadying LOCOMOTION: WALK - SCORE: 4-MIN LOCOMOTION: WHEELCHAIR: Activity did not occur on this shift LOCOMOTION: WHEELCHAIR - SCORE: 0-UNK LOCOMOTION: STAIRS: Activity did not occur on this shift LOCOMOTION: STAIRS - SCORE: 0-UNK COMPREHENSION: COMPREHENSION - SCORE: 0-UNK EXPRESSION EXPRESSION - SCORE: 0-UNK SOCIAL INTERACTION: SOCIAL INTERACTION - SCORE: 0-UNK PROBLEM SOLVING: PROBLEM SOLVING - SCORE: 0-UNK MEMORY: MEMORY - SCORE: 0-UNK SIGNATURE PANEL: The following modified sections: Transfers: Bed, Chair, Wheelchair - Score, Transfers: Toilet - Score , Locomotion: Walk - Score, Locomotion: Wheelchair - Score, Locomotion: Stairs - Score were [electron martha] signed by Felipe Gutierrez PTA on SatJun 18 2017 14:26:27 GMT-0500 (Central Daylight Time)
--- NOTE | 2017-06-18 16:20 | FAST ---
ENCOUNTER DATE AND TIME: 06/18/2017 08:00 (CDT) NAME TWIN OLIVIER DATE OF : 1930 DATE OF ADMISSION: 06/07/2017 19:25 (CDT) PHONE: AGE: 86 N# [id number] GENDER: Male ENCOUNTER PHYSICIAN: Dr. Woody Escamilla M.D. ADMISSION DIAGNOSIS: - Cardiac 09 - Cardiac Disorders (09) Chronic atrial fibrillation [I482]. CHF. EATING: Activity did not occur on this shift EATING - SCORE: 0-UNK GROOMING: Activity did not occur on this shift GROOMING - SCORE: 0-UNK BATHING: Activity did not occur on this shift BATHING - SCORE: 0-UNK DRESSING - UPPER BODY: Activity did not occur on this shift ARTICLES SCORE Total number of steps: 0 DRESSING - UPPER BODY - SCORE: 0-UNK DRESSING - LOWER BODY: Activity did not occur on this shift ARTICLES SCORE Total number of steps: 0 DRESSING - LOWER BODY - SCORE: 0-UNK TOILETING: TOILETING - STEP 1: Does the patient require assistance with toileting? Yes. TOILETING - STEP 2: Does the patient require the assistance of a helper? Yes. TOILETING - STEP 3: How much assistance does the patient require from the helper? Hands-on assistance from the helper TOILETING - STEP 4: Of the 3 tasks: 1) Adjusting clothing prior to use, 2) Cleansing of perineal area, 3) Adjusting clot portia after use; How many tasks does the patient perform WITHOUT assistance of the helper? Two tasks TOILETING - SCORE: 3-MOD BLADDER MANAGEMENT: Activity did not occur on this shift BLADDER MANAGEMENT - SCORE: 7-IND BOWEL MANAGEMENT: Activity did not occur on this shift BOWEL MANAGEMENT - SCORE: 7-IND TRANSFERS: BED, CHAIR, WHEELCHAIR: TRANSFERS: BED, CHAIR, WHEELCHAIR - STEP 1: Does the patient require assistance with bed, chair, or wheelchair transfers? Yes. TRANSFERS: BED, CHAIR, WHEELCHAIR - STEP 2: Does the patient require the assistance of a helper? Yes. TRANSFERS: BED, CHAIR, WHEELCHAIR - STEP 3: How much assistance does the patient require from the helper? Lifting of the patient TRANSFERS: BED, CHAIR, WHEELCHAIR - STEP 4: Does the helper lift the patient ONLY up? ONLY down? Up AND Down? ONLY up. TRANSFERS: BED, CHAIR, WHEELCHAIR - SCORE: 3-MOD TRANSFERS: TOILET: TRANSFERS: TOILET - STEP 1: Does the patient require assistance with toilet transfers? Yes. TRANSFERS: TOILET - STEP 2: Does the patient require the assistance of a helper? Yes. TRANSFERS: TOILET - STEP 3: How much assistance does the patient require from the helper? Patient performs half or more of the tr ansferring tasks TRANSFERS: TOILET - STEP 4: Does the patient need only incidental help such as contact guard or steadying during toilet transfer? No. Patient needs more than incidental help TRANSFERS: TOILET - SCORE: 3-MOD TRANSFERS: SHOWER: Activity did not occur on this shift TRANSFERS: SHOWER - SCORE: 0-UNK TRANSFERS: TUB: Activity did not occur on this shift TRANSFERS: TUB - SCORE: 0-UNK LOCOMOTION: WALK: Activity did not occur on this shift LOCOMOTION: WALK - SCORE: 0-UNK LOCOMOTION: WHEELCHAIR: Activity did not occur on this shift LOCOMOTION: WHEELCHAIR - SCORE: 0-UNK LOCOMOTION: STAIRS: Activity did not occur on this shift LOCOMOTION: STAIRS - SCORE: 0-UNK COMPREHENSION: COMPREHENSION - SCORE: 0-UNK EXPRESSION EXPRESSION - SCORE: 0-UNK SOCIAL INTERACTION: SOCIAL INTERACTION - SCORE: 0-UNK PROBLEM SOLVING: PROBLEM SOLVING - SCORE: 0-UNK MEMORY: MEMORY - SCORE: 0-UNK SIGNATURE PANEL: The following modified sections: Eating - Score, Grooming - Score, Bathing - Score, Dressing - Upper Body - Score, Dressing - Lower Body - Score, Toileting - Score, Transfers: Bed, Chair, Wheelchair - S core, Transfers: Toilet - Score, Transfers: Shower - Score, Transfers: Tub - Score, Comprehension - S core, Expression - Score, Social Interaction - Score, Problem Solving - Score, Memory - Score were [e lectronically] signed by SHIRAZ Salcedo on SatJun 18 2017 15:22:14 T-0500 ([facility] Time)
--- NOTE | 2017-06-18 18:53 | R.PN ---
ENCOUNTER DATE AND TIME: 06/18/2017 17:52 (CDT) NAME TWIN OLIVIER DATE OF : 1930 DATE OF ADMISSION: 06/07/2017 19:25 (CDT) Chronic atrial fibrillation [I482]CHFCHIEF COMPLAINT: Debility SUBJECTIVE: Pt denied any Shortness of Breath. Pt denied any depression. Ambulated 250' with rolling walker using 2L of O2 with minimum assistance. He required maximum assist ance for comprehension and dysphagia precautions. Self propelled wheelchair 250' with maximum assistance. Mildly increased upper airway sounds. Use incentive spironetry. VITAL SIGNS Temperature: 97.0 F SBP/DBP: 128/69 Pulse: 78 Resp: 16 MEDICATION ALLERGIES: iodine ENVIRONMENTAL ALLERGIES: - Substance Allergies None Known - Other Allergies None Known NURSING: - Shower allowing shower ACTIVITIES OOB only with supervision THERAPIES: - Occupational Therapy Evaluate and Treat. - Physical Therapy Evaluate and Treat. PHYSICAL EXAM - Gen Alert and awake Lying in bed No apparent distress Oriented to: person, time, and place - Vital Signs Vital signs stable, afebrile - Skin No breakdowns No abnormalities - Eyes No abnormalities - ENMT No abnormalities - Neck No abnormalities - CVS RRR - Chest Mildly decreased breath sounds bilaterally. - Resp + rhonchi - Abd +bowel sounds - GI Obese Deferred - No abnormalities - Ext Mild bilateral lower extremity edema. - MSK 4/5 weakness in both lower extremities. - Neuro No focal deficits. - Psych No abnormalities ASSESSMENT: Pt. is a 86 yo Right-handed white male.On 06/05/2017 he was admitted to [facility] with diagnosis Chronic atrial fibrillation [I482].His impairment category is Cardiac 09 - Cardia c Disorders (09).Pre-morbidly, Pt. was independent/mod-I in Social Cognition, Self-Care, Sphincter Co ntrol, Transfers Control, Communication, and Locomotion; and he had good Sphincter Control.Currently, he has deficits of Social Cognition, Balance, Self-Care, Endurance, Safety Awareness, Transfers Cont rol, Communication, and Locomotion.Pt. is now referred to [facility] for acute in-patient rehabilitation in order to maximize patient's functional independence in activities of da yuan living, strength, ROM, and mobility.- Rehab Goal Patient has realistic goal of being discharged at assistance level 6-Delia to reside at Home with Leonid mirza. MDM/PLAN: - Diet Type Continue Regular - Physical Therapy Gait dysfunction - to improve, our physical therapists will perform initial evaluation of pt's statu s upon admission and devise an individualized program for Gait Training, and Wheel Chair mobility Inability to transfer - to improve, our physical therapists will perform initial evaluation of pt's status upon admission and devise an individualized program for Bed mobility Need for home safety evaluation - to improve, our physical therapists will perform initial evaluatio n of pt's status upon admission and devise an individualized program for Home Evaluation Need in caregiver upon discharge - to improve, our physical therapists will perform initial evaluati on of pt's status upon admission and devise an individualized program for Caregiver Training New precaution - to improve, our physical therapists will perform initial evaluation of pt's status upon admission and devise an individualized program for Patient precaution education Edema - to improve, our physical therapists will perform initial evaluation of pt's status upon admi ssion and devise an individualized program for Elevation Training, and Lymphedema Therapy Poor balance - to improve, our physical therapists will perform initial evaluation of pt's status up on admission and devise an individualized program for Balance Training Poor endurance - to improve, our physical therapists will perform initial evaluation of pt's status upon admission and devise an individualized program for Endurance Training Weakness - to improve, our physical therapists will perform initial evaluation of pt's status upon a dmission and devise an individualized program for Aquatic Therapy, Neuromuscular Reeducation, and Str engthening Achieving independence - to improve, our physical therapists will perform initial evaluation of pt's status upon admission and devise an individualized program for Community Reintegration Activities - Diet - Liquid Texture Continue Regular - Tube Feed Continue N/A - Diet - Solid Texture Continue Regular - Shower allowing shower - Occupational Therapy ADL deficits - to improve, our occupation therapists will perform initial evaluation of pt's status upon admission and devise an individualized program for Bathing, Bed mobility, Community Reintegratio n, Cooking, Dressing, Eating, Fine Motor Skills, Grooming, Homemaking, Kitchen Mobility, Laundry, Pat ient Education, Safety Awareness, Splinting - Positioning, Transfers(Toilet, Tub, Shower), and Wheel Chair Management Cognitive deficits - to improve, our occupation therapists will perform initial evaluation of pt's s tatus upon admission and devise an individualized program for Cognition - orientation Need for residential child care counselor - to improve, our occupation therapists will perform initial evaluation of pt's status upon admission and devise an individualized program for Caregiver Training Weakness - to improve, our occupation therapists will perform initial evaluation of pt's status upon admission and devise an individualized program for Aquatic Therapy, Balance, Endurance, UE ROM, and UE strengthening FUNCTIONAL STATUS: UPDATED AT WEEKLY TEAM CONFERENCE - Bladder Same accident frequency: 7-Ind - No accidents in the past 7 days - Bowel Same accident frequency: 7-Ind - No accidents in the past 7 days - Walking Same score based on distance walked: 0(N/A) FUNCTIONAL STATUS: - Self-Care A. Eating sup B. Grooming sup C. Bathing Lizbeth D. Dressing - Upper Lizbeth E. Dressing - Lower Lizbeth F. Toileting Lizbeth - Sphincter Control G: Bladder control Ind H: Bowel control Ind - Transfers Control I. Bed/Chair/Wheelchair Lizbeth J. Toilet modA K. Tub/Shower ADNO - Locomotion L. Walk/Wheelchair (B) Lizbeth M. Stairs ADNO - Communication N. Comprehension (B) sup O. Expression (B) sup - Social Cognition P. Social Interaction sup Q. Problem Solving sup R. Memory sup - Endurance Poor - Balance Poor - Safety Awareness Poor CURRENT FUNC. DEFICITS: Social Cognition, Balance, Self-Care, Endurance, Safety Awareness, Transfers Control, Communication, and Locomotion SIGNATURE PANEL: (CDT)
[2017-06-18] MEDS: DOCUSATE NA/SENNA CONC 1 TAB PO PRN (19:34)
[2017-06-18] MEDS: LATANOPROST OPTH OPTH SCH (19:34)
[2017-06-18] MEDS: Bacitracin Opth Oint TOP SCH (20:14)
[2017-06-18] MEDS: MELATONIN 3 MG TABLET PO PRN (22:04)
--- NOTE | 2017-06-19 04:43 | FAST ---
SHIFT START DATE/TIME: 06/18/2017 19:00 (CDT) SHIFT END DATE/TIME: 06/19/2017 07:00 (CDT) NAME TWIN OLIVIER DATE OF : 1930 DATE OF ADMISSION: 06/07/2017 19:25 (CDT) PHONE: AGE: 86 N# [id number] GENDER: Male ENCOUNTER PHYSICIAN: Dr. Woody Escamilla M.D. ADMISSION DIAGNOSIS: - Cardiac 09 - Cardiac Disorders () Chronic atrial fibrillation [I482]. CHF. EATING: EATING - STEP 1: Does the patient require assistance when eating? Yes. EATING - STEP 2: Does the patient require the assistance of a helper? Yes. EATING - STEP 3: Does the patient perform half or more of the eating tasks? Yes. EATING - STEP 4: Does the patient need only supervision, cuing, coaxing OR help to apply an orthosis OR help to cut fo od, open containers, pour liquids, or butter bread? Yes. EATING - SCORE: 5-SUP GROOMING: Wash, rinse, and dry face Wash, rinse, and dry hands GROOMING - STEP 1: Does the patient require assistance when grooming? Yes. GROOMING - STEP 2: Does the patient require the assistance of a helper? Yes. GROOMING - STEP 3: How much assistance does the patient require from the helper? Incidental touching assistance from the helper while grooming GROOMING - SCORE: 4-MIN BATHING: Activity did not occur on this shift BATHING - SCORE: 0-UNK DRESSING - UPPER BODY: Patient is not dressing in public clothing ARTICLES SCORE Total number of steps: 0 DRESSING - UPPER BODY - SCORE: 0-UNK DRESSING - LOWER BODY: Patient is not dressing in public clothing ARTICLES SCORE Total number of steps: 0 DRESSING - LOWER BODY - SCORE: 0-UNK TOILETING: Activity did not occur on this shift TOILETING - SCORE: 0-UNK BLADDER MANAGEMENT: Franklin removes incontinent device (Depends, pull ups, etc.); cleans the patient after accident / inco ntinent episode; and, applies new incontinent device. BLADDER MANAGEMENT - SCORE: 1-DEP BLADDER MANAGEMENT - FREQUENCY OF ACCIDENTS: BLADDER MANAGEMENT(FA) - STEP 1: How many accidents has the patient had during the current shift? 3 BOWEL MANAGEMENT: Activity did not occur on this shift BOWEL MANAGEMENT - SCORE: 7-IND TRANSFERS: BED, CHAIR, WHEELCHAIR: Activity did not occur on this shift TRANSFERS: BED, CHAIR, WHEELCHAIR - SCORE: 0-UNK TRANSFERS: TOILET: Activity did not occur on this shift TRANSFERS: TOILET - SCORE: 0-UNK TRANSFERS: SHOWER: Activity did not occur on this shift TRANSFERS: SHOWER - SCORE: 0-UNK TRANSFERS: TUB: Activity did not occur on this shift TRANSFERS: TUB - SCORE: 0-UNK LOCOMOTION: WALK: Activity did not occur on this shift LOCOMOTION: WALK - SCORE: 0-UNK LOCOMOTION: WHEELCHAIR: Activity did not occur on this shift LOCOMOTION: WHEELCHAIR - SCORE: 0-UNK COMPREHENSION: COMPREHENSION: TYPE: Both COMPREHENSION - STEP 1: Does the patient require help to understand complex and abstract ideas (such as current events, finan césar, discharge planning, medical issues, relationships, etc)? Yes. COMPREHENSION - STEP 2: Does the patient require help to understand questions or statements about basic needs or ideas (such as hunger, thirst, sleep, safety, daily schedule, room location, or discomfort) half or more of the t sheridan? No. COMPREHENSION - STEP 3: How often does the patient need help to understand directions and conversation about basic needs? 25% - 49% of the time COMPREHENSION - SCORE: 3-MOD EXPRESSION EXPRESSION: TYPE: Both EXPRESSION - STEP 1: Does the patient require help expressing complex and abstract ideas (such as current events, finances , discharge planning, medical issues, relationships, etc)? Yes. EXPRESSION - STEP 2: Does the patient require help to express basic necessities or ideas (such as hunger, thirst, sleep, s afety, daily schedule, room location, or discomfort) half or more of the time? No. EXPRESSION - STEP 3: How often does the patient need help to express directions and conversation about basic needs? 25-49% of the time EXPRESSION - SCORE: 3-MOD SOCIAL INTERACTION: SOCIAL INTERACTION - STEP 1: Does the patient require a helper to interact with others in social and therapeutic situations? Yes. SOCIAL INTERACTION - STEP 2: Does the patient interact appropriately half or more of the time? Yes. SOCIAL INTERACTION - STEP 3: How often does the patient need help to interact appropriately? 25-49% of the time SOCIAL INTERACTION - SCORE: 3-MOD PROBLEM SOLVING: PROBLEM SOLVING - STEP 1: Does the patient need help to solve complex problems such as managing a checking account or confronti ng interpersonal problems? Yes. PROBLEM SOLVING - STEP 2: Does the patient solve basic routine problems half or more of the time? No. PROBLEM SOLVING - STEP 3: Does the patient need help to solve problems all the time or is s/he unable to solve problems? No. Gumaro tod can sometimes solve problems PROBLEM SOLVING - SCORE: 2-MAX MEMORY: MEMORY - STEP 1: Does the patient need help to remember frequently encountered people, daily routines, and executing r equests? Yes. MEMORY - STEP 2: How often does the patient need help to remember frequently encountered people, daily routines, and e xecuting requests? More than 50% of the time MEMORY - STEP 3: Does the patient need help to remember all of the time OR does s/he not effectively recognize and rem ember? No. Patient does not need help all the time MEMORY - SCORE: 2-MAX SIGNATURE PANEL: The following modified sections: Eating - Score, Grooming - Score, Bathing - Score, Dressing - Upper Body - Score, Dressing - Lower Body - Score, Toileting - Score, Bladder Management - Score, Bowel Man agement - Score, Transfers: Bed, Chair, Wheelchair - Score, Transfers: Toilet - Score, Transfers: Lupe wer - Score, Transfers: Tub - Score, Locomotion: Walk - Score, Locomotion: Wheelchair - Score, Compre hension - Score, Expression - Score, Social Interaction - Score, Problem Solving - Score, Memory - Sc ore were [electronically] signed by Sindy Reyna C.N.Balwinder on SatJun 19 2017 03:44:59 T-0500 ( Central Daylight Time)
[2017-06-19] MEDS: CARVEDILOL 3.125 MG TAB PO SCH (05:03)
[2017-06-19 07:58] LABS: Potassium 4.1 mEq/L (3.6-5.0)
[2017-06-19] MEDS: ENSURE ENLIVE 237 ML CAN PO SCH ×2 (08:00→19:49)
[2017-06-19] MEDS: LACTULOSE 20 GM/30 ML UCUP PO SCH (08:59)
[2017-06-19] MEDS: ACETAMINOPHEN 500 MG TAB PO PRN (08:59)
[2017-06-19] MEDS: acetaZOLAMIDE 250 MG TAB PO SCH (08:59)
[2017-06-19] MEDS: DULOXETINE 20 MG CAP PO SCH (08:59)
[2017-06-19] MEDS: FUROSEMIDE 20 MG TABLET PO SCH (09:00)
[2017-06-19] MEDS: levoFLOXacin 500 MG TAB PO SCH (09:00)
[2017-06-19] MEDS: APIXABAN 2.5 MG TABLET PO SCH ×2 (09:00→19:48)
[2017-06-19] MEDS: ASPIRIN EC 81 MG TAB PO SCH (09:00)
[2017-06-19] MEDS ORDERED: TRAMADOL HCL 50 MG TAB PO PRN (13:30)
--- NOTE | 2017-06-19 19:18 | R.PN ---
ENCOUNTER DATE AND TIME: 06/19/2017 18:16 (CDT) NAME TWIN OLIVIER DATE OF : 1930 DATE OF ADMISSION: 06/07/2017 19:25 (CDT) Chronic atrial fibrillation [I482]CHFCHIEF COMPLAINT: Debility SUBJECTIVE: Pt denied any Shortness of Breath. Pt denied any depression. Ambulated 300' with rolling walker using 2L of O2 with minimum assistance. He required moderate marilyn tance for comprehension and dysphagia precautions. Required maximum assistance with recall. Self propelled wheelchair 250' with maximum assistance. Mildly increased upper airway sounds. Use incentive spironetry. VITAL SIGNS Temperature: 97.2 F SBP/DBP: 124/58 Pulse: 85 Resp: 16 MEDICATION ALLERGIES: iodine ENVIRONMENTAL ALLERGIES: - Substance Allergies None Known - Other Allergies None Known NURSING: - Shower allowing shower ACTIVITIES OOB only with supervision THERAPIES: - Occupational Therapy Evaluate and Treat. - Physical Therapy Evaluate and Treat. PHYSICAL EXAM - Gen Alert and awake Lying in bed No apparent distress Oriented to: person, time, and place - Vital Signs Vital signs stable, afebrile - Skin No breakdowns No abnormalities - Eyes No abnormalities - ENMT No abnormalities - Neck No abnormalities - CVS RRR - Chest Mildly decreased breath sounds bilaterally. - Resp + rhonchi - Abd +bowel sounds - GI Obese Deferred - No abnormalities - Ext Mild bilateral lower extremity edema. - MSK 4/5 weakness in both lower extremities. - Neuro No focal deficits. - Psych No abnormalities ASSESSMENT: Pt. is a 86 yo Right-handed white male.On 06/05/2017 he was admitted to [facility] with diagnosis Chronic atrial fibrillation [I482].His impairment category is Cardiac 09 - Cardia c Disorders (09).Pre-morbidly, Pt. was independent/mod-I in Social Cognition, Self-Care, Sphincter Co ntrol, Transfers Control, Communication, and Locomotion; and he had good Sphincter Control.Currently, he has deficits of Social Cognition, Balance, Self-Care, Endurance, Safety Awareness, Transfers Cont rol, Communication, and Locomotion.Pt. is now referred to [facility] for acute in-patient rehabilitation in order to maximize patient's functional independence in activities of da yuan living, strength, ROM, and mobility.- Rehab Goal Patient has realistic goal of being discharged at assistance level 6-Delia to reside at Home with Leonid hermes. MDM/PLAN: - Diet Type Continue Regular - Physical Therapy Gait dysfunction - to improve, our physical therapists will perform initial evaluation of pt's statu s upon admission and devise an individualized program for Gait Training, and Wheel Chair mobility Inability to transfer - to improve, our physical therapists will perform initial evaluation of pt's status upon admission and devise an individualized program for Bed mobility Need for home safety evaluation - to improve, our physical therapists will perform initial evaluatio n of pt's status upon admission and devise an individualized program for Home Evaluation Need in caregiver upon discharge - to improve, our physical therapists will perform initial evaluati on of pt's status upon admission and devise an individualized program for Caregiver Training New precaution - to improve, our physical therapists will perform initial evaluation of pt's status upon admission and devise an individualized program for Patient precaution education Edema - to improve, our physical therapists will perform initial evaluation of pt's status upon admi ssion and devise an individualized program for Elevation Training, and Lymphedema Therapy Poor balance - to improve, our physical therapists will perform initial evaluation of pt's status up on admission and devise an individualized program for Balance Training Poor endurance - to improve, our physical therapists will perform initial evaluation of pt's status upon admission and devise an individualized program for Endurance Training Weakness - to improve, our physical therapists will perform initial evaluation of pt's status upon a dmission and devise an individualized program for Aquatic Therapy, Neuromuscular Reeducation, and Str engthening Achieving independence - to improve, our physical therapists will perform initial evaluation of pt's status upon admission and devise an individualized program for Community Reintegration Activities - Diet - Liquid Texture Continue Regular - Tube Feed Continue N/A - Diet - Solid Texture Continue Regular - Shower allowing shower - Occupational Therapy ADL deficits - to improve, our occupation therapists will perform initial evaluation of pt's status upon admission and devise an individualized program for Bathing, Bed mobility, Community Reintegratio n, Cooking, Dressing, Eating, Fine Motor Skills, Grooming, Homemaking, Kitchen Mobility, Laundry, Pat ient Education, Safety Awareness, Splinting - Positioning, Transfers(Toilet, Tub, Shower), and Wheel Chair Management Cognitive deficits - to improve, our occupation therapists will perform initial evaluation of pt's s tatus upon admission and devise an individualized program for Cognition - orientation Need for customer care agent - to improve, our occupation therapists will perform initial evaluation of pt's status upon admission and devise an individualized program for Caregiver Training Weakness - to improve, our occupation therapists will perform initial evaluation of pt's status upon admission and devise an individualized program for Aquatic Therapy, Balance, Endurance, UE ROM, and UE strengthening FUNCTIONAL STATUS: UPDATED AT WEEKLY TEAM CONFERENCE - Bladder Same accident frequency: 7-Ind - No accidents in the past 7 days - Bowel Same accident frequency: 7-Ind - No accidents in the past 7 days - Walking Same score based on distance walked: 0(N/A) FUNCTIONAL STATUS: - Self-Care A. Eating sup B. Grooming sup C. Bathing Lizbeth D. Dressing - Upper Lizbeth E. Dressing - Lower Lizbeth F. Toileting Lizbeth - Sphincter Control G: Bladder control Ind H: Bowel control Ind - Transfers Control I. Bed/Chair/Wheelchair Lizbeth J. Toilet modA K. Tub/Shower ADNO - Locomotion L. Walk/Wheelchair (B) Lizbeth M. Stairs ADNO - Communication N. Comprehension (B) sup O. Expression (B) sup - Social Cognition P. Social Interaction sup Q. Problem Solving sup R. Memory sup - Endurance Poor - Balance Poor - Safety Awareness Poor CURRENT FUNC. DEFICITS: Social Cognition, Balance, Self-Care, Endurance, Safety Awareness, Transfers Control, Communication, and Locomotion SIGNATURE PANEL: (CDT)
[2017-06-19] MEDS: DOCUSATE NA/SENNA CONC 1 TAB PO PRN (19:48)
[2017-06-19] MEDS: LATANOPROST OPTH OPTH SCH (19:49)
[2017-06-19] MEDS: Bacitracin Opth Oint TOP SCH (20:53)
--- NOTE | 2017-06-20 03:16 | FAST ---
SHIFT START DATE/TIME: 06/19/2017 19:00 (CDT) SHIFT END DATE/TIME: 06/20/2017 07:00 (CDT) NAME TWIN OLIVIER DATE OF : 1930 DATE OF ADMISSION: 06/07/2017 19:25 (CDT) PHONE: AGE: 86 N# [id number] GENDER: Male ENCOUNTER PHYSICIAN: Dr. Woody Escamilla M.D. ADMISSION DIAGNOSIS: - Cardiac 09 - Cardiac Disorders (09) Chronic atrial fibrillation [I482]. CHF. EATING: Activity did not occur on this shift EATING - SCORE: 0-UNK GROOMING: Activity did not occur on this shift GROOMING - SCORE: 0-UNK BATHING: Activity did not occur on this shift BATHING - SCORE: 0-UNK DRESSING - UPPER BODY: Activity did not occur on this shift ARTICLES SCORE Total number of steps: 0 DRESSING - UPPER BODY - SCORE: 0-UNK DRESSING - LOWER BODY: Activity did not occur on this shift ARTICLES SCORE Total number of steps: 0 DRESSING - LOWER BODY - SCORE: 0-UNK TOILETING: TOILETING - STEP 1: Does the patient require assistance with toileting? Yes. TOILETING - STEP 2: Does the patient require the assistance of a helper? Yes. TOILETING - STEP 3: How much assistance does the patient require from the helper? Hands-on assistance from the helper TOILETING - STEP 4: Of the 3 tasks: 1) Adjusting clothing prior to use, 2) Cleansing of perineal area, 3) Adjusting clot portia after use; How many tasks does the patient perform WITHOUT assistance of the helper? Three tasks with steadying assistance from the helper TOILETING - SCORE: 4-MIN BLADDER MANAGEMENT: BLADDER MANAGEMENT - STEP 1: Does the patient control the bladder completely and intentionally without equipment or devices or med ications, and is always continent? No. BLADDER MANAGEMENT - STEP 2: Does the patient require the assistance of a helper? Yes. BLADDER MANAGEMENT - STEP 3: How much assistance does the patient require from the helper? Only set-up of equipment - such as plac ing it within reach of the patient or emptying a device - to maintain either satisfactory voiding pat tern or managing an external device, such as an absorbent pad, ileal device, or catheter BLADDER MANAGEMENT - SCORE: 5-SUP BLADDER MANAGEMENT - FREQUENCY OF ACCIDENTS: BLADDER MANAGEMENT(FA) - STEP 1: How many accidents has the patient had during the current shift? 1 BOWEL MANAGEMENT: Activity did not occur on this shift BOWEL MANAGEMENT - SCORE: 7-IND TRANSFERS: BED, CHAIR, WHEELCHAIR: TRANSFERS: BED, CHAIR, WHEELCHAIR - STEP 1: Does the patient require assistance with bed, chair, or wheelchair transfers? Yes. TRANSFERS: BED, CHAIR, WHEELCHAIR - STEP 2: Does the patient require the assistance of a helper? Yes. TRANSFERS: BED, CHAIR, WHEELCHAIR - STEP 3: How much assistance does the patient require from the helper? Lifting of the legs TRANSFERS: BED, CHAIR, WHEELCHAIR - STEP 4: How many legs does the patient require the helper to lift? both legs TRANSFERS: BED, CHAIR, WHEELCHAIR - SCORE: 3-MOD TRANSFERS: TOILET: Activity did not occur on this shift TRANSFERS: TOILET - SCORE: 0-UNK TRANSFERS: SHOWER: Activity did not occur on this shift TRANSFERS: SHOWER - SCORE: 0-UNK TRANSFERS: TUB: Activity did not occur on this shift TRANSFERS: TUB - SCORE: 0-UNK LOCOMOTION: WALK: Activity did not occur on this shift LOCOMOTION: WALK - SCORE: 0-UNK LOCOMOTION: WHEELCHAIR: Activity did not occur on this shift LOCOMOTION: WHEELCHAIR - SCORE: 0-UNK COMPREHENSION: COMPREHENSION: TYPE: Both COMPREHENSION - STEP 1: Does the patient require help to understand complex and abstract ideas (such as current events, finan césar, discharge planning, medical issues, relationships, etc)? No. COMPREHENSION - STEP 2: Does the patient need extra time, require an assistive device (such as glasses, hearing aids, or an a ugmentative communication system), OR does s/he have mild difficulty expressing complex and abstract ideas (including mild dysarthria or mild word-finding problems)? Yes. COMPREHENSION - SCORE: 6-DENISSE EXPRESSION EXPRESSION: TYPE: Both EXPRESSION - STEP 1: Does the patient require help expressing complex and abstract ideas (such as current events, finances , discharge planning, medical issues, relationships, etc)? Yes. EXPRESSION - STEP 2: Does the patient require help to express basic necessities or ideas (such as hunger, thirst, sleep, s afety, daily schedule, room location, or discomfort) half or more of the time? No. EXPRESSION - STEP 3: How often does the patient need help to express directions and conversation about basic needs? 10-24% of the time EXPRESSION - SCORE: 4-MIN SOCIAL INTERACTION: SOCIAL INTERACTION - STEP 1: Does the patient require a helper to interact with others in social and therapeutic situations? Yes. SOCIAL INTERACTION - STEP 2: Does the patient interact appropriately half or more of the time? Yes. SOCIAL INTERACTION - STEP 3: How often does the patient need help to interact appropriately? 10-24% of the time SOCIAL INTERACTION - SCORE: 4-MIN PROBLEM SOLVING: PROBLEM SOLVING - STEP 1: Does the patient need help to solve complex problems such as managing a checking account or confronti ng interpersonal problems? Yes. PROBLEM SOLVING - STEP 2: Does the patient solve basic routine problems half or more of the time? No. PROBLEM SOLVING - STEP 3: Does the patient need help to solve problems all the time or is s/he unable to solve problems? No. Gumaro baron can sometimes solve problems PROBLEM SOLVING - SCORE: 2-MAX MEMORY: MEMORY - STEP 1: Does the patient need help to remember frequently encountered people, daily routines, and executing r equests? Yes. MEMORY - STEP 2: How often does the patient need help to remember frequently encountered people, daily routines, and e xecuting requests? More than 50% of the time MEMORY - STEP 3: Does the patient need help to remember all of the time OR does s/he not effectively recognize and rem ember? No. Patient does not need help all the time MEMORY - SCORE: 2-MAX
[2017-06-20] MEDS: CARVEDILOL 3.125 MG TAB PO SCH (05:05)
[2017-06-20] MEDS: APIXABAN 2.5 MG TABLET PO SCH ×2 (07:39→20:21)
[2017-06-20] MEDS: levoFLOXacin 500 MG TAB PO SCH (07:44)
[2017-06-20] MEDS: LACTULOSE 20 GM/30 ML UCUP PO SCH (07:44)
[2017-06-20] MEDS: DULOXETINE 20 MG CAP PO SCH (07:45)
[2017-06-20 07:46] LABS: Absolute Lymphocytes (CBC) 0.4 K/uL (0.7-4.9); Absolute Monocytes 0.9 K/uL (0.1-1.3); Absolute Neutrophil 5.3 K/uL (1.8-8.0); Basophils % 0.9 % (0-1.3); Eosinophils % 2.7 % (0-4.4); Hematocrit 35.4 % (39.6-49.0); Lymphocytes % 6.3 % (15.3-44.8); MCH 32.2 pg (27.0-35.0); MCV 98.7 fL (80-100); MPV 9.4 fL (7.6-11.3); Monocytes % 12.6 % (3.3-12.3); RBC Red Blood Cell Count 3.59 M/uL (4.33-5.43)
[2017-06-20] MEDS: acetaZOLAMIDE 250 MG TAB PO SCH (07:46)
[2017-06-20] MEDS: ASPIRIN EC 81 MG TAB PO SCH (07:46)
[2017-06-20] MEDS: FUROSEMIDE 20 MG TABLET PO SCH (07:46)
[2017-06-20] MEDS: ENSURE ENLIVE 237 ML CAN PO SCH ×2 (07:47→20:00)
[2017-06-20 07:58] LABS: Potassium 4.2 mEq/L (3.6-5.0)
--- NOTE | 2017-06-20 11:26 | EEG ---
CHART: [id number] TEST ID#: [id number] DATE OF STUDY: 06/17/2017 THE EEG WAS RECORDED PORTABLE IN THE PATIENT'S ROOM ON A 17 CHANNEL MACHINE. ELECTRODES WERE APPLIED IN THE USUAL MANNER USING THE INTERNATIONAL 10-20 SYSTEM. THE WAKING BACKGROUND RHYTHM IN THIS RECORD CONSISTS OF FAIRLY WELL DEVELOPED AND FAIRLY WELL ORGANIZED WAVES OF 8.5 HZ., IN A WIDE DISTRIBUTION WHICH ATTENUATE NORMALLY WITH EYE OPENING. MODERATE VOLTAGE 5-7 HZ MIXED WITH OCCASIONAL 1.5-3 HZ ACTIVITY IS EXPRESSED IN THE FRONTAL REGIONS. LOW-VOLTAGE 18-22 HZ ACTIVITY IS EXPRESSED IN THE FRONTAL REGIONS. THERE ARE NO FOCAL OR LATERALIZING FEATURES. NO EPILEPTIFORM ACTIVITY APPEARS. SLEEP DID NOT OCCUR. HYPERVENTILATION WAS NOT PERFORMED. PHOTIC STIMULATION PRODUCED NO DRIVING BILATERALLY. IMPRESSION: THIS IS A MILDLY ABNORMAL EEG DUE TO A MILDLY SLOW BACKGROUND. THIS IS A NON-SPECIFIC FINDING INDICATING THE PRESENCE OF A MILD DIFFUSE DISTURBANCE IN CEREBRAL FUNCTION.
[2017-06-20] MEDS ORDERED: NA CHLORIDE 0.9% 1,000 ML ONE (12:50)
[2017-06-20] MEDS ORDERED: NA CHLORIDE 0.9% 1,000 ML IV SCH (13:00)
--- NOTE | 2017-06-20 16:09 | FAST ---
ENCOUNTER DATE AND TIME: 06/20/2017 08:00 (CDT) NAME TWIN OLIVIER DATE OF : 1930 DATE OF ADMISSION: 06/07/2017 19:25 (CDT) PHONE: AGE: 86 N# [id number] GENDER: Male ENCOUNTER PHYSICIAN: Dr. Woody Escamilla M.D. ADMISSION DIAGNOSIS: - Cardiac 09 - Cardiac Disorders (09) Chronic atrial fibrillation [I482]. CHF. EATING: Activity did not occur on this shift EATING - SCORE: 0-UNK GROOMING: Oral care Patient shaved Wash, rinse, and dry face Wash, rinse, and dry hands GROOMING - STEP 1: Does the patient require assistance when grooming? Yes. GROOMING - STEP 2: Does the patient require the assistance of a helper? Yes. GROOMING - STEP 3: How much assistance does the patient require from the helper? More than incidental help GROOMING - STEP 4: How many grooming tasks does the patient perform WITHOUT the assistance of the helper? Less than half of the grooming tasks GROOMING - SCORE: 2-MAX BATHING: Abdomen Buttocks Chest Left arm Left lower leg and foot Left upper leg Perineal area Right arm Right lower leg and foot Right upper leg BATHING - STEP 1: Does the patient require assistance when bathing? Yes. BATHING - STEP 2: Does the patient require the assistance of a helper? Yes. BATHING - STEP 3: How much assistance does the patient require from the helper? More than just incidental help BATHING - STEP 4: What percent of the body parts did the patient bathe WITHOUT the helper? Less than half of the body p arts BATHING - SCORE: 2-MAX DRESSING - UPPER BODY: T-shirt/pullover shirt (four steps) ARTICLES SCORE Total number of steps: 4 DRESSING - UPPER BODY - STEP 1: Does the patient require help when dressing above the waist? Yes. DRESSING - UPPER BODY - STEP 2: Does the patient require the assistance of a helper? Yes. DRESSING - UPPER BODY - STEP 3: Does the helper touch the patient while dressing? Yes. DRESSING - UPPER BODY - STEP 4: How many of the total steps does the patient complete on his/her own? 1 DRESSING - UPPER BODY - STEP 5: Does Patient require total assistance for dressing above the waist such as the helper holding clothin g and performing basically all the activities? No. DRESSING - UPPER BODY - SCORE: 2-MAX DRESSING - LOWER BODY: Elastic waist pants (three steps) Sock - Left foot (one step) Sock - Right foot (one step) Underwear (three steps) ARTICLES SCORE Total number of steps: 8 DRESSING - LOWER BODY - STEP 1: Does the patient require help when dressing below the waist? Yes. DRESSING - LOWER BODY - STEP 2: Does the patient require the assistance of a helper? Yes. DRESSING - LOWER BODY - STEP 3: Does the helper touch the patient while dressing? Yes. DRESSING - LOWER BODY - STEP 4: How many of the total steps does the patient complete on his/her own? 0 DRESSING - LOWER BODY - STEP 5: Does patient require total assistance for dressing below the waist such as the helper holding clothin g and performing basically all the activities? Yes. DRESSING - LOWER BODY - SCORE: 1-DEP TOILETING: TOILETING - STEP 1: Does the patient require assistance with toileting? Yes. TOILETING - STEP 2: Does the patient require the assistance of a helper? Yes. TOILETING - STEP 3: How much assistance does the patient require from the helper? Hands-on assistance from the helper TOILETING - STEP 4: Of the 3 tasks: 1) Adjusting clothing prior to use, 2) Cleansing of perineal area, 3) Adjusting clot portia after use; How many tasks does the patient perform WITHOUT assistance of the helper? No tasks; h raz performs all three tasks TOILETING - SCORE: 1-DEP BLADDER MANAGEMENT: Activity did not occur on this shift BLADDER MANAGEMENT - SCORE: 7-IND BOWEL MANAGEMENT: Activity did not occur on this shift BOWEL MANAGEMENT - SCORE: 7-IND TRANSFERS: BED, CHAIR, WHEELCHAIR: Activity did not occur on this shift TRANSFERS: BED, CHAIR, WHEELCHAIR - SCORE: 0-UNK TRANSFERS: TOILET: TRANSFERS: TOILET - STEP 1: Does the patient require assistance with toilet transfers? Yes. TRANSFERS: TOILET - STEP 2: Does the patient require the assistance of a helper? Yes. TRANSFERS: TOILET - STEP 3: How much assistance does the patient require from the helper? Patient performs less than half of the transferring tasks TRANSFERS: TOILET - STEP 4: Does the patient require total assistance for the toilet transfer such as the helper doing basically all the lifting? Yes. TRANSFERS: TOILET - SCORE: 1-DEP TRANSFERS: SHOWER: TRANSFERS: SHOWER - STEP 1: Does the patient require assistance with shower transfers? Yes. TRANSFERS: SHOWER - STEP 2: Does the patient require the assistance of a helper? Yes. TRANSFERS: SHOWER - STEP 3: How much assistance does the patient require from the helper? More than incidental help TRANSFERS: SHOWER - STEP 4: How much more help does the patient require from the helper? Lifting the patient up AND down from the wheelchair onto the shower chair TRANSFERS: SHOWER - SCORE: 2-MAX TRANSFERS: TUB: Activity did not occur on this shift TRANSFERS: TUB - SCORE: 0-UNK LOCOMOTION: WALK: Activity did not occur on this shift LOCOMOTION: WALK - SCORE: 0-UNK LOCOMOTION: WHEELCHAIR: Activity did not occur on this shift LOCOMOTION: WHEELCHAIR - SCORE: 0-UNK LOCOMOTION: STAIRS: Activity did not occur on this shift LOCOMOTION: STAIRS - SCORE: 0-UNK COMPREHENSION: COMPREHENSION: TYPE: Both COMPREHENSION - STEP 1: Does the patient require help to understand complex and abstract ideas (such as current events, finan césar, discharge planning, medical issues, relationships, etc)? Yes. COMPREHENSION - STEP 2: Does the patient require help to understand questions or statements about basic needs or ideas (such as hunger, thirst, sleep, safety, daily schedule, room location, or discomfort) half or more of the t sher[place]? No. COMPREHENSION - STEP 3: How often does the patient need help to understand directions and conversation about basic needs? Les s than 10% of the time COMPREHENSION - SCORE: 5-SUP EXPRESSION EXPRESSION: TYPE: Both EXPRESSION - STEP 1: Does the patient require help expressing complex and abstract ideas (such as current events, finances , discharge planning, medical issues, relationships, etc)? Yes. EXPRESSION - STEP 2: Does the patient require help to express basic necessities or ideas (such as hunger, thirst, sleep, s afety, daily schedule, room location, or discomfort) half or more of the time? No. EXPRESSION - STEP 3: How often does the patient need help to express directions and conversation about basic needs? Less t z[place] 10% of the time EXPRESSION - SCORE: 5-SUP SOCIAL INTERACTION: SOCIAL INTERACTION - STEP 1: Does the patient require a helper to interact with others in social and therapeutic situations? Yes. SOCIAL INTERACTION - STEP 2: Does the patient interact appropriately half or more of the time? Yes. SOCIAL INTERACTION - STEP 3: How often does the patient need help to interact appropriately? Less than 10% of the time SOCIAL INTERACTION - SCORE: 5-SUP PROBLEM SOLVING: PROBLEM SOLVING - STEP 1: Does the patient need help to solve complex problems such as managing a checking account or confronti ng interpersonal problems? Yes. PROBLEM SOLVING - STEP 2: Does the patient solve basic routine problems half or more of the time? Yes. PROBLEM SOLVING - STEP 3: How often does the patient need help to solve basic routine problems? 10%-24% of the time PROBLEM SOLVING - SCORE: 4-MIN MEMORY: MEMORY - STEP 1: Does the patient need help to remember frequently encountered people, daily routines, and executing r equests? Yes. MEMORY - STEP 2: How often does the patient need help to remember frequently encountered people, daily routines, and e xecuting requests? 10% - 24% of the time MEMORY - SCORE: 4-MIN SIGNATURE PANEL: The following modified sections: Eating - Score, Grooming - Score, Bathing - Score, Dressing - Upper Body - Score, Dressing - Lower Body - Score, Toileting - Score, Transfers: Bed, Chair, Wheelchair - S core, Transfers: Toilet - Score, Transfers: Tub - Score, Transfers: Shower - Score, Comprehension - S core, Expression - Score, Social Interaction - Score, Problem Solving - Score, Memory - Score were [e lectronically] signed by Armida Gonzalez OT on SatJun 20 2017 15:10:06 [facility]00 ([facility] [place])
--- NOTE | 2017-06-20 16:17 | FAST ---
ENCOUNTER DATE AND TIME: 06/19/2017 08:00 (CDT) NAME TWIN OLIVIER DATE OF : 1930 DATE OF ADMISSION: 06/07/2017 19:25 (CDT) PHONE: AGE: 86 N# [id number] GENDER: Male ENCOUNTER PHYSICIAN: Dr. Woody Escamilla M.D. ADMISSION DIAGNOSIS: - Cardiac 09 - Cardiac Disorders (09) Chronic atrial fibrillation [I482]. CHF. EATING: Activity did not occur on this shift EATING - SCORE: 0-UNK GROOMING: Activity did not occur on this shift GROOMING - SCORE: 0-UNK BATHING: Activity did not occur on this shift BATHING - SCORE: 0-UNK DRESSING - UPPER BODY: Activity did not occur on this shift Patient is not dressing in public clothing ARTICLES SCORE Total number of steps: 0 DRESSING - UPPER BODY - SCORE: 0-UNK DRESSING - LOWER BODY: Activity did not occur on this shift Patient is not dressing in public clothing ARTICLES SCORE Total number of steps: 0 DRESSING - LOWER BODY - SCORE: 0-UNK TOILETING: Activity did not occur on this shift TOILETING - SCORE: 0-UNK BLADDER MANAGEMENT: Activity did not occur on this shift BLADDER MANAGEMENT - SCORE: 7-IND BOWEL MANAGEMENT: Activity did not occur on this shift BOWEL MANAGEMENT - SCORE: 7-IND TRANSFERS: BED, CHAIR, WHEELCHAIR: TRANSFERS: BED, CHAIR, WHEELCHAIR - STEP 1: Does the patient require assistance with bed, chair, or wheelchair transfers? Yes. TRANSFERS: BED, CHAIR, WHEELCHAIR - STEP 2: Does the patient require the assistance of a helper? Yes. TRANSFERS: BED, CHAIR, WHEELCHAIR - STEP 3: How much assistance does the patient require from the helper? Steadying/guiding assistance TRANSFERS: BED, CHAIR, WHEELCHAIR - SCORE: 4-MIN TRANSFERS: TOILET: Activity did not occur on this shift TRANSFERS: TOILET - SCORE: 0-UNK TRANSFERS: SHOWER: Activity did not occur on this shift TRANSFERS: SHOWER - SCORE: 0-UNK TRANSFERS: TUB: Activity did not occur on this shift TRANSFERS: TUB - SCORE: 0-UNK LOCOMOTION: WALK: LOCOMOTION: WALK - STEP 1: Does the patient need help to walk 150 feet? Yes. LOCOMOTION: WALK - STEP 2: How much assistance does the patient require to walk a minimum of 150 feet? Only incidental help such as contact guarding or steadying LOCOMOTION: WALK - SCORE: 4-MIN LOCOMOTION: WHEELCHAIR: Activity did not occur on this shift LOCOMOTION: WHEELCHAIR - SCORE: 0-UNK LOCOMOTION: STAIRS: Activity did not occur on this shift LOCOMOTION: STAIRS - SCORE: 0-UNK COMPREHENSION: COMPREHENSION - SCORE: 0-UNK EXPRESSION EXPRESSION - SCORE: 0-UNK SOCIAL INTERACTION: SOCIAL INTERACTION - SCORE: 0-UNK PROBLEM SOLVING: PROBLEM SOLVING - SCORE: 0-UNK MEMORY: MEMORY - SCORE: 0-UNK SIGNATURE PANEL: The following modified sections: Transfers: Bed, Chair, Wheelchair - Score, Transfers: Toilet - Score , Locomotion: Walk - Score, Locomotion: Wheelchair - Score, Locomotion: Stairs - Score were [electron ically] signed by Felipe Gutierrez PTA on SatJun 20 2017 15:19:48 GMT-0500 (Central Daylight Time)
--- NOTE | 2017-06-20 16:18 | FAST ---
ENCOUNTER DATE AND TIME: 06/20/2017 08:00 (CDT) NAME TWIN OLIVIER DATE OF : 1930 DATE OF ADMISSION: 06/07/2017 19:25 (CDT) PHONE: AGE: 86 N# [id number] GENDER: Male ENCOUNTER PHYSICIAN: Dr. Woody Escamilla M.D. ADMISSION DIAGNOSIS: - Cardiac 09 - Cardiac Disorders (09) Chronic atrial fibrillation [I482]. CHF. EATING: Activity did not occur on this shift EATING - SCORE: 0-UNK GROOMING: Activity did not occur on this shift GROOMING - SCORE: 0-UNK BATHING: Activity did not occur on this shift BATHING - SCORE: 0-UNK DRESSING - UPPER BODY: Activity did not occur on this shift Patient is not dressing in public clothing ARTICLES SCORE Total number of steps: 0 DRESSING - UPPER BODY - SCORE: 0-UNK DRESSING - LOWER BODY: Activity did not occur on this shift Patient is not dressing in public clothing ARTICLES SCORE Total number of steps: 0 DRESSING - LOWER BODY - SCORE: 0-UNK TOILETING: Activity did not occur on this shift TOILETING - SCORE: 0-UNK BLADDER MANAGEMENT: Activity did not occur on this shift BLADDER MANAGEMENT - SCORE: 7-IND BOWEL MANAGEMENT: Activity did not occur on this shift BOWEL MANAGEMENT - SCORE: 7-IND TRANSFERS: BED, CHAIR, WHEELCHAIR: TRANSFERS: BED, CHAIR, WHEELCHAIR - STEP 1: Does the patient require assistance with bed, chair, or wheelchair transfers? Yes. TRANSFERS: BED, CHAIR, WHEELCHAIR - STEP 2: Does the patient require the assistance of a helper? Yes. TRANSFERS: BED, CHAIR, WHEELCHAIR - STEP 3: How much assistance does the patient require from the helper? Steadying/guiding assistance TRANSFERS: BED, CHAIR, WHEELCHAIR - SCORE: 4-MIN TRANSFERS: TOILET: Activity did not occur on this shift TRANSFERS: TOILET - SCORE: 0-UNK TRANSFERS: SHOWER: Activity did not occur on this shift TRANSFERS: SHOWER - SCORE: 0-UNK TRANSFERS: TUB: Activity did not occur on this shift TRANSFERS: TUB - SCORE: 0-UNK LOCOMOTION: WALK: Activity did not occur on this shift LOCOMOTION: WALK - SCORE: 0-UNK LOCOMOTION: WHEELCHAIR: Activity did not occur on this shift LOCOMOTION: WHEELCHAIR - SCORE: 0-UNK LOCOMOTION: STAIRS: Activity did not occur on this shift LOCOMOTION: STAIRS - SCORE: 0-UNK COMPREHENSION: COMPREHENSION - SCORE: 0-UNK EXPRESSION EXPRESSION - SCORE: 0-UNK SOCIAL INTERACTION: SOCIAL INTERACTION - SCORE: 0-UNK PROBLEM SOLVING: PROBLEM SOLVING - SCORE: 0-UNK MEMORY: MEMORY - SCORE: 0-UNK SIGNATURE PANEL: The following modified sections: Transfers: Bed, Chair, Wheelchair - Score, Transfers: Toilet - Score , Locomotion: Walk - Score, Locomotion: Wheelchair - Score, Locomotion: Stairs - Score were [electron ically] signed by Felipe Gutierrez PTA on SatJun 20 2017 15:20:44 GMT-0500 (Central Daylight Time)
--- NOTE | 2017-06-20 17:18 | FAST ---
ENCOUNTER DATE AND TIME: 06/20/2017 08:00 (CDT) NAME TWIN OLIVIER DATE OF : 1930 DATE OF ADMISSION: 06/07/2017 19:25 (CDT) PHONE: AGE: 86 N# [id number] GENDER: Male ENCOUNTER PHYSICIAN: Dr. Woody Escamilla M.D. ADMISSION DIAGNOSIS: - Cardiac 09 - Cardiac Disorders (09) Chronic atrial fibrillation [I482]. CHF. EATING: Activity did not occur on this shift EATING - SCORE: 0-UNK GROOMING: Activity did not occur on this shift GROOMING - SCORE: 0-UNK BATHING: Activity did not occur on this shift BATHING - SCORE: 0-UNK DRESSING - UPPER BODY: Activity did not occur on this shift Patient is not dressing in public clothing ARTICLES SCORE Total number of steps: 0 DRESSING - UPPER BODY - SCORE: 0-UNK DRESSING - LOWER BODY: Activity did not occur on this shift Patient is not dressing in public clothing ARTICLES SCORE Total number of steps: 0 DRESSING - LOWER BODY - SCORE: 0-UNK TOILETING: Activity did not occur on this shift TOILETING - SCORE: 0-UNK BLADDER MANAGEMENT: Activity did not occur on this shift BLADDER MANAGEMENT - SCORE: 7-IND BOWEL MANAGEMENT: Activity did not occur on this shift BOWEL MANAGEMENT - SCORE: 7-IND TRANSFERS: BED, CHAIR, WHEELCHAIR: Activity did not occur on this shift TRANSFERS: BED, CHAIR, WHEELCHAIR - SCORE: 0-UNK TRANSFERS: TOILET: Activity did not occur on this shift TRANSFERS: TOILET - SCORE: 0-UNK TRANSFERS: SHOWER: Activity did not occur on this shift TRANSFERS: SHOWER - SCORE: 0-UNK TRANSFERS: TUB: Activity did not occur on this shift TRANSFERS: TUB - SCORE: 0-UNK LOCOMOTION: WALK: Activity did not occur on this shift LOCOMOTION: WALK - SCORE: 0-UNK LOCOMOTION: WHEELCHAIR: Activity did not occur on this shift LOCOMOTION: WHEELCHAIR - SCORE: 0-UNK LOCOMOTION: STAIRS: Activity did not occur on this shift LOCOMOTION: STAIRS - SCORE: 0-UNK COMPREHENSION: COMPREHENSION - STEP 1: Does the patient require help to understand complex and abstract ideas (such as current events, finan césar, discharge planning, medical issues, relationships, etc)? Yes. COMPREHENSION - STEP 2: Does the patient require help to understand questions or statements about basic needs or ideas (such as hunger, thirst, sleep, safety, daily schedule, room location, or discomfort) half or more of the t sher[place]? No. COMPREHENSION - STEP 3: How often does the patient need help to understand directions and conversation about basic needs? 25% - 49% of the time COMPREHENSION - SCORE: 3-MOD EXPRESSION EXPRESSION - STEP 1: Does the patient require help expressing complex and abstract ideas (such as current events, finances , discharge planning, medical issues, relationships, etc)? Yes. EXPRESSION - STEP 2: Does the patient require help to express basic necessities or ideas (such as hunger, thirst, sleep, s afety, daily schedule, room location, or discomfort) half or more of the time? No. EXPRESSION - STEP 3: How often does the patient need help to express directions and conversation about basic needs? 25-49% of the time EXPRESSION - SCORE: 3-MOD SOCIAL INTERACTION: SOCIAL INTERACTION - STEP 1: Does the patient require a helper to interact with others in social and therapeutic situations? Yes. SOCIAL INTERACTION - STEP 2: Does the patient interact appropriately half or more of the time? No. SOCIAL INTERACTION - STEP 3: How often does the patient interact appropriately? More than 25% of the time SOCIAL INTERACTION - SCORE: 2-MAX PROBLEM SOLVING: PROBLEM SOLVING - STEP 1: Does the patient need help to solve complex problems such as managing a checking account or confronti ng interpersonal problems? Yes. PROBLEM SOLVING - STEP 2: Does the patient solve basic routine problems half or more of the time? No. PROBLEM SOLVING - STEP 3: Does the patient need help to solve problems all the time or is s/he unable to solve problems? No. Pa tod can sometimes solve problems PROBLEM SOLVING - SCORE: 2-MAX MEMORY: MEMORY - STEP 1: Does the patient need help to remember frequently encountered people, daily routines, and executing r equests? Yes. MEMORY - STEP 2: How often does the patient need help to remember frequently encountered people, daily routines, and e xecuting requests? More than 50% of the time MEMORY - STEP 3: Does the patient need help to remember all of the time OR does s/he not effectively recognize and rem ember? No. Patient does not need help all the time MEMORY - SCORE: 2-MAX SIGNATURE PANEL: The following modified sections: Comprehension - Score, Expression - Score, Social Interaction - Scor e, Problem Solving - Score, Memory - Score were [electronically] signed by ANGELA Hernandez on Sat 16:20:29 GMT-0500 (Central Daylight Time)
--- NOTE | 2017-06-20 18:47 | R.PN ---
ENCOUNTER DATE AND TIME: 06/20/2017 17:44 (CDT) NAME TWIN OLIVIER DATE OF : 1930 DATE OF ADMISSION: 06/07/2017 19:25 (CDT) Chronic atrial fibrillation [I482]CHFCHIEF COMPLAINT: Debility SUBJECTIVE: Pt denied any Shortness of Breath. Pt denied any depression. Ambulated 300' with rolling walker using 2L of O2 with minimum assistance. He required moderate marilyn tance for comprehension and dysphagia precautions. Required maximum to total assistance with safety a wareness, problem solving and auditory comprehension. Self propelled wheelchair 250' with maximum assistance. Mildly increased upper airway sounds. Use incentive spironetry. VITAL SIGNS Temperature: 97.2 F SBP/DBP: 111/58 Pulse: 85 Resp: 16 MEDICATION ALLERGIES: iodine ENVIRONMENTAL ALLERGIES: - Substance Allergies None Known - Other Allergies None Known NURSING: - Shower allowing shower ACTIVITIES OOB only with supervision THERAPIES: - Occupational Therapy Evaluate and Treat. - Physical Therapy Evaluate and Treat. PHYSICAL EXAM - Gen Alert and awake Lying in bed No apparent distress Oriented to: person, time, and place - Vital Signs Vital signs stable, afebrile - Skin No breakdowns No abnormalities - Eyes No abnormalities - ENMT No abnormalities - Neck No abnormalities - CVS RRR - Chest Mildly decreased breath sounds bilaterally. - Resp + rhonchi - Abd +bowel sounds - GI Obese Deferred - No abnormalities - Ext Mild bilateral lower extremity edema. - MSK 4/5 weakness in both lower extremities. - Neuro No focal deficits. - Psych No abnormalities ASSESSMENT: Pt. is a 86 yo Right-handed white male.On 06/05/2017 he was admitted to [facility] with diagnosis Chronic atrial fibrillation [I482].His impairment category is Cardiac 09 - Cardia c Disorders (09).Pre-morbidly, Pt. was independent/mod-I in Social Cognition, Self-Care, Sphincter Co ntrol, Transfers Control, Communication, and Locomotion; and he had good Sphincter Control.Currently, he has deficits of Social Cognition, Balance, Self-Care, Endurance, Safety Awareness, Transfers Cont rol, Communication, and Locomotion.Pt. is now referred to [facility] for acute in-patient rehabilitation in order to maximize patient's functional independence in activities of da yuan living, strength, ROM, and mobility.- Rehab Goal Patient has realistic goal of being discharged at assistance level 6-Delia to reside at Home with Leonid hermes. MDM/PLAN: - Diet Type Continue Regular - Physical Therapy Gait dysfunction - to improve, our physical therapists will perform initial evaluation of pt's statu s upon admission and devise an individualized program for Gait Training, and Wheel Chair mobility Inability to transfer - to improve, our physical therapists will perform initial evaluation of pt's status upon admission and devise an individualized program for Bed mobility Need for home safety evaluation - to improve, our physical therapists will perform initial evaluatio n of pt's status upon admission and devise an individualized program for Home Evaluation Need in caregiver upon discharge - to improve, our physical therapists will perform initial evaluati on of pt's status upon admission and devise an individualized program for Caregiver Training New precaution - to improve, our physical therapists will perform initial evaluation of pt's status upon admission and devise an individualized program for Patient precaution education Edema - to improve, our physical therapists will perform initial evaluation of pt's status upon admi ssion and devise an individualized program for Elevation Training, and Lymphedema Therapy Poor balance - to improve, our physical therapists will perform initial evaluation of pt's status up on admission and devise an individualized program for Balance Training Poor endurance - to improve, our physical therapists will perform initial evaluation of pt's status upon admission and devise an individualized program for Endurance Training Weakness - to improve, our physical therapists will perform initial evaluation of pt's status upon a dmission and devise an individualized program for Aquatic Therapy, Neuromuscular Reeducation, and Str engthening Achieving independence - to improve, our physical therapists will perform initial evaluation of pt's status upon admission and devise an individualized program for Community Reintegration Activities - Diet - Liquid Texture Continue Regular - Tube Feed Continue N/A - Diet - Solid Texture Continue Regular - Shower allowing shower - Occupational Therapy ADL deficits - to improve, our occupation therapists will perform initial evaluation of pt's status upon admission and devise an individualized program for Bathing, Bed mobility, Community Reintegratio n, Cooking, Dressing, Eating, Fine Motor Skills, Grooming, Homemaking, Kitchen Mobility, Laundry, Pat ient Education, Safety Awareness, Splinting - Positioning, Transfers(Toilet, Tub, Shower), and Wheel Chair Management Cognitive deficits - to improve, our occupation therapists will perform initial evaluation of pt's s tatus upon admission and devise an individualized program for Cognition - orientation Need for customer care agent - to improve, our occupation therapists will perform initial evaluation of pt's status upon admission and devise an individualized program for Caregiver Training Weakness - to improve, our occupation therapists will perform initial evaluation of pt's status upon admission and devise an individualized program for Aquatic Therapy, Balance, Endurance, UE ROM, and UE strengthening FUNCTIONAL STATUS: UPDATED AT WEEKLY TEAM CONFERENCE - Bladder Same accident frequency: 7-Ind - No accidents in the past 7 days - Bowel Same accident frequency: 7-Ind - No accidents in the past 7 days - Walking Same score based on distance walked: 0(N/A) FUNCTIONAL STATUS: - Self-Care A. Eating sup B. Grooming sup C. Bathing Lizbeth D. Dressing - Upper Lizbeth E. Dressing - Lower Lizbeth F. Toileting Lizbeth - Sphincter Control G: Bladder control Ind H: Bowel control Ind - Transfers Control I. Bed/Chair/Wheelchair Lizbeth J. Toilet modA K. Tub/Shower ADNO - Locomotion L. Walk/Wheelchair (B) Lizbeth M. Stairs ADNO - Communication N. Comprehension (B) sup O. Expression (B) sup - Social Cognition P. Social Interaction sup Q. Problem Solving sup R. Memory sup - Endurance Poor - Balance Poor - Safety Awareness Poor CURRENT FUNC. DEFICITS: Social Cognition, Balance, Self-Care, Endurance, Safety Awareness, Transfers Control, Communication, and Locomotion SIGNATURE PANEL: (CDT)
[2017-06-20] MEDS: LATANOPROST OPTH OPTH SCH (20:21)
[2017-06-20] MEDS: MEGESTROL 40 MG TAB PO SCH (20:21)
[2017-06-20] MEDS: Bacitracin Opth Oint TOP SCH (21:00)
--- NOTE | 2017-06-21 02:39 | FAST ---
SHIFT START DATE/TIME: 06/20/2017 19:00 (CDT) SHIFT END DATE/TIME: 06/21/2017 07:00 (CDT) NAME TWIN OLIVIER DATE OF : 1930 DATE OF ADMISSION: 06/07/2017 19:25 (CDT) PHONE: AGE: 86 N# [id number] GENDER: Male ENCOUNTER PHYSICIAN: Dr. Woody Escamilla M.D. ADMISSION DIAGNOSIS: - Cardiac 09 - Cardiac Disorders (09) Chronic atrial fibrillation [I482]. CHF. EATING: Activity did not occur on this shift EATING - SCORE: 0-UNK GROOMING: Activity did not occur on this shift GROOMING - SCORE: 0-UNK BATHING: Activity did not occur on this shift BATHING - SCORE: 0-UNK DRESSING - UPPER BODY: Patient is not dressing in public clothing ARTICLES SCORE Total number of steps: 0 DRESSING - UPPER BODY - SCORE: 0-UNK DRESSING - LOWER BODY: Patient is not dressing in public clothing ARTICLES SCORE Total number of steps: 0 DRESSING - LOWER BODY - SCORE: 0-UNK TOILETING: TOILETING - STEP 1: Does the patient require assistance with toileting? Yes. TOILETING - STEP 2: Does the patient require the assistance of a helper? Yes. TOILETING - STEP 3: How much assistance does the patient require from the helper? Hands-on assistance from the helper TOILETING - STEP 4: Of the 3 tasks: 1) Adjusting clothing prior to use, 2) Cleansing of perineal area, 3) Adjusting clot portia after use; How many tasks does the patient perform WITHOUT assistance of the helper? Three tasks with steadying assistance from the helper TOILETING - SCORE: 4-MIN BLADDER MANAGEMENT: [place] removes incontinent device (Depends, pull ups, etc.); cleans the patient after accident / inco ntinent episode; and, applies new incontinent device. BLADDER MANAGEMENT - SCORE: 1-DEP BOWEL MANAGEMENT: Activity did not occur on this shift BOWEL MANAGEMENT - SCORE: 7-IND TRANSFERS: BED, CHAIR, WHEELCHAIR: Activity did not occur on this shift TRANSFERS: BED, CHAIR, WHEELCHAIR - SCORE: 0-UNK TRANSFERS: TOILET: Activity did not occur on this shift TRANSFERS: TOILET - SCORE: 0-UNK TRANSFERS: SHOWER: Activity did not occur on this shift TRANSFERS: SHOWER - SCORE: 0-UNK TRANSFERS: TUB: Activity did not occur on this shift TRANSFERS: TUB - SCORE: 0-UNK LOCOMOTION: WALK: Activity did not occur on this shift LOCOMOTION: WALK - SCORE: 0-UNK LOCOMOTION: WHEELCHAIR: Activity did not occur on this shift LOCOMOTION: WHEELCHAIR - SCORE: 0-UNK COMPREHENSION: COMPREHENSION - STEP 1: Does the patient require help to understand complex and abstract ideas (such as current events, finan césar, discharge planning, medical issues, relationships, etc)? Yes. COMPREHENSION - STEP 2: Does the patient require help to understand questions or statements about basic needs or ideas (such as hunger, thirst, sleep, safety, daily schedule, room location, or discomfort) half or more of the t [place]? No. COMPREHENSION - STEP 3: How often does the patient need help to understand directions and conversation about basic needs? 10% - 24% of the time COMPREHENSION - SCORE: 4-MIN EXPRESSION EXPRESSION - STEP 1: Does the patient require help expressing complex and abstract ideas (such as current events, finances , discharge planning, medical issues, relationships, etc)? Yes. EXPRESSION - STEP 2: Does the patient require help to express basic necessities or ideas (such as hunger, thirst, sleep, s afety, daily schedule, room location, or discomfort) half or more of the time? No. EXPRESSION - STEP 3: How often does the patient need help to express directions and conversation about basic needs? 10-24% of the time EXPRESSION - SCORE: 4-MIN SOCIAL INTERACTION: SOCIAL INTERACTION - STEP 1: Does the patient require a helper to interact with others in social and therapeutic situations? No. SOCIAL INTERACTION - STEP 2: Does the patient need extra time in social situations, OR does s/he interact with staff, other patien ts, and family members ONLY in structured environments, OR does s/he require medication for social in teraction? Yes, patient needs extra time SOCIAL INTERACTION - SCORE: 6-DENISSE PROBLEM SOLVING: PROBLEM SOLVING - STEP 1: Does the patient need help to solve complex problems such as managing a checking account or confronti ng interpersonal problems? Yes. PROBLEM SOLVING - STEP 2: Does the patient solve basic routine problems half or more of the time? Yes. PROBLEM SOLVING - STEP 3: How often does the patient need help to solve basic routine problems? 10%-24% of the time PROBLEM SOLVING - SCORE: 4-MIN MEMORY: MEMORY - STEP 1: Does the patient need help to remember frequently encountered people, daily routines, and executing r equests? No. MEMORY - STEP 2: Does the patient have slight difficulty recognizing frequently encountered people, daily routines, or executing requests without the need for repetition or using self-initiated or environmental cues to remember? Yes. MEMORY - SCORE: 6-DENISSE SIGNATURE PANEL: The following modified sections: Eating - Score, Grooming - Score, Dressing - Upper Body - Score, Lauri ssing - Lower Body - Score, Toileting - Score, Bladder Management - Score, Bowel Management - Score, Transfers: Bed, Chair, Wheelchair - Score, Transfers: Toilet - Score, Transfers: Shower - Score, Hayden sfers: Tub - Score, Locomotion: Walk - Score, Locomotion: Wheelchair - Score, Comprehension - Score, Expression - Score, Social Interaction - Score, Problem Solving - Score, Memory - Score were [electro nically] signed by Minda Yancey CNA on SatJun 21 2017 01:41:02 GMT-0500 (Central Daylight Time)
[2017-06-21] MEDS: CARVEDILOL 3.125 MG TAB PO SCH (06:00)
[2017-06-21] MEDS: LACTULOSE 20 GM/30 ML UCUP PO SCH (07:59)
[2017-06-21] MEDS: APIXABAN 2.5 MG TABLET PO SCH (08:00)
[2017-06-21] MEDS: ENSURE ENLIVE 237 ML CAN PO SCH (08:00)
[2017-06-21] MEDS: levoFLOXacin 500 MG TAB PO SCH (08:01)
[2017-06-21] MEDS: ASPIRIN EC 81 MG TAB PO SCH (08:02)
[2017-06-21] MEDS: FUROSEMIDE 20 MG TABLET PO SCH (08:02)
[2017-06-21] MEDS: MEGESTROL 40 MG TAB PO SCH (08:05)
[2017-06-21] MEDS: DULOXETINE 20 MG CAP PO SCH (08:06)
[2017-06-21] MEDS: acetaZOLAMIDE 250 MG TAB PO SCH (08:07)
--- NOTE | 2017-06-21 09:52 | P.RH.PN ---
Estimated Length of Stay: 14 Expected Discharge Date: 06/21/17 Discharge Disposition Plan: Home Family Support: Yes Assisted Goal: Mobility, Transfers, Self Care Vital Signs: Last Vital Signs Temp 97.2 F 06/21/17 07:30 Pulse 84 06/21/17 08:02 Resp 18 06/21/17 07:30 BP 124/68 06/21/17 08:02 Pulse Ox 92 06/21/17 07:30 Laboratory: Laboratory Last Values WBC 6.9 K/uL (4.3-10.9) D 06/20/17 06:56 RBC 3.59 M/uL (4.33-5.43) L 06/20/17 06:56 Hgb 11.5 g/dL (13.6-17.9) L 06/20/17 06:56 Hct 35.4 % (39.6-49.0) L 06/20/17 06:56 MCV 98.7 fL (80-100) 06/20/17 06:56 MCH 32.2 pg (27.0-35.0) 06/20/17 06:56 MCHC 32.6 g/dL (32.0-36.0) 06/20/17 06:56 RDW 14.3 % (12.1-15.2) 06/20/17 06:56 Plt Count 147 K/uL (152-406) L 06/20/17 06:56 MPV 9.4 fL (7.6-11.3) 06/20/17 06:56 Neutrophils % 77.5 % (41.7-73.7) H 06/20/17 06:56 Lymphocytes % 6.3 % (15.3-44.8) L 06/20/17 06:56 Monocytes % 12.6 % (3.3-12.3) H 06/20/17 06:56 Eosinophils % 2.7 % (0-4.4) 06/20/17 06:56 Basophils % 0.9 % (0-1.3) 06/20/17 06:56 Absolute Neutrophils 5.3 K/uL (1.8-8.0) 06/20/17 06:56 Segmented Neutrophils 72 % (40-80) 06/08/17 05:53 Absolute Lymphocytes 0.4 K/uL (0.7-4.9) L 06/20/17 06:56 Lymphocytes 12 % (15-42) L 06/08/17 05:53 Monocytes 13 % (0-10) H 06/08/17 05:53 Absolute Monocytes 0.9 K/uL (0.1-1.3) 06/20/17 06:56 Eosinophils 3 % (0-3) 06/08/17 05:53 Absolute Eosinophils 0.2 K/uL (0-0.5) 06/20/17 06:56 Absolute Basophils 0.1 K/uL (0-0.5) 06/20/17 06:56 Morphology Comment Not seen (NOT SEEN) 06/08/17 05:53 Sodium 144 mEq/L (135-145) 06/20/17 06:56 Potassium 4.2 mEq/L (3.6-5.0) 06/20/17 06:56 Chloride 104 mEq/L (101-111) 06/20/17 06:56 Carbon Dioxide 38 mEq/L (21-31) H 06/20/17 06:56 BUN 40 mg/dL (6-20) H 06/20/17 06:56 Creatinine 0.96 mg/dL (0.61-1.24) 06/20/17 06:56 Estimated GFR 74 mL/min (=/>90) L 06/20/17 06:56 Glucose 96 mg/dL (65-120) 06/20/17 06:56 Calcium 9.0 mg/dL (8.5-10.5) 06/20/17 06:56 Magnesium 1.8 mg/dL (1.8-2.5) 06/08/17 05:53 Albumin 2.7 g/dL (3.2-5.5) L 06/13/17 05:52 Prealbumin 17.2 mg/dl (18-38) L 06/13/17 05:52 Urine Color Yellow 06/07/17 17:50 Urine Appearance Clear 06/07/17 17:50 Urine pH 7.5 (5.0-7.0) H 06/07/17 17:50 Ur Specific [place] 1.010 (1.005-1.030) 06/07/17 17:50 Urine Ketones Negative (NEG) 06/07/17 17:50 Urine Blood Negative (NEG) 06/07/17 17:50 Urine Nitrite Negative (NEG) 06/07/17 17:50 Urine Bilirubin Negative (NEG) 06/07/17 17:50 Urine Urobilinogen 1.0 mg/dL (0.2-1.0) 06/07/17 17:50 Ur Leukocyte Esterase 1+ (NEG) H 06/07/17 17:50 Urine RBC <5 /HPF (NONE SEEN) 06/07/17 17:50 Urine WBC 5-10 /HPF (<5) H 06/07/17 17:50 Ur Squamous Epith Cells <5 /HPF (NONE SEEN) 06/07/17 17:50 Urine Bacteria None seen /HPF (NONE SEEN) 06/07/17 17:50 Urine Culture Reflexed Not needed 06/07/17 17:50 Urine Glucose Negative (NEG) 06/07/17 17:50 Urine Total Protein Negative (NEG) 06/07/17 17:50 Weight: 148 lb 6 oz Wound Present: No Closed Surgical Incision Present: No Negative Pressure Wound Therapy Present: No Physician Update: Mr. Martin has advanced dementia, dysphagia for solids and difficulty swollowing pills. He is at maximum to total assistance with his cognition and he will require 24 hour care due to his advanced dementia. Comment: scabs noted on upper and lower extremities Functional Improvement: Patient has had difficulty w/ tasks over the past several days. Patient's motivation level has declined. Functional Improvement Occupational Therapy: LIMITED PARTICIPATION DUE TO POOR MOTIVATION. Speech Therapy Update: Patient requires max to total assist for saftey awareness , problem solving, and auditory comprehension. Social interaction and verbal expression are at Mod A. Summary: Patient's care plan and [facility] goals have been reviewed and revised as necessary. Please see the Rehabilitation Signature page for all necessary signatures.
--- NOTE | 2017-06-21 15:36 | FAST ---
ENCOUNTER DATE AND TIME: 06/21/2017 08:00 (CDT) NAME TWIN OLIVIER DATE OF : 1930 DATE OF ADMISSION: 06/07/2017 19:25 (CDT) PHONE: AGE: 86 N# [id number] GENDER: Male ENCOUNTER PHYSICIAN: Dr. Woody Escamilla M.D. ADMISSION DIAGNOSIS: - Cardiac 09 - Cardiac Disorders (09) Chronic atrial fibrillation [I482]. CHF. EATING: Activity did not occur on this shift EATING - SCORE: 0-UNK GROOMING: Activity did not occur on this shift GROOMING - SCORE: 0-UNK BATHING: Activity did not occur on this shift BATHING - SCORE: 0-UNK DRESSING - UPPER BODY: Activity did not occur on this shift Patient is not dressing in public clothing ARTICLES SCORE Total number of steps: 0 DRESSING - UPPER BODY - SCORE: 0-UNK DRESSING - LOWER BODY: Activity did not occur on this shift Patient is not dressing in public clothing ARTICLES SCORE Total number of steps: 0 DRESSING - LOWER BODY - SCORE: 0-UNK TOILETING: Activity did not occur on this shift TOILETING - SCORE: 0-UNK BLADDER MANAGEMENT: Activity did not occur on this shift BLADDER MANAGEMENT - SCORE: 7-IND BOWEL MANAGEMENT: Activity did not occur on this shift BOWEL MANAGEMENT - SCORE: 7-IND TRANSFERS: BED, CHAIR, WHEELCHAIR: Activity did not occur on this shift TRANSFERS: BED, CHAIR, WHEELCHAIR - SCORE: 0-UNK TRANSFERS: TOILET: Activity did not occur on this shift TRANSFERS: TOILET - SCORE: 0-UNK TRANSFERS: SHOWER: Activity did not occur on this shift TRANSFERS: SHOWER - SCORE: 0-UNK TRANSFERS: TUB: Activity did not occur on this shift TRANSFERS: TUB - SCORE: 0-UNK LOCOMOTION: WALK: Activity did not occur on this shift LOCOMOTION: WALK - SCORE: 0-UNK LOCOMOTION: WHEELCHAIR: Activity did not occur on this shift LOCOMOTION: WHEELCHAIR - SCORE: 0-UNK LOCOMOTION: STAIRS: Activity did not occur on this shift LOCOMOTION: STAIRS - SCORE: 0-UNK COMPREHENSION: COMPREHENSION - STEP 1: Does the patient require help to understand complex and abstract ideas (such as current events, finan césar, discharge planning, medical issues, relationships, etc)? Yes. COMPREHENSION - STEP 2: Does the patient require help to understand questions or statements about basic needs or ideas (such as hunger, thirst, sleep, safety, daily schedule, room location, or discomfort) half or more of the t [place]? No. COMPREHENSION - STEP 3: How often does the patient need help to understand directions and conversation about basic needs? 25% - 49% of the time COMPREHENSION - SCORE: 3-MOD EXPRESSION EXPRESSION - STEP 1: Does the patient require help expressing complex and abstract ideas (such as current events, finances , discharge planning, medical issues, relationships, etc)? Yes. EXPRESSION - STEP 2: Does the patient require help to express basic necessities or ideas (such as hunger, thirst, sleep, s afety, daily schedule, room location, or discomfort) half or more of the time? No. EXPRESSION - STEP 3: How often does the patient need help to express directions and conversation about basic needs? 25-49% of the time EXPRESSION - SCORE: 3-MOD SOCIAL INTERACTION: SOCIAL INTERACTION - STEP 1: Does the patient require a helper to interact with others in social and therapeutic situations? Yes. SOCIAL INTERACTION - STEP 2: Does the patient interact appropriately half or more of the time? No. SOCIAL INTERACTION - STEP 3: How often does the patient interact appropriately? More than 25% of the time SOCIAL INTERACTION - SCORE: 2-MAX PROBLEM SOLVING: PROBLEM SOLVING - STEP 1: Does the patient need help to solve complex problems such as managing a checking account or confronti ng interpersonal problems? Yes. PROBLEM SOLVING - STEP 2: Does the patient solve basic routine problems half or more of the time? No. PROBLEM SOLVING - STEP 3: Does the patient need help to solve problems all the time or is s/he unable to solve problems? No. Gumaro baron can sometimes solve problems PROBLEM SOLVING - SCORE: 2-MAX MEMORY: MEMORY - STEP 1: Does the patient need help to remember frequently encountered people, daily routines, and executing r equests? Yes. MEMORY - STEP 2: How often does the patient need help to remember frequently encountered people, daily routines, and e xecuting requests? More than 50% of the time MEMORY - STEP 3: Does the patient need help to remember all of the time OR does s/he not effectively recognize and rem ember? Yes. Patient needs help to remember ALL the time OR does not effectively recognize and remembe r MEMORY - SCORE: 1-DEP SIGNATURE PANEL: The following modified sections: Comprehension - Score, Expression - Score, Social Interaction - Scor e, Problem Solving - Score, Memory - Score were [electronically] signed by ANGELA Hernandez on Sat 14:38:36 GMT-0500 (Central Daylight Time)
--- NOTE | 2017-06-21 16:40 | FAST ---
ENCOUNTER DATE AND TIME: 06/21/2017 08:00 (CDT) NAME TWIN OLIVIER DATE OF : 1930 DATE OF ADMISSION: 06/07/2017 19:25 (CDT) PHONE: AGE: 86 N# [id number] GENDER: Male ENCOUNTER PHYSICIAN: Dr. Woody Escamilla M.D. ADMISSION DIAGNOSIS: - Cardiac 09 - Cardiac Disorders (09) Chronic atrial fibrillation [I482]. CHF. EATING: EATING - STEP 1: Does the patient require assistance when eating? Yes. EATING - STEP 2: Does the patient require the assistance of a helper? Yes. EATING - STEP 3: Does the patient perform half or more of the eating tasks? No. EATING - STEP 4: Does the patient require total assistance to eat, such as the helper holding the utensil and bringing all food and liquids to the mouth? Yes. EATING - SCORE: 1-DEP GROOMING: Activity did not occur on this shift GROOMING - SCORE: 0-UNK BATHING: Activity did not occur on this shift BATHING - SCORE: 0-UNK DRESSING - UPPER BODY: Activity did not occur on this shift ARTICLES SCORE Total number of steps: 0 DRESSING - UPPER BODY - SCORE: 0-UNK DRESSING - LOWER BODY: Activity did not occur on this shift ARTICLES SCORE Total number of steps: 0 DRESSING - LOWER BODY - SCORE: 0-UNK TOILETING: Activity did not occur on this shift TOILETING - SCORE: 0-UNK BLADDER MANAGEMENT: Activity did not occur on this shift BLADDER MANAGEMENT - SCORE: 7-IND BOWEL MANAGEMENT: Activity did not occur on this shift BOWEL MANAGEMENT - SCORE: 7-IND TRANSFERS: BED, CHAIR, WHEELCHAIR: Activity did not occur on this shift TRANSFERS: BED, CHAIR, WHEELCHAIR - SCORE: 0-UNK TRANSFERS: TOILET: Activity did not occur on this shift TRANSFERS: TOILET - SCORE: 0-UNK TRANSFERS: SHOWER: Activity did not occur on this shift TRANSFERS: SHOWER - SCORE: 0-UNK TRANSFERS: TUB: Activity did not occur on this shift TRANSFERS: TUB - SCORE: 0-UNK LOCOMOTION: WALK: Activity did not occur on this shift LOCOMOTION: WALK - SCORE: 0-UNK LOCOMOTION: WHEELCHAIR: Activity did not occur on this shift LOCOMOTION: WHEELCHAIR - SCORE: 0-UNK LOCOMOTION: STAIRS: Activity did not occur on this shift LOCOMOTION: STAIRS - SCORE: 0-UNK COMPREHENSION: COMPREHENSION - STEP 1: Does the patient require help to understand complex and abstract ideas (such as current events, finan césar, discharge planning, medical issues, relationships, etc)? Yes. COMPREHENSION - STEP 2: Does the patient require help to understand questions or statements about basic needs or ideas (such as hunger, thirst, sleep, safety, daily schedule, room location, or discomfort) half or more of the t sheridan? Yes. COMPREHENSION - STEP 3: Is the patient basically able to understand and respond appropriately and consistently? Yes. COMPREHENSION - SCORE: 2-MAX EXPRESSION EXPRESSION: TYPE: Non-Vocal EXPRESSION - STEP 1: Does the patient require help expressing complex and abstract ideas (such as current events, finances , discharge planning, medical issues, relationships, etc)? Yes. EXPRESSION - STEP 2: Does the patient require help to express basic necessities or ideas (such as hunger, thirst, sleep, s afety, daily schedule, room location, or discomfort) half or more of the time? Yes. EXPRESSION - STEP 3: Is the patient basically unable to express or does s/he express inappropriately or inconsistently donya pite prompting? No. EXPRESSION - SCORE: 2-MAX SOCIAL INTERACTION: SOCIAL INTERACTION - STEP 1: Does the patient require a helper to interact with others in social and therapeutic situations? Yes. SOCIAL INTERACTION - STEP 2: Does the patient interact appropriately half or more of the time? Yes. SOCIAL INTERACTION - STEP 3: How often does the patient need help to interact appropriately? 25-49% of the time SOCIAL INTERACTION - SCORE: 3-MOD PROBLEM SOLVING: Patient requires bed/chair alarms due to attempts to get up unassisted when helper is needed. PROBLEM SOLVING - STEP 1: How often do the bed/chair alarms go off? Most of the time - the alarms go off about 75% of the time PROBLEM SOLVING - SCORE: 2-MAX MEMORY: MEMORY - STEP 1: How often do the bed/chair alarms go off? Most of the time - the alarms go off about 75% of the time MEMORY - SCORE: 2-MAX SIGNATURE PANEL: The following modified sections: Eating - Score, Grooming - Score, Bathing - Score, Dressing - Upper Body - Score, Dressing - Lower Body - Score, Toileting - Score, Transfers: Bed, Chair, Wheelchair - S core, Transfers: Toilet - Score, Transfers: Shower - Score, Transfers: Tub - Score, Comprehension - S core, Expression - Score, Social Interaction - Score, Problem Solving - Score, Memory - Score were [e lectronically] signed by SHIRAZ Salcedo on SatJun 21 2017 15:42:58 [facility]-0500 ([facility] Time)
--- NOTE | 2017-06-28 15:23 | R.DS ---
FACILITY [facility] MR# [id number] NAME TWIN OLIVIER ADDRESS [facility] [place]IP [address] PHONE DATE OF 1930 AGE 86 SSN# [id number] GENDER Male DEXTERITY Right-handed MARITAL STATUS RACE White ENCOUNTER PHYSICIAN Dr. Woody Escamilla M.D. REFERRING DOCTOR DR. Jovon Castillo REFERRING FACILITY [facility] DISCHARGE DIAGNOSIS: - Cardiac 09 - Cardiac Disorders (09) Chronic atrial fibrillation [I482]. CHF. DISCHARGE COMORBIDITIES: - Non-Tiered hyphosis Dyspnea [R060] edema - N/A malnutrition anemia hypercapnia DATE OF ADMISSION 06/07/2017 19:25 (CDT) MEDICATION ALLERGIES: iodine ENVIRONMENTAL ALLERGIES: - Substance Allergies None Known - Other Allergies None Known NURSING: - Shower allowing shower ACTIVITIES OOB only with supervision THERAPIES: - Occupational Therapy Evaluate and Treat - Physical Therapy Evaluate and Treat HISTORY OF PRESENT ILLNESS: Pt. is a 86 yo Right-handed white male.On 06/05/2017 he was admitted to [facility] with diagnosis Chronic atrial fibrillation [I482].His impairment category is Cardiac 09 - Cardia c Disorders ().Pre-morbidly, Pt. was independent/mod-I in Sphincter Control; and he had good Sphinc ter Control.Currently, he has deficits of Social Cognition, Balance, Self-Care, Endurance, Safety Babs reness, Transfers Control, Communication, and Locomotion.Pt. is now referred to [facility] for acute in-patient rehabilitation in order to maximize patient's functional independen ce in activities of daily living, strength, ROM, and mobility.- Rehab Goal Patient has realistic goal of being discharged at assistance level 6-Delia to reside at Home with Leonid mirza. HOSPITAL COURSE: DIET TYPE: On 06/07/2017 Pt was upgraded to Regular Diet Type. DIET - LIQUID TEXTURE: On 06/07/2017 Pt was upgraded to Regular Diet - Liquid Texture. DIET - SOLID TEXTURE: On 06/07/2017 Pt was upgraded to Regular Diet - Solid Texture. TUBE FEED: On 06/07/2017 Pt was changed to N/A Tube Feed. DISCHARGE PHYSICAL EXAM - Gen Alert and awake Lying in bed No apparent distress Oriented to: person, time, and place - Vital Signs Vital signs stable, afebrile - Skin No breakdowns No abnormalities - Eyes No abnormalities - ENMT No abnormalities - Neck No abnormalities - CVS RRR - Chest Mildly decreased breath sounds bilaterally. - Resp + rhonchi - Abd +bowel sounds - GI Obese Deferred - No abnormalities - Ext Mild bilateral lower extremity edema. - MSK 4/5 weakness in both lower extremities. - Neuro No focal deficits. - Psych No abnormalities FUNCTIONAL STATUS: - Self-Care A. Eating 5-sup 5-sup B. Grooming 2-maxA 2-maxA C. Bathing 2-maxA 2-maxA D. Dressing - Upper 1-Dep 1-Dep E. Dressing - Lower 4-Lizbeth 4-Lizbeth F. Toileting 1-Dep 1-Dep - Sphincter Control G: Bladder control 7-Ind 7-Ind H: Bowel control 7-Ind 7-Ind - Transfers Control I. Bed/Chair/Wheelchair 4-Lizbeth 4-Lizbeth J. Toilet 3-modA 3-modA K. Tub/Shower 0-ADNO 4-Lizbeth - Locomotion L. Walk/Wheelchair (B) 4-Lizbeth 4-Lizbeth M. Stairs 0-ADNO 0-ADNO - Communication N. Comprehension (B) 5-sup 5-sup O. Expression (B) 5-sup 5-sup - Social Cognition P. Social Interaction 5-sup 5-sup Q. Problem Solving 5-sup 5-sup R. Memory 5-sup 5-sup - Endurance Poor - Balance Poor - Safety Awareness Poor DISCHARGE INSTRUCTIONS: - N/A Eliquis 2.5 mg twice daily. Aspirin 81 mg daily. DISCHARGE PLAN, FOLLOW UP CARE PROVISIONS: - Estimated Length of Stay (days) 10. - Consensus on plan Discharge plan has been discussed with primary caregiver. Patient/Family is in agreement with the thomas n. Primary caregiver is in agreement with the plan. - Patient/Family Goals Return home with assistance. - Planned Living Setting Upon Discharge Home, to live alone. SIGNATURE PANEL: (CDT)
== END 2017-06-21 15:45 | DRG 309 ==
LOC: 5TH 17:26
PROVIDERS: ADMIT Psychiatry & Neurology Neurology with Special Qualifications in Child Neurology; ATTEND Psychiatry & Neurology Neurology with Special Qualifications in Child Neurology
DX: I48.2 Chronic atrial fibrillation (principal); E46 Unspecified protein-calorie malnutrition; R53.81 Other malaise
CPT/HCPCS: 36415; 70450; 71045; 74176; 74230; 80048; 81001; 82040; 83735; 84134; 85025; 87077; 87086; 87088; 87186; 93923; 94640; 95816; 97542; J7030

== ENCOUNTER 2017-06-25 13:11 | Inpatient (IN) | payer OTHER, MEDICARE ==
--- OUTSIDE RECORDS SUMMARY | 2017-06-25 13:12 | XMS REPORT ---
:1930 [facility] Address [address] [place] [address] Dr. Chun [address] [place] [id number] Care Team Providers Name Role Phone CHRISTEN [...] Item Value Reference Range Comments HLA-B27 (test [id number]) Positive HLA-B*27 PositiveThis patient is positive for HLA-B*27. This procedure rulesout the B*27:06 and 27:09 alleles, which the literaturesuggests are not associated with spondyloarthropathies.B27 allele interpretation for all loci based on IMGT/HLAdatabase version 3.27This test was developed and its performance characteristicsdetermined by [facility]. It has not been cleared or approvedby the Food and Drug Administration.[facility] CLIA ID Number [id number] test was performed using PCR (Polymerase Chain [...] ESR (test code=HESR) 6 mm/Hr 0-9 Lipid [id number] 23:47:00 Test Item Value Reference Range Comments Cholesterol (test 167 mg/dL 0-200 code=CHOL) Triglycerides (test 44 mg/dL 9-200 code=TRIG) HDL (test code=HDL) 75 mg/dL 40-60 Chol/HDL (test 2.2 Ratio 0.0-5.0 code=CHOLPHDL) LDL, Calculated (test 83 mg/dL 0-130 (NOTE)RISK OF HEART code=LDLC) DISEASEPublished by Dutch Heart AssociationAnalyte Optimal Boderline Increased RiskCHOL <200 200-239 >240TRIG <150 150-199 >200HDL Male: >60 <40HDL Female: >60 <50LDL <100 130-159 >160LDL NEAR OPTIMAL IS 100-129 VLDL (test code=VLDL) 9 mg/dL 5-40 LDL/HDL (test code=LDLPHDL) 1 Comprehensive Metabolic [id number] 23:47:00 Test Item Value Reference Range Comments [...] race is not provided, and the patient isAfrican-Dutch, multiply by 1.212. If sex is not [...] the National Kidney Foundation,http://nkdep.ni h.gov CBC with [id number] 23:41:00 Test Item Value Reference Range Comments [...] Lymph Abs (test code=ALYMPH) 1.0 K/cumm 0.5-4.6 [place] Abs (test code=AMONO) 0.5 K/cumm 0.0-1.2 Eos Abs (test code=AEOS) 0.17 K/cumm 0.00-0.74 Baso Abs (test code=ABASO) 0.1 K/cumm 0.00-0.21
[2017-06-25 13:59] LABS: Absolute Monocytes 0.9 K/uL (0.1-1.3); Absolute Neutrophil 6.9 K/uL (1.8-8.0); Hematocrit 44.8 % (39.6-49.0); Lymphocytes % 10.5 % (15.3-44.8); MCH 30.5 pg (27.0-35.0); MCV 97.6 fL (80-100); MPV 10.4 fL (7.6-11.3); Monocytes % 10.1 % (3.3-12.3); RBC Red Blood Cell Count 4.59 M/uL (4.33-5.43)
[2017-06-25 14:12] LABS: Protime INR 1.21
[2017-06-25 14:45] LABS: Urine Blood NEGATIVE (NEG); Urine Glucose NEGATIVE (NEG); Urine Protein NEGATIVE (NEG); Urine Specific Gravity 1.015 (1.005-1.030); Urine pH 5.5 (5.0-7.0)
--- NOTE | 2017-06-25 14:50 | RAD REPORT ---
EXAM DESCRIPTION: RAD - Chest Single View - 06/25/2017 2:31 pm CLINICAL HISTORY: Shortness of breath, lethargy. COMPARISON: 06/14/2017 FINDINGS: Portable technique limits examination quality. The lungs are underinflated with opacity likely present left lung base, similar to comparative study. Rounded areas of calcified nodularity in the right upper lobe are also similar to prior exam. The he art is mildly prominent in size. Aortic atherosclerosis is seen. IMPRESSION: Stable chest since comparative study.
[2017-06-25 15:07] LABS: Potassium 4.3 mEq/L (3.6-5.0)
[2017-06-25 15:14] LABS: Albumin 3.6 g/dL (3.2-5.5); Bilirubin Direct 0.2 mg/dL (0-0.2); Bilirubin Total 0.8 mg/dL (0.3-1.2); CKMB Creatine Kinase MB 2.8 ng/ml (0.3-4.0); Protein, Total 6.5 g/dL (6.0-8.3)
[2017-06-25] MEDS ORDERED: CEFTRIAXONE/SWI 1gm 1 GM/10 ML SYR ONE (15:26)
[2017-06-25] MEDS ORDERED: NA CHLORIDE 0.9% 1,000 ML ONE ×2 (15:26→17:10)
--- NOTE | 2017-06-25 15:34 | ER ---
Nurse's Notes [facility] Name: Byron Martin Jr Age: 86 yrs Sex: Male : 1930 Arrival Date: 06/25/2017 Time: 13:20 Bed 8 Private MD: Diagnosis: Weakness;Dehydration;Dyspnea;Altered mental status, unspecified;Respiratory failure, unspecified with hypercapnia;Acidosis-respiratory Presentation: 06/25 12:56 Presenting complaint: EMS states: SOB and lethargic x 2 hours. Pt was cyanotic per [facility] staff. Pt given A\T\A treatment by [facility] staff. On EMS arrival pt had no respiratory distress. Pt put on O2 \T\ 4L per [place]. BS-160. Intermittent confusion. Transition of care: patient was received from another setting of care (long-term care facility), [facility]. Onset of symptoms was June 25, 2017 at 11:00. Care prior to arrival: Glucose check: 160. 12:56 Method Of Arrival: EMS: [facility] 12:56 Acuity: GAVINO 3 sv Triage Assessment: 13:00 General: Appears in no apparent distress. comfortable, emaciated, Behavior is calm, sv cooperative. 13:00 Pain: Denies pain. EENT: No signs and/or symptoms were reported regarding the EENT sv system. Neuro: Level of Consciousness is awake, alert, obeys commands, intermittent confusion. Oriented to person, situation. Neuro: [place] staff reports lethargy. Cardiovascular: Patient's skin is warm and dry. Respiratory: Reports shortness of breath Respiratory effort is even, unlabored, Respiratory pattern is regular, symmetrical, Onset: The symptoms/episode began/occurred suddenly, the patient has mild shortness of breath. Derm: Skin is pale. Musculoskeletal: No signs and/or symptoms reported regarding the musculoskeletal system. Historical: - Allergies: 13:35 Iodine; sv - Home Meds: 13:35 furosemide 20 mg Oral tab once daily [Active]; acetazolamide 125 mg Oral tab once daily sv [Active]; apixaban oral 2.5 mg BID oral [Active]; carvedilol 3.125 mg oral tab daily [Active]; megestrol 20 mg Oral tab 2 tabs 2 times per day [Active]; lactulose 20 gram/30 mL Oral soln 15 mL once daily [Active]; docusate sodium 100 mg Oral cap 1 cap once daily [Active]; duloxetine 20 mg oral cpDR 1 cap daily [Active]; melatonin 3 mg Oral tab nightly [Active]; guaifenesin 100 mg/5 mL Oral liqd 5 mL q4H PRN [Active]; tramadol 50 mg Oral tab [Active]; glycerin (adult) Rectal supp [Active]; Albuterol Nebulizer [Active]; - PMHx: 13:35 Hypertension; cardiac arrhythmia; heart failure; hypocalcemia; Depression; TIA; sv Glaucoma; UTI; BPH; insomnia; malignant malanoma of skin; Tinea cruris; urogenital implants; - Immunization history:: Adult Immunizations up to date. - Social history:: Smoking status: Patient/guardian denies using tobacco. - Code Status:: Full code. Screenin:35 Abuse screen: Denies threats or abuse. Denies injuries from another. Nutritional sv screening: No deficits noted. Tuberculosis screening: No symptoms or risk factors identified. Fall Risk No fall in past 12 months (0 pts). No secondary diagnosis (0 pts). IV access (20 points). Ambulatory Aid- None/Bed Rest/Nurse Assist (0 pts). Gait- Weak (10 pts.). Mental Status- Oriented to own ability (0 pts). Total Landa Fall Scale indicates Low Risk Score (25-44 pts). Fall prevention measures have been instituted. Side Rails Up X 2 Frequent Obs/Assesments occuring As available Patient and Family Educated on Fall Prevention Program and strategies. Assessment: 13:35 Reassessment: [facility] staff states that pt is normally A \T\ O x4 with no confusion. sv 14:45 Reassessment: Bertram Martin, son who has POA phone # is [phone]. iw 15:33 Reassessment: Patient appears in no apparent distress at this time. No changes from sv previously documented assessment. Patient and/or family updated on plan of care and expected duration. Pain level reassessed. 16:26 Reassessment: Patient appears in no apparent distress at this time. No changes from sv previously documented assessment. Patient and/or family updated on plan of care and expected duration. Pain level reassessed. Connie MATSON at bedside placing BIPAP. 16:47 Reassessment: pt tolerating BiPap at this time. VSS, attempt report to 4th floor, spoke sg with thanhnevindimitris, unsure who was receiving pt, awaiting a call back at this time, pt updated on status of admit, awaiting call back, pt stated understanding. Vital Signs: 13:24 BP 138 / 70; Pulse 86 MON; Resp 21; Temp 97.1(A); Pulse Ox 100% ; Pain 0/10; sv 14:53 BP 157 / 72; Pulse 92; Resp 15; Pulse Ox 100% on 3 lpm NC; sv 16:26 Pulse Ox 100% on 25% BiPAP; sv 16:48 BP 154 / 78; Pulse 95; Resp 12; Pulse Ox 100% on BiPAP; mh5 13:24 A fib sv 16:26 12/6, rate-12. sv ED Course: 13:05 Initial lab(s) drawn, by ED staff, sent to lab. First set of blood cultures drawn by ED sv staff. Inserted saline lock: 20 gauge in right upper arm, using aseptic technique. ,using aseptic technique. done by Ben EWING. 13:20 Patient arrived in ED. sv 13:21 Areli Membreno, RN is Primary Nurse. sv 13:21 Inserted saline lock: 20 gauge in left forearm, using aseptic technique. ,using aseptic sv technique. done by Ben EIWNG Blood collected. 13:22 Second set of blood cultures drawn by ED staff. sv 13:24 Triage completed. sv 13:26 Arm band placed on right wrist. sv 13:28 Jag Mann MD is Attending Physician. matteo 13:35 Patient has correct armband on for positive identification. Placed in gown. Bed in low sv position. Call light in reach. Side rails up X2. quality assurance monitor body on. Pulse ox on. NIBP on. Door closed. Warm blanket given. Head of bed elevated. 13:45 Joya cath inserted, using sterile technique, 16 Fr., by id, balloon inflated, to sv gravity drainage, urine specimen collected. other coude. 13:54 Basic Metabolic Panel Sent. sv 13:54 BNP Sent. sv 14:14 EKG done, by boiler technician. reviewed by Jag Mann MD. tc 14:30 X-ray completed. Portable x-ray completed in exam room. ag1 14:32 XRAY Chest (1 view) In Process Unspecified. EDMS 15:31 Patricia Keys MD is Hospitalizing Provider. matteo 15:49 ABG drawn. by RT staff, on oxygen. sv 16:15 CT completed. Patient tolerated procedure well. Patient moved to CT via stretcher. nj Patient moved back from CT. 16:26 BIPAP Sent. sv 17:06 Patient admitted, IV remains in place. intact, No redness/swelling at site. sg 17:17 No provider procedures requiring assistance completed. sv Administered Medications: 15:32 Drug: NS 0.9% 500 ml Route: IV; Rate: bolus; Site: left forearm; sv 16:25 Follow up: Response: No adverse reaction; IV Status: Completed infusion; IV Intake: sv 500ml 15:32 CANCELLED (change order): Rocephin - (cefTRIAXone) 1 grams IVPB once over 30 mins; (mix sv in 50 mL NS) 15:32 Drug: Rocephin 1 grams Route: IV; Rate: calculated rate; Site: left forearm; sv 15:37 Follow up: Response: No adverse reaction; IV Status: Completed infusion; IV Intake: 10mlsv 16:25 Drug: NS 0.9% 500 ml Route: IV; Rate: bolus; Site: right upper arm; sv 17:13 Follow up: Response: No adverse reaction; IV Status: Completed infusion; IV Intake: sv 500ml 16:25 Drug: SOLU-Medrol 125 mg Route: IVP; Site: right upper arm; sv 17:12 Follow up: Response: No adverse reaction sv 16:30 Drug: Albuterol - atroVENT (3:1) (2.5 mg - 0.5 mg) 3 ml Route: Nebulizer; sg 17:12 Follow up: Response: No adverse reaction sv 17:13 Drug: NS 0.9% 1000 ml Route: IV; Rate: 125 ml/hr; Site: right upper arm; sv 17:18 Follow up: Response: No adverse reaction; IV Status: Infusion continued upon admission sv Point of Care Testing: Blood Glucose: 13:24 Blood Glucose: 103 mg/dL; sv Ranges: Intake: 15:37 IV: 10ml; Total: 10ml. sv 16:25 IV: 500ml; Total: 510ml. sv 17:13 IV: 500ml; Total: 1010ml. sv Output: 17:15 Urine: 275ml (Joya); Total: 275ml. sv Outcome: 15:34 Decision to Hospitalize by Provider. matteo 17:08 Admitted to Tele accompanied by tech, via stretcher, room 402, with chart, Report sg called to GILDARDO Ring 17:08 Condition: stable 17:08 Instructed on the need for admit, safety practices, leaving BiPap in place Demonstrated understanding of instructions. 17:34 Patient left the ED. iw Signatures: Dispatcher [employer] Areli Ramirez RN RN Ben Hays RN RN sg Anderson, Corey, MD MD cha Williams, Irene, RN RN iw Anamaria Collins, mma fighter EKG Ttc Lizy Chauhan ag1 Chris Avendaño, Tahmina [facility] Corrections: (The following items were deleted from the chart) 13:42 13:00 General: Appears in no apparent distress. comfortable, emaciated, Behavior is sv sv 13:55 13:24 BP 138 / 70; Pulse 86bpm; Resp 21bpm; Pulse Ox 100%; Temp 97.1F Axillary; Pain sv 0/10; sv
--- NOTE | 2017-06-25 15:34 | EDPHYS ---
Physician Documentation [facility] Name: Byron Martin Jr Age: 86 yrs Sex: Male : 1930 Arrival Date: 06/25/2017 Time: 13:20 Bed 8 Private MD: ED Physician Jag Mann HPI: 06/25 15:04 This 86 yrs old Male presents to ER via EMS with complaints of Shortness Of matteo Breath, Lethargic. 15:04 The patient has shortness of breath at rest. Onset: The symptoms/episode began/occurred matteo 1 day(s) ago. The patient's shortness of breath has no apparent modifying factors. Associated signs and symptoms: The patient has no apparent associated signs or symptoms. Severity of symptoms: At their worst the symptoms were mild in the emergency department the symptoms are unchanged. The patient has experienced similar episodes in the past, a few times. Historical: - Allergies: 13:35 Iodine; sv - Home Meds: 13:35 furosemide 20 mg Oral tab once daily [Active]; acetazolamide 125 mg Oral tab once daily sv [Active]; apixaban oral 2.5 mg BID oral [Active]; carvedilol 3.125 mg oral tab daily [Active]; megestrol 20 mg Oral tab 2 tabs 2 times per day [Active]; lactulose 20 gram/30 mL Oral soln 15 mL once daily [Active]; docusate sodium 100 mg Oral cap 1 cap once daily [Active]; duloxetine 20 mg oral cpDR 1 cap daily [Active]; melatonin 3 mg Oral tab nightly [Active]; guaifenesin 100 mg/5 mL Oral liqd 5 mL q4H PRN [Active]; tramadol 50 mg Oral tab [Active]; glycerin (adult) Rectal supp [Active]; Albuterol Nebulizer [Active]; - PMHx: 13:35 Hypertension; cardiac arrhythmia; heart failure; hypocalcemia; Depression; TIA; sv Glaucoma; UTI; BPH; insomnia; malignant malanoma of skin; Tinea cruris; urogenital implants; - Immunization history:: Adult Immunizations up to date. - Social history:: Smoking status: Patient/guardian denies using tobacco. - Code Status:: Full code. ROS: 15:05 Constitutional: Negative for fever, chills, and weight loss, Eyes: Negative for injury, matteo pain, redness, and discharge, ENT: Negative for injury, pain, and discharge, Neck: Negative for injury, pain, and swelling, Cardiovascular: Negative for chest pain, palpitations, and edema, Abdomen/GI: Negative for abdominal pain, nausea, vomiting, diarrhea, and constipation, Back: Negative for injury and pain, : Negative for injury, bleeding, discharge, and swelling, MS/Extremity: Negative for injury and deformity, Skin: Negative for injury, rash, and discoloration, Psych: Negative for depression, anxiety, suicide ideation, homicidal ideation, and hallucinations, Allergy/Immunology: Negative for hives, rash, and allergies, Endocrine: Negative for neck swelling, polydipsia, polyuria, polyphagia, and marked weight changes, Hematologic/Lymphatic: Negative for swollen nodes, abnormal bleeding, and unusual bruising. 15:05 Respiratory: Positive for cough, shortness of breath. 15:05 Neuro: Positive for weakness. Exam: 15:05 Constitutional: This is a well developed, well nourished patient who is awake, alert, matteo and in no acute distress. Head/Face: Normocephalic, atraumatic. Eyes: Pupils equal round and reactive to light, extra-ocular motions intact. Lids and lashes normal. Conjunctiva and sclera are non-icteric and not injected. Cornea within normal limits. Periorbital areas with no swelling, redness, or edema. ENT: Nares patent. No nasal discharge, no septal abnormalities noted. Tympanic membranes are normal and external auditory canals are clear. Oropharynx with no redness, swelling, or masses, exudates, or evidence of obstruction, uvula midline. Mucous membranes moist. Neck: Trachea midline, no thyromegaly or masses palpated, and no cervical lymphadenopathy. Supple, full range of motion without nuchal rigidity, or vertebral point tenderness. No Meningismus. Chest/axilla: Normal chest wall appearance and motion. Nontender with no deformity. No lesions are appreciated. Cardiovascular: Regular rate and rhythm with a normal S1 and S2. No gallops, murmurs, or rubs. Normal PMI, no JVD. No pulse deficits. Abdomen/GI: Soft, non-tender, with normal bowel sounds. No distension or tympany. No guarding or rebound. No evidence of tenderness throughout. Back: No spinal tenderness. No costovertebral tenderness. Full range of motion. Male : Normal genitalia with no discharge or lesions. Skin: Warm, dry with normal turgor. Normal color with no rashes, no lesions, and no evidence of cellulitis. Psych: Awake, alert, with orientation to person, place and time. Behavior, mood, and affect are within normal limits. 15:05 Respiratory: the patient does not display signs of respiratory distress, Respirations: normal, no acute changes, Breath sounds: bronchial sounds, rhonchi, Respiratory rate: 15 Vital Signs: 13:24 BP 138 / 70; Pulse 86 MON; Resp 21; Temp 97.1(A); Pulse Ox 100% ; Pain 0/10; sv 14:53 BP 157 / 72; Pulse 92; Resp 15; Pulse Ox 100% on 3 lpm NC; sv 16:26 Pulse Ox 100% on 25% BiPAP; sv 16:48 BP 154 / 78; Pulse 95; Resp 12; Pulse Ox 100% on BiPAP; mh5 13:24 A fib sv 16:26 12/6, rate-12. sv MDM: 13:28 Patient medically screened. [facility] 15:07 Data reviewed: vital signs, nurses notes, lab test result(s), EKG, radiologic studies, matteo plain films. 06/25 13:32 Order name: Basic Metabolic Panel [facility] 06/25 13:32 Order name: BNP [facility] 06/25 13:32 Order name: CBC with Diff; Complete Time: 15:17 [facility] 06/25 13:32 Order name: Ckmb; Complete Time: 15:17 06/25 13:32 Order name: CPK; Complete Time: 15:17 [facility] 06/25 13:32 Order name: LFT's; Complete Time: 15:17 06/25 13:32 Order name: Magnesium; Complete Time: 15:17 06/25 13:32 Order name: PT-INR; Complete Time: 15:17 [facility] 06/25 13:32 Order name: Ptt, Activated; Complete Time: 15:17 [facility] 06/25 13:32 Order name: Troponin (emerg Dept Use Only); Complete Time: 15:17 [facility] 06/25 13:33 Order name: Lipase; Complete Time: 15:17 06/25 13:33 Order name: Blood Culture Adult (2) 06/25 13:33 Order name: Procalcitonin; Complete Time: 15:17 [facility] 06/25 13:33 Order name: Urine Culture [facility] 06/25 13:32 Order name: XRAY Chest (1 view); Complete Time: 15:17 [facility] 06/25 13:32 Order name: EKG; Complete Time: 13:34 [facility] 06/25 13:33 Order name: Basic Metabolic Panel; Complete Time: 15:17 [facility] 06/25 13:33 Order name: BNP B-Type Natriuretic Peptide; Complete Time: 15:17 [facility] 06/25 14:41 Order name: Urine Dipstick--Ancillary (enter results); Complete Time: 15:17 ag 06/25 15:17 Order name: ABG [facility] 06/25 15:34 Order name: CT Head Brain wo Cont [facility] 06/25 16:18 Order name: BIPAP [facility] 06/25 16:39 Order name: CT [facility] 06/25 13:32 Order name: Cardiac monitoring; Complete Time: 13:54 [facility] 06/25 13:32 Order name: EKG - Nurse/Tech; Complete Time: 15:15 [facility] 06/25 13:32 Order name: IV Saline Lock; Complete Time: 13:54 [facility] 06/25 13:33 Order name: Labs collected and sent; Complete Time: 13:54 [facility] 06/25 13:33 Order name: O2 Per Protocol; Complete Time: 13:54 [facility] 06/25 13:33 Order name: O2 Sat Monitoring; Complete Time: 13:54 [facility] 06/25 13:33 Order name: Urine Dipstick-Ancillary (obtain specimen); Complete Time: 15:15 [facility] 06/25 13:33 Order name: Joya; Complete Time: 15:15 [facility] 06/25 15:41 Order name: CONS Physician Consult [facility] Administered Medications: 15:32 Drug: NS 0.9% 500 ml Route: IV; Rate: bolus; Site: left forearm; sv 16:25 Follow up: Response: No adverse reaction; IV Status: Completed infusion; IV Intake: sv 500ml 15:32 CANCELLED (change order): Rocephin - (cefTRIAXone) 1 grams IVPB once over 30 mins; (mix sv in 50 mL NS) 15:32 Drug: Rocephin 1 grams Route: IV; Rate: calculated rate; Site: left forearm; sv 15:37 Follow up: Response: No adverse reaction; IV Status: Completed infusion; IV Intake: 10mlsv 16:25 Drug: NS 0.9% 500 ml Route: IV; Rate: bolus; Site: right upper arm; sv 17:13 Follow up: Response: No adverse reaction; IV Status: Completed infusion; IV Intake: sv 500ml 16:25 Drug: SOLU-Medrol 125 mg Route: IVP; Site: right upper arm; sv 17:12 Follow up: Response: No adverse reaction sv 16:30 Drug: Albuterol - atroVENT (3:1) (2.5 mg - 0.5 mg) 3 ml Route: Nebulizer; sg 17:12 Follow up: Response: No adverse reaction sv 17:13 Drug: NS 0.9% 1000 ml Route: IV; Rate: 125 ml/hr; Site: right upper arm; sv 17:18 Follow up: Response: No adverse reaction; IV Status: Infusion continued upon admission sv Point of Care Testing: Blood Glucose: 13:24 Blood Glucose: 103 mg/dL; sv Ranges: Critical Glucose Levels:Adult <50 mg/dl or >400 mg/dl <40 mg/dl or >180 mg/dl Disposition: 06/25/17 15:34 Hospitalization ordered by Patricia Keys for Inpatient Admission. Preliminary diagnosis are Weakness, Dehydration, Dyspnea, Altered mental status, unspecified, Respiratory failure, unspecified with hypercapnia, Acidosis - respiratory . - Bed requested for Telemetry/MedSurg (Inpatient). - Status is Inpatient Admission. iw - Condition is Fair. - Problem is new. - Symptoms have improved. UTI on Admission? No Signatures: Dispatcher [employer] Areli Ramirez RN RN sv Gay, Steven, RN RN sg Anderson, Corey, MD MD cha Williams, Irene, RN RN iw Gallardo, Ana ag Corrections: (The following items were deleted from the chart) 15:32 15:20 Rocephin - (cefTRIAXone) 1 grams IVPB once over 30 mins; (mix in 50 mL NS) sv ordered. matteo
[2017-06-25 15:51] LABS: Arterial Blood Carboxyhemoglob 0.8 % (0-1.5); Blood O2 Saturation 98.5 % (92-98.5)
[2017-06-25] MEDS ORDERED: ONDANSETRON 4 MG (ODT) TAB PO PRN (16:37)
[2017-06-25] MEDS ORDERED: ACETAMINOPHEN 500 MG TAB PO PRN (16:37)
--- NOTE | 2017-06-25 16:39 | RAD REPORT ---
EXAM DESCRIPTION: CT - Head Brain Wo Cont - 06/25/2017 4:15 pm CLINICAL HISTORY: Shortness of breath, lethargy, altered mental status COMPARISON: CT head June 17 TECHNIQUE: Axial 5 mm thick images of the head were obtained without IV contrast. All CT scans are performed using dose optimization technique as appropriate and may include automated exposure control or mA/KV adjustment according to patient size. FINDINGS: No intracranial hemorrhage, mass, edema or shift of mid-line structures. No acute cortical based infarction. No cortical edema or sulcal effacement. The mild to moderate atrophy and chronic i schemic pattern has not changed over the short interval. Asymmetry is created by head tilt. Ventricle s are in proportion to any volume loss. 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 No ab normal extra-axial fluid collections. Mastoid air cells and visualized portions of the paranasal sinuses are clear. No acute bony findings. IMPRESSION: No hemorrhage, mass, infarction or other acute intracranial finding. Atrophy, chronic ischemic change and old left basal ganglia CVA changes are stable since June 17. Chronic ischemic changes can mask nonhemorrhagic acute infarction. MR brain followup can be obtained if there is ongoing concern for acute ischemia.
--- NOTE | 2017-06-25 17:52 | P.HP ---
Certification for Inpatient Patient admitted to: Observation With expected LOS: >2 Midnights Patient will require the following post-hospital care: None Practitioner: I am a practitioner with admitting privileges, knowledge of patient current condition, hospital course, and medical plan of care. Services: Services provided to patient in accordance with Admission requirements found in Title 42 Section 412.3 of the Code of Federal Regulations Patient History Date of Service: 06/25/17 Primary Care Provider: None Reason for admission: Dehydration History of Present Illness: This is a 86-year-old male with significant past medical history of advanced dementia, atrial fibrillation, CHF, hypertension, CAD, who [facility] from [facility]. At the [facility] patient became short of breath and was lethargic for over 2 hr and was cyanotic per the staff. Patient was given DuoNeb treatments by the nursing staff that the localization ever had no improvement. 911 was called and EMS arrived at the [facility]. Once EMS arrived at the [facility]. Patient was not found to have any respiratory distress was put on oxygen for L and was saturating and 100% post a patient several recent admissions for urinary tract infection and chronic debilitation here in the hospital. Patient has also had poor intake at the [facility] per the nursing staff for past couple of days. Patient was recently discharged from the rehab here in the hospital to the [facility] as well. Allergies ibuprofen Allergy (Verified 06/08/17 14:00) unknown Iodinated Contrast- Oral and IV Dye [Iodinated Contrast Media - IV Dye] Allergy (Verified 05/18/16 13:02) cardiac arrest iodine Allergy (Verified 05/15/17 12:17) Unknown levothyroxine sodium [From Synthroid] Allergy (Verified 06/08/17 14:00) hallucinations naproxen [From Aleve] Allergy (Verified 06/08/17 14:00) unknown pregabalin [From Lyrica] Allergy (Verified 06/08/17 14:00) dizziness gabapentin Adverse Reaction (Verified 06/08/17 14:00) severe drowsiness Home Medications: Aspirin [Aspirin EC 81 MG] 81 mg PO DAILY #90 tablet. 06/07/17 Acetazolamide [Diamox*] 125 mg PO DAILY tab 06/21/17 Albuterol Neb [Proventil 0.083% Neb Soln] 2.5 mg NEB [id number] PRN amp 06/21/17 Apixaban [Eliquis *] 2.5 mg PO BID tablet 06/21/17 Carvedilol [Coreg*] 3.125 mg PO [id number] tab 06/21/17 Docusate/Senna [Senokot-S*] 2 tab PO BEDTIME PRN tab 06/21/17 Duloxetine [Cymbalta *] 20 mg PO DAILY cap 06/21/17 Ensure Enlive 237 ml PO BID can 06/21/17 Furosemide [Lasix*] 20 mg PO DAILY tab 06/21/17 Glycerin Adult Suppos [Sani-Supp*] 2 supp NH DAILY PRN supp 06/21/17 Guaif/Dm [Robitussin Dm*] 5 ml PO Q6H PRN ucup 06/21/17 Lactulose [Cephulac*] 15 ml PO DAILY ucup 06/21/17 Megestrol [Megace*] 40 mg PO BID tab 06/21/17 Melatonin [Melatonin*] 3 mg PO BEDTIME PRN PRN tablet 06/21/17 traMADol HCL [Ultram*] 50 mg PO Q6H PRN tab 06/21/17 - Past Medical/Surgical History Diabetic: No -: HTN -: Melanoma -: Severe kyphosis -: Neuropathy of the lower extremity -: CHF, diastolic dysfunction -: Edema to the lower extremities -: LA -: Melanoma removed to multiple areas from scalp -: Gastrectomy Psychosocial/ Personal History: Patient is a . He currently lives by himself. He gets home health - Family History Mother -: Diabetes Father -: Diabetes Brother -: Diabetes - Social History Alcohol use: No CD- Drugs: No Caffeine use: Yes Review of Systems 10-point ROS is otherwise unremarkable Physical Examination - Physical Exam General: Alert, In no apparent distress, Oriented x1, Demented HEENT: Atraumatic Neck: Supple Respiratory: Normal air movement, Crackles/rales, Rhonchi/gurgles Cardiovascular: Regular rate/rhythm, Normal S1 S2 Gastrointestinal: Normal bowel sounds, Soft and benign, Non-distended Musculoskeletal: Swelling Integumentary: No rashes Neurological: Normal tone, Abnormal speech, Abnormal strength - Studies Laboratory Data (last 24 hrs) 06/25/17 13:30: PT 14.3 H, INR 1.21, APTT 29.3 04/10/18 13:30: WBC 9.0 D, Hgb 14.0 D, Hct 44.8 D, Plt Count 216 D 06/25/17 13:30: B-Natriuretic Peptide 617 H 06/25/17 13:30: Sodium 152 H, Potassium 4.3, BUN 32 H, Creatinine 1.08, Glucose 170 H, Magnesium 2.0, Total Bilirubin 0.8, AST 22, ALT 16, Alkaline Phosphatase 50, Lipase 31 Assessment and Plan - Problems (Diagnosis) (1) Respiratory failure Current Visit: Yes Status: Acute Plan: acute on Chronic Respiratory Failure. Hypercapanic failure -BIPAP for now -Duonebs and fluids restriction Qualifiers: Chronicity: acute on chronic Respiratory failure complication: hypercapnia Qualified Code(s): J96.22 - Acute and chronic respiratory failure with hypercapnia (2) Failure to thrive Current Visit: Yes Status: Acute Plan: Difficulty swallowing and Poor intake due to Advanced dementia -Speech and Physical Therapy evaluation -Pt may benefit from hospice evaluation -Boost with meal TID Qualifiers: Failure to thrive age range: in adult Qualified Code(s): R62.7 - Adult failure to thrive (3) Advanced dementia Current Visit: Yes Status: Chronic Plan: Chronic Advanced Dementia -Hospice Consult. -Will talk to son who is POA (4) Atrial fibrillation Onset Date: 06/05/17 Current Visit: No Status: Chronic Qualifiers: Atrial fibrillation type: chronic Qualified Code(s): I48.2 - Chronic atrial fibrillation (5) Congestive heart failure (CHF) Onset Date: 06/05/17 Current Visit: No Status: Chronic Qualifiers: Heart failure type: unspecified Heart failure chronicity: chronic Qualified Code(s): I50.9 - Heart failure, unspecified (6) HTN (hypertension) Onset Date: 05/16/17 Current Visit: No Status: Chronic Qualifiers: Hypertension type: essential hypertension Discharge Plan: [facility] Plan to discharge in: 48 Hours - Advance Directives Does patient have a Living Will: No Does patient have a Durable POA for Healthcare: Yes - Code Status/Comfort Care Code Status Assessed: Yes Critical Care: No
[2017-06-25] MEDS: IPRATROPIUM BROM 0.5MG/2.5ML NEB SCH (19:35)
[2017-06-25] MEDS: ALBUTEROL 2.5 MG/3 ML NEB SOL NEB SCH (19:35)
[2017-06-25] MEDS ORDERED: LORazepam 2 MG/ML VIAL IV ONE (21:51)
[2017-06-26] MEDS: IPRATROPIUM BROM 0.5MG/2.5ML NEB SCH ×4 (01:33→19:39)
[2017-06-26] MEDS: ALBUTEROL 2.5 MG/3 ML NEB SOL NEB SCH ×4 (01:33→19:39)
[2017-06-26] MEDS ORDERED: ZIPRASIDONE MESYLA 20 MG/VIAL IM ONE (02:37)
[2017-06-26] MEDS ORDERED: WATER FOR INJ,STERILE 10 ML IM PRN (02:37)
[2017-06-26 04:39] LABS: Absolute Lymphocytes (CBC) 0.2 K/uL (0.7-4.9); Absolute Monocytes 0.2 K/uL (0.1-1.3); Absolute Neutrophil 6.2 K/uL (1.8-8.0); Basophils % 0.1 % (0-1.3); Hematocrit 39.2 % (39.6-49.0); Lymphocytes % 2.6 % (15.3-44.8); MCH 30.4 pg (27.0-35.0); MCV 96.1 fL (80-100); MPV 9.8 fL (7.6-11.3); Monocytes % 2.5 % (3.3-12.3); RBC Red Blood Cell Count 4.09 M/uL (4.33-5.43)
[2017-06-26 05:02] LABS: Albumin 3.2 g/dL (3.2-5.5); Magnesium 1.9 mg/dL (1.8-2.5); Phosphorus 2.4 mg/dL (2.5-4.3); Potassium 3.6 mEq/L (3.6-5.0); Protein, Total 5.8 g/dL (6.0-8.3)
[2017-06-26 05:58] LABS: Blood Morphology Comment NOT SEEN (NOT SEEN); Platelet Estimate ADEQ
--- NOTE | 2017-06-26 08:02 | EKG ---
Test Date: 2017-06-25 Test Time: 14:09:11 Bicycle Courier: MORRO MEASUREMENT RESULTS: Intervals: Rate: 93 VT: QRSD: 138 QT: 398 QTc: 494 Willet: P: VT: QRS: 48 T: -1 INTERPRETIVE STATEMENTS: Atrial fibrillation Right bundle branch block Abnormal ECG Compared to ECG 06/04/2017 12:53:39 No significant changes Electronically Signed On 06-26-17 07:59:44 CDT by Jacinto Reynolds
[2017-06-26] MEDS ORDERED: KCL 20 MEQ/100 mL IVPB 20 MEQ/100 ML BAG IV SCH (09:00)
[2017-06-26] MEDS ORDERED: NA CHLORIDE 0.9% 250 ML ONE (09:16)
[2017-06-26] MEDS ORDERED: MELATONIN 3 MG TABLET PO PRN (10:39)
[2017-06-26] MEDS ORDERED: TRAMADOL HCL 50 MG TAB PO PRN (10:39)
[2017-06-26] MEDS ORDERED: SODIUM CHLORIDE 0.9% 10ML INJ IV PRN (10:40)
[2017-06-26] MEDS: Ringers Lactate 1,000 ML IV SCH (11:28)
[2017-06-26] MEDS ORDERED: POTASSIUM PHOS IN 0.9 % NACL 15 MMOL/250 ML BAG IV ONE (11:30)
--- NOTE | 2017-06-26 11:54 | P.PN ---
Subjective Date of Service: 06/26/17 Primary Care Provider: None Chief Complaint: Dehydration Patient seen and evaluated at bedside with RN. Case discussed with family son ave on the phone. Patient overnight became agitated and more altered and required Geodon. Currently patient is NPO and not able to swallow anything. The detailed conversation was done with the family and the POA. Disease process was explained prognosis in outcome was also explained. Family at this time has chosen to do DNR DNI. Patient's family has choose Home hospice to evaluate the patient for hospice at the [facility]. Charge nurse was notified in case workers were also notified. Review of Systems 10-point ROS is otherwise unremarkable Physical Examination - Vital Signs Temperature: 97.6 F Blood Pressure: 163/91 Pulse: 100 Respirations: 20 Pulse Ox (%): 98 - Physical Exam General: In no apparent distress, Demented HEENT: Atraumatic Neck: Supple Respiratory: Normal air movement, Rhonchi/gurgles Cardiovascular: No edema, Regular rate/rhythm, Normal S1 S2 Gastrointestinal: Normal bowel sounds, Non-distended Musculoskeletal: No clubbing Integumentary: No rashes Neurological: Abnormal speech, Abnormal strength - Studies Laboratory Data (last 24 hrs) 06/25/17 13:30: PT 14.3 H, INR 1.21, APTT 29.3 06/25/17 13:30: WBC 9.0 D, Hgb 14.0 D, Hct 44.8 D, Plt Count 216 D 06/25/17 13:30: B-Natriuretic Peptide 617 H 06/25/17 13:30: Sodium 152 H, Potassium 4.3, BUN 32 H, Creatinine 1.08, Glucose 170 H, Magnesium 2.0, Total Bilirubin 0.8, AST 22, ALT 16, Alkaline Phosphatase 50, Lipase 31 Microbiology Data (last 24 hrs): 06/25/17 13:30 Blood - Blood Anaerobic Blood Culture - Final 06/25/17 13:30 Blood - Blood Anaerobic Blood Culture - Final Assessment & Plan - Problems (Diagnosis) (1) Respiratory failure Onset Date: 06/26/17 Current Visit: Yes Status: Acute Plan: acute on Chronic Respiratory Failure. Hypercapanic failure -BIPAP for now -Duonebs and fluids restriction Qualifiers: Chronicity: acute on chronic Respiratory failure complication: hypercapnia Qualified Code(s): J96.22 - Acute and chronic respiratory failure with hypercapnia (2) Failure to thrive Onset Date: 06/26/17 Current Visit: Yes Status: Acute Plan: Difficulty swallowing and Poor intake due to Advanced dementia -Speech and Physical Therapy evaluation -Boost with meal TID after speech evaluation Qualifiers: Failure to thrive age range: in adult Qualified Code(s): R62.7 - Adult failure to thrive (3) Advanced dementia Onset Date: 06/26/17 Current Visit: Yes Status: Chronic Plan: Chronic Advanced Dementia rapidly declining. -Hospice Consulted now. Pt is DNR and DNI -[facility] hosp[facility] (4) Atrial fibrillation Onset Date: 06/26/17 Current Visit: No Status: Chronic Qualifiers: Atrial fibrillation type: chronic Qualified Code(s): I48.2 - Chronic atrial fibrillation (5) Congestive heart failure (CHF) Onset Date: 06/26/17 Current Visit: No Status: Chronic Qualifiers: Heart failure type: unspecified Heart failure chronicity: chronic Qualified Code(s): I50.9 - Heart failure, unspecified (6) HTN (hypertension) Onset Date: 06/26/17 Current Visit: No Status: Chronic Qualifiers: Hypertension type: essential hypertension Discharge Plan: Custodial Plan to discharge in: 24 Hours - Code Status/Comfort Care Code Status Assessed: Yes Code Status: Do Not Resuscitate Comfort Measures: Hospice Care Critical Care: No
--- NOTE | 2017-06-26 15:43 | RAD REPORT ---
EXAM DESCRIPTION: RAD - Barium Swallow Modified - 06/26/2017 3:37 pm CLINICAL HISTORY: Cough FINDINGS: Aspiration: delayed cough with thin mod to severe pharyngeal residue : base of tongue , vallecular, pyriform with all consistencies other: delayed swallow reflex, reduced hyolaryngeal excursion
[2017-06-26] MEDS ORDERED: CARVEDILOL 3.125 MG TAB PO ONE (17:00)
[2017-06-26] MEDS: APIXABAN 2.5 MG TABLET PO SCH (21:08)
[2017-06-26] MEDS: MEGESTROL 40 MG TAB PO SCH (21:08)
[2017-06-26] MEDS: PANTOPRAZOLE 40 MG INJ IVP SCH (21:09)
[2017-06-27] MEDS: IPRATROPIUM BROM 0.5MG/2.5ML NEB SCH ×3 (01:05→14:16)
[2017-06-27] MEDS: ALBUTEROL 2.5 MG/3 ML NEB SOL NEB SCH ×3 (01:06→14:16)
[2017-06-27 04:24] LABS: Absolute Lymphocytes (CBC) 0.6 K/uL (0.7-4.9); Absolute Monocytes 1.1 K/uL (0.1-1.3); Absolute Neutrophil 11.1 K/uL (1.8-8.0); Basophils % 0.4 % (0-1.3); Eosinophils % 0.7 % (0-4.4); Hematocrit 40.3 % (39.6-49.0); Lymphocytes % 4.5 % (15.3-44.8); MCH 30.5 pg (27.0-35.0); MCV 97.1 fL (80-100); MPV 10.3 fL (7.6-11.3); Monocytes % 8.3 % (3.3-12.3); RBC Red Blood Cell Count 4.15 M/uL (4.33-5.43)
[2017-06-27 04:46] LABS: Albumin 3.3 g/dL (3.2-5.5); Bilirubin Total 0.8 mg/dL (0.3-1.2); Magnesium 2.1 mg/dL (1.8-2.5); Phosphorus 3.4 mg/dL (2.5-4.3); Potassium 4.1 mEq/L (3.6-5.0); Protein, Total 6.1 g/dL (6.0-8.3)
[2017-06-27 05:04] LABS: Blood Morphology Comment NOTED (NOT SEEN); Platelet Estimate ADEQ
[2017-06-27 05:05] LABS: Ovalocytes 3+
[2017-06-27] MEDS ORDERED: CARVEDILOL 3.125 MG TAB PO SCH (06:00)
[2017-06-27] MEDS: Ringers Lactate 1,000 ML IV SCH (07:00)
[2017-06-27] MEDS ORDERED: DULOXETINE 20 MG CAP PO SCH (09:00)
[2017-06-27] MEDS ORDERED: LACTULOSE 20 GM/30 ML UCUP PO SCH (09:00)
[2017-06-27] MEDS ORDERED: DOCUSATE NA/SENNA CONC 1 TAB PO SCH (09:00)
[2017-06-27] MEDS: APIXABAN 2.5 MG TABLET PO SCH (09:16)
[2017-06-27] MEDS: MEGESTROL 40 MG TAB PO SCH (09:16)
[2017-06-27] MEDS: PANTOPRAZOLE 40 MG INJ IVP SCH (09:16)
--- NOTE | 2017-06-27 16:57 | P.DS ---
Admission Date: 06/25/17 Discharge Date: 06/27/17 Primary Care Provider: None Disposition: TRANSFER TO ALF Discharge Condition: GOOD Reason for Admission: Dehydration - Problems (1) Respiratory failure Onset Date: 06/26/17 Status: Acute Qualifiers: Chronicity: acute on chronic Respiratory failure complication: hypercapnia Qualified Code(s): J96.22 - Acute and chronic respiratory failure with hypercapnia (2) Failure to thrive Onset Date: 06/26/17 Status: Acute Qualifiers: Failure to thrive age range: in adult Qualified Code(s): R62.7 - Adult failure to thrive (3) Advanced dementia Onset Date: 06/26/17 Status: Chronic (4) Atrial fibrillation Onset Date: 06/26/17 Status: Chronic Qualifiers: Atrial fibrillation type: chronic Qualified Code(s): I48.2 - Chronic atrial fibrillation (5) Congestive heart failure (CHF) Onset Date: 06/26/17 Status: Chronic Qualifiers: Heart failure type: unspecified Heart failure chronicity: chronic Qualified Code(s): I50.9 - Heart failure, unspecified (6) HTN (hypertension) Onset Date: 06/26/17 Status: Chronic Qualifiers: Hypertension type: essential hypertension Qualified Code(s): I10 - Essential (primary) hypertension Brief History of Present Illness: This is a 86-year-old male with significant past medical history of advanced dementia, atrial fibrillation, CHF, hypertension, CAD, who presented to the ED from the shelter. At the shelter patient became short of breath and was lethargic for over 2 hr and was cyanotic per the staff. Patient was given DuoNeb treatments by the nursing staff that the localization ever had no improvement. 911 was called and EMS arrived at the shelter. Once EMS arrived at the shelter. Patient was not found to have any respiratory distress was put on oxygen for L and was saturating and 100% post a patient several recent admissions for urinary tract infection and chronic debilitation here in the hospital. Patient has also had poor intake at the shelter per the nursing staff for past couple of days. Patient was recently discharged from the rehab here in the hospital to the shelter as well. Hospital Course: Overall during the hospital stay patient remained stable The patient was initially admitted to the hospital for respiratory failure and failure to thrive. Patient initially in the ER was placed on BiPAP and remained on BiPAP while here in the hospital. Patient was successfully be able to weaned off to nasal cannula today. Patient was also kept on duo nebs and had a chest x-ray done here in the hospital. Patient's respiratory failure was most likely secondary to severe dehydration and failure to thrive. 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 Patient had inpatient rehab and then was transferred over to the shelter. However in the shelter patient had struck taking poor oral intake and had the been getting dehydrated and that is why he was transferred here to the hospital for further care. Patient does have an advanced dementia and had baseline is alert and oriented x1. At that time and discussion was done with the family regarding hospice. Disease process was explained prognosis in outcome was also explained. Family at this time has chosen to do DNR DNI. Patient's family has choose Home hospice at the shelter. Charge nurse was notified and case workers were also notified. Patient was then transferred to [facility] with hospice care. Vital Signs/Physical Exam: Temp Pulse Resp BP Pulse Ox 98.1 F 93 H 20 149/70 H 100 06/27/17 12:00 06/27/17 12:00 06/27/17 12:00 06/27/17 12:00 06/27/17 12:00 General: In no apparent distress, Oriented x1, Demented HEENT: Atraumatic Neck: Supple Respiratory: Clear to auscultation bilaterally, Normal air movement Cardiovascular: Regular rate/rhythm, Normal S1 S2 Gastrointestinal: Normal bowel sounds, No tenderness Musculoskeletal: No tenderness Integumentary: No rashes Neurological: Normal speech, Normal tone, Normal affect Lymphatics: No axilla or inguinal lymphadenopathy Laboratory Data at Discharge: WBC 12.8 K/uL (4.3-10.9) H D 06/27/17 03:45 Hgb 12.6 g/dL (13.6-17.9) L 06/27/17 03:45 Hct 40.3 % (39.6-49.0) 06/27/17 03:45 Plt Count 230 K/uL (152-406) D 06/27/17 03:45 PT 14.3 SECONDS (9.5-12.5) H 06/25/17 13:30 INR 1.21 06/25/17 13:30 APTT 29.3 SECONDS (24.3-36.9) 06/25/17 13:30 Sodium 150 mEq/L (135-145) H 06/27/17 03:45 Potassium 4.1 mEq/L (3.6-5.0) 06/27/17 03:45 BUN 39 mg/dL (6-20) H 06/27/17 03:45 Creatinine 1.00 mg/dL (0.61-1.24) 06/27/17 03:45 Glucose 114 mg/dL (65-120) 06/27/17 03:45 Phosphorus 3.4 mg/dL (2.5-4.3) 06/27/17 03:45 Magnesium 2.1 mg/dL (1.8-2.5) 06/27/17 03:45 Total Bilirubin 0.8 mg/dL (0.3-1.2) 06/27/17 03:45 AST 25 IU/L (10-42) 06/27/17 03:45 ALT 17 IU/L (10-60) 06/27/17 03:45 Alkaline Phosphatase 46 IU/L (42-121) 06/27/17 03:45 Troponin I 0.06 ng/mL (<0.03) H 06/26/17 08:48 B-Natriuretic Peptide 661 pg/ml (<=100) H 06/27/17 03:45 Lipase 31 U/L (22-51) 06/25/17 13:30 Home Medications: Acetazolamide [Diamox*] 125 mg PO DAILY tab 06/21/17 Albuterol Neb [Proventil 0.083% Neb Soln] 2.5 mg NEB [id number] PRN amp 06/21/17 Apixaban [Eliquis *] 2.5 mg PO BID tablet 06/21/17 Carvedilol [Coreg*] 3.125 mg PO [id number] tab 06/21/17 Duloxetine [Cymbalta *] 20 mg PO DAILY cap 06/21/17 Furosemide [Lasix*] 20 mg PO DAILY tab 06/21/17 Lactulose [Cephulac*] 15 ml PO DAILY ucup 06/21/17 Megestrol [Megace*] 40 mg PO BID tab 06/21/17 Melatonin [Melatonin*] 3 mg PO BEDTIME PRN PRN tablet 06/21/17 traMADol HCL [Ultram*] 50 mg PO Q6H PRN tab 06/21/17 Docusate/Senna [Senokot-S*] 100 mg PO DAILY 06/25/17 Glycerin Adult Suppos [Sani-Supp*] 2 supp TN Q12H PRN 06/25/17 Guaif/Dm [Robitussin Dm*] 5 ml PO Q4H PRN 06/25/17 Patient Discharge Instructions: You are enrolled in Hospice care with [facility] hospice at the assisted now. No new medication Diet: Regular Activity: Ad nile
== END 2017-06-27 16:26 | disposition hospice, inpatient (51) | DRG 189 ==
LOC: ER 13:11 → ERHOLD 15:38 → 4TH 17:10
PROVIDERS: ADMIT Family Medicine; ATTEND Family Medicine
PROC: 5A09357 Assistance with Respiratory Ventilation, Less than 24 Consecutive Hours, Continuous Positive Airway Pressure (ICD-10-PCS; principal; 2017-06-25)
DX: J96.22 Acute and chronic respiratory failure with hypercapnia (principal); I50.32 Chronic diastolic (congestive) heart failure; R62.7 Adult failure to thrive; F03.90 Unspecified dementia, unspecified severity, without behavioral disturbance, psychotic disturbance, mood disturbance, and anxiety; I48.2 Chronic atrial fibrillation; I11.0 Hypertensive heart disease with heart failure; I25.10 Atherosclerotic heart disease of native coronary artery without angina pectoris
CPT/HCPCS: 36415; 51702; 70450; 71045; 74230; 80048; 80053; 80076; 81003; 82550; 82553; 82805; 82962; 83690; 83735; 83880; 84100; 84145; 84484; 85025; 85610; 85730; 87040; 87086; 87088; 93005; 94640; 94660; 94760; 99285; C9113; J0696; J3486; J7030

== ENCOUNTER 2017-07-01 09:53 | Emergency (ER) | payer OTHER, MEDICARE ==
--- OUTSIDE RECORDS SUMMARY | 2017-07-01 09:55 | XMS REPORT ---
:1930 [facility] Address [address] [place] [address] Dr. Chun [address] [place] [id number] Care Team Providers Name Role Phone CHRISTEN [...] Item Value Reference Range Comments HLA-B27 (test [id number]) Positive HLA-B*27 PositiveThis patient is positive for HLA-B*27. This procedure rulesout the B*27:06 and 27:09 alleles, which the literaturesuggests are not associated with spondyloarthropathies.B27 allele interpretation for all loci based on IMGT/HLAdatabase version 3.27This test was developed and its performance characteristicsdetermined by [facility]. It has not been cleared or approvedby the Food and Drug Administration.[facility] CLIA ID Number [id number] test was performed using PCR (Polymerase Chain [...] ESR (test code=HESR) 6 mm/Hr 0-9 Lipid [id number] 23:47:00 Test Item Value Reference Range Comments Cholesterol (test 167 mg/dL 0-200 code=CHOL) Triglycerides (test 44 mg/dL 9-200 code=TRIG) HDL (test code=HDL) 75 mg/dL 40-60 Chol/HDL (test 2.2 Ratio 0.0-5.0 code=CHOLPHDL) LDL, Calculated (test 83 mg/dL 0-130 (NOTE)RISK OF HEART code=LDLC) DISEASEPublished by Hong Kong[place] Heart AssociationAnalyte Optimal Boderline Increased RiskCHOL <200 200-239 >240TRIG <150 150-199 >200HDL Male: >60 <40HDL Female: >60 <50LDL <100 130-159 >160LDL NEAR OPTIMAL IS 100-129 VLDL (test code=VLDL) 9 mg/dL 5-40 LDL/HDL (test code=LDLPHDL) 1 Comprehensive Metabolic [id number] 23:47:00 Test Item Value Reference Range Comments [...] race is not provided, and the patient isAfrican-H[place] Konger, multiply by 1.212. If sex is not [...] the National Kidney Foundation,http://nkdep.ni h.gov CBC with [id number] 23:41:00 Test Item Value Reference Range Comments [...] Lymph Abs (test code=ALYMPH) 1.0 K/cumm 0.5-4.6 [place] Abs (test code=AMONO) 0.5 K/cumm 0.0-1.2 Eos Abs (test code=AEOS) 0.17 K/cumm 0.00-0.74 Baso Abs (test code=ABASO) 0.1 K/cumm 0.00-0.21
[2017-07-01] MEDS ORDERED: FENTANYL CITR 100 MCG/2 ML ONE (10:24)
--- NOTE | 2017-07-01 11:00 | RAD REPORT ---
EXAM DESCRIPTION: CT - Head C Spine Cap Wo Con - 07/01/2017 10:31 am CLINICAL HISTORY: Fall, head, neck, chest and abdomen pain COMPARISON: CT head June 25 2017, CT abdomen and pelvis May 2017, multiple chest [facility] to October 2014 TECHNIQUE: Axial [address] head images were obtained. Axial [address] cervical spine images were obtain ed with sagittal and coronal reconstruction images reviewed. Axial 5 mm images of the chest, abdomen and pelvis were obtained. All CT scans are performed using dose optimization technique as appropriate and may include automated exposure control or mA/KV adjustment according to patient size. FINDINGS: No intracranial hemorrhage, mass or edema. No midline shift or abnormal fluid collection. No acute cortical based infarction. Moderate atrophy and mild to moderate chronic ischemic changes ar e present. Ventricular size is in proportion. Small layering fluid collection in the superior posteri or margin of the left side mastoid air cells unchanged from the comparison. Acute significance is lissett btful. Bilateral mastoid air cells and middle ear regions are otherwise normally aerated. Paranasal s inuses are clear. There is pronounced asymmetry due to significant head tilt within the gantry. No sk ull fracture. Cervical bodies are normal in height. There is significant asymmetry as well due to left convex curva ture and right lateral tilt. AP alignment is normal. Fracture of vertebrae is not suspected. Patient has prominent predominately right-sided facet joint degenerative change. No pathologic bone process.M ultilevel disc space narrowing present mid and lower cervical spine.No prevertebral soft tissue thick ening or paraspinal mass.Central canal detail is inherently limited on CT imaging. No pneumothorax or pulmonary contusion. Lung base atelectasis is present. Trace amount of bilateral p leural fluid noted. Patient has baseline fibrotic lung disease. In the posterior aspect of the right upper lobe near the major fissure there is a cluster of small round low-density masses. These range f rom 5-16 mm in size. No associated calcification. Attenuation value is 5 Hounsfield units or less. Th is nodularity was seen on chest imaging. When reviewing all prior chest films, these were probably ai r-filled cystic cavities that have filled with fluid. No stranding in the adjacent fat. No other lung parenchymal mass lesion. No mediastinal hematoma. Heart size is prominent without pericardial thickening or effusion. Aortic, aortic valve and Coronary artery calcifications are present. No mediastinal mass or hematoma. No manuel r abnormality. No chest will mass or abnormal axillary finding. No displaced rib fracture. Thoracic s pine degenerative changes are present. Comminuted proximal right humerus fracture is present. There is no dislocation of the humeral head. Scapula and clavicle are intact. Bilateral hemidiaphragm elevation is present. No acute injury to the liver or spleen suspected. Pancr eas is unremarkable on limited assessment. No gallbladder or biliary tree abnormality. No hydronephro sis or acute renal parenchymal process seen. Large right renal cyst is present 9.6 cm in diameter. Mu ltiple parapelvic cysts are present as well. Gallbladder and biliary tree are unremarkable. No acute bowel injury suspected. There is a large amount of stool and contrast distending the rectum and dista l sigmoid colon. Bowel is quite tortuous. Contrast in the bowel is potentially remnant from a CT stud y June 14. No bowel wall thickening. No free air, free fluid or abnormal stranding. No hernia, mas s or bulky lymphadenopathy. No urinary bladder abnormality. Prominent degenerative changes are present in the thoracic and lumbar spine. No fracture or acute com ponent seen. No pelvic fractures seen. IMPRESSION: Atrophy and chronic ischemic changes are present with no hemorrhage, edema or acute intr acranial finding. Right humerus fracture is present at the diaphyseal metaphyseal junction. There are several fracture fragments present but no distraction or angulation deformity. Prominent cervical spine degenerative change with no acute finding suspected. No pneumothorax, pulmonary contusion or acute CT chest finding. A cluster of cystic masses present in the right upper lobe. This is believed to be the sequela of an old infectious/ inflammatory process. Neoplastic etiology is not suspected. No acute traumatic injury to the abdomen or pelvis. No free air or other emergent finding. Patient has a large amount of stool and contrast distending the rectum and sigmoid colon. Contrast ma y be remnant from a June 14 study. This constipation pattern does not result in small bowel obstruct ion at this time.
--- NOTE | 2017-07-01 11:15 | RAD REPORT ---
EXAM DESCRIPTION: RAD - Humerus Right - 07/01/2017 10:50 am CLINICAL HISTORY: Fall, right arm pain COMPARISON: None. FINDINGS: Fracture of the proximal right humeral shaft is noted with mild comminution. No dislocatio n is seen. Vague area of nodularity is incidentally noted in the right upper lobe.
[2017-07-01 11:39] LABS: Absolute Lymphocytes (CBC) 0.6 K/uL (0.7-4.9); Absolute Neutrophil 6.8 K/uL (1.8-8.0); Basophils % 0.4 % (0-1.3); Eosinophils % 2.7 % (0-4.4); Hematocrit 40.7 % (39.6-49.0); MCH 31.1 pg (27.0-35.0); MCV 97.2 fL (80-100); MPV 10.3 fL (7.6-11.3); Monocytes % 11.8 % (3.3-12.3); RBC Red Blood Cell Count 4.19 M/uL (4.33-5.43)
--- NOTE | 2017-07-01 11:39 | ER ---
Nurse's Notes [facility] Name: Byron Martin Jr Age: 86 yrs Sex: Male : 1930 Arrival Date: 07/01/2017 Time: 09:54 Bed 18 Private MD: Diagnosis: Displaced comminuted fracture of shaft of humerus, right arm Presentation: 07/01 09:54 Presenting complaint: EMS states: pt fell while trying to get out of bed, was on ground iw for a couple of minutes, did not hit head, no LOC, has deformity to right shoulder, possible dislocation. Care prior to arrival: None. Mechanism of Injury: Fall from standing position. Trauma event details: Injury occurred in the [facility], Injury occurred: at home. Injury occurred: July 01, 2017. 09:54 Acuity: GAVINO 3 iw 09:54 Method Of Arrival: EMS: [facility] iw 09:58 Transition of care: patient was received from another setting of care (long-term care facility), [facility]. Onset of symptoms was July 01, 2017. Trauma Activation: Alert Physician: ED Physician; Name: ; Notified At: ; Arrived At: Physician: General Surgeon; Name: ; Notified At: ; Arrived At: Physician: Radiology; Name: ; Notified At: ; Arrived At: Physician: Respiratory; Name: ; Notified At: ; Arrived At: Physician: Lab; Name: ; Notified At: ; Arrived At: Historical: - Allergies: 10:00 Iodine; iw 10:09 Iodinated Contrast- Oral and IV Dye; iw - Home Meds: 10:09 melatonin 3 mg Oral tab nightly [Active]; Enulose 10 gram/15 mL oral soln [Active]; iw Coreg 3.125 mg Oral tab daily [Active]; Lasix 20 mg Oral tab 1 tab once daily [Active]; acetazolamide 125 mg Oral tab once daily [Active]; lorazepam 0.5 mg Oral tab 1 tab 2 times per day [Active]; Levsinex Oral [Active]; promethazine 25 mg Oral tab 1 tab every 4 hours [Active]; Morphine Oral [Active]; - PMHx: 10:00 BPH; Cardiac Arrhythmia; Depression; Glaucoma; HEART FAILURE; Hypertension; iw hypocalcemia; insomnia; malignant melanoma of skin; TIA; Tinea cruris; urogenital implants; UTI; - Immunization history:: Adult Immunizations up to date. - Social history:: Smoking status: Patient/guardian denies using tobacco. - Immunization history: Last tetanus immunization: unknown. Screenin:00 Abuse screen: Denies threats or abuse. Denies injuries from another. Tuberculosis iw screening: No symptoms or risk factors identified. 11:57 Nutritional screening: No deficits noted. Fall Risk Fall in past 12 months (25 points). ph No secondary diagnosis (0 pts). IV access (20 points). Ambulatory Aid- Crutches/Cane/Walker (15 pts). Gait- Weak (10 pts.). Mental Status- Overestimates/Forgets Limitations (15 pts.). Total Landa Fall Scale indicates High Risk Score (45 or more points). Fall prevention measures have been instituted. Side Rails Up X 2 Placed Close to Nursing Station Frequent Obs/Assessments Occuring As available patient and family educated on Fall Prevention Program and Strategies. Primary Survey: 09:54 A: Airway:. Breathing/Chest: Respiratory pattern: regular, Respiratory effort: iw spontaneous, Breath sounds: clear, Chest inspection: symmetrical rise and fall of the chest. Circulation: Heart tones present. Pulses: palpable right radial artery, right posterior tibial artery, left radial artery and left posterior tibial artery. Skin color: pink, Skin temperature: warm, dry. Disability Alert. 11:59 Reassessment Breathing/Chest Respiratory pattern Regular Breath sounds Clear Chest ph inspection Symmetrical. Secondary Survey: 10:00 HEENT: Head No injury/deformity Face No injury/deformity Eyes: No injury or deformity iw noted. to bilateral eyes. Ears: clear bilaterally. Gastrointestinal: Abdomen is soft, flat. Musculoskeletal: Range of motion: limited in right shoulder. Assessment: 10:01 General: Appears in no apparent distress. Behavior is calm, cooperative. Pain: iw Complains of pain in right shoulder. Neuro: Level of Consciousness is awake, alert, obeys commands, Oriented to person, place, time, Moves all extremities. Cardiovascular: Patient's skin is warm and dry. Respiratory: Airway is patent Respiratory effort is even, unlabored, Respiratory pattern is regular. Derm: large lesion noted to back of head, pt has hx of melanoma. Musculoskeletal: Range of motion: limited in right shoulder. 11:00 Reassessment: Patient appears in no apparent distress at this time. Patient and/or ph family updated on plan of care and expected duration. Pain level reassessed. Patient is alert, oriented x 3, equal unlabored respirations, skin warm/dry/pink. 11:56 Reassessment: Patient appears in no apparent distress at this time. Patient and/or ph family updated on plan of care and expected duration. Pain level reassessed. Patient is alert, oriented x 3, equal unlabored respirations, skin warm/dry/pink. Report given to GILDARDO Govea at [facility], awaiting transport back to facility. Vital Signs: 09:58 BP 102 / 61; Pulse 81; Resp 18 S; Temp 97.5(TE); Pulse Ox 98% on 4 lpm NC; Pain 7/10; ph 11:21 BP 132 / 74; Pulse 94; Resp 16; Pulse Ox 97% on 4 lpm NC; ph 12:30 BP 124 / 74; Pulse 91; Resp 18; Temp 98.2; Pulse Ox 99% on 4 lpm NC; ph 09:58 pt on 4L NC continuous ph Carlos Coma Score: 09:58 Eye Response: spontaneous(4). Verbal Response: oriented(5). Motor Response: obeys iw commands(6). Total: 15. 11:23 Eye Response: spontaneous(4). Verbal Response: oriented(5). Motor Response: obeys ph commands(6). Total: 15. Trauma Score (Adult): 09:58 Eye Response: spontaneous(1); Verbal Response: oriented(1); Motor Response: obeys iw commands(2); Systolic BP: > 89 mm Hg(4); Respiratory Rate: 10 to 29 per min(4); Carlos Score: 15; Trauma Score: 12 11:23 Eye Response: spontaneous(1); Verbal Response: oriented(1); Motor Response: obeys ph commands(2); Systolic BP: > 89 mm Hg(4); Respiratory Rate: 10 to 29 per min(4); Carlos Score: 15; Trauma Score: 12 ED Course: 09:54 Patient arrived in ED. iw 09:55 Krishna Mccollum MD is Attending Physician. ps1 09:57 Triage completed. iw 10:00 Arm band placed on. iw 10:00 Patient has correct armband on for positive identification. Bed in low position. Side iw rails up X2. 10:21 Cornejo, Gaviota, RN is Primary Nurse. ph 10:[address] via stretcher. sj 10:31 CT Traumagram (Head C Spine CAP wo con) In Process Unspecified. EDMS 10:31 CT completed. Patient tolerated procedure well. Patient moved back from CT. sj 10:49 Humerus Right XRAY In Process Unspecified. EDMS 10:51 X-ray completed. Portable x-ray completed in exam room. Patient tolerated procedure ag1 well. 11:16 Initial lab(s) drawn, by ma, sent to lab. T\T\S collected, blood band applied to patient. 3 Inserted saline lock: 22 gauge in left antecubital area, using aseptic technique. Blood collected. 11:57 No provider procedures requiring assistance completed. IV discontinued, intact, ph bleeding controlled, No redness/swelling at site. Pressure dressing applied. 11:58 Oxygen administration via nasal cannula \T\ 4L/min. Thermoregulation: warm blanket given ph to patient. Administered Medications: 11:20 Drug: fentaNYL (PF) 25 mcg Route: IVP; Site: left antecubital; ph 12:00 Follow up: Response: No adverse reaction; Pain is decreased ph Intake: 09:58 PO: 0ml; Total: 0ml. ph Output: 09:58 Urine: 0ml; Total: 0ml. ph Outcome: 11:39 Discharge ordered by . ps1 11:59 Patient's length of stay was not longer than 2 hours. ph 12:46 Patient left the ED. ph 12:46 Discharged to fdc. ph 12:46 Condition: stable Signatures: Dispatcher [employer] Emma Stahl Chanell Dobbins RN RN iw Hall, Patricia, GILDARDO RN Lizy Chauhan [facility] Gloria Palmer 3 Krishna Mccollum MD MD ps1 Corrections: (The following items were deleted from the chart) 11:22 09:58 BP 102 / 61; Pulse 81bpm; Resp 18bpm; Spontaneous; Pulse Ox 98% RA; Temp 97.5F ph Temporal; Pain 7/10; iw 11: 09:58 Carlos Score=15, Trauma Score=12, ph ph 11:23 09:58 GCS: 15, ph ph
--- NOTE | 2017-07-01 11:39 | EDPHYS ---
Physician Documentation [facility] Name: Byron Martin Jr Age: 86 yrs Sex: Male : 1930 Arrival Date: 07/01/2017 Time: 09:54 Bed 18 Private MD: ED Physician Krishna Mccollum HPI: 07/01 09:55 This 86 yrs old Male presents to ER via Unassigned with complaints of Fall ps1 Injury. 09:55 Details of fall: The patient fell from an upright position, while standing, and struck ps1 end table. Onset: The symptoms/episode began/occurred just prior to arrival. Associated injuries: The patient sustained right arm. Severity of symptoms: At their worst the symptoms were moderate. The patient has experienced similar episodes in the past. patient getting out of bed and fell and was pinned in between the bed and nightstand.. Historical: - Allergies: 10:00 Iodine; iw 10:09 Iodinated Contrast- Oral and IV Dye; iw - Home Meds: 10:09 melatonin 3 mg Oral tab nightly [Active]; Enulose 10 gram/15 mL oral soln [Active]; iw Coreg 3.125 mg Oral tab daily [Active]; Lasix 20 mg Oral tab 1 tab once daily [Active]; acetazolamide 125 mg Oral tab once daily [Active]; lorazepam 0.5 mg Oral tab 1 tab 2 times per day [Active]; Levsinex Oral [Active]; promethazine 25 mg Oral tab 1 tab every 4 hours [Active]; Morphine Oral [Active]; - PMHx: 10:00 BPH; Cardiac Arrhythmia; Depression; Glaucoma; HEART FAILURE; Hypertension; iw hypocalcemia; insomnia; malignant melanoma of skin; TIA; Tinea cruris; urogenital implants; UTI; - Immunization history:: Adult Immunizations up to date. - Social history:: Smoking status: Patient/guardian denies using tobacco. - Immunization history: Last tetanus immunization: unknown. ROS: 09:55 Constitutional: Negative for fever, chills, and weight loss, Eyes: Negative for injury, ps1 pain, redness, and discharge, ENT: Negative for injury, pain, and discharge, Cardiovascular: Negative for chest pain, palpitations, and edema, Respiratory: Negative for shortness of breath, cough, wheezing, and pleuritic chest pain, Abdomen/GI: Negative for abdominal pain, nausea, vomiting, diarrhea, and constipation. 09:55 MS/extremity: Positive for injury or acute deformity, right arm. possibly dislocated./fracture. In sling per EMS. . Exam: 09:55 Constitutional: This is a well developed, well nourished patient who is awake, alert, ps1 and in no acute distress. 09:55 Eyes: Pupils equal round and reactive to light, extra-ocular motions intact. Lids and lashes normal. Conjunctiva and sclera are non-icteric and not injected. ENT: Nares patent. No nasal discharge, no septal abnormalities noted. Tympanic membranes are normal and external auditory canals are clear. Oropharynx with no redness, swelling, or masses, exudates, or evidence of obstruction, uvula midline. Mucous membranes moist. Chest/axilla: Normal chest wall appearance and motion. Nontender with no deformity. No lesions are appreciated. Cardiovascular: Regular rate and rhythm. No gallops, murmurs, or rubs. Normal PMI, no JVD. No pulse deficits. Respiratory: Lungs have equal breath sounds bilaterally, clear to auscultation and percussion. No rales, rhonchi or wheezes noted. No increased work of breathing, no retractions or nasal flaring. Abdomen/GI: Soft, non-tender, with normal bowel sounds. No distension or tympany. No guarding or rebound. No evidence of tenderness throughout. 09:55 Head/face: previous surgery/ likely from melanoma. . 09:55 Musculoskeletal/extremity: Extremities: grossly normal except: noted in the right arm and right shoulder: decreased ROM, deformity, pain. Vital Signs: 09:58 BP 102 / 61; Pulse 81; Resp 18 S; Temp 97.5(TE); Pulse Ox 98% on 4 lpm NC; Pain 7/10; ph 11:21 BP 132 / 74; Pulse 94; Resp 16; Pulse Ox 97% on 4 lpm NC; ph 12:30 BP 124 / 74; Pulse 91; Resp 18; Temp 98.2; Pulse Ox 99% on 4 lpm NC; ph 09:58 pt on 4L NC continuous ph [place] Coma Score: 09:58 Eye Response: spontaneous(4). Verbal Response: oriented(5). Motor Response: obeys iw commands(6). Total: 15. 11:23 Eye Response: spontaneous(4). Verbal Response: oriented(5). Motor Response: obeys ph commands(6). Total: 15. Trauma Score (Adult): 09:58 Eye Response: spontaneous(1); Verbal Response: oriented(1); Motor Response: obeys iw commands(2); Systolic BP: > 89 mm Hg(4); Respiratory Rate: 10 to 29 per min(4); [place] Score: 15; Trauma Score: 12 11:23 Eye Response: spontaneous(1); Verbal Response: oriented(1); Motor Response: obeys ph commands(2); Systolic BP: > 89 mm Hg(4); Respiratory Rate: 10 to 29 per min(4); [place] Score: 15; Trauma Score: 12 MDM: 10:06 Patient medically screened. ps1 11:39 Data reviewed: vital signs, nurses notes. ED course: patient is hospice patient will go [facility] back to [facility]. Patient to have continuity of care with hospice [facility] physician. . 07/01 10:02 Order name: Basic Metabolic Panel; Complete Time: 11:53 [facility] 07/01 10:02 Order name: CBC with Diff; Complete Time: 11:53 [facility] 07/01 10:02 Order name: CT Traumagram (Head C Spine CAP wo con); Complete Time: 11:05 [facility] 07/01 10:02 Order name: Creatinine for Radiology; Complete Time: 11:41 [facility] 07/01 10:02 Order name: Type And Screen [facility] 07/01 10:02 Order name: Humerus Right XRAY; Complete Time: 11:20 [facility] 07/01 10:02 Order name: Labs collected and sent; Complete Time: 11:17 ps1 Administered Medications: 11:20 Drug: fentaNYL (PF) 25 mcg Route: IVP; Site: left antecubital; ph 12:00 Follow up: Response: No adverse reaction; Pain is decreased ph Disposition: 07/01/17 11:39 Discharged to Home. Impression: Displaced comminuted fracture of shaft of humerus, right arm. - Condition is Stable. - Discharge Instructions: Humerus Fracture, Treated with Immobilization. - Medication Reconciliation Form, Thank You Letter, Antibiotic Education, Prescription Opioid Use form. - Follow up: Private Physician; When: As needed; Reason: Recheck today's complaints, Continuance of care, Re-evaluation by your physician. - Problem is new. - Symptoms are unchanged. Signatures: Dispatcher [employer] Chanell Mulligan RN RN iw Hall, Patricia, RN RN ph Singer, Phillip, MD MD ps1
[2017-07-01 11:49] LABS: Potassium 3.8 mEq/L (3.6-5.0)
== END 2017-07-01 12:46 | disposition home or self-care (01) ==
LOC: ER 09:53
DX: S42.351A Displaced comminuted fracture of shaft of humerus, right arm, initial encounter for closed fracture (principal); W06.XXXA Fall from bed, initial encounter; Y93.89 Activity, other specified; Y92.003 Bedroom of unspecified non-institutional (private) residence as the place of occurrence of the external cause; Z86.73 Personal history of transient ischemic attack (TIA), and cerebral infarction without residual deficits; Z91.041 Radiographic dye allergy status; Z91.048 Other nonmedicinal substance allergy status; I10 Essential (primary) hypertension; I50.9 Heart failure, unspecified; F32.9 Major depressive disorder, single episode, unspecified
CPT/HCPCS: 36415; 70450; 71250; 72125; 73060; 80048; 85025; 86850; 86900; 86901; 96374; 99285; J3010